=== PATIENT | female | born 1990 | race Caucasian/White ===

== ENCOUNTER 2016-11-16 23:15 | Emergency (ER) | payer OTHER, MEDICAID ==
--- NOTE | 2016-11-16 23:38 | EDM.PDOC ---
ED HPI GENERAL MEDICAL PROBLEM - General Chief Complaint: Genitourinary Problem Stated Complaint: UTI Time Seen by Provider: 11/16/16 23:35 - History of Present Illness INITIAL COMMENTS - FREE TEXT/NARRATIVE: HISTORY AND PHYSICAL: History of present illness: Patient's 26-year-old white female she thinks dysuria she was seen recently for the same and put on an antibiotic she states she still had some persistent symptoms she denies fever chills nausea vomiting back pain or other concern patient has had a history of anxiety and seen by us many times prior in the emergency department Review of systems: As per history of present illness and below otherwise all systems reviewed and negative. Past medical history: As per history of present illness and as reviewed below otherwise noncontributory. Surgical history: As per history of present illness and as reviewed below otherwise noncontributory. Social history: No reported history of drug or alcohol abuse. Family history: As per history of present illness and as reviewed below otherwise noncontributory. Physical exam: HEENT: Atraumatic, normocephalic, pupils reactive, negative for conjunctival pallor or scleral icterus, mucous membranes moist, throat clear, neck supple, nontender, trachea midline. Lungs: Clear to auscultation, breath sounds equal bilaterally, chest nontender. Heart: S1S2, regular, negative for clicks, rubs, or JVD. Abdomen: Soft, nondistended, nontender. Negative for masses or hepatosplenomegaly. Negative for costovertebral tenderness. Pelvis: Stable nontender. Genitourinary: Deferred. Rectal: Deferred. Extremities: Atraumatic, negative for cords or calf pain. Neurovascular unremarkable. Neuro: Awake, alert, oriented. Cranial nerves II through XII unremarkable. Cerebellum unremarkable. Motor and sensory unremarkable throughout. Exam nonfocal. Diagnostics: UA hCG urine C&S Therapeutics: None Impression: #1 dysuria Definitive disposition and diagnosis as appropriate pending reevaluation and review of above. - Related Data Allergies Allergy/AdvReac Type Severity Reaction Status Date / Time No Known Allergies Allergy Verified 08/03/16 22:41 Home Meds: Home Meds Albuterol Sulfate [Albuterol Sulfate HFA] 1 dose INH Q4HR 04/01/14 [History] LORazepam [Ativan] 0.5 mg PO DAILY 04/01/14 [History] metFORMIN [metFORMIN XR] 500 mg PO BIDM 05/27/14 [History] Phenazopyridine [Pyridium] 200 mg PO TID 05/02/15 [History] Albuterol [Ventolin HFA] 2 puff INH BID PRN 10/21/15 [History] Budesonide/Formoterol [Symbicort 160-4.5 Mcg Inhaler] 1 puff INH BID PRN [History] Clobetasol Propionate [Temovate] 30 gm TOP DAILY 10/21/15 [History] Fluconazole [Diflucan] 100 mg PO ASDIRECTED 10/21/15 [History] LORazepam 1 mg PO BEDTIME 10/21/15 [History] Multivitamin [Multivitamins] 1 cap PO DAILY 10/21/15 [History] Tolterodine Tartrate [Detrol LA] 4 mg PO BEDTIME 10/21/15 [History] Ketoconazole [Nizoral 2% Crm] 15 gm TOP BID 07/25/16 [History] Sertraline [Zoloft] 50 mg PO DAILY 07/25/16 [History] Venlafaxine [Effexor XR] 150 mg PO DAILY 07/25/16 [History] Past Medical History - Past Health History Medical/Surgical History: Denies Medical/Surgical History HEENT History: 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 Cardiovascular History: Reports: Other (See Below) Other Cardiovascular History: non specific chest pains Respiratory History: Reports: Asthma Gastrointestinal History: Reports: Other (See Below) Other Gastrointestinal History: non specific abd pains Genitourinary History: Reports: UTI, Recurrent, Other (See Below) Other Genitourinary History: chronic uti's, vaginal candidiasis 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 Musculoskeletal History: Reports: Back Pain, Chronic Other Musculoskeletal History: from UTI Neurological History: 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 Psychiatric History: Reports: Anxiety, Depression Endocrine/Metabolic History: Reports: Diabetes, Type II, Obesity/BMI 30+ Hematologic History: 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 Immunologic History: 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 Oncologic (Cancer) History: 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 Dermatologic History: Reports: Psoriasis Other Dermatologic History: on her scalp - Infectious Disease History Infectious Disease History: 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 - Past Surgical History HEENT Surgical History: Reports: Adenoidectomy, Oral Surgery, Tonsillectomy Social & Family History - Family History Family Medical History: Noncontributory Psychiatric: Reports: Anxiety, Depression Endocrine/Metabolic: Reports: Obesity/MBI 30+ Immunologic: Reports: HIV - Tobacco Use Smoking Status *Q: Never Smoker Years of Tobacco use: 1 Packs/Tins Daily: 0 Second Hand Smoke Exposure: No - Caffeine Use Caffeine Use: Reports: Soda Caffeine Use Comment: 1 drink/month - Alcohol Use Days Per Week of Alcohol Use: 0 - Recreational Drug Use Recreational Drug Use: No ED ROS GENERAL - Review of Systems Review Of Systems: ROS reveals no pertinent complaints other than HPI. ED EXAM, GENERAL - Physical Exam Exam: See Below (See dictation) Course - Orders/Labs/Meds Orders: Active Orders 24 hr Category Date Time Status CULTURE URINE [RM] Stat Lab 11/16/16 23:36 Uncollected HCG QUALITATIVE,URINE [URCHEM] Stat Lab 11/16/16 23:36 Uncollected UA W/MICROSCOPIC [URIN] Stat Lab 11/16/16 23:36 Uncollected Departure - Departure Time of Disposition: 23:38 Disposition: Home, Self-Care 01 Condition: good Clinical Impression: Dysuria - Discharge Information Forms: ED Department Discharge Additional Instructions: The following information is given to patients seen in the emergency department who are being discharged to home. This information is to outline your options for follow-up care. We provide all patients seen in our emergency department with a follow-up referral. The need for follow-up, as well as the timing and circumstances, are variable depending upon the specifics of your emergency department visit. If you don't have a primary care physician on staff, we will provide you with a referral. We always advise you to contact your personal physician following an emergency department visit to inform them of the circumstance of the visit and for follow-up with them and/or the need for any referrals to a consulting specialist. The emergency department will also refer you to a specialist when appropriate. This referral assures that you have the opportunity for followup care with a specialist. All of these measure are taken in an effort to provide you with optimal care, which includes your followup. Under all circumstances we always encourage you to contact your private physician who remains a resource for coordinating your care. When calling for followup care, please make the office aware that this follow-up is from your recent emergency room visit. If for any reason you are refused follow-up, please contact the [facility] emergency department at and asked to speak to the emergency department charge nurse. Continue current medications as prescribed follow up primary medical doctor one to 2 days return as needed as discussed - My Orders Last 24 Hours: My Active Orders 11/16/16 23:36 CULTURE URINE [RM] Stat HCG QUALITATIVE,URINE [URCHEM] Stat UA W/MICROSCOPIC [URIN] Stat - Assessment/Plan Last 24 Hours: My Active Orders 11/16/16 23:36 CULTURE URINE [RM] Stat HCG QUALITATIVE,URINE [URCHEM] Stat UA W/MICROSCOPIC [URIN] Stat
[2016-11-17 00:57] VITALS: BP 152/73
== END 2016-11-17 00:38 | disposition home or self-care (01) ==
LOC: MW.ED 23:15
DX: R30.0 Dysuria (principal); F41.9 Anxiety disorder, unspecified; F32.9 Major depressive disorder, single episode, unspecified; J45.909 Unspecified asthma, uncomplicated; E11.9 Type 2 diabetes mellitus without complications; L40.9 Psoriasis, unspecified; E66.9 Obesity, unspecified; Z68.30 Body mass index [BMI] 30.0-30.9, adult; Z79.84 Long term (current) use of oral hypoglycemic drugs; Z79.899 Other long term (current) drug therapy; Z90.49 Acquired absence of other specified parts of digestive tract; Z98.890 Other specified postprocedural states; Z87.440 Personal history of urinary (tract) infections
CPT/HCPCS: 81001; 81025; 87086; 99282; 99283

== ENCOUNTER 2016-11-17 20:04 | Emergency (ER) | payer OTHER, MEDICAID ==
--- NOTE | 2016-11-17 21:00 | EDM.PDOC ---
ED HPI GENERAL MEDICAL PROBLEM - General Chief Complaint: Skin Complaint Stated Complaint: UTI Time Seen by Provider: 11/17/16 20:55 Source of Information: Reports: Patient History Limitations: Reports: No Limitations - History of Present Illness INITIAL COMMENTS - FREE TEXT/NARRATIVE: History of present illness: [26-year-old female presents with primary complaints. Patient has a wound on her labia from shaving and an implant folliculitis that she is presently on antibiotics for. Thinks that she might have a UTI which she has been tested 2 consecutive days were with both outcomes being negative. And now she's saying that she is having some sort of vaginal discharge that is burning and itchy.] Review of systems: As per history of present illness and below otherwise all systems reviewed and negative. Past medical history: As per history of present illness and as reviewed below otherwise noncontributory. Surgical history: As per history of present illness and as reviewed below otherwise noncontributory. Social history: No reported history of drug or alcohol abuse. Family history: As per history of present illness and as reviewed below otherwise noncontributory. Physical exam: HEENT: Atraumatic, normocephalic, pupils reactive, negative for conjunctival pallor or scleral icterus, mucous membranes moist, throat clear, neck supple, nontender, trachea midline. Lungs: Clear to auscultation, breath sounds equal bilaterally, chest nontender. Heart: S1S2, regular, negative for clicks, rubs, or JVD. Abdomen: Soft, nondistended, nontender. Negative for masses or hepatosplenomegaly. Negative for costovertebral tenderness. Pelvis: Stable nontender. Genitourinary: Deferred. Rectal: Deferred. Extremities: Atraumatic, negative for cords or calf pain. Neurovascular unremarkable. Neuro: Awake, alert, oriented. Cranial nerves II through XII unremarkable. Cerebellum unremarkable. Motor and sensory unremarkable throughout. Exam nonfocal. Discussed with patient that it would not be unexpected to potentially have a yeast infection while on broad-spectrum antibiotic and that I would give her 2 doses of fluconazole for vaginal yeast infection. But that she needed to followup with the women's health practitioner for comprehensive pelvic exam and/ or monitoring and followup of her women's health issues. Patient also indicated she had stepped on a nail and was concerned about infection and/or tetanus. Discussed with patient the nature of the broad- spectrum antibiotic she was on would be significant and sufficient coverage for any sort of infection of the skin and skin structures. Also looked at her chart and noted that she had her tetanus updated March 2014 so she would not need one at this time. This information was shared with the patient patient's mother indicated that she recalled now the tetanus shot being more current then the daughter recalled Diagnostics: [] Therapeutics: [] Impression: [Medical screening exam] Plan: [Fluconazole 2 individual doses one for tomorrow and one for the end of antibiotic therapy.] Definitive disposition and diagnosis as appropriate pending reevaluation and review of above. Left Feet Pain Score (Numeric/FACES): 4 - Related Data Allergies Allergy/AdvReac Type Severity Reaction Status Date / Time No Known Allergies Allergy Verified 11/16/16 23:38 Home Meds: Home Meds Albuterol Sulfate [Albuterol Sulfate HFA] 1 dose INH Q4HR 04/01/14 [History] LORazepam [Ativan] 0.5 mg PO DAILY 04/01/14 [History] metFORMIN [metFORMIN XR] 500 mg PO BIDM 05/27/14 [History] Phenazopyridine [Pyridium] 200 mg PO TID 05/02/15 [History] Albuterol [Ventolin HFA] 2 puff INH BID PRN 10/21/15 [History] Budesonide/Formoterol [Symbicort 160-4.5 Mcg Inhaler] 1 puff INH BID PRN [History] Clobetasol Propionate [Temovate] 30 gm TOP DAILY 10/21/15 [History] Fluconazole [Diflucan] 100 mg PO ASDIRECTED 10/21/15 [History] LORazepam 1 mg PO BEDTIME 10/21/15 [History] Multivitamin [Multivitamins] 1 cap PO DAILY 10/21/15 [History] Tolterodine Tartrate [Detrol LA] 4 mg PO BEDTIME 10/21/15 [History] Ketoconazole [Nizoral 2% Crm] 15 gm TOP BID 07/25/16 [History] Sertraline [Zoloft] 50 mg PO DAILY 07/25/16 [History] Venlafaxine [Effexor XR] 150 mg PO DAILY 07/25/16 [History] Fluconazole [IJD: Fluconazole] 150 mg PO DAILY #2 tab 11/17/16 [Rx] Past Medical History - Past Health History Medical/Surgical History: Denies Medical/Surgical History HEENT History: 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 Cardiovascular History: Reports: Other (See Below) Other Cardiovascular History: non specific chest pains Respiratory History: Reports: Asthma Gastrointestinal History: Reports: Other (See Below) Other Gastrointestinal History: non specific abd pains Genitourinary History: Reports: UTI, Recurrent, Other (See Below) Other Genitourinary History: chronic uti's, vaginal candidiasis [employer]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 Musculoskeletal History: Reports: Back Pain, Chronic Other Musculoskeletal History: from UTI Neurological History: 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 Psychiatric History: Reports: Anxiety, Depression Endocrine/Metabolic History: Reports: Diabetes, Type II, Obesity/BMI 30+ Hematologic History: 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 Immunologic History: 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 Oncologic (Cancer) History: 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 Dermatologic History: Reports: Psoriasis Other Dermatologic History: on her scalp - Infectious Disease History Infectious Disease History: 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 - Past Surgical History Head Surgeries/Procedures: 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 HEENT Surgical History: Reports: Adenoidectomy, Oral Surgery, Tonsillectomy Social & Family History - Family History Family Medical History: Noncontributory Psychiatric: Reports: Anxiety, Depression Endocrine/Metabolic: Reports: Obesity/MBI 30+ Immunologic: Reports: HIV - Tobacco Use Smoking Status *Q: Never Smoker Years of Tobacco use: 1 Packs/Tins Daily: 0 Second Hand Smoke Exposure: No - Caffeine Use Caffeine Use: Reports: Soda Caffeine Use Comment: 1 drink/month - Alcohol Use Days Per Week of Alcohol Use: 0 - Recreational Drug Use Recreational Drug Use: No ED ROS GENERAL - Review of Systems Review Of Systems: See Below (See history of present illness) ED EXAM, SKIN/RASH Exam: See Below (History of present illness) Course - Vital Signs Last Recorded V/S: Last Vital Signs Temp 36.3 C 11/17/16 20:26 Pulse 107 H 11/17/16 20:26 Resp 18 11/17/16 20:26 BP 129/93 H 11/17/16 20:26 Pulse Ox 99 11/17/16 20:26 Departure - Departure Time of Disposition: 20:58 Disposition: Home, Self-Care 01 Condition: good Clinical Impression: Encounter for medical screening examination - Discharge Information Prescriptions: Fluconazole [IJD: Fluconazole] 150 mg PO DAILY #2 tab Forms: ED Department Discharge Additional Instructions: The following information is given to patients seen in the emergency department who are being discharged to home. This information is to outline your options for follow-up care. We provide all patients seen in our emergency department with a follow-up referral. The need for follow-up, as well as the timing and circumstances, are variable depending upon the specifics of your emergency department visit. If you don't have a primary care physician on staff, we will provide you with a referral. We always advise you to contact your personal physician following an emergency department visit to inform them of the circumstance of the visit and for follow-up with them and/or the need for any referrals to a consulting specialist. The emergency department will also refer you to a specialist when appropriate. This referral assures that you have the opportunity for follow-up care with a specialist. All of these measure are taken in an effort to provide you with optimal care, which includes your follow-up. Under all circumstances we always encourage you to contact your private physician who remains a resource for coordinating your care. When calling for follow-up care, please make the office aware that this follow-up is from your recent emergency room visit. If for any reason you are refused follow-up, please contact the [facility] Emergency Department at and asked to speak to the emergency department charge nurse. Please followup with your women's health practitioner as discussed and agreed. Is important that at your age that you have a thorough female health screening exam at that time they can evaluate any folliculitis or cellulitis caused by aggressive shaving You have been provided with fluconazole for treatment for any yeast infection sustained while taking your Levaquin Please followup as discussed call Saturday secondary to Saturday being a holiday Return to ED as needed as discussed
[2016-11-17 21:11] VITALS: BP 133/65
== END 2016-11-17 21:17 | disposition home or self-care (01) ==
LOC: MW.ED 20:04
DX: Z13.9 Encounter for screening, unspecified (principal); J45.909 Unspecified asthma, uncomplicated; F41.9 Anxiety disorder, unspecified; F32.9 Major depressive disorder, single episode, unspecified; E11.9 Type 2 diabetes mellitus without complications; E66.9 Obesity, unspecified; Z68.43 Body mass index [BMI] 50.0-59.9, adult; Z98.890 Other specified postprocedural states
CPT/HCPCS: 99282

== ENCOUNTER 2017-01-11 01:43 | Emergency (ER) | payer OTHER, MEDICAID ==
--- NOTE | 2017-01-11 02:52 | EDM.PDOC ---
ED HPI GENERAL MEDICAL PROBLEM - General Chief Complaint: Genitourinary Problem Stated Complaint: BURNING, POSSIBLE UTI Time Seen by Provider: 01/11/17 02:51 Source of Information: Reports: Patient - History of Present Illness INITIAL COMMENTS - FREE TEXT/NARRATIVE: recent dysuria and vaginal itching. perineal area Pain Score (Numeric/FACES): 9 - Related Data Allergies Allergy/AdvReac Type Severity Reaction Status Date / Time No Known Allergies Allergy Verified 01/11/17 02:11 Home Meds: Home Meds Albuterol Sulfate [Albuterol Sulfate HFA] 1 dose INH Q4HR 04/01/14 [History] LORazepam [Ativan] 0.5 mg PO DAILY 04/01/14 [History] metFORMIN [metFORMIN XR] 500 mg PO BIDM 05/27/14 [History] Phenazopyridine [Pyridium] 200 mg PO TID 05/02/15 [History] Albuterol [Ventolin HFA] 2 puff INH BID PRN 10/21/15 [History] Budesonide/Formoterol [Symbicort 160-4.5 Mcg Inhaler] 1 puff INH BID PRN [History] Clobetasol Propionate [Temovate] 30 gm TOP DAILY 10/21/15 [History] Fluconazole [Diflucan] 100 mg PO ASDIRECTED 10/21/15 [History] LORazepam 1 mg PO BEDTIME 10/21/15 [History] Multivitamin [Multivitamins] 1 cap PO DAILY 10/21/15 [History] Tolterodine Tartrate [Detrol LA] 4 mg PO BEDTIME 10/21/15 [History] Ketoconazole [Nizoral 2% Crm] 15 gm TOP BID 07/25/16 [History] Sertraline [Zoloft] 50 mg PO DAILY 07/25/16 [History] Venlafaxine [Effexor XR] 150 mg PO DAILY 07/25/16 [History] Fluconazole [IJD: Fluconazole] 150 mg PO DAILY #2 tab 11/17/16 [Rx] Past Medical History - Past Health History Medical/Surgical History: Denies Medical/Surgical History HEENT History: 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 Cardiovascular History: Reports: Other (See Below) Other Cardiovascular History: non specific chest pains Respiratory History: Reports: Asthma Gastrointestinal History: Reports: Other (See Below) Other Gastrointestinal History: non specific abd pains Genitourinary History: Reports: UTI, Recurrent, Other (See Below) Other Genitourinary History: chronic uti's, vaginal candidiasis [employer]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 Musculoskeletal History: Reports: Back Pain, Chronic Other Musculoskeletal History: from UTI Neurological History: 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 Psychiatric History: Reports: Anxiety, Depression Endocrine/Metabolic History: Reports: Diabetes, Type II, Obesity/BMI 30+ Hematologic History: 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 Immunologic History: 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 Oncologic (Cancer) History: 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 Dermatologic History: Reports: Psoriasis Other Dermatologic History: on her scalp - Infectious Disease History Infectious Disease History: 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 - Past Surgical History Head Surgeries/Procedures: 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 HEENT Surgical History: Reports: Adenoidectomy, Oral Surgery, Tonsillectomy Social & Family History - Family History Family Medical History: Noncontributory Psychiatric: Reports: Anxiety, Depression Endocrine/Metabolic: Reports: Obesity/MBI 30+ Immunologic: Reports: HIV - Tobacco Use Smoking Status *Q: Never Smoker Years of Tobacco use: 1 Packs/Tins Daily: 0 Second Hand Smoke Exposure: No - Caffeine Use Caffeine Use: Reports: Soda Caffeine Use Comment: 1 drink/month - Alcohol Use Days Per Week of Alcohol Use: 0 - Recreational Drug Use Recreational Drug Use: No ED ROS GENERAL - Review of Systems Review Of Systems: See Below Constitutional: Denies: Fever Respiratory: Denies: Shortness of Breath GI/Abdominal: Denies: Vomiting ED EXAM, RENAL/ - Physical Exam Exam: See Below Text/Narrative:: alert NAD conversant Course - Vital Signs Last Recorded V/S: Last Vital Signs Temp 97 F 01/11/17 02:05 Pulse 83 01/11/17 02:05 Resp 18 01/11/17 02:05 BP 125/79 01/11/17 02:05 Pulse Ox 95 01/11/17 02:05 - Orders/Labs/Meds Labs: Laboratory Tests 01/11/17 01/11/17 Range/Units 02:55 02:55 Urine Color YELLOW Urine Appearance CLEAR Urine pH 5.5 (5.0-8.0) Ur Specific [place] >= 1.030 (1.001-1.035) Urine Protein TRACE (NEGATIVE) mg/dL Urine Glucose (UA) NEGATIVE (NEGATIVE) mg/dL Urine Ketones TRACE H (NEGATIVE) mg/dL Urine Occult Blood MODERATE (NEGATIVE) Urine Nitrite NEGATIVE (NEGATIVE) Urine Bilirubin NEGATIVE (NEGATIVE) Urine Urobilinogen 0.2 (<2.0) EU/dL Ur Leukocyte Esterase NEGATIVE (NEGATIVE) Urine RBC 0-2 (0-2/HPF) Urine WBC 1-3 (0-5/HPF) Ur Epithelial Cells RARE (NONE-FEW) Urine Bacteria FEW (NEGATIVE) Urine Mucus LIGHT (NONE-MOD) Urine HCG, Qual NEGATIVE (NEGATIVE) Departure - Departure Time of Disposition: 03:19 Disposition: Home, Self-Care 01 Condition: Good Clinical Impression: Yeast infection of the vagina - Discharge Information Forms: ED Department Discharge, Refusal of Care AMA Additional Instructions: dilfucan 150 mg daily #3 recheck as needed.
[2017-01-11 04:20] VITALS: BP 126/78
== END 2017-01-11 03:34 | disposition home or self-care (01) ==
LOC: MW.ED 01:43
DX: B37.3 Candidiasis of vulva and vagina (principal); J45.909 Unspecified asthma, uncomplicated; F41.9 Anxiety disorder, unspecified; F32.9 Major depressive disorder, single episode, unspecified; E11.9 Type 2 diabetes mellitus without complications; E66.9 Obesity, unspecified; Z79.84 Long term (current) use of oral hypoglycemic drugs; Z87.440 Personal history of urinary (tract) infections; Z79.899 Other long term (current) drug therapy; Z98.890 Other specified postprocedural states
CPT/HCPCS: 81001; 81025; 99283

== ENCOUNTER 2017-01-26 12:26 | Emergency (ER) | payer OTHER, MEDICAID ==
[2017-01-26 12:48] VITALS: BP 136/76
--- NOTE | 2017-01-26 13:17 | EDM.PDOC ---
ED HPI GENERAL MEDICAL PROBLEM - General Chief Complaint: Genitourinary Problem Stated Complaint: URINARY PAIN Time Seen by Provider: 01/26/17 13:00 Source of Information: Reports: Patient History Limitations: Reports: No Limitations - History of Present Illness INITIAL COMMENTS - FREE TEXT/NARRATIVE: History of present illness: 26-year-old female comes in with mother complaining of yet another UTI and concerns of a yeast infection. Patient is self-medicating with yeast medicine and herbs and indicates that she did have a appointment Saturday to have this evaluated but she overslept. Review of systems: As per history of present illness and below otherwise all systems reviewed and negative. Past medical history: As per history of present illness and as reviewed below otherwise noncontributory. Surgical history: As per history of present illness and as reviewed below otherwise noncontributory. Social history: No reported history of drug or alcohol abuse. Family history: As per history of present illness and as reviewed below otherwise noncontributory. Physical exam: HEENT: Atraumatic, normocephalic, pupils reactive, negative for conjunctival pallor or scleral icterus, mucous membranes moist, throat clear, neck supple, nontender, trachea midline. Lungs: Clear to auscultation, breath sounds equal bilaterally, chest nontender. Heart: S1S2, regular, negative for clicks, rubs, or JVD. Abdomen: Soft, nondistended, nontender. Negative for masses or hepatosplenomegaly. Negative for costovertebral tenderness. Pelvis: Stable nontender. Genitourinary: Deferred. Rectal: Deferred. Extremities: Atraumatic, negative for cords or calf pain. Neurovascular unremarkable. Neuro: Awake, alert, oriented. Cranial nerves II through XII unremarkable. Cerebellum unremarkable. Motor and sensory unremarkable throughout. Exam nonfocal. Global assessment is benign save the subjective complaint as noted in the history of present illness Diagnostics: [] Therapeutics: [UA] Impression: [Bladder irritation] Plan: [follow-up with primary care Saturday as already scheduled him a follow-up with Dr. Mcgowan is also scheduled] Definitive disposition and diagnosis as appropriate pending reevaluation and review of above. Urinary Pain Score (Numeric/FACES): 10 - Related Data Allergies Allergy/AdvReac Type Severity Reaction Status Date / Time No Known Allergies Allergy Verified 01/26/17 12:42 Home Meds: Home Meds Albuterol Sulfate [Albuterol Sulfate HFA] 1 dose INH Q4HR 04/01/14 [History] LORazepam [Ativan] 0.5 mg PO DAILY 04/01/14 [History] metFORMIN [metFORMIN XR] 500 mg PO BIDM 05/27/14 [History] Phenazopyridine [Pyridium] 200 mg PO TID 05/02/15 [History] Albuterol [Ventolin HFA] 2 puff INH BID PRN 10/21/15 [History] Budesonide/Formoterol [Symbicort 160-4.5 Mcg Inhaler] 1 puff INH BID PRN [History] Clobetasol Propionate [Temovate] 30 gm TOP DAILY 10/21/15 [History] Fluconazole [Diflucan] 100 mg PO ASDIRECTED 10/21/15 [History] LORazepam 1 mg PO BEDTIME 10/21/15 [History] Multivitamin [Multivitamins] 1 cap PO DAILY 10/21/15 [History] Tolterodine Tartrate [Detrol LA] 4 mg PO BEDTIME 10/21/15 [History] Ketoconazole [Nizoral 2% Crm] 15 gm TOP BID 07/25/16 [History] Sertraline [Zoloft] 50 mg PO DAILY 07/25/16 [History] Venlafaxine [Effexor XR] 150 mg PO DAILY 07/25/16 [History] Fluconazole [IJD: Fluconazole] 150 mg PO DAILY #2 tab 11/17/16 [Rx] Past Medical History - Past Health History Medical/Surgical History: Denies Medical/Surgical History HEENT History: 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 Cardiovascular History: Reports: Other (See Below) Other Cardiovascular History: non specific chest pains Respiratory History: Reports: Asthma Gastrointestinal History: Reports: Other (See Below) Other Gastrointestinal History: non specific abd pains Genitourinary History: Reports: UTI, Recurrent, Other (See Below) Other Genitourinary History: chronic uti's, vaginal candidiasis 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 Musculoskeletal History: Reports: Back Pain, Chronic Other Musculoskeletal History: from UTI Neurological History: 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 Psychiatric History: Reports: Anxiety, Depression Endocrine/Metabolic History: Reports: Diabetes, Type II, Obesity/BMI 30+ Hematologic History: 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 Immunologic History: 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 Oncologic (Cancer) History: 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 Dermatologic History: Reports: Psoriasis Other Dermatologic History: on her scalp - Infectious Disease History Infectious Disease History: 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 - Past Surgical History Head Surgeries/Procedures: 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 HEENT Surgical History: Reports: Adenoidectomy, Oral Surgery, Tonsillectomy Respiratory Surgical History: 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 Social & Family History - Family History Family Medical History: Noncontributory Psychiatric: Reports: Anxiety, Depression Endocrine/Metabolic: Reports: Obesity/MBI 30+ Immunologic: Reports: HIV - Tobacco Use Smoking Status *Q: Never Smoker Years of Tobacco use: 1 Packs/Tins Daily: 0 Second Hand Smoke Exposure: No - Caffeine Use Caffeine Use: 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 Caffeine Use Comment: 1 drink/month - Alcohol Use Days Per Week of Alcohol Use: 0 - Recreational Drug Use Recreational Drug Use: No ED ROS GENERAL - Review of Systems Review Of Systems: See Below (See history of present illness) ED EXAM, RENAL/ - Physical Exam Exam: See Below (The history of present illness) Course - Vital Signs Last Recorded V/S: Last Vital Signs Temp 36.5 C 01/26/17 12:44 Pulse 97 01/26/17 12:44 Resp 16 01/26/17 12:44 BP 136/76 01/26/17 12:44 Pulse Ox 96 01/26/17 12:44 - Orders/Labs/Meds Labs: Laboratory Tests 01/26/17 01/26/17 Range/Units 12:50 12:50 Urine Color YELLOW Urine Appearance CLEAR Urine pH 6.0 (5.0-8.0) Ur Specific [place] 1.020 (1.001-1.035) Urine Protein NEGATIVE (NEGATIVE) mg/dL Urine Glucose (UA) >=1000 (NEGATIVE) mg/dL Urine Ketones NEGATIVE (NEGATIVE) mg/dL Urine Occult Blood NEGATIVE (NEGATIVE) Urine Nitrite NEGATIVE (NEGATIVE) Urine Bilirubin NEGATIVE (NEGATIVE) Urine Urobilinogen 0.2 (<2.0) EU/dL Ur Leukocyte Esterase NEGATIVE (NEGATIVE) Urine RBC 0-1 (0-2/HPF) Urine WBC 0-1 (0-5/HPF) Ur Epithelial Cells MODERATE (NONE-FEW) Amorphous Sediment MODERATE (NEGATIVE) Urine Bacteria FEW (NEGATIVE) Urine HCG, Qual NEGATIVE (NEGATIVE) Departure - Departure Time of Disposition: 13:33 Disposition: Home, Self-Care 01 Condition: Good Clinical Impression: Cystitis - Discharge Information Forms: ED Department Discharge Additional Instructions: The following information is given to patients seen in the emergency department who are being discharged to home. This information is to outline your options for follow-up care. We provide all patients seen in our emergency department with a follow-up referral. The need for follow-up, as well as the timing and circumstances, are variable depending upon the specifics of your emergency department visit. If you don't have a primary care physician on staff, we will provide you with a referral. We always advise you to contact your personal physician following an emergency department visit to inform them of the circumstance of the visit and for follow-up with them and/or the need for any referrals to a consulting specialist. The emergency department will also refer you to a specialist when appropriate. This referral assures that you have the opportunity for follow-up care with a specialist. All of these measure are taken in an effort to provide you with optimal care, which includes your follow-up. Under all circumstances we always encourage you to contact your private physician who remains a resource for coordinating your care. When calling for follow-up care, please make the office aware that this follow-up is from your recent emergency room visit. If for any reason you are refused follow-up, please contact the [facility] Emergency Department at and asked to speak to the emergency department charge nurse. Follow-up Saturday as scheduled Follow-up with Dr. Mcgowan is scheduled Return to ER only in cases of emergencies as discussed
== END 2017-01-26 13:50 | disposition home or self-care (01) ==
LOC: MW.ED 12:26
DX: N30.90 Cystitis, unspecified without hematuria (principal); N32.89 Other specified disorders of bladder; J45.909 Unspecified asthma, uncomplicated; F41.9 Anxiety disorder, unspecified; F32.9 Major depressive disorder, single episode, unspecified; E11.9 Type 2 diabetes mellitus without complications; E66.9 Obesity, unspecified; Z98.890 Other specified postprocedural states; Z79.84 Long term (current) use of oral hypoglycemic drugs; Z87.440 Personal history of urinary (tract) infections; Z79.899 Other long term (current) drug therapy; Z68.43 Body mass index [BMI] 50.0-59.9, adult
CPT/HCPCS: 81001; 81025; 99283

== ENCOUNTER 2017-02-17 00:21 | Emergency (ER) | payer OTHER, MEDICAID ==
--- NOTE | 2017-02-17 00:51 | EDM.PDOC ---
ED HPI GENERAL MEDICAL PROBLEM - General Chief Complaint: General Stated Complaint: SICK WITH COLD Time Seen by Provider: 02/17/17 00:30 - History of Present Illness INITIAL COMMENTS - FREE TEXT/NARRATIVE: HISTORY AND PHYSICAL: History of present illness: Patient's 26-year-old white female presents with concern of sinus pain and congestion and a mild nonproductive cough. No fever chills nausea vomiting or other complaints Review of systems: As per history of present illness and below otherwise all systems reviewed and negative. Past medical history: As per history of present illness and as reviewed below otherwise noncontributory. Surgical history: As per history of present illness and as reviewed below otherwise noncontributory. Social history: No reported history of drug or alcohol abuse. Family history: As per history of present illness and as reviewed below otherwise noncontributory. Physical exam: HEENT: Atraumatic, normocephalic, pupils reactive, negative for conjunctival pallor or scleral icterus, mucous membranes moist, throat clear, neck supple, nontender, trachea midline. Lungs: Clear to auscultation, breath sounds equal bilaterally, chest nontender. Heart: S1S2, regular, negative for clicks, rubs, or JVD. Abdomen: Soft, nondistended, nontender. Negative for masses or hepatosplenomegaly. Negative for costovertebral tenderness. Pelvis: Stable nontender. Genitourinary: Deferred. Rectal: Deferred. Extremities: Atraumatic, negative for cords or calf pain. Neurovascular unremarkable. Neuro: Awake, alert, oriented. Cranial nerves II through XII unremarkable. Cerebellum unremarkable. Motor and sensory unremarkable throughout. Exam nonfocal. Diagnostics: Chest x-ray Therapeutics: None Impression: #1 sinusitis #2 pneumonitis Definitive disposition and diagnosis as appropriate pending reevaluation and review of above. - Related Data Allergies Allergy/AdvReac Type Severity Reaction Status Date / Time No Known Allergies Allergy Verified 01/26/17 12:42 Home Meds: Home Meds Albuterol Sulfate [Albuterol Sulfate HFA] 1 dose INH Q4HR 04/01/14 [History] LORazepam [Ativan] 0.5 mg PO DAILY 04/01/14 [History] metFORMIN [metFORMIN XR] 500 mg PO BIDM 05/27/14 [History] Phenazopyridine [Pyridium] 200 mg PO TID 05/02/15 [History] Albuterol [Ventolin HFA] 2 puff INH BID PRN 10/21/15 [History] Budesonide/Formoterol [Symbicort 160-4.5 Mcg Inhaler] 1 puff INH BID PRN [History] Clobetasol Propionate [Temovate] 30 gm TOP DAILY 10/21/15 [History] Fluconazole [Diflucan] 100 mg PO ASDIRECTED 10/21/15 [History] LORazepam 1 mg PO BEDTIME 10/21/15 [History] Multivitamin [Multivitamins] 1 cap PO DAILY 10/21/15 [History] Tolterodine Tartrate [Detrol LA] 4 mg PO BEDTIME 10/21/15 [History] Ketoconazole [Nizoral 2% Crm] 15 gm TOP BID 07/25/16 [History] Sertraline [Zoloft] 50 mg PO DAILY 07/25/16 [History] Venlafaxine [Effexor XR] 150 mg PO DAILY 07/25/16 [History] Fluconazole [IJD: Fluconazole] 150 mg PO DAILY #2 tab 11/17/16 [Rx] Past Medical History - Past Health History Medical/Surgical History: Denies Medical/Surgical History HEENT History: 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 Cardiovascular History: Reports: Other (See Below) Other Cardiovascular History: non specific chest pains Respiratory History: Reports: Asthma Gastrointestinal History: Reports: Other (See Below) Other Gastrointestinal History: non specific abd pains Genitourinary History: Reports: UTI, Recurrent, Other (See Below) Other Genitourinary History: chronic uti's, vaginal candidiasis 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 Musculoskeletal History: Reports: Back Pain, Chronic Other Musculoskeletal History: from UTI Neurological History: 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 Psychiatric History: Reports: Anxiety, Depression Endocrine/Metabolic History: Reports: Diabetes, Type II, Obesity/BMI 30+ Hematologic History: 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 Immunologic History: 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 Oncologic (Cancer) History: 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 Dermatologic History: Reports: Psoriasis Other Dermatologic History: on her scalp - Infectious Disease History Infectious Disease History: 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 - Past Surgical History Head Surgeries/Procedures: 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 HEENT Surgical History: Reports: Adenoidectomy, Oral Surgery, Tonsillectomy Respiratory Surgical History: 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 Social & Family History - Family History Family Medical History: Noncontributory Psychiatric: Reports: Anxiety, Depression Endocrine/Metabolic: Reports: Obesity/MBI 30+ Immunologic: Reports: HIV - Tobacco Use Smoking Status *Q: Never Smoker Years of Tobacco use: 1 Packs/Tins Daily: 0 Second Hand Smoke Exposure: No - Caffeine Use Caffeine Use: 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 Caffeine Use Comment: 1 drink/month - Alcohol Use Days Per Week of Alcohol Use: 0 - Recreational Drug Use Recreational Drug Use: No ED ROS GENERAL - Review of Systems Review Of Systems: ROS reveals no pertinent complaints other than HPI. ED EXAM, GENERAL - Physical Exam Exam: See Below (See dictation) Course - Orders/Labs/Meds Orders: Active Orders 24 hr Category Date Time Status Chest 2V [CR] Stat Exams 02/17/17 00:31 Ordered Departure - Departure Time of Disposition: 00:50 Disposition: Home, Self-Care 01 Condition: Good Clinical Impression: Sinusitis, Pneumonitis - Discharge Information Referrals: Sloan Ordonez MD [Primary Care Provider] - Additional Instructions: The following information is given to patients seen in the emergency department who are being discharged to home. This information is to outline your options for follow-up care. We provide all patients seen in our emergency department with a follow-up referral. The need for follow-up, as well as the timing and circumstances, are variable depending upon the specifics of your emergency department visit. If you don't have a primary care physician on staff, we will provide you with a referral. We always advise you to contact your personal physician following an emergency department visit to inform them of the circumstance of the visit and for follow-up with them and/or the need for any referrals to a consulting specialist. The emergency department will also refer you to a specialist when appropriate. This referral assures that you have the opportunity for followup care with a specialist. All of these measure are taken in an effort to provide you with optimal care, which includes your followup. Under all circumstances we always encourage you to contact your private physician who remains a resource for coordinating your care. When calling for followup care, please make the office aware that this follow-up is from your recent emergency room visit. If for any reason you are refused follow-up, please contact the [facility] emergency department at and asked to speak to the emergency department charge nurse. Linda-Ron as prescribed Motrin Tylenol as directed follow up primary medical doctor 1-2 days return as needed as discussed - My Orders Last 24 Hours: My Active Orders 02/17/17 00:31 Chest 2V [CR] Stat - Assessment/Plan Last 24 Hours: My Active Orders 02/17/17 00:31 Chest 2V [CR] Stat
[2017-02-17 02:26] VITALS: BP 143/95
--- NOTE | 2017-02-18 13:07 | CR ---
EXAM DATE: 02/17/17 PATIENT'S AGE: 26 Patient: BRENDA MCGOVERN Facility: [place], [place] Site . Site : 1990 Study: XRay Chest [id number]/[id number] 12:52:28 AM Ordering Physician: Margartia Carson Final Report: INDICATION: Cough. SOB. Cold. TECHNIQUE: PA and lateral. COMPARISON: AP chest of 04/01/2016. FINDINGS: Lungs and pleural spaces clear. Heart size and pulmonary vasculature within normal limits. No significant osseous abnormality. IMPRESSION: Negative chest. Dictated by Uday Snider MD @ Feb 17 2017 1:45AM (Electronic Signature) Report Signed by Proxy. KALINA
== END 2017-02-17 02:06 | disposition home or self-care (01) ==
LOC: MW.ED 00:21
DX: J18.9 Pneumonia, unspecified organism (principal); J32.9 Chronic sinusitis, unspecified; J45.909 Unspecified asthma, uncomplicated; Z87.440 Personal history of urinary (tract) infections; E66.9 Obesity, unspecified; F32.9 Major depressive disorder, single episode, unspecified; F41.9 Anxiety disorder, unspecified; E11.9 Type 2 diabetes mellitus without complications; Z79.84 Long term (current) use of oral hypoglycemic drugs; Z79.899 Other long term (current) drug therapy; Z98.890 Other specified postprocedural states
CPT/HCPCS: 71020; 71020-26; 99284

== ENCOUNTER 2017-04-28 11:42 | Emergency (ER) | payer OTHER, MEDICAID ==
--- NOTE | 2017-04-28 12:08 | EDM.PDOC ---
ED HPI GENERAL MEDICAL PROBLEM - General Chief Complaint: Genitourinary Problem Stated Complaint: URINARY ISSUES Time Seen by Provider: 04/28/17 12:05 Source of Information: Reports: Patient History Limitations: Reports: No Limitations - History of Present Illness INITIAL COMMENTS - FREE TEXT/NARRATIVE: HISTORY AND PHYSICAL: History of present illness: [Patient comes to the emergency room complaining of burning with urination. She has a long-standing history of UTIs and is well-known to this emergency department for this complaint. She has seen her PCP repeatedly in the past month or UTI type symptoms and has been treated with 2 separate antibiotics. Apparently the culture always shows mixed tea and is unable to determine the bacteria causing the infection. Her symptoms of burning with urination have not resolved after these 2 separate antibiotics one of which she continues to take. She cannot remember the name of this medication. No fever or chills. No abdominal pain or low back pain. No nausea or vomiting.] Review of systems: As per history of present illness and below otherwise all systems reviewed and negative. Past medical history: As per history of present illness and as reviewed below otherwise noncontributory. Surgical history: As per history of present illness and as reviewed below otherwise noncontributory. Social history: No reported history of drug or alcohol abuse. Family history: As per history of present illness and as reviewed below otherwise noncontributory. Physical exam: HEENT: Atraumatic, normocephalic. Abdomen: Soft, nondistended, nontender. Negative for masses guarding or rebound. Negative for costovertebral tenderness. Pelvis: Stable nontender. Genitourinary: Deferred. Rectal: Deferred. Extremities: Atraumatic. No cyanosis or edema. Neurovascular unremarkable. Neuro: Awake, alert, oriented. Motor and sensory unremarkable throughout. Exam nonfocal. Diagnostics: [UA with culture] Therapeutics: [Rocephin] Impression: [UTI] Plan: [UA is positive for nitrates otherwise negative.. Rocephin 1 g IM given in ER. Culture pending .Patient discharged home with recommendation to follow-up with her PCP.] Definitive disposition and diagnosis as appropriate pending reevaluation and review of above. Pelvic Pain Score (Numeric/FACES): 10 - Related Data Allergies Allergy/AdvReac Type Severity Reaction Status Date / Time No Known Allergies Allergy Verified 04/28/17 11:57 Home Meds: Home Meds Albuterol Sulfate [Albuterol Sulfate HFA] 1 dose INH Q4HR 04/01/14 [History] LORazepam [Ativan] 0.5 mg PO DAILY 04/01/14 [History] metFORMIN [metFORMIN XR] 500 mg PO BIDM 05/27/14 [History] Phenazopyridine [Pyridium] 200 mg PO TID 05/02/15 [History] Albuterol [Ventolin HFA] 2 puff INH BID PRN 10/21/15 [History] Budesonide/Formoterol [Symbicort 160-4.5 Mcg Inhaler] 1 puff INH BID PRN [History] Clobetasol Propionate [Temovate] 30 gm TOP DAILY 10/21/15 [History] Fluconazole [Diflucan] 100 mg PO ASDIRECTED 10/21/15 [History] LORazepam 1 mg PO BEDTIME 10/21/15 [History] Multivitamin [Multivitamins] 1 cap PO DAILY 10/21/15 [History] Tolterodine Tartrate [Detrol LA] 4 mg PO BEDTIME 10/21/15 [History] Ketoconazole [Nizoral 2% Crm] 15 gm TOP BID 07/25/16 [History] Sertraline [Zoloft] 50 mg PO DAILY 07/25/16 [History] Venlafaxine [Effexor XR] 150 mg PO DAILY 07/25/16 [History] Fluconazole [IJD: Fluconazole] 150 mg PO DAILY #2 tab 11/17/16 [Rx] Past Medical History - Past Health History Medical/Surgical History: Denies Medical/Surgical History HEENT History: 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 Cardiovascular History: Reports: Other (See Below) Other Cardiovascular History: non specific chest pains Respiratory History: Reports: Asthma Gastrointestinal History: Reports: Other (See Below) Other Gastrointestinal History: non specific abd pains Genitourinary History: Reports: UTI, Recurrent, Other (See Below) Other Genitourinary History: chronic uti's, vaginal candidiasis 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: 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 Musculoskeletal History: Reports: Back Pain, Chronic Other Musculoskeletal History: from UTI Neurological History: 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 Psychiatric History: Reports: Anxiety, Depression Endocrine/Metabolic History: Reports: Diabetes, Type II, Obesity/BMI 30+ Hematologic History: 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 Immunologic History: 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 Oncologic (Cancer) History: 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 Dermatologic History: Reports: Psoriasis Other Dermatologic History: on her scalp - Infectious Disease History Infectious Disease History: 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 - Past Surgical History Head Surgeries/Procedures: 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 HEENT Surgical History: Reports: Adenoidectomy, Oral Surgery, Tonsillectomy Respiratory Surgical History: 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 Social & Family History - Family History Family Medical History: Noncontributory Psychiatric: Reports: Anxiety, Depression Endocrine/Metabolic: Reports: Obesity/MBI 30+ Immunologic: Reports: HIV - Tobacco Use Smoking Status *Q: Never Smoker Years of Tobacco use: 1 Packs/Tins Daily: 0 Second Hand Smoke Exposure: No - Caffeine Use Caffeine Use: 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 Caffeine Use Comment: 1 drink/month - Alcohol Use Days Per Week of Alcohol Use: 0 - Recreational Drug Use Recreational Drug Use: No ED ROS GENERAL - Review of Systems Review Of Systems: ROS reveals no pertinent complaints other than HPI. ED EXAM, RENAL/ - Physical Exam Exam: See Below Course - Vital Signs Last Recorded V/S: Last Vital Signs Temp 99.0 F 04/28/17 11:55 Pulse 80 04/28/17 14:17 Resp 14 04/28/17 14:17 BP 118/80 04/28/17 14:17 Pulse Ox 93 L 04/28/17 14:17 - Orders/Labs/Meds Orders: Active Orders 24 hr Category Date Time Status CULTURE URINE [RM] Stat Lab 04/28/17 13:00 Received Labs: Laboratory Tests 04/28/17 04/28/17 04/28/17 Range/Units 12:50 12:50 13:00 WBC 9.18 (4.0-11.0) K/uL RBC 5.03 (4.30-5.90) M/uL Hgb 14.2 (12.0-16.0) g/dL Hct 42.8 (36.0-46.0) % MCV 85.1 (80.0-98.0) fL MCH 28.2 (27.0-32.0) pg MCHC 33.2 (31.0-37.0) g/dL RDW Std Deviation 42.6 (28.0-62.0) fl RDW Coeff of Nicky 14 (11.0-15.0) % Plt Count 245 (150-400) K/uL MPV 9.90 (7.40-12.00) fL Neut % (Auto) 51.2 (48.0-80.0) % Lymph % (Auto) 39.7 (16.0-40.0) % [place] % (Auto) 5.8 (0.0-15.0) % Eos % (Auto) 2.5 (0.0-7.0) % Baso % (Auto) 0.8 (0.0-1.5) % Neut # (Auto) 4.7 (1.4-5.7) K/uL Lymph # (Auto) 3.6 H (0.6-2.4) K/uL [place] # (Auto) 0.5 (0.0-0.8) K/uL Eos # (Auto) 0.2 (0.0-0.7) K/uL Baso # (Auto) 0.1 (0.0-0.1) K/uL Nucleated RBC % 0.0 /100WBC Nucleated RBCs # 0 K/uL Sodium 139 (136-146) mmol/L Potassium 4.4 (3.5-5.1) mmol/L Chloride 109 (98-110) mmol/L Carbon Dioxide 20 L (21-31) mmol/L BUN 11 (6.0-23.0) mg/dL Creatinine 0.5 L (0.6-1.5) mg/dL Est Cr Clr Drug Dosing 149.82 mL/min Estimated GFR (MDRD) > 60.0 ml/min Glucose 119 H (60-110) mg/dL Calcium 8.6 L (8.8-10.8) mg/dL Total Bilirubin 0.5 (0.1-1.5) mg/dL AST 18 (5-40) IU/L ALT 16 (8-54) IU/L Alkaline Phosphatase 73 (40-150) Total Protein 5.9 L (6.0-8.0) g/dL Albumin 3.4 L (3.5-5.0) g/dL Globulin 2.5 (2.0-3.5) g/dL Albumin/Globulin Ratio 1.4 (1.3-2.8) Urine Color YELLOW Urine Appearance CLEAR Urine pH 6.0 (5.0-8.0) Ur Specific [place] >= 1.030 (1.001-1.035) Urine Protein NEGATIVE (NEGATIVE) mg/dL Urine Glucose (UA) NEGATIVE (NEGATIVE) mg/dL Urine Ketones NEGATIVE (NEGATIVE) mg/dL Urine Occult Blood NEGATIVE (NEGATIVE) Urine Nitrite POSITIVE H (NEGATIVE) Urine Bilirubin NEGATIVE (NEGATIVE) Urine Urobilinogen 0.2 (<2.0) EU/dL Ur Leukocyte Esterase NEGATIVE (NEGATIVE) Urine RBC 0-2 (0-2/HPF) Urine WBC 0-2 (0-5/HPF) Ur Epithelial Cells FEW (NONE-FEW) Urine Bacteria FEW (NEGATIVE) Urine Mucus MODERATE (NONE-MOD) Meds: Medications Discontinued Medications Generic Name Dose Route Start Last Admin Trade Name Freq PRN Reason Stop Dose Admin Ceftriaxone Sodium 1,000 mg/ 4 mls @ 4 mls/sec 04/28/17 13:50 04/28/17 14:09 Lidocaine HCl IM 04/28/17 13:51 4 mls/sec ONETIME ONE Administration Departure - Departure Time of Disposition: 13:55 Disposition: Home, Self-Care 01 Condition: Good Clinical Impression: UTI (urinary tract infection) - Discharge Information Instructions: Urinary Tract Infection, Adult Referrals: Sloan Ordonez MD [Primary Care Provider] - Forms: ED Department Discharge Additional Instructions: The following information is given to patients seen in the emergency department who are being discharged to home. This information is to outline your options for follow-up care. We provide all patients seen in our emergency department with a follow-up referral. The need for follow-up, as well as the timing and circumstances, are variable depending upon the specifics of your emergency department visit. If you don't have a primary care physician on staff, we will provide you with a referral. We always advise you to contact your personal physician following an emergency department visit to inform them of the circumstance of the visit and for follow-up with them and/or the need for any referrals to a consulting specialist. The emergency department will also refer you to a specialist when appropriate. This referral assures that you have the opportunity for follow-up care with a specialist. All of these measure are taken in an effort to provide you with optimal care, which includes your follow-up. Under all circumstances we always encourage you to contact your private physician who remains a resource for coordinating your care. When calling for follow-up care, please make the office aware that this follow-up is from your recent emergency room visit. If for any reason you are refused follow-up, please contact the [facility] emergency department at and asked to speak to the emergency department charge nurse. [address] [address] Follow-up with your primary care provider at the clinic listed above in 2-3 days. Continue all medications as prescribed. Return to ER as needed as discussed. - My Orders Last 24 Hours: My Active Orders 04/28/17 13:00 CULTURE URINE [RM] Stat - Assessment/Plan Last 24 Hours: My Active Orders 04/28/17 13:00 CULTURE URINE [RM] Stat
[2017-04-28 13:26] LABS: CHLORIDE,CL 109 mmol/L (98-110); SODIUM,NA 139 mmol/L (136-146)
[2017-04-28] MEDS ORDERED: cefTRIAXone 1,000 MG in Lidocaine 1% 4 ML IM ONE (13:50)
[2017-04-28 14:18] VITALS: BP 118/80
== END 2017-04-28 14:18 | disposition home or self-care (01) ==
LOC: MW.ED 11:42
DX: N39.0 Urinary tract infection, site not specified (principal); E11.9 Type 2 diabetes mellitus without complications; Z79.84 Long term (current) use of oral hypoglycemic drugs; Z79.899 Other long term (current) drug therapy
CPT/HCPCS: 36415; 80053; 81001; 85025; 87086; 96372; 99283; J0696

== ENCOUNTER 2017-05-05 19:52 | Emergency (ER) | payer OTHER, MEDICAID ==
[2017-05-05 20:29] VITALS: BP 121/75
--- NOTE | 2017-05-05 20:50 | EDM.PDOC ---
ED HPI GENERAL MEDICAL PROBLEM - General Chief Complaint: Genitourinary Problem Stated Complaint: BLADDER INFECTION Time Seen by Provider: 05/05/17 20:30 Source of Information: Reports: Patient History Limitations: Reports: No Limitations - History of Present Illness INITIAL COMMENTS - FREE TEXT/NARRATIVE: History of present illness: [26-year-old female presenting with complaints of bladder infection. Patient has just had a full regimen of antibiotics for her most recent bladder infection and in fact completed the last dose today. Patient indicates that her symptoms have not resolved and she feels that the UTIs unabated. There was a lengthy discussion with patient and with her chronicity of UTIs and the thought that she had it once been seeing the urologist for potential interstitial cystitis patient indicated that she didn't recall that but that she was told that they would treat the bladder infections as they came.] Review of systems: As per history of present illness and below otherwise all systems reviewed and negative. Past medical history: As per history of present illness and as reviewed below otherwise noncontributory. Surgical history: As per history of present illness and as reviewed below otherwise noncontributory. Social history: No reported history of drug or alcohol abuse. Family history: As per history of present illness and as reviewed below otherwise noncontributory. Physical exam: HEENT: Atraumatic, normocephalic, pupils reactive, negative for conjunctival pallor or scleral icterus, mucous membranes moist, throat clear, neck supple, nontender, trachea midline. Lungs: Clear to auscultation, breath sounds equal bilaterally, chest nontender. Heart: S1S2, regular, negative for clicks, rubs, or JVD. Abdomen: Soft, nondistended, nontender. Negative for masses or hepatosplenomegaly. Negative for costovertebral tenderness. Pelvis: Stable nontender. Genitourinary: Deferred. Rectal: Deferred. Extremities: Atraumatic, negative for cords or calf pain. Neurovascular unremarkable. Neuro: Awake, alert, oriented. Cranial nerves II through XII unremarkable. Cerebellum unremarkable. Motor and sensory unremarkable throughout. Exam nonfocal. Patient is a pleasant cooperative albeit low functioning woman who is known well to this ER for frequent visits of varying concerns and agrees many focused around her perceived urogenital complaints. Diagnostics: [UA] Therapeutics: [] Impression: [Urinary air irritation versus interstitial cystitis] Plan: [Urology] Definitive disposition and diagnosis as appropriate pending reevaluation and review of above. Bladder Pain Score (Numeric/FACES): 10 Perineal Area Pain Score (Numeric/FACES): 10 - Related Data Allergies Allergy/AdvReac Type Severity Reaction Status Date / Time No Known Allergies Allergy Verified 05/05/17 20:29 Home Meds: Home Meds Albuterol Sulfate [Albuterol Sulfate HFA] 1 dose INH Q4HR 04/01/14 [History] LORazepam [Ativan] 0.5 mg PO DAILY 04/01/14 [History] metFORMIN [metFORMIN XR] 500 mg PO BIDM 05/27/14 [History] Phenazopyridine [Pyridium] 200 mg PO TID 05/02/15 [History] Albuterol [Ventolin HFA] 2 puff INH BID PRN 10/21/15 [History] Budesonide/Formoterol [Symbicort 160-4.5 Mcg Inhaler] 1 puff INH BID PRN [History] Clobetasol Propionate [Temovate] 30 gm TOP DAILY 10/21/15 [History] Fluconazole [Diflucan] 100 mg PO ASDIRECTED 10/21/15 [History] LORazepam 1 mg PO BEDTIME 10/21/15 [History] Multivitamin [Multivitamins] 1 cap PO DAILY 10/21/15 [History] Tolterodine Tartrate [Detrol LA] 4 mg PO BEDTIME 10/21/15 [History] Ketoconazole [Nizoral 2% Crm] 15 gm TOP BID 07/25/16 [History] Sertraline [Zoloft] 50 mg PO DAILY 07/25/16 [History] Venlafaxine [Effexor XR] 150 mg PO DAILY 07/25/16 [History] Fluconazole [IJD: Fluconazole] 150 mg PO DAILY #2 tab 11/17/16 [Rx] Cephalexin [Keflex] 500 mg PO QID #40 capsule 05/05/17 [Rx] Past Medical History - Past Health History Medical/Surgical History: Denies Medical/Surgical History HEENT History: 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 Cardiovascular History: Reports: Other (See Below) Other Cardiovascular History: non specific chest pains Respiratory History: Reports: Asthma Gastrointestinal History: Reports: Other (See Below) Other Gastrointestinal History: non specific abd pains Genitourinary History: Reports: UTI, Recurrent, Other (See Below) Other Genitourinary History: chronic uti's, vaginal candidiasis 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 Musculoskeletal History: Reports: Back Pain, Chronic Other Musculoskeletal History: from UTI Neurological History: 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 Psychiatric History: Reports: Anxiety, Depression Endocrine/Metabolic History: Reports: Diabetes, Type II, Obesity/BMI 30+ Hematologic History: 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 Immunologic History: 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 Oncologic (Cancer) History: 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 Dermatologic History: Reports: Psoriasis Other Dermatologic History: on her scalp - Infectious Disease History Infectious Disease History: 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 - Past Surgical History Head Surgeries/Procedures: 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 HEENT Surgical History: Reports: Adenoidectomy, Oral Surgery, Tonsillectomy Respiratory Surgical History: 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 Social & Family History - Family History Family Medical History: Noncontributory Psychiatric: Reports: Anxiety, Depression Endocrine/Metabolic: Reports: Obesity/MBI 30+ Immunologic: Reports: HIV - Tobacco Use Smoking Status *Q: Never Smoker Years of Tobacco use: 1 Packs/Tins Daily: 0 Second Hand Smoke Exposure: No - Caffeine Use Caffeine Use: 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 Caffeine Use Comment: 1 drink/month - Alcohol Use Days Per Week of Alcohol Use: 0 - Recreational Drug Use Recreational Drug Use: No ED ROS GENERAL - Review of Systems Review Of Systems: See Below (History of present illness) ED EXAM, GENERAL - Physical Exam Exam: See Below (See history of present illness) Course - Vital Signs Last Recorded V/S: Last Vital Signs Temp 36.9 C 05/05/17 20:26 Pulse 96 05/05/17 20:26 Resp 20 05/05/17 20:26 BP 121/75 05/05/17 20:26 Pulse Ox 95 05/05/17 20:26 - Orders/Labs/Meds Labs: Laboratory Tests 05/05/17 05/05/17 05/05/17 Range/Units 20:48 21:35 21:35 WBC 8.17 (4.0-11.0) K/uL RBC 4.78 (4.30-5.90) M/uL Hgb 13.4 (12.0-16.0) g/dL Hct 40.5 (36.0-46.0) % MCV 84.7 (80.0-98.0) fL MCH 28.0 (27.0-32.0) pg MCHC 33.1 (31.0-37.0) g/dL RDW Std Deviation 42.0 (28.0-62.0) fl RDW Coeff of Nicky 14 (11.0-15.0) % Plt Count 283 (150-400) K/uL MPV 9.60 (7.40-12.00) fL Neut % (Auto) 48.2 (48.0-80.0) % Lymph % (Auto) 44.1 H (16.0-40.0) % [place] % (Auto) 4.5 (0.0-15.0) % Eos % (Auto) 2.8 (0.0-7.0) % Baso % (Auto) 0.4 (0.0-1.5) % Neut # (Auto) 3.9 (1.4-5.7) K/uL Lymph # (Auto) 3.6 H (0.6-2.4) K/uL [place] # (Auto) 0.4 (0.0-0.8) K/uL Eos # (Auto) 0.2 (0.0-0.7) K/uL Baso # (Auto) 0.0 (0.0-0.1) K/uL Nucleated RBC % 0.0 /100WBC Nucleated RBCs # 0 K/uL Sodium 139 (136-146) mmol/L Potassium 4.0 (3.5-5.1) mmol/L Chloride 107 (98-110) mmol/L Carbon Dioxide 22 (21-31) mmol/L BUN 11 (6.0-23.0) mg/dL Creatinine 0.6 (0.6-1.5) mg/dL Est Cr Clr Drug Dosing 124.85 mL/min Estimated GFR (MDRD) > 60.0 ml/min Glucose 144 H (60-110) mg/dL Hemoglobin A1c (0.0-6.0) % Calcium 9.3 (8.8-10.8) mg/dL Total Bilirubin 0.4 (0.1-1.5) mg/dL AST 9 (5-40) IU/L ALT 14 (8-54) IU/L Alkaline Phosphatase 71 (40-150) B-Natriuretic Peptide (<100) PG/ML Total Protein 6.2 (6.0-8.0) g/dL Albumin 3.5 (3.5-5.0) g/dL Globulin 2.7 (2.0-3.5) g/dL Albumin/Globulin Ratio 1.3 (1.3-2.8) Urine Color ORANGE Urine Appearance CLEAR Urine pH 5.5 (5.0-8.0) Ur Specific [place] 1.025 (1.001-1.035) Urine Protein 30 (NEGATIVE) mg/dL Urine Glucose (UA) 100 H (NEGATIVE) mg/dL Urine Ketones NEGATIVE (NEGATIVE) mg/dL Urine Occult Blood NEGATIVE (NEGATIVE) Urine Nitrite POSITIVE H (NEGATIVE) Urine Bilirubin SMALL H (NEGATIVE) Urine Ictotest POSITIVE Urine Urobilinogen 4.0 H (<2.0) EU/dL Ur Leukocyte Esterase TRACE (NEGATIVE) Urine RBC 0-2 (0-2/HPF) Urine WBC 1-3 (0-5/HPF) Ur Epithelial Cells FEW (NONE-FEW) Urine Bacteria FEW (NEGATIVE) Urine Mucus FEW (NONE-MOD) 05/05/17 05/05/17 Range/Units 21:35 21:35 WBC (4.0-11.0) K/uL RBC (4.30-5.90) M/uL Hgb (12.0-16.0) g/dL Hct (36.0-46.0) % MCV (80.0-98.0) fL MCH (27.0-32.0) pg MCHC (31.0-37.0) g/dL RDW Std Deviation (28.0-62.0) fl RDW Coeff of Nicky (11.0-15.0) % Plt Count (150-400) K/uL MPV (7.40-12.00) fL Neut % (Auto) (48.0-80.0) % Lymph % (Auto) (16.0-40.0) % Walsh % (Auto) (0.0-15.0) % Eos % (Auto) (0.0-7.0) % Baso % (Auto) (0.0-1.5) % Neut # (Auto) (1.4-5.7) K/uL Lymph # (Auto) (0.6-2.4) K/uL Walsh # (Auto) (0.0-0.8) K/uL Eos # (Auto) (0.0-0.7) K/uL Baso # (Auto) (0.0-0.1) K/uL Nucleated RBC % /100WBC Nucleated RBCs # K/uL Sodium (136-146) mmol/L Potassium (3.5-5.1) mmol/L Chloride (98-110) mmol/L Carbon Dioxide (21-31) mmol/L BUN (6.0-23.0) mg/dL Creatinine (0.6-1.5) mg/dL Est Cr Clr Drug Dosing mL/min Estimated GFR (MDRD) ml/min Glucose (60-110) mg/dL Hemoglobin A1c 5.2 (0.0-6.0) % Calcium (8.8-10.8) mg/dL Total Bilirubin (0.1-1.5) mg/dL AST (5-40) IU/L ALT (8-54) IU/L Alkaline Phosphatase (40-150) B-Natriuretic Peptide < 15 (<100) PG/ML Total Protein (6.0-8.0) g/dL Albumin (3.5-5.0) g/dL Globulin (2.0-3.5) g/dL Albumin/Globulin Ratio (1.3-2.8) Urine Color Urine Appearance Urine pH (5.0-8.0) Ur Specific [place] (1.001-1.035) Urine Protein (NEGATIVE) mg/dL Urine Glucose (UA) (NEGATIVE) mg/dL Urine Ketones (NEGATIVE) mg/dL Urine Occult Blood (NEGATIVE) Urine Nitrite (NEGATIVE) Urine Bilirubin (NEGATIVE) Urine Ictotest Urine Urobilinogen (<2.0) EU/dL Ur Leukocyte Esterase (NEGATIVE) Urine RBC (0-2/HPF) Urine WBC (0-5/HPF) Ur Epithelial Cells (NONE-FEW) Urine Bacteria (NEGATIVE) Urine Mucus (NONE-MOD) Meds: Medications Discontinued Medications Generic Name Dose Route Start Last Admin Trade Name Freq PRN Reason Stop Dose Admin Cephalexin 500 mg 05/05/17 21:47 05/05/17 22:23 Keflex PO 05/05/17 21:48 500 mg ONETIME ONE Administration Departure - Departure Time of Disposition: 22:25 Disposition: Home, Self-Care 01 Condition: Good Clinical Impression: UTI (urinary tract infection) Acute cystitis Qualifiers: Hematuria presence: with hematuria Qualified Code(s): N30.01 - Acute cystitis with hematuria - Discharge Information Prescriptions: Cephalexin [Keflex] 500 mg PO QID #40 capsule Referrals: Sloan Ordonez MD [Primary Care Provider] - Forms: ED Department Discharge Additional Instructions: The following information is given to patients seen in the emergency department who are being discharged to home. This information is to outline your options for follow-up care. We provide all patients seen in our emergency department with a follow-up referral. The need for follow-up, as well as the timing and circumstances, are variable depending upon the specifics of your emergency department visit. If you don't have a primary care physician on staff, we will provide you with a referral. We always advise you to contact your personal physician following an emergency department visit to inform them of the circumstance of the visit and for follow-up with them and/or the need for any referrals to a consulting specialist. The emergency department will also refer you to a specialist when appropriate. This referral assures that you have the opportunity for follow-up care with a specialist. All of these measure are taken in an effort to provide you with optimal care, which includes your follow-up. Under all circumstances we always encourage you to contact your private physician who remains a resource for coordinating your care. When calling for follow-up care, please make the office aware that this follow-up is from your recent emergency room visit. If for any reason you are refused follow-up, please contact the [facility] Emergency Department at and asked to speak to the emergency department charge nurse. Take medication as prescribed Follow-up with PCP 1-2 days Use the lidocaine jelly sparingly as discussed, no more than once or twice a day a very thin layer Return to ED as needed as discussed
[2017-05-05] MEDS ORDERED: Bacitracin Oint 1 GM U/D Packet TOP ONE (21:04)
[2017-05-05] MEDS ORDERED: Cephalexin 500 MG Cap PO ONE (21:47)
[2017-05-05 22:04] LABS: CHLORIDE,CL 107 mmol/L (98-110); SODIUM,NA 139 mmol/L (136-146)
== END 2017-05-05 22:55 | disposition home or self-care (01) ==
LOC: MW.ED 19:52
DX: N30.01 Acute cystitis with hematuria (principal); E11.9 Type 2 diabetes mellitus without complications; J45.909 Unspecified asthma, uncomplicated; E66.9 Obesity, unspecified; Z79.899 Other long term (current) drug therapy
CPT/HCPCS: 36415; 80053; 81001; 83036; 83880; 85025; 99283; A9270; 99282

== ENCOUNTER 2017-05-16 22:01 | Emergency (ER) | payer OTHER, MEDICAID ==
--- NOTE | 2017-05-16 22:47 | EDM.PDOC ---
ED HPI GENERAL MEDICAL PROBLEM - General Chief Complaint: Genitourinary Problem Stated Complaint: PT HAS UTI Time Seen by Provider: 05/16/17 22:36 Source of Information: Reports: Patient History Limitations: Reports: No Limitations - History of Present Illness INITIAL COMMENTS - FREE TEXT/NARRATIVE: 26 yo josh presents to ED with complaints of suprapubic pain and burning with urination. This is a recurrent problem that has been going on for a few weeks now. She has been seen by her pcp multiple times and has been treated for uti with multiple antibiotics. She is currently on Cephalexin and is on day 9 of the course. She states there has been no improvement in her symptoms. Previously she was only having pain and burning with urination but now she reports continuous sharp suprapubic pain with continued burning with urination. She was seeing blood in her urine as well. She last saw the blood earlier today. Her LMP ended yesterday so she is concerned about presence of blood today. She is not sexually active. She feels warm but has not measured her temperature. She feel nauseous but has not vomited. She is urinating 4-5x per day. She has decreased appetite but still is eating small meals throughout the day and drinking lots of fluids. According to EMR this is patients 6th visit with a physician for the same issue. Since 02/01/17 she has had 3 visits to [facility] and 2 visits to the ED. On 02/01 she was treated with Bactrim, on 03/18/17 she was treated with Macrobid, on 04/18 she was treated with Augmentin and on 05/05 she was prescribed Cephalexin she is currently on. She states the symptoms have not improved at all and are now getting worst. She was prescribed topical lidocaine to apply to her suprapubic region which she states provides relief. She has run out of the medication and is also requesting refill of that if possible. urethra Pain Score (Numeric/FACES): 10 - Related Data Allergies Allergy/AdvReac Type Severity Reaction Status Date / Time No Known Allergies Allergy Verified 05/16/17 22:14 Home Meds: Home Meds Albuterol Sulfate [Albuterol Sulfate HFA] 1 dose INH Q4HR 04/01/14 [History] LORazepam [Ativan] 0.5 mg PO DAILY 04/01/14 [History] metFORMIN [metFORMIN XR] 500 mg PO BIDM 05/27/14 [History] Phenazopyridine [Pyridium] 200 mg PO TID 05/02/15 [History] Albuterol [Ventolin HFA] 2 puff INH BID PRN 10/21/15 [History] Budesonide/Formoterol [Symbicort 160-4.5 Mcg Inhaler] 1 puff INH BID PRN [History] Clobetasol Propionate [Temovate] 30 gm TOP DAILY 10/21/15 [History] Fluconazole [Diflucan] 100 mg PO ASDIRECTED 10/21/15 [History] LORazepam 1 mg PO BEDTIME 10/21/15 [History] Multivitamin [Multivitamins] 1 cap PO DAILY 10/21/15 [History] Tolterodine Tartrate [Detrol LA] 4 mg PO BEDTIME 10/21/15 [History] Ketoconazole [Nizoral 2% Crm] 15 gm TOP BID 07/25/16 [History] Sertraline [Zoloft] 50 mg PO DAILY 07/25/16 [History] Venlafaxine [Effexor XR] 150 mg PO DAILY 07/25/16 [History] Fluconazole [IJD: Fluconazole] 150 mg PO DAILY #2 tab 11/17/16 [Rx] Cephalexin [Keflex] 500 mg PO QID #40 capsule 05/05/17 [Rx] Lidocaine 5% 35.44 gm TOP QID PRN #1 tube 05/16/17 [Rx] Levofloxacin 750 mg PO DAILY 4 Days #4 tablet 05/17/17 [Rx] Past Medical History - Past Health History Medical/Surgical History: Denies Medical/Surgical History HEENT History: 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 Cardiovascular History: Reports: Other (See Below) Other Cardiovascular History: non specific chest pains Respiratory History: Reports: Asthma Gastrointestinal History: Reports: Other (See Below) Other Gastrointestinal History: non specific abd pains Genitourinary History: Reports: UTI, Recurrent, Other (See Below) Other Genitourinary History: chronic uti's, vaginal candidiasis 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 Musculoskeletal History: Reports: Back Pain, Chronic Other Musculoskeletal History: from UTI Neurological History: 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 Psychiatric History: Reports: Anxiety, Depression Endocrine/Metabolic History: Reports: Diabetes, Type II, Obesity/BMI 30+ Hematologic History: 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 Immunologic History: 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 Oncologic (Cancer) History: 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 Dermatologic History: Reports: Psoriasis Other Dermatologic History: on her scalp - Infectious Disease History Infectious Disease History: 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 - Past Surgical History Head Surgeries/Procedures: 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 HEENT Surgical History: Reports: Adenoidectomy, Oral Surgery, Tonsillectomy Respiratory Surgical History: 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 Social & Family History - Family History Family Medical History: Noncontributory Psychiatric: Reports: Anxiety, Depression Endocrine/Metabolic: Reports: Obesity/MBI 30+ Immunologic: Reports: HIV - Tobacco Use Smoking Status *Q: Never Smoker Years of Tobacco use: 1 Packs/Tins Daily: 0 Second Hand Smoke Exposure: No - Caffeine Use Caffeine Use: 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 Caffeine Use Comment: 1 drink/month - Alcohol Use Days Per Week of Alcohol Use: 0 - Recreational Drug Use Recreational Drug Use: No ED ROS GENERAL - Review of Systems Review Of Systems: See Below Constitutional: Reports: Decreased Appetite. Denies: Chills, Night Sweats HEENT: Reports: No Symptoms Respiratory: Reports: No Symptoms. Denies: Shortness of Breath, Cough Cardiovascular: Reports: No Symptoms. Denies: Chest Pain, Syncope Endocrine: Reports: No Symptoms GI/Abdominal: Reports: Abdominal Pain (suprapubic), Decreased Appetite, Nausea. Denies: Black Stool, Bloody Stool, Constipation, Diarrhea, Hematemesis, Melena , Mucous in Stool, Vomiting : Reports: Dysuria, Hematuria Musculoskeletal: Reports: No Symptoms. Denies: Joint Pain, Joint Swelling, Muscle Pain Skin: Reports: No Symptoms. Denies: Rash Neurological: Reports: No Symptoms. Denies: Confusion, Seizure, Difficulty Walking, Gait Disturbance Psychiatric: Reports: No Symptoms Hematologic/Lymphatic: Reports: No Symptoms. Denies: Easy Bleeding, Easy Bruising Immunologic: Reports: No Symptoms ED EXAM, GENERAL - Physical Exam Exam: See Below Exam Limited By: No Limitations General Appearance: Alert, WD/WN, No Apparent Distress Eye Exam: Bilateral Eye: PERRL Ears: Normal External Exam, Hearing Grossly Normal Nose: Normal Inspection, Normal Mucosa, No Blood Throat/Mouth: Normal Inspection, Normal Lips, Normal Teeth, Normal Gums, Normal Voice, No Airway Compromise Head: Atraumatic, Normocephalic Neck: Normal Inspection, Supple, Non-Tender, Full Range of Motion Respiratory/Chest: No Respiratory Distress, Lungs Clear, Normal Breath Sounds Cardiovascular: Normal Peripheral Pulses, Regular Rate, Rhythm, No Edema, No JVD Peripheral Pulses: 2+: Radial (L), Radial (R) GI/Abdominal: Normal Bowel Sounds, Pelvis Stable, Other (suprapubic tenderness ) . No: Distended, Guarding, Rigid, Rebound, Hepatomegaly, Splenomegaly Back Exam: No: CVA Tenderness (L), CVA Tenderness (R) Extremities: Normal Inspection, Normal Range of Motion, Non-Tender, Normal Capillary Refill Neurological: Alert, Oriented, CN II-XII Intact, Normal Gait Psychiatric: Normal Affect, Normal Mood Skin Exam: Warm, Dry, Intact Lymphatic: No Adenopathy Course - Vital Signs Last Recorded V/S: Last Vital Signs Temp 36.7 C 05/16/17 22:01 Pulse 103 H 05/16/17 22:01 Resp 18 05/16/17 22:01 BP 141/93 H 05/16/17 22:01 Pulse Ox - Orders/Labs/Meds Orders: Active Orders 24 hr Category Date Time Status CULTURE URINE [RM] Stat Lab 05/16/17 23:07 Received Labs: Laboratory Tests 05/16/17 05/16/17 05/17/17 Range/Units 23:13 23:13 00:47 WBC 10.29 (4.0-11.0) K/uL RBC 5.32 (4.30-5.90) M/uL Hgb 15.0 (12.0-16.0) g/dL Hct 45.4 (36.0-46.0) % MCV 85.3 (80.0-98.0) fL MCH 28.2 (27.0-32.0) pg MCHC 33.0 (31.0-37.0) g/dL RDW Std Deviation 42.9 (28.0-62.0) fl RDW Coeff of Nicky 14 (11.0-15.0) % Plt Count 341 (150-400) K/uL MPV 9.40 (7.40-12.00) fL Neut % (Auto) 38.2 L (48.0-80.0) % Lymph % (Auto) 53.5 H (16.0-40.0) % [place] % (Auto) 5.5 (0.0-15.0) % Eos % (Auto) 2.0 (0.0-7.0) % Baso % (Auto) 0.8 (0.0-1.5) % Neut # (Auto) 3.9 (1.4-5.7) K/uL Lymph # (Auto) 5.5 H (0.6-2.4) K/uL [place] # (Auto) 0.6 (0.0-0.8) K/uL Eos # (Auto) 0.2 (0.0-0.7) K/uL Baso # (Auto) 0.1 (0.0-0.1) K/uL Nucleated RBC % 0.0 /100WBC Nucleated RBCs # 0 K/uL Sodium 139 (136-146) mmol/L Potassium 4.0 (3.5-5.1) mmol/L Chloride 104 (98-110) mmol/L Carbon Dioxide 24 (21-31) mmol/L BUN 10 (6.0-23.0) mg/dL Creatinine 0.7 (0.6-1.5) mg/dL Est Cr Clr Drug Dosing TNP Estimated GFR (MDRD) > 60.0 ml/min Glucose 92 (60-110) mg/dL Calcium 9.6 (8.8-10.8) mg/dL Urine Color ORANGE Urine Appearance HAZY Urine pH 5.0 (5.0-8.0) Ur Specific [place] <= 1.005 (1.001-1.035) Urine Protein 100 (NEGATIVE) mg/dL Urine Glucose (UA) 100 H (NEGATIVE) mg/dL Urine Ketones TRACE H (NEGATIVE) mg/dL Urine Occult Blood LARGE H (NEGATIVE) Urine Nitrite POSITIVE H (NEGATIVE) Urine Bilirubin NEGATIVE (NEGATIVE) Urine Urobilinogen >=8.0 H (<2.0) EU/dL Ur Leukocyte Esterase TRACE (NEGATIVE) Urine RBC 6-8 (0-2/HPF) Urine WBC 1-3 (0-5/HPF) Ur Epithelial Cells FEW (NONE-FEW) Calcium Oxalate Crystal FEW (NEGATIVE) Urine Bacteria FEW (NEGATIVE) Meds: Medications Discontinued Medications Generic Name Dose Route Start Last Admin Trade Name Freq PRN Reason Stop Dose Admin Levofloxacin 750 mg 05/17/17 01:40 05/17/17 01:51 Levaquin PO 05/17/17 01:41 750 mg ONETIME ONE Administration Departure - Departure Time of Disposition: 01:44 Disposition: Home, Self-Care 01 Clinical Impression: Interstitial cystitis, UTI (urinary tract infection), Hematuria, Chronic suprapubic pain - Discharge Information Prescriptions: Levofloxacin 750 mg PO DAILY 4 Days #4 tablet Lidocaine 5% 35.44 gm TOP QID PRN #1 tube PRN Reason: Pain Instructions: Urinary Tract Infection, Adult, [id number], Hematuria, Adult Referrals: PCP,None [Primary Care Provider] - Agustina Manning MD [Physician] - Zak Lindsey [Resident] - Forms: ED Department Discharge Additional Instructions: The following information is given to patients seen in the emergency department who are being discharged to home. This information is to outline your options for follow-up care. We provide all patients seen in our emergency department with a follow-up referral. The need for follow-up, as well as the timing and circumstances, are variable depending upon the specifics of your emergency department visit. If you don't have a primary care physician on staff, we will provide you with a referral. We always advise you to contact your personal physician following an emergency department visit to inform them of the circumstance of the visit and for follow-up with them and/or the need for any referrals to a consulting specialist. The emergency department will also refer you to a specialist when appropriate. This referral assures that you have the opportunity for followup care with a specialist. All of these measure are taken in an effort to provide you with optimal care, which includes your followup. Under all circumstances we always encourage you to contact your private physician who remains a resource for coordinating your care. When calling for followup care, please make the office aware that this follow-up is from your recent emergency room visit. If for any reason you are refused follow-up, please contact the [facility] emergency department at and asked to speak to the emergency department charge nurse. - Problem List Review Problem List Initiated/Reviewed/Updated: Yes - My Orders Last 24 Hours: My Active Orders 05/16/17 23:07 CULTURE URINE [RM] Stat - Assessment/Plan Last 24 Hours: My Active Orders 05/16/17 23:07 CULTURE URINE [RM] Stat Plan: Diagnostics: CBC, BMP, UA, UC Therapeutics: Levaquin 750 mg PO single dose Assessment: 1. UTI -patient has had multiple UA & UC however UC has never been performed on day when patient had Positive Nitrite & Positive LE together -UC negative on 04/28 (+N/-LE), 04/18 (+N/-LE), 03/18 (+N/-LE), 02/01 (-N/+LE) -on 05/05 UA was +N/+LE but no UC obtained - patient treated with Cephalexin, currently on day 03/03 of course, reports no improvement -UA obtained today +N/+LE, urine sent for UC 2. Suprapubic Pain 3. Dysuria 4. Hematuria Plan: 1. DC Cephalexin 2. Levaquin 750 mg PO QD for 4 days 3. Urine sent for UC 4. referral to Urology 5. follow up with pcp or return to ED if symptoms worsen 6. prescription for Topical Lidocaine QID PRN to suprapubic region for pain
[2017-05-16 23:38] LABS: CHLORIDE,CL 104 mmol/L (98-110); SODIUM,NA 139 mmol/L (136-146)
[2017-05-17] MEDS ORDERED: Levofloxacin 250 MG Tab PO ONE (01:40)
[2017-05-17 02:02] VITALS: BP 136/91
== END 2017-05-17 02:05 | disposition home or self-care (01) ==
LOC: MW.ED 22:01
DX: N30.11 Interstitial cystitis (chronic) with hematuria (principal); J45.909 Unspecified asthma, uncomplicated; F32.9 Major depressive disorder, single episode, unspecified; E11.9 Type 2 diabetes mellitus without complications; Z79.84 Long term (current) use of oral hypoglycemic drugs; Z79.2 Long term (current) use of antibiotics; Z79.899 Other long term (current) drug therapy
CPT/HCPCS: 36415; 80048; 81001; 85025; 87086; 99283; A9270; 99282

== ENCOUNTER 2017-05-18 21:30 | Emergency (ER) | payer OTHER, MEDICAID ==
[2017-05-18 21:56] VITALS: BP 136/101
--- NOTE | 2017-05-18 21:59 | EDM.PDOC ---
ED HPI GENERAL MEDICAL PROBLEM - General Chief Complaint: Genitourinary Problem Stated Complaint: PAINFULL URINATION Time Seen by Provider: 05/18/17 21:58 Source of Information: Reports: Patient - History of Present Illness INITIAL COMMENTS - FREE TEXT/NARRATIVE: HISTORY AND PHYSICAL: History of present illness: []Patient presents with persistent urinary tract infection/painful urination for one month she has been on multiple antibiotics and is scheduled to see Dr. Mcgowan and follows with Dr. ordonez No fever nausea vomiting chills sweats Review of systems: As per history of present illness and below otherwise all systems reviewed and negative. Past medical history: As per history of present illness and as reviewed below otherwise noncontributory. Surgical history: As per history of present illness and as reviewed below otherwise noncontributory. Social history: No reported history of drug or alcohol abuse. Family history: As per history of present illness and as reviewed below otherwise noncontributory. Physical exam: HEENT: Atraumatic, normocephalic, pupils reactive, negative for conjunctival pallor or scleral icterus, mucous membranes moist, throat clear, neck supple, nontender, trachea midline. Lungs: Clear to auscultation, breath sounds equal bilaterally, chest nontender. Heart: S1S2, regular, negative for clicks, rubs, or JVD. Abdomen: Soft, nondistended, nontender. Negative for masses or hepatosplenomegaly. Negative for costovertebral tenderness. Pelvis: Stable nontender. Genitourinary: Deferred. Rectal: Deferred. Extremities: Atraumatic, negative for cords or calf pain. Neurovascular unremarkable. Neuro: Awake, alert, oriented. Cranial nerves II through XII unremarkable. Cerebellum unremarkable. Motor and sensory unremarkable throughout. Exam nonfocal. Diagnostics: [UA, hCG, GC chlamydia urine culture pending ] Therapeutics: []Patient currently is currently on Levaquin Rocephin 250 IM Azithromycin 1000 mg by mouth Impression: []Dysuria Persistent urinary tract infection Definitive disposition and diagnosis as appropriate pending reevaluation and review of above. Vaginal Pain Score (Numeric/FACES): 10 - Related Data Allergies Allergy/AdvReac Type Severity Reaction Status Date / Time No Known Allergies Allergy Verified 05/18/17 21:52 Home Meds: Home Meds Albuterol Sulfate [Albuterol Sulfate HFA] 1 dose INH Q4HR 04/01/14 [History] LORazepam [Ativan] 0.5 mg PO DAILY 04/01/14 [History] metFORMIN [metFORMIN XR] 500 mg PO BIDM 05/27/14 [History] Phenazopyridine [Pyridium] 200 mg PO TID 05/02/15 [History] Albuterol [Ventolin HFA] 2 puff INH BID PRN 10/21/15 [History] Budesonide/Formoterol [Symbicort 160-4.5 Mcg Inhaler] 1 puff INH BID PRN [History] Clobetasol Propionate [Temovate] 30 gm TOP DAILY 10/21/15 [History] Fluconazole [Diflucan] 100 mg PO ASDIRECTED 10/21/15 [History] LORazepam 1 mg PO BEDTIME 10/21/15 [History] Multivitamin [Multivitamins] 1 cap PO DAILY 10/21/15 [History] Tolterodine Tartrate [Detrol LA] 4 mg PO BEDTIME 10/21/15 [History] Ketoconazole [Nizoral 2% Crm] 15 gm TOP BID 07/25/16 [History] Sertraline [Zoloft] 50 mg PO DAILY 07/25/16 [History] Venlafaxine [Effexor XR] 150 mg PO DAILY 07/25/16 [History] Fluconazole [IJD: Fluconazole] 150 mg PO DAILY #2 tab 11/17/16 [Rx] Cephalexin [Keflex] 500 mg PO QID #40 capsule 05/05/17 [Rx] Lidocaine 5% 35.44 gm TOP QID PRN #1 tube 05/16/17 [Rx] Levofloxacin 750 mg PO DAILY 4 Days #4 tablet 05/17/17 [Rx] Past Medical History - Past Health History Medical/Surgical History: Denies Medical/Surgical History HEENT History: 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 Cardiovascular History: Reports: Other (See Below) Other Cardiovascular History: non specific chest pains Respiratory History: Reports: Asthma Gastrointestinal History: Reports: Other (See Below) Other Gastrointestinal History: non specific abd pains Genitourinary History: Reports: UTI, Recurrent, Other (See Below) Other Genitourinary History: chronic uti's, vaginal candidiasis 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 Musculoskeletal History: Reports: Back Pain, Chronic Other Musculoskeletal History: from UTI Neurological History: 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 Psychiatric History: Reports: Anxiety, Depression Endocrine/Metabolic History: Reports: Diabetes, Type II, Obesity/BMI 30+ Hematologic History: 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 Immunologic History: 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 Oncologic (Cancer) History: 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 Dermatologic History: Reports: Psoriasis Other Dermatologic History: on her scalp - Infectious Disease History Infectious Disease History: 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 - Past Surgical History Head Surgeries/Procedures: 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 HEENT Surgical History: Reports: Adenoidectomy, Oral Surgery, Tonsillectomy Respiratory Surgical History: 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 Social & Family History - Family History Family Medical History: Noncontributory Psychiatric: Reports: Anxiety, Depression Endocrine/Metabolic: Reports: Obesity/MBI 30+ Immunologic: Reports: HIV - Tobacco Use Smoking Status *Q: Never Smoker Years of Tobacco use: 1 Packs/Tins Daily: 0 Second Hand Smoke Exposure: No - Caffeine Use Caffeine Use: 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 Caffeine Use Comment: 1 drink/month - Alcohol Use Days Per Week of Alcohol Use: 0 - Recreational Drug Use Recreational Drug Use: No ED ROS GENERAL - Review of Systems Review Of Systems: ROS reveals no pertinent complaints other than HPI. ED EXAM, GENERAL - Physical Exam Exam: See Below Course - Vital Signs Last Recorded V/S: Last Vital Signs Temp 97.3 F 05/18/17 21:53 Pulse 109 H 05/18/17 21:53 Resp 18 05/18/17 21:53 BP 136/101 H 05/18/17 21:53 Pulse Ox 96 05/18/17 21:53 - Orders/Labs/Meds Orders: Active Orders 24 hr Category Date Time Status CHLAMYDIA AND GONORRHEA BY TMA Stat Lab 05/18/17 22:00 Received CULTURE URINE [RM] Stat Lab 05/18/17 22:21 Uncollected UA W/MICROSCOPIC [URIN] Stat Lab 05/18/17 22:00 Results cefTRIAXone [Rocephin] 250 mg Med 05/18/17 22:30 Ordered Lidocaine 1% [Xylocaine-MPF 1%] 1 ml IM ONETIME Medication Orders Azithromycin (Zithromax) 1,000 mg PO NOW STA Stop: 05/18/17 22:30 Labs: Laboratory Tests 05/18/17 05/18/17 Range/Units 22:00 22:00 Urine Color YELLOW Urine Appearance SLT CLOUDY Urine pH 5.5 (5.0-8.0) Ur Specific [place] >= 1.030 (1.001-1.035) Urine Protein TRACE (NEGATIVE) mg/dL Urine Glucose (UA) NEGATIVE (NEGATIVE) mg/dL Urine Ketones TRACE H (NEGATIVE) mg/dL Urine Occult Blood NEGATIVE (NEGATIVE) Urine Nitrite POSITIVE H (NEGATIVE) Urine Bilirubin SMALL H (NEGATIVE) Urine Urobilinogen 1.0 (<2.0) EU/dL Ur Leukocyte Esterase NEGATIVE (NEGATIVE) Urine HCG, Qual NEGATIVE (NEGATIVE) Meds: Medications Generic Name Dose Route Start Last Admin Trade Name Freq PRN Reason Stop Dose Admin Azithromycin 1,000 mg 05/18/17 22:29 Zithromax PO 05/18/17 22:30 NOW STA Departure - Departure Time of Disposition: 22:31 Disposition: Home, Self-Care 01 Condition: Good Clinical Impression: UTI (urinary tract infection) - Discharge Information Referrals: Sloan Ordonez MD [Primary Care Provider] - Forms: ED Department Discharge Additional Instructions: Follow-up with Dr. Mcgowan as scheduled Continue current medications The following information is given to patients seen in the emergency department who are being discharged to home. This information is to outline your options for follow-up care. We provide all patients seen in our emergency department with a follow-up referral. The need for follow-up, as well as the timing and circumstances, are variable depending upon the specifics of your emergency department visit. If you don't have a primary care physician on staff, we will provide you with a referral. We always advise you to contact your personal physician following an emergency department visit to inform them of the circumstance of the visit and for follow-up with them and/or the need for any referrals to a consulting specialist. The emergency department will also refer you to a specialist when appropriate. This referral assures that you have the opportunity for follow-up care with a specialist. All of these measure are taken in an effort to provide you with optimal care, which includes your follow-up. Under all circumstances we always encourage you to contact your private physician who remains a resource for coordinating your care. When calling for follow-up care, please make the office aware that this follow-up is from your recent emergency room visit. If for any reason you are refused follow-up, please contact the [facility] emergency department at and asked to speak to the emergency department charge nurse. - My Orders Last 24 Hours: My Active Orders 05/18/17 22:00 CHLAMYDIA AND GONORRHEA BY TMA Stat UA W/MICROSCOPIC [URIN] Stat 05/18/17 22:21 CULTURE URINE [RM] Stat 05/18/17 22:30 cefTRIAXone [Rocephin] 250 mg Lidocaine 1% [Xylocaine-MPF 1%] 1 ml IM ONETIME - Assessment/Plan Last 24 Hours: My Active Orders 05/18/17 22:00 CHLAMYDIA AND GONORRHEA BY TMA Stat UA W/MICROSCOPIC [URIN] Stat 05/18/17 22:21 CULTURE URINE [RM] Stat 05/18/17 22:30 cefTRIAXone [Rocephin] 250 mg Lidocaine 1% [Xylocaine-MPF 1%] 1 ml IM ONETIME
[2017-05-18] MEDS ORDERED: Azithromycin 250 MG Tab PO STA (22:29)
[2017-05-18] MEDS ORDERED: cefTRIAXone 250 MG in Lidocaine 1% 1 ML IM ONE (22:30)
== END 2017-05-18 23:25 | disposition home or self-care (01) ==
LOC: MW.ED 21:30
DX: N39.0 Urinary tract infection, site not specified (principal); E11.9 Type 2 diabetes mellitus without complications; J45.909 Unspecified asthma, uncomplicated; Z79.84 Long term (current) use of oral hypoglycemic drugs; Z79.899 Other long term (current) drug therapy
CPT/HCPCS: 81001; 81025; 87086; 87491; 87591; 96372; 99283; A9270; J0696; 99282

== ENCOUNTER 2017-07-18 15:05 | Emergency (ER) | payer OTHER, MEDICAID ==
[2017-07-18] MEDS ORDERED: Ketorolac 60 MG/2 ML SDV IM ONE (15:54)
--- NOTE | 2017-07-18 16:01 | EDM.PDOC ---
ED HPI GENERAL MEDICAL PROBLEM - General Chief Complaint: General Stated Complaint: HEAD/NECK/SHOULDER PAIN Time Seen by Provider: 07/18/17 15:27 - History of Present Illness INITIAL COMMENTS - FREE TEXT/NARRATIVE: HISTORY AND PHYSICAL: History of present illness: Patient is a 26-year-old female who presents to the emergency room with complaints of body pain after falling on the ice today. She states that she was walking and slipped on ice falling onto her tailbone and ended on her right forearm. Currently she is complaining of a mild headache, neck pain, forearm and low back pain. Patient is fully ambulatory and able to move all extremities. She denies hitting her head or any loss of consciousness. Denies any numbness or tingling to her upper or lower extremities. Review of systems: As per history of present illness and below otherwise all systems reviewed and negative. Past medical history: As per history of present illness and as reviewed below otherwise noncontributory. Surgical history: As per history of present illness and as reviewed below otherwise noncontributory. Social history: No reported history of drug or alcohol abuse. Family history: As per history of present illness and as reviewed below otherwise noncontributory. Physical exam: Gen.: Well-developed and well-nourished 26-year-old female. Alert and oriented. Nontoxic appearing and in no acute distress. HEENT: Atraumatic, normocephalic, pupils equal and reactive bilaterally, negative for conjunctival pallor or scleral icterus, mucous membranes moist, throat clear, neck supple, nontender, trachea midline. Lungs: Clear to auscultation, breath sounds equal bilaterally, chest nontender. Heart: S1S2, regular, negative for clicks, rubs, or JVD. Abdomen: Soft, nondistended, nontender. Negative for masses or hepatosplenomegaly. Negative for costovertebral tenderness. Pelvis: Stable nontender. Genitourinary: Deferred. Rectal: Deferred. Extremities:Moves all extremities per self, mild tenderness with palpation of the right forearm. SHe does have good/strong grasping strength and able to resist against force with the right upper extremity. Strong radial pulses bilaterally. Sensation intact. Neurovascular unremarkable. C-spine/Back: No pin point Vertebral tenderness upon palpation. Denies any cervical, thoracic, lumbar or sacral tenderness to the vertebral. Does have some muscular tenderness to the lumbar region. Skin: Intact, warm, dry. No rashes or lesions noted. Neuro: Awake, alert, oriented. Cranial nerves II through XII unremarkable. Cerebellum unremarkable. Motor and sensory unremarkable throughout. Exam nonfocal. The x-ray of the cervical spine, lumbar spine and right forearm are negative. Showing no acute abnormalities. Will provide the patient with an Geoff wrap to the right wrist going into the forearm. Encourage patient to use ice and heat along with Tylenol/ibuprofen for pain management. Patient voices understanding and is agreeable to plan of care. Diagnostics: X-ray of the cervical spine, forearm and lumbar back Therapeutics: Toradol Impression: #1 Contusion, right forearm #2 Neck and Back Pain Plan: 1. Please use Tylenol and/or ibuprofen as needed for pain management. Alternating ice and gentle heat to the area. May use the geoff wrap for comfort. 2. Please follow-up with your primary caregiver in the next 1-2 days. Return to the ED as needed and as discussed. Definitive disposition and diagnosis as appropriate pending reevaluation and review of above. Onset: Today Duration: Hour(s): Location: Reports: Back Upper Back Pain Score (Numeric/FACES): 8 Head Pain Score (Numeric/FACES): 8 Right Wrist Pain Score (Numeric/FACES): 8 - Related Data Allergies Allergy/AdvReac Type Severity Reaction Status Date / Time No Known Allergies Allergy Verified 07/18/17 15:32 Home Meds: Home Meds Albuterol Sulfate [Albuterol Sulfate HFA] 1 dose INH Q4HR 04/01/14 [History] LORazepam [Ativan] 0.5 mg PO DAILY 04/01/14 [History] metFORMIN [metFORMIN XR] 500 mg PO BIDM 05/27/14 [History] Phenazopyridine [Pyridium] 200 mg PO TID 05/02/15 [History] Albuterol [Ventolin HFA] 2 puff INH BID PRN 10/21/15 [History] Budesonide/Formoterol [Symbicort 160-4.5 Mcg Inhaler] 1 puff INH BID PRN [History] Clobetasol Propionate [Temovate] 30 gm TOP DAILY 10/21/15 [History] Fluconazole [Diflucan] 100 mg PO ASDIRECTED 10/21/15 [History] LORazepam 1 mg PO BEDTIME 10/21/15 [History] Multivitamin [Multivitamins] 1 cap PO DAILY 10/21/15 [History] Tolterodine Tartrate [Detrol LA] 4 mg PO BEDTIME 10/21/15 [History] Ketoconazole [Nizoral 2% Crm] 15 gm TOP BID 07/25/16 [History] Sertraline [Zoloft] 50 mg PO DAILY 07/25/16 [History] Venlafaxine [Effexor XR] 150 mg PO DAILY 07/25/16 [History] Fluconazole [IJD: Fluconazole] 150 mg PO DAILY #2 tab 11/17/16 [Rx] Cephalexin [Keflex] 500 mg PO QID #40 capsule 05/05/17 [Rx] Lidocaine 5% 35.44 gm TOP QID PRN #1 tube 05/16/17 [Rx] Levofloxacin 750 mg PO DAILY 4 Days #4 tablet 05/17/17 [Rx] Past Medical History - Past Health History Medical/Surgical History: Denies Medical/Surgical History HEENT History: 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 Cardiovascular History: Reports: Other (See Below) Other Cardiovascular History: non specific chest pains Respiratory History: Reports: Asthma Gastrointestinal History: Reports: Other (See Below) Other Gastrointestinal History: non specific abd pains Genitourinary History: Reports: UTI, Recurrent, Other (See Below) Other Genitourinary History: chronic uti's, vaginal candidiasis 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 Musculoskeletal History: Reports: Back Pain, Chronic Other Musculoskeletal History: from UTI Neurological History: 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 Psychiatric History: Reports: Anxiety, Depression Endocrine/Metabolic History: Reports: Diabetes, Type II, Obesity/BMI 30+ Hematologic History: 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 Immunologic History: 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 Oncologic (Cancer) History: 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 Dermatologic History: Reports: Psoriasis Other Dermatologic History: on her scalp - Infectious Disease History Infectious Disease History: 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 - Past Surgical History Head Surgeries/Procedures: 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 HEENT Surgical History: Reports: Adenoidectomy, Oral Surgery, Tonsillectomy Respiratory Surgical History: 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 Social & Family History - Family History Family Medical History: Noncontributory Psychiatric: Reports: Anxiety, Depression Endocrine/Metabolic: Reports: Obesity/MBI 30+ Immunologic: Reports: HIV - Tobacco Use Smoking Status *Q: Never Smoker Years of Tobacco use: 1 Packs/Tins Daily: 0 Second Hand Smoke Exposure: No - Caffeine Use Caffeine Use: 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 Caffeine Use Comment: 1 drink/month - Alcohol Use Days Per Week of Alcohol Use: 0 - Recreational Drug Use Recreational Drug Use: No ED ROS GENERAL - Review of Systems Review Of Systems: ROS reveals no pertinent complaints other than HPI. ED EXAM, GENERAL - Physical Exam Exam: See Below (See dictation) Course - Vital Signs Last Recorded V/S: Last Vital Signs Temp 99.8 F 07/18/17 15:29 Pulse 116 H 07/18/17 15:29 Resp 18 07/18/17 15:29 BP 126/82 07/18/17 15:35 Pulse Ox 100 07/18/17 15:29 - Orders/Labs/Meds Orders: Active Orders 24 hr Category Date Time Status Cervical Spine 2V or 3V [CR] Stat Exams 07/18/17 15:54 Taken Forearm 2V Rt [CR] Stat Exams 07/18/17 15:54 Taken Lumbar Spine 2 or 3V [CR] Stat Exams 07/18/17 15:54 Taken Meds: Medications Discontinued Medications Generic Name Dose Route Start Last Admin Trade Name Freq PRN Reason Stop Dose Admin Ketorolac Tromethamine 60 mg 07/18/17 15:54 07/18/17 16:14 Toradol IM 07/18/17 15:55 60 mg ONETIME ONE Administration Departure - Departure Time of Disposition: 17:28 Disposition: Home, Self-Care 01 Clinical Impression: Neck pain Contusion Qualifiers: Encounter type: initial encounter Contusion area: lower back Qualified Code(s) : S30.0XXA - Contusion of lower back and pelvis, initial encounter - Discharge Information Referrals: Sloan Ordonez MD [Primary Care Provider] - Forms: ED Department Discharge Additional Instructions: My general discharge The following information is given to patients seen in the emergency department who are being discharged to home. This information is to outline your options for follow-up care. We provide all patients seen in our emergency department with a follow-up referral. The need for follow-up, as well as the timing and circumstances, are variable depending upon the specifics of your emergency department visit. If you don't have a primary care physician on staff, we will provide you with a referral. We always advise you to contact your personal physician following an emergency department visit to inform them of the circumstance of the visit and for follow-up with them and/or the need for any referrals to a consulting specialist. The emergency department will also refer you to a specialist when appropriate. This referral assures that you have the opportunity for follow-up care with a specialist. All of these measure are taken in an effort to provide you with optimal care, which includes your follow-up. Under all circumstances we always encourage you to contact your private physician who remains a resource for coordinating your care. When calling for follow-up care, please make the office aware that this follow-up is from your recent emergency room visit. If for any reason you are refused follow-up, please contact the [facility] Emergency Department at and asked to speak to the emergency department charge nurse. [facility] [address] [place] [id number] 1. Please use Tylenol and/or ibuprofen as needed for pain management. Alternating ice and gentle heat to the area. May use the geoff wrap for comfort. 2. Please follow-up with your primary caregiver in the next 1-2 days. Return to the ED as needed and as discussed. - My Orders Last 24 Hours: My Active Orders 07/18/17 15:54 Cervical Spine 2V or 3V [CR] Stat Forearm 2V Rt [CR] Stat Lumbar Spine 2 or 3V [CR] Stat - Assessment/Plan Last 24 Hours: My Active Orders 07/18/17 15:54 Cervical Spine 2V or 3V [CR] Stat Forearm 2V Rt [CR] Stat Lumbar Spine 2 or 3V [CR] Stat
[2017-07-18 17:48] VITALS: BP 140/96
--- NOTE | 2017-07-19 09:33 | CR ---
EXAM DATE: 07/18/17 PATIENT'S AGE: 26 Patient: BRENDA MCGOVERN Facility: [place], [place] Site Site : 1990 Study: XRay Extremity Right FOREARM [id number]/25/2018 4:55:58 PM Ordering Physician: CAROLYN Final Report: INDICATION: FALL TECHNIQUE: Right forearm 2 views. COMPARISON: None. FINDINGS: Bones: Alignment is normal. No fractures or bone lesions. Joint spaces: Unremarkable. Soft tissues: Unremarkable. IMPRESSION: Unremarkable right forearm. Dictated by: Jayden Covington MD @ 07/18/2017 17:25:25 (Electronic Signature) Report Signed by Proxy. KALINA
--- NOTE | 2017-07-19 09:34 | CR ---
EXAM DATE: 07/18/17 PATIENT'S AGE: 26 Patient: BRENDA MCGOVERN Facility: [place], [place] Site Site : 1990 Study: XRay Spine Lumbar [id number]/25/2018 4:57:22 PM Ordering Physician: CAROLYN Final Report: INDICATION: FALL TECHNIQUE: Lumbar spine 3 views. COMPARISON: None. FINDINGS: Bones: Alignment is normal. No fractures or bone lesions. Joint spaces: Disc spaces are normal. Facet joints are normal. Soft tissues: Negative. IMPRESSION: Negative lumbar spine. Dictated by: Jayden Covington MD @ 07/18/2017 17:23:54 ----- ADDENDUM ----- Comparison is made to prior study 08/21/2012. No significant interval change. : Dictated by Jayden Covington MD @ Jul 18 2017 5:27PM (Electronic Signature) Report Signed by Proxy. [facility]
--- NOTE | 2017-07-19 09:35 | CR ---
EXAM DATE: 07/18/17 PATIENT'S AGE: 26 Patient: BRENDA MCGOVERN Facility: [place], [place] Site Site : 1990 Study: XRay Spine Cervical [id number]/25/2018 4:59:14 PM Ordering Physician: CAROLYN Final Report: INDICATION: FALL TECHNIQUE: Cervical spine 4 views. COMPARISON: None. FINDINGS: Bones: Alignment is normal. No fractures or bone lesions. Joint spaces: Disc spaces are normal. Facet joints are normal. Soft tissues: Negative. IMPRESSION: Negative cervical spine. Dictated by: Jayden Covington MD @ 07/18/2017 17:26:30 (Electronic Signature) Report Signed by Proxy. KALINA
== END 2017-07-18 17:50 | disposition home or self-care (01) ==
LOC: MW.ED 15:05
DX: S50.11XA Contusion of right forearm, initial encounter (principal); S30.0XXA Contusion of lower back and pelvis, initial encounter; M54.2 Cervicalgia; E11.9 Type 2 diabetes mellitus without complications; Z79.84 Long term (current) use of oral hypoglycemic drugs; Z79.899 Other long term (current) drug therapy; W00.2XXA Other fall from one level to another due to ice and snow, initial encounter
CPT/HCPCS: 72040; 72100; 73090; 96372; 99283; J1885

== ENCOUNTER 2017-09-05 13:07 | Emergency (ER) | payer OTHER, MEDICAID ==
--- NOTE | 2017-09-05 13:11 | EDM.PDOC ---
ED HPI GENERAL MEDICAL PROBLEM - General Stated Complaint: PT IS EXPERIENCING BURNING WHEN USE RESTROOM Time Seen by Provider: 09/05/17 13:10 Source of Information: Reports: Patient History Limitations: Reports: No Limitations - History of Present Illness INITIAL COMMENTS - FREE TEXT/NARRATIVE: HISTORY AND PHYSICAL: History of present illness: Patient is a 26-year-old female who presents to the emergency room today with complaints of dysuria 1 week. She states that she has been using ibuprofen over -the-counter for pain management and as relief. She denies any fever, chills, chest pain, shortness of breath. She denies any abdominal pain, nausea, vomiting or diarrhea/constipation. She is eating and drinking appropriately. Denies any vaginal discharge, odor or lesions. Currently on menses. Patient has a follow-up appointment on Saturday with Dr. Ordonez, her primary care provider. Review of systems: As per history of present illness and below otherwise all systems reviewed and negative. Past medical history: As per history of present illness and as reviewed below otherwise noncontributory. Surgical history: As per history of present illness and as reviewed below otherwise noncontributory. Social history: No reported history of drug or alcohol abuse. Family history: As per history of present illness and as reviewed below otherwise noncontributory. Physical exam: General: Well-developed and well-nourished 26-year-old female. Alert and oriented. Nontoxic appearing and in no acute distress. HEENT: Atraumatic, normocephalic, pupils reactive, negative for conjunctival pallor or scleral icterus, mucous membranes moist, throat clear, neck supple, nontender, trachea midline. Lungs: Clear to auscultation, breath sounds equal bilaterally, chest nontender. Heart: S1S2, regular rate and rhythm without overt murmur. Abdomen: Soft, nondistended, obese, nontender. Negative for masses or hepatosplenomegaly. Mild costovertebral tenderness bilaterally. Pelvis: Stable nontender. Genitourinary: Deferred. Rectal: Deferred. Extremities: Atraumatic, negative for cords or calf pain. Neurovascular unremarkable. Neuro: Awake, alert, oriented. Cranial nerves II through XII unremarkable. Cerebellum unremarkable. Motor and sensory unremarkable throughout. Exam nonfocal. Patient currently is on her period, which would lay to her occult blood in her urinalysis sample. No evidence of a UTI. We will send a urine culture at this time. She states that she has had this vaginal discomfort for months which she has seen her primary care provider for multiple times. She does use a topical lidocaine gel which she states alleviates her symptoms somewhat. The more she is describing her symptoms it sounds as if there is a East component to this. I will write a prescription for nystatin. She has a follow-up appointment with Dr. ordonez next Saturday. At that time the urine culture should be available and they can address this issue further. She voices understanding and is agreeable to plan of care. She denies any questions at this time. Diagnostics: UA, UC Therapeutics: [] Impression: Vaginitis Dysuria Plan: 1. Please use the nystatin as directed. Sure you keep the area clean and dry. Please wear cotton underwear and restrict of clothing. 2. Keep your follow-up appointment with Dr. Ordonez on Saturday. Otherwise it may be benifical to follow up with OBGYN. 3. Return to the ED as needed and as discussed. Definitive disposition and diagnosis as appropriate pending reevaluation and review of above. vaginal burning Pain Score (Numeric/FACES): 8 - Related Data Allergies Allergy/AdvReac Type Severity Reaction Status Date / Time No Known Allergies Allergy Verified 09/05/17 13:16 Home Meds: Home Meds Albuterol Sulfate [Albuterol Sulfate HFA] 1 dose INH Q4HR 04/01/14 [History] LORazepam [Ativan] 0.5 mg PO DAILY 04/01/14 [History] metFORMIN [metFORMIN XR] 500 mg PO BIDM 05/27/14 [History] Phenazopyridine [Pyridium] 200 mg PO TID 05/02/15 [History] Albuterol [Ventolin HFA] 2 puff INH BID PRN 10/21/15 [History] Budesonide/Formoterol [Symbicort 160-4.5 Mcg Inhaler] 1 puff INH BID PRN [History] Clobetasol Propionate [Temovate] 30 gm TOP DAILY 10/21/15 [History] Fluconazole [Diflucan] 100 mg PO ASDIRECTED 10/21/15 [History] LORazepam 1 mg PO BEDTIME 10/21/15 [History] Multivitamin [Multivitamins] 1 cap PO DAILY 10/21/15 [History] Tolterodine Tartrate [Detrol LA] 4 mg PO BEDTIME 10/21/15 [History] Ketoconazole [Nizoral 2% Crm] 15 gm TOP BID 07/25/16 [History] Sertraline [Zoloft] 50 mg PO DAILY 07/25/16 [History] Venlafaxine [Effexor XR] 150 mg PO DAILY 07/25/16 [History] Fluconazole [IJD: Fluconazole] 150 mg PO DAILY #2 tab 11/17/16 [Rx] Cephalexin [Keflex] 500 mg PO QID #40 capsule 05/05/17 [Rx] Lidocaine 5% 35.44 gm TOP QID PRN #1 tube 05/16/17 [Rx] Levofloxacin 750 mg PO DAILY 4 Days #4 tablet 05/17/17 [Rx] Past Medical History - Past Health History Medical/Surgical History: Denies Medical/Surgical History HEENT History: 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 Cardiovascular History: Reports: Other (See Below) Other Cardiovascular History: non specific chest pains Respiratory History: Reports: Asthma Gastrointestinal History: Reports: Other (See Below) Other Gastrointestinal History: non specific abd pains Genitourinary History: Reports: UTI, Recurrent, Other (See Below) Other Genitourinary History: chronic uti's, vaginal candidiasis 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 Musculoskeletal History: Reports: Back Pain, Chronic Other Musculoskeletal History: from UTI Neurological History: 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 Psychiatric History: Reports: Anxiety, Depression Endocrine/Metabolic History: Reports: Diabetes, Type II, Obesity/BMI 30+ Hematologic History: 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 Immunologic History: 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 Oncologic (Cancer) History: 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 Dermatologic History: Reports: Psoriasis Other Dermatologic History: on her scalp - Infectious Disease History Infectious Disease History: 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 - Past Surgical History Head Surgeries/Procedures: 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 HEENT Surgical History: Reports: Adenoidectomy, Oral Surgery, Tonsillectomy Respiratory Surgical History: 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 Social & Family History - Family History Family Medical History: Noncontributory Psychiatric: Reports: Anxiety, Depression Endocrine/Metabolic: Reports: Obesity/MBI 30+ Immunologic: Reports: HIV - Tobacco Use Smoking Status *Q: Never Smoker Years of Tobacco use: 1 Packs/Tins Daily: 0 Second Hand Smoke Exposure: No - Caffeine Use Caffeine Use: 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 Caffeine Use Comment: 1 drink/month - Alcohol Use Days Per Week of Alcohol Use: 0 - Recreational Drug Use Recreational Drug Use: No ED ROS GENERAL - Review of Systems Review Of Systems: ROS reveals no pertinent complaints other than HPI. ED EXAM, RENAL/ - Physical Exam Exam: See Below (See dictation) Course - Vital Signs Last Recorded V/S: Last Vital Signs Temp 97.3 F 09/05/17 13:16 Pulse 97 09/05/17 13:16 Resp 20 09/05/17 13:16 BP 119/93 H 09/05/17 13:16 Pulse Ox 95 09/05/17 13:16 - Orders/Labs/Meds Orders: Active Orders 24 hr Category Date Time Status CULTURE URINE [RM] Stat Lab 09/05/17 13:20 Received Labs: Laboratory Tests 09/05/17 Range/Units 13:20 Urine Color DARK YELLOW Urine Appearance CLOUDY Urine pH 5.5 (5.0-8.0) Ur Specific Humphrey 1.025 (1.001-1.035) Urine Protein 30 (NEGATIVE) mg/dL Urine Glucose (UA) NEGATIVE (NEGATIVE) mg/dL Urine Ketones TRACE H (NEGATIVE) mg/dL Urine Occult Blood LARGE H (NEGATIVE) Urine Nitrite NEGATIVE (NEGATIVE) Urine Bilirubin MODERATE H (NEGATIVE) Urine Ictotest NEGATIVE Urine Urobilinogen 1.0 (<2.0) EU/dL Ur Leukocyte Esterase TRACE (NEGATIVE) Urine RBC TOO NUMBEROUS TO CT H (0-2/HPF) Urine WBC 0-1 (0-5/HPF) Ur Epithelial Cells MODERATE (NONE-FEW) Urine Bacteria FEW (NEGATIVE) Urine Mucus LIGHT (NONE-MOD) Departure - Departure Time of Disposition: 14:11 Disposition: Home, Self-Care 01 Clinical Impression: Dysuria Vaginitis Qualifiers: Chronicity: chronic Qualified Code(s): N76.1 - Subacute and chronic vaginitis - Discharge Information Referrals: Sloan Ordonez MD [Primary Care Provider] - Additional Instructions: My general discharge The following information is given to patients seen in the emergency department who are being discharged to home. This information is to outline your options for follow-up care. We provide all patients seen in our emergency department with a follow-up referral. The need for follow-up, as well as the timing and circumstances, are variable depending upon the specifics of your emergency department visit. If you don't have a primary care physician on staff, we will provide you with a referral. We always advise you to contact your personal physician following an emergency department visit to inform them of the circumstance of the visit and for follow-up with them and/or the need for any referrals to a consulting specialist. The emergency department will also refer you to a specialist when appropriate. This referral assures that you have the opportunity for follow-up care with a specialist. All of these measure are taken in an effort to provide you with optimal care, which includes your follow-up. Under all circumstances we always encourage you to contact your private physician who remains a resource for coordinating your care. When calling for follow-up care, please make the office aware that this follow-up is from your recent emergency room visit. If for any reason you are refused follow-up, please contact the [facility] Emergency Department at and asked to speak to the emergency department charge nurse. [facility] [address] [place] [address] [facility] [address] [place] [id number] [facility] [address] [place] [id number] 1. Please use the nystatin as directed. Sure you keep the area clean and dry. Please wear cotton underwear and restrict of clothing. 2. Keep your follow-up appointment with Dr. Ordonez on Saturday. Otherwise it may be beneficial to follow up with OBGYN. 3. Return to the ED as needed and as discussed. - My Orders Last 24 Hours: My Active Orders 09/05/17 13:20 CULTURE URINE [RM] Stat - Assessment/Plan Last 24 Hours: My Active Orders 09/05/17 13:20 CULTURE URINE [RM] Stat
[2017-09-05 14:09] VITALS: BP 130/88
== END 2017-09-05 14:22 | disposition home or self-care (01) ==
LOC: MW.ED 13:07
DX: N76.1 Subacute and chronic vaginitis (principal); R30.0 Dysuria; E11.9 Type 2 diabetes mellitus without complications; Z79.899 Other long term (current) drug therapy; Z79.84 Long term (current) use of oral hypoglycemic drugs
CPT/HCPCS: 81001; 87086; 99283

== ENCOUNTER 2018-03-18 16:34 | Emergency (ER) | payer OTHER, MEDICAID ==
[2018-03-18 16:58] VITALS: BP 146/101
--- NOTE | 2018-03-18 17:19 | EDM.PDOC ---
ED HPI GENERAL MEDICAL PROBLEM - General Chief Complaint: General Stated Complaint: PT SPOKE TO NURSE Time Seen by Provider: 03/18/18 17:14 Source of Information: Reports: Patient History Limitations: Reports: No Limitations - History of Present Illness INITIAL COMMENTS - FREE TEXT/NARRATIVE: HISTORY AND PHYSICAL: History of present illness: Patient is a 27-year-old female here with concern of a foul smell to her belly button. She states that yesterday she put a q-tip in her belly button and states there was a small amount of blood on it and reported that it was foul smelling. She states it is a little tender today since using the q-tip. She denies any fevers, chills, nausea, vomiting, diarrhea and is otherwise in her usual states of health. Review of systems: As per history of present illness and below otherwise all systems reviewed and negative. Past medical history: As per history of present illness and as reviewed below otherwise noncontributory. Surgical history: As per history of present illness and as reviewed below otherwise noncontributory. Social history: No reported history of drug or alcohol abuse. Family history: As per history of present illness and as reviewed below otherwise noncontributory. Physical exam: General: Patient sitting comfortably in no acute distress and nontoxic appearing HEENT: Atraumatic, normocephalic, pupils reactive, negative for conjunctival pallor or scleral icterus, mucous membranes moist, throat clear, neck supple, nontender, trachea midline. No meningeal signs. Lungs: Clear to auscultation, breath sounds equal bilaterally, chest nontender. Heart: S1S2, regular, negative for clicks, rubs, or overt murmur. Abdomen: Obese, Soft, nondistended, nontender. There is no erythema or drainage noted of the umbilicus when probed with a q-tip. No foul smell noted. There is mild eczema within the umbilicus. Negative for masses or hepatosplenomegaly. Negative for costovertebral tenderness. Extremities: Atraumatic, negative for cords or calf pain. Neurovascular unremarkable. Neuro: Awake, alert, oriented. Cranial nerves II through XII unremarkable. Cerebellum unremarkable. Motor and sensory unremarkable throughout. Exam nonfocal. Notes: Diagnostics: None Therapeutics: None Prescriptions: Hydrocortisone Cream Impression: Eczema Plan: 1. Use hydrocortisone cream as instructed 2. Follow up with primary care provider 3. Return to ED as needed as discussed Definitive disposition and diagnosis as appropriate pending reevaluation and review of above. umbilicus Pain Score (Numeric/FACES): 3 - Related Data Allergies Allergy/AdvReac Type Severity Reaction Status Date / Time sulfamethoxazole Allergy Nausea Verified 03/18/18 16:58 [From Bactrim] trimethoprim [From Bactrim] Allergy Nausea Verified 03/18/18 16:58 Home Meds: Home Meds Albuterol Sulfate [Albuterol Sulfate HFA] 1 dose INH Q4HR 04/01/14 [History] LORazepam [Ativan] 0.5 mg PO DAILY 04/01/14 [History] metFORMIN [metFORMIN XR] 500 mg PO BIDM 05/27/14 [History] Phenazopyridine [Pyridium] 200 mg PO TID 05/02/15 [History] Albuterol [Ventolin HFA] 2 puff INH BID PRN 10/21/15 [History] Budesonide/Formoterol [Symbicort 160-4.5 Mcg Inhaler] 1 puff INH BID PRN [History] Clobetasol Propionate [Temovate] 30 gm TOP DAILY 10/21/15 [History] Fluconazole [Diflucan] 100 mg PO ASDIRECTED 10/21/15 [History] LORazepam 1 mg PO BEDTIME 10/21/15 [History] Multivitamin [Multivitamins] 1 cap PO DAILY 10/21/15 [History] Tolterodine Tartrate [Detrol LA] 4 mg PO BEDTIME 10/21/15 [History] Ketoconazole [Nizoral 2% Crm] 15 gm TOP BID 07/25/16 [History] Sertraline [Zoloft] 50 mg PO DAILY 07/25/16 [History] Venlafaxine [Effexor XR] 150 mg PO DAILY 07/25/16 [History] Fluconazole [IJD: Fluconazole] 150 mg PO DAILY #2 tab 11/17/16 [Rx] Cephalexin [Keflex] 500 mg PO QID #40 capsule 05/05/17 [Rx] Lidocaine 5% 35.44 gm TOP QID PRN #1 tube 05/16/17 [Rx] Levofloxacin 750 mg PO DAILY 4 Days #4 tablet 05/17/17 [Rx] Nystatin [Nystatin Oint] 30 gm .XX TID #1 tube 09/05/17 [Rx] Hydrocortisone [Hydrocortisone 2.5% Crm] 30 gm .XX BID #1 tube 03/18/18 [Rx] Past Medical History - Past Health History Medical/Surgical History: Denies Medical/Surgical History HEENT History: 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 Cardiovascular History: Reports: Other (See Below) Other Cardiovascular History: non specific chest pains Respiratory History: Reports: Asthma Gastrointestinal History: Reports: Other (See Below) Other Gastrointestinal History: non specific abd pains Genitourinary History: Reports: UTI, Recurrent, Other (See Below) Other Genitourinary History: chronic uti's, vaginal candidiasis 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 Musculoskeletal History: Reports: Back Pain, Chronic Other Musculoskeletal History: from UTI Neurological History: 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 Psychiatric History: Reports: Anxiety, Depression Endocrine/Metabolic History: Reports: Diabetes, Type II, Obesity/BMI 30+ Hematologic History: 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 Immunologic History: 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 Oncologic (Cancer) History: 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 Dermatologic History: Reports: Psoriasis Other Dermatologic History: on her scalp - Infectious Disease History Infectious Disease History: 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 - Past Surgical History Head Surgeries/Procedures: 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 HEENT Surgical History: Reports: Adenoidectomy, Oral Surgery, Tonsillectomy Respiratory Surgical History: 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 Social & Family History - Family History Family Medical History: Noncontributory Psychiatric: Reports: Anxiety, Depression Endocrine/Metabolic: Reports: Obesity/MBI 30+ Immunologic: Reports: HIV - Tobacco Use Smoking Status *Q: Never Smoker Second Hand Smoke Exposure: No - Caffeine Use Caffeine Use: Reports: Coffee, Soda Caffeine Use Comment: 1 drink/month - Recreational Drug Use Recreational Drug Use: No ED ROS GENERAL - Review of Systems Review Of Systems: ROS reveals no pertinent complaints other than HPI. ED EXAM, GENERAL - Physical Exam Exam: See Below (see dictation) Course - Vital Signs Last Recorded V/S: Last Vital Signs Temp 35.6 C 03/18/18 16:54 Pulse 96 03/18/18 16:54 Resp 16 03/18/18 16:54 BP 146/101 H 03/18/18 16:54 Pulse Ox 94 L 03/18/18 16:54 Departure - Departure Time of Disposition: 17:17 Disposition: Home, Self-Care 01 Condition: Good Clinical Impression: Eczema - Discharge Information Prescriptions: Hydrocortisone [Hydrocortisone 2.5% Crm] 30 gm .XX BID #1 tube Referrals: PCP,None [Primary Care Provider] - Additional Instructions: The following information is given to patients seen in the emergency department who are being discharged to home. This information is to outline your options for follow-up care. We provide all patients seen in our emergency department with a follow-up referral. The need for follow-up, as well as the timing and circumstances, are variable depending upon the specifics of your emergency department visit. If you don't have a primary care physician on staff, we will provide you with a referral. We always advise you to contact your personal physician following an emergency department visit to inform them of the circumstance of the visit and for follow-up with them and/or the need for any referrals to a consulting specialist. The emergency department will also refer you to a specialist when appropriate. This referral assures that you have the opportunity for follow-up care with a specialist. All of these measure are taken in an effort to provide you with optimal care, which includes your follow-up. Under all circumstances we always encourage you to contact your private physician who remains a resource for coordinating your care. When calling for follow-up care, please make the office aware that this follow-up is from your recent emergency room visit. If for any reason you are refused follow-up, please contact the [facility] Emergency Department at and asked to speak to the emergency department charge nurse. [facility] [address] [place] [id number] 1. Use hydrocortisone cream as instructed 2. Follow up with primary care provider 3. Return to ED as needed as discussed
== END 2018-03-18 17:30 | disposition home or self-care (01) ==
LOC: MW.ED 16:34
DX: L30.9 Dermatitis, unspecified (principal); E11.9 Type 2 diabetes mellitus without complications; F41.9 Anxiety disorder, unspecified; F32.9 Major depressive disorder, single episode, unspecified; Z79.899 Other long term (current) drug therapy; Z79.84 Long term (current) use of oral hypoglycemic drugs; Z88.2 Allergy status to sulfonamides; Z88.1 Allergy status to other antibiotic agents
CPT/HCPCS: 99282

== ENCOUNTER 2018-09-29 17:51 | Emergency (ER) | payer OTHER, MEDICAID ==
[2018-09-29 18:08] VITALS: BP 159/91
--- NOTE | 2018-09-29 18:38 | EDM.PDOC ---
ED HPI GENERAL MEDICAL PROBLEM - General Chief Complaint: ENT Problem Stated Complaint: SINUS INFECTION AND HIGH BP Time Seen by Provider: 09/29/18 18:17 Source of Information: Reports: Patient History Limitations: Reports: No Limitations - History of Present Illness INITIAL COMMENTS - FREE TEXT/NARRATIVE: HISTORY AND PHYSICAL: History of present illness: Patient is a 28-year-old female presents to the ED today for concern of right ear pain and sinus pain 4 days. Patient has taken [id number] ibuprofen for symptoms but has not improved. Patient has been able to eat and drink appropriately without concern. Patient denies sore throat or difficulty swallowing. Patient denies fever, chills, chest pain, shortness of breath, or cough. Denies headache, neck stiff ness, change in vision, syncope, or near syncope. Denies nausea, vomiting, abdominal pain, diarrhea, constipation, or dysuria. Has not noted any blood in urine or stool. Patient has been eating and drinking appropriately. Patient denies any health history. Review of systems: As per history of present illness and below otherwise all systems reviewed and negative. Past medical history: As per history of present illness and as reviewed below otherwise noncontributory. Surgical history: As per history of present illness and as reviewed below otherwise noncontributory. Social history: See social history for further information Family history: As per history of present illness and as reviewed below otherwise noncontributory. Physical exam: General: Patient is alert, oriented, and in no acute distress. Patient sitting comfortably on exam table. HEENT: Atraumatic, normocephalic, pupils equal and reactive bilaterally, negative for conjunctival pallor or scleral icterus, mucous membranes moist, right TM is erythematous and bulging with intact tympanic membrane, left TM is normal, throat clear, neck supple, nontender, trachea midline. No drooling or trismus noted. No meningeal signs. No hot potato voice noted. Negative pain to palpation of the sinuses. Bilateral clear nasal drainage. Lungs: Clear to auscultation, breath sounds equal bilaterally, chest nontender. Heart: S1S2, regular rate and rhythm without overt murmur Abdomen: Morbidly obese, soft, nondistended, nontender. Negative for masses or hepatosplenomegaly. Negative for costovertebral tenderness. Pelvis: Stable nontender. Genitourinary: Deferred. Rectal: Deferred. Skin: Intact, warm, dry. No lesions or rashes noted. Extremities: Atraumatic, negative for cords or calf pain. Neurovascular unremarkable. Neuro: Awake, alert, oriented. Cranial nerves II through XII unremarkable. Cerebellum unremarkable. Motor and sensory unremarkable throughout. Exam nonfocal. Notes: Discussed the importance for follow-up with primary care provider. Supportive care measures were reviewed and discussed. Voices understanding and is agreeable to plan of care. Denies any further questions or concerns at this time. Diagnostics: None Therapeutics: None Prescription: Augmentin Impression: Acute otitis media, right Plan: 1. Take medication as prescribed. You can alternate ibuprofen and Tylenol as directed for pain and discomfort. 2. Follow-up with the primary care provider as discussed. 3. Return to the ED as needed and as discussed. Definitive disposition and diagnosis as appropriate pending reevaluation and review of above. Forehead Pain Score (Numeric/FACES): 8 - Related Data Allergies Allergy/AdvReac Type Severity Reaction Status Date / Time sulfamethoxazole Allergy Nausea Verified 09/29/18 18:08 [From Bactrim] trimethoprim [From Bactrim] Allergy Nausea Verified 09/29/18 18:08 Home Meds: Home Meds LORazepam [Ativan] 0.5 mg PO DAILY 04/01/14 [History] metFORMIN [metFORMIN XR] 1,000 mg PO BID 05/27/14 [History] Albuterol [Ventolin HFA] 2 puff INH BID PRN 10/21/15 [History] Budesonide/Formoterol [Symbicort 160-4.5 Mcg Inhaler] 1 puff INH BID PRN [History] Clobetasol Propionate [Temovate] 30 gm TOP DAILY 10/21/15 [History] Multivitamin [Multivitamins] 1 cap PO DAILY 10/21/15 [History] Tolterodine Tartrate [Detrol LA] 4 mg PO BEDTIME 10/21/15 [History] Sertraline [Zoloft] 50 mg PO DAILY 07/25/16 [History] Venlafaxine [Effexor XR] 150 mg PO DAILY 07/25/16 [History] Fluconazole [IJD: Fluconazole] 150 mg PO DAILY #2 tab 11/17/16 [Rx] Lidocaine 5% 35.44 gm TOP QID PRN #1 tube 05/16/17 [Rx] Hydrocortisone [Hydrocortisone 2.5% Crm] 30 gm .XX BID #1 tube 03/18/18 [Rx] Amoxicillin/Potassium Clav [Augmentin 875-125 Tablet] 1 each PO BID 5 Days #10 tablet 09/29/18 [Rx] Lisinopril 10 mg PO DAILY 09/29/18 [History] Past Medical History - Past Health History Medical/Surgical History: Denies Medical/Surgical History HEENT History: 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 Cardiovascular History: Reports: Hypertension, Other (See Below) Other Cardiovascular History: non specific chest pains Respiratory History: Reports: Asthma Gastrointestinal History: Reports: Other (See Below) Other Gastrointestinal History: non specific abd pains Genitourinary History: Reports: UTI, Recurrent, Other (See Below) Other Genitourinary History: chronic uti's, vaginal candidiasis 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 Musculoskeletal History: Reports: Back Pain, Chronic Other Musculoskeletal History: from UTI Neurological History: 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 Psychiatric History: Reports: Anxiety, Depression Endocrine/Metabolic History: Reports: Diabetes, Type II, Obesity/BMI 30+ Hematologic History: 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 Immunologic History: 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 Oncologic (Cancer) History: 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 Dermatologic History: Reports: Psoriasis Other Dermatologic History: on her scalp - Infectious Disease History Infectious Disease History: 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 - Past Surgical History Head Surgeries/Procedures: 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 HEENT Surgical History: Reports: Adenoidectomy, Oral Surgery, Tonsillectomy Respiratory Surgical History: 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 Social & Family History - Family History Family Medical History: Noncontributory Psychiatric: Reports: Anxiety, Depression Endocrine/Metabolic: Reports: Obesity/MBI 30+ Immunologic: Reports: HIV - Tobacco Use Smoking Status *Q: Never Smoker - Caffeine Use Caffeine Use: Reports: Coffee, Energy Drinks, Soda, Tea Caffeine Use Comment: 1 drink/month - Recreational Drug Use Recreational Drug Use: No ED ROS ENT - Review of Systems Review Of Systems: ROS reveals no pertinent complaints other than HPI. ED EXAM, ENT - Physical Exam Exam: See Below (See dictation) Course - Vital Signs Last Recorded V/S: Last Vital Signs Temp 36.3 C 09/29/18 18:06 Pulse 119 H 09/29/18 18:06 Resp BP 159/91 H 09/29/18 18:06 Pulse Ox 96 09/29/18 18:06 Departure - Departure Time of Disposition: 18:37 Disposition: Home, Self-Care 01 Clinical Impression: Acute otitis media Qualifiers: Otitis media type: suppurative Laterality: right Recurrence: not specified as recurrent Spontaneous tympanic membrane rupture: without spontaneous rupture Qualified Code(s): H66.001 - Acute suppurative otitis media without spontaneous rupture of ear drum, right ear - Discharge Information Prescriptions: Amoxicillin/Potassium Clav [Augmentin 875-125 Tablet] 1 each PO BID 5 Days #10 tablet Referrals: PCP,Unknown [Primary Care Provider] - Forms: ED Department Discharge Additional Instructions: The following information is given to patients seen in the emergency department who are being discharged to home. This information is to outline your options for follow-up care. We provide all patients seen in our emergency department with a follow-up referral. The need for follow-up, as well as the timing and circumstances, are variable depending upon the specifics of your emergency department visit. If you don't have a primary care physician on staff, we will provide you with a referral. We always advise you to contact your personal physician following an emergency department visit to inform them of the circumstance of the visit and for follow-up with them and/or the need for any referrals to a consulting specialist. The emergency department will also refer you to a specialist when appropriate. This referral assures that you have the opportunity for follow-up care with a specialist. All of these measure are taken in an effort to provide you with optimal care, which includes your follow-up. Under all circumstances we always encourage you to contact your private physician who remains a resource for coordinating your care. When calling for follow-up care, please make the office aware that this follow-up is from your recent emergency room visit. If for any reason you are refused follow-up, please contact the [facility] Emergency Department at and asked to speak to the emergency department charge nurse. [facility] [address] [place] [address] [id number] [address] [id number] 1. Take medication as prescribed. You can alternate ibuprofen and Tylenol as directed for pain and discomfort. 2. Follow-up with the primary care provider as discussed. 3. Return to the ED as needed and as discussed.
== END 2018-09-29 19:11 | disposition home or self-care (01) ==
LOC: MW.ED 17:51
DX: H66.001 Acute suppurative otitis media without spontaneous rupture of ear drum, right ear (principal); I10 Essential (primary) hypertension; Z88.2 Allergy status to sulfonamides; Z88.1 Allergy status to other antibiotic agents; Z79.899 Other long term (current) drug therapy; Z79.84 Long term (current) use of oral hypoglycemic drugs
CPT/HCPCS: 99281

== ENCOUNTER 2018-10-03 16:37 | Emergency (ER) | payer OTHER, MEDICAID ==
[2018-10-03 17:21] VITALS: BP 147/83
[2018-10-03] MEDS ORDERED: Alum Hydrox/Mag Hydrox/Simeth 15 ML, Metoclopramide 5 MG, Lidocaine 2% 5 ML PO ONE ×3 (18:05)
--- NOTE | 2018-10-03 18:09 | EDM.PDOC ---
ED HPI GENERAL MEDICAL PROBLEM - General Chief Complaint: Respiratory Problem Stated Complaint: CHEST PAIN Time Seen by Provider: 10/03/18 18:09 Source of Information: Reports: Patient - History of Present Illness INITIAL COMMENTS - FREE TEXT/NARRATIVE: HISTORY AND PHYSICAL: History of present illness: [Patient presents with a complaint of chest wall pain I can reproduce symptoms with palpation over anterior chest mostly pectoralis major left and right reproduces symptoms 5 out of 10 with palpation 0 out of 10 at rest No apparent distress no diaphoresis shortness of breath or radiation arm neck or jaw SHEENT has a history of acid reflux currently using Pepto-Bismol I did provide GI cocktail with some improvement Tertiary complaint of being on Augmentin completing 5 of 5 days of Augmentin for sinus infection continues to have sinus pain and pressure ] Review of systems: As per history of present illness and below otherwise all systems reviewed and negative. Past medical history: As per history of present illness and as reviewed below otherwise noncontributory. Surgical history: As per history of present illness and as reviewed below otherwise noncontributory. Social history: No reported history of drug or alcohol abuse. Family history: As per history of present illness and as reviewed below otherwise noncontributory. Physical exam: HEENT: Atraumatic, normocephalic, pupils reactive, negative for conjunctival pallor or scleral icterus, mucous membranes moist, throat clear, neck supple, nontender, trachea midline. Sinus tenderness supraorbital sinuses right greater than left Lungs: Clear to auscultation, breath sounds equal bilaterally, chest nontender. Heart: S1S2, regular, negative for clicks, rubs, or JVD. Abdomen: Soft, nondistended, nontender. Negative for masses or hepatosplenomegaly. Negative for costovertebral tenderness. Pelvis: Stable nontender. Genitourinary: Deferred. Rectal: Deferred. Extremities: Atraumatic, negative for cords or calf pain. Neurovascular unremarkable. Neuro: Awake, alert, oriented. Cranial nerves II through XII unremarkable. Cerebellum unremarkable. Motor and sensory unremarkable throughout. Exam nonfocal. Diagnostics: []EKG Therapeutics: [GI cocktail Toradol 60 IM ] Levaquin 500 by mouth daily #7 no refill rest ice ibuprofen Tramadol Impression: [ meniscitis Chest wall pain/muscle spasm ] Definitive disposition and diagnosis as appropriate pending reevaluation and review of above. Epigastric Pain Score (Numeric/FACES): 8 - Related Data Allergies Allergy/AdvReac Type Severity Reaction Status Date / Time sulfamethoxazole Allergy Nausea Verified 09/29/18 18:08 [From Bactrim] trimethoprim [From Bactrim] Allergy Nausea Verified 09/29/18 18:08 Home Meds: Home Meds LORazepam [Ativan] 0.5 mg PO DAILY 04/01/14 [History] metFORMIN [metFORMIN XR] 1,000 mg PO BID 05/27/14 [History] Albuterol [Ventolin HFA] 2 puff INH BID PRN 10/21/15 [History] Budesonide/Formoterol [Symbicort 160-4.5 Mcg Inhaler] 1 puff INH BID PRN [History] Clobetasol Propionate [Temovate] 30 gm TOP DAILY 10/21/15 [History] Multivitamin [Multivitamins] 1 cap PO DAILY 10/21/15 [History] Tolterodine Tartrate [Detrol LA] 4 mg PO BEDTIME 10/21/15 [History] Sertraline [Zoloft] 50 mg PO DAILY 07/25/16 [History] Venlafaxine [Effexor XR] 150 mg PO DAILY 07/25/16 [History] Fluconazole [IJD: Fluconazole] 150 mg PO DAILY #2 tab 11/17/16 [Rx] Lidocaine 5% 35.44 gm TOP QID PRN #1 tube 05/16/17 [Rx] Hydrocortisone [Hydrocortisone 2.5% Crm] 30 gm .XX BID #1 tube 03/18/18 [Rx] Amoxicillin/Potassium Clav [Augmentin 875-125 Tablet] 1 each PO BID 5 Days #10 tablet 09/29/18 [Rx] Lisinopril 10 mg PO DAILY 09/29/18 [History] Past Medical History - Past Health History Medical/Surgical History: Denies Medical/Surgical History HEENT History: 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 Cardiovascular History: Reports: Hypertension, Other (See Below) Other Cardiovascular History: non specific chest pains Respiratory History: Reports: Asthma Gastrointestinal History: Reports: Other (See Below) Other Gastrointestinal History: non specific abd pains Genitourinary History: Reports: UTI, Recurrent, Other (See Below) Other Genitourinary History: chronic uti's, vaginal candidiasis 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 Musculoskeletal History: Reports: Back Pain, Chronic Other Musculoskeletal History: from UTI Neurological History: 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 Psychiatric History: Reports: Anxiety, Depression Endocrine/Metabolic History: Reports: Diabetes, Type II, Obesity/BMI 30+ Hematologic History: 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 Immunologic History: 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 Oncologic (Cancer) History: 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 Dermatologic History: Reports: Psoriasis Other Dermatologic History: on her scalp - Infectious Disease History Infectious Disease History: 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 - Past Surgical History Head Surgeries/Procedures: 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 HEENT Surgical History: Reports: Adenoidectomy, Oral Surgery, Tonsillectomy Respiratory Surgical History: 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 Social & Family History - Family History Family Medical History: Noncontributory Psychiatric: Reports: Anxiety, Depression Endocrine/Metabolic: Reports: Obesity/MBI 30+ Immunologic: Reports: HIV - Tobacco Use Smoking Status *Q: Never Smoker Second Hand Smoke Exposure: No - Caffeine Use Caffeine Use: Reports: Energy Drinks Caffeine Use Comment: 1 drink/month - Recreational Drug Use Recreational Drug Use: No ED ROS GENERAL - Review of Systems Review Of Systems: See Below ED EXAM, GENERAL - Physical Exam Exam: See Below Course - Vital Signs Last Recorded V/S: Last Vital Signs Temp 97.4 F 10/03/18 17:20 Pulse 123 H 10/03/18 17:20 Resp 20 10/03/18 17:20 BP 147/83 H 10/03/18 17:20 Pulse Ox 94 L 10/03/18 17:20 - Orders/Labs/Meds Orders: Active Orders 24 hr Category Date Time Status EKG 12 Lead [EKG Documentation Completion] [RC] STAT Care 10/03/18 18:05 Active Ketorolac [Toradol] Med 10/03/18 18:50 Once 60 mg IM ONETIME ONE Meds: Medications Discontinued Medications Generic Name Dose Route Start Last Admin Trade Name Freq PRN Reason Stop Dose Admin Al Hydroxide/Mg Hydroxide 15 0 ml 10/03/18 18:05 10/03/18 18:31 ml/ Metoclopramide HCl 5 mg/ PO 10/03/18 18:06 5 each Lidocaine HCl 5 ml ONETIME ONE Administration Departure - Departure Time of Disposition: 18:53 Disposition: Home, Self-Care 01 Condition: Good Clinical Impression: Muscle spasm, Chest wall pain, Sinusitis - Discharge Information Referrals: PCP,Unknown [Primary Care Provider] - Forms: ED Department Discharge Additional Instructions: The following information is given to patients seen in the emergency department who are being discharged to home. This information is to outline your options for follow-up care. We provide all patients seen in our emergency department with a follow-up referral. The need for follow-up, as well as the timing and circumstances, are variable depending upon the specifics of your emergency department visit. If you don't have a primary care physician on staff, we will provide you with a referral. We always advise you to contact your personal physician following an emergency department visit to inform them of the circumstance of the visit and for follow-up with them and/or the need for any referrals to a consulting specialist. The emergency department will also refer you to a specialist when appropriate. This referral assures that you have the opportunity for follow-up care with a specialist. All of these measure are taken in an effort to provide you with optimal care, which includes your follow-up. Under all circumstances we always encourage you to contact your private physician who remains a resource for coordinating your care. When calling for follow-up care, please make the office aware that this follow-up is from your recent emergency room visit. If for any reason you are refused follow-up, please contact the [facility] emergency department at and asked to speak to the emergency department charge nurse. - My Orders Last 24 Hours: My Active Orders 10/03/18 18:05 EKG 12 Lead [EKG Documentation Completion] [RC] STAT 10/03/18 18:50 Ketorolac [Toradol] 60 mg IM ONETIME ONE - Assessment/Plan Last 24 Hours: My Active Orders 10/03/18 18:05 EKG 12 Lead [EKG Documentation Completion] [RC] STAT 10/03/18 18:50 Ketorolac [Toradol] 60 mg IM ONETIME ONE
[2018-10-03] MEDS ORDERED: Ketorolac 60 MG/2 ML SDV IM ONE (18:50)
== END 2018-10-03 19:14 | disposition home or self-care (01) ==
LOC: MW.ED 16:37
DX: R07.89 Other chest pain (principal); E66.9 Obesity, unspecified; E11.9 Type 2 diabetes mellitus without complications; M62.838 Other muscle spasm; J32.9 Chronic sinusitis, unspecified; Z88.2 Allergy status to sulfonamides; Z88.8 Allergy status to other drugs, medicaments and biological substances; Z79.899 Other long term (current) drug therapy
CPT/HCPCS: 93005; 96372; 99283; A9270; J1885

== ENCOUNTER 2018-12-22 19:11 | Emergency (ER) | payer MEDICAID ==
[2018-12-22] MEDS ORDERED: Ketorolac 60 MG/2 ML SDV IM ONE (19:24)
--- NOTE | 2018-12-22 19:25 | EDM.PDOC ---
ED HPI GENERAL MEDICAL PROBLEM - General Stated Complaint: PT HAS CHEST PAINS Time Seen by Provider: 12/22/18 19:12 Source of Information: Reports: Patient History Limitations: Reports: No Limitations - History of Present Illness INITIAL COMMENTS - FREE TEXT/NARRATIVE: HISTORY AND PHYSICAL: History of present illness: Patient is a 28-year-old female patient who presents to the ED today with concern of left-sided chest wall pain that she rates a 5 out of 10 and worse when she presses on it. Patient states the symptoms have been ongoing for the past 4-5 days and has not gotten worse but is also not gotten better. Patient states she has not taken anything for her symptoms. Patient states she has had these symptoms in the past and was diagnosed with "chest wall pain." Patient denies any other associated dictated symptoms. Patient states she has a history of frequent urinary tract infections, high blood pressure but denies any other health history. Patient denies fever, chills, shortness of breath, or cough. Denies headache, neck stiff ness, change in vision, syncope, or near syncope. Denies nausea, vomiting, abdominal pain, diarrhea, constipation, or dysuria. Has not noted any blood in urine or stool. Patient has been eating and drinking appropriately. Review of systems: As per history of present illness and below otherwise all systems reviewed and negative. Past medical history: As per history of present illness and as reviewed below otherwise noncontributory. Surgical history: As per history of present illness and as reviewed below otherwise noncontributory. Social history: See social history for further information Family history: As per history of present illness and as reviewed below otherwise noncontributory. Physical exam: Physical exam is limited due to body habitus. General: Patient is alert, oriented, and in no acute distress. Patient sitting comfortably on exam table. HEENT: Atraumatic, normocephalic, pupils equal and reactive bilaterally, negative for conjunctival pallor or scleral icterus, mucous membranes moist, TMs normal bilaterally, throat clear, neck supple, nontender, trachea midline. No drooling or trismus noted. No meningeal signs. No hot potato voice noted. Lungs: Clear to auscultation, breath sounds equal bilaterally. There is palpable and reproducible pain with palpation over ribs #3-5. Heart: S1S2, regular rate and rhythm without overt murmur Abdomen: Obese, Soft, nondistended, nontender. Negative for masses or hepatosplenomegaly. Negative for costovertebral tenderness. Pelvis: Stable nontender. Genitourinary: Deferred. Rectal: Deferred. Skin: Intact, warm, dry. No lesions or rashes noted. Extremities: Atraumatic, negative for cords or calf pain. Neurovascular unremarkable. Neuro: Awake, alert, oriented. Cranial nerves II through XII unremarkable. Cerebellum unremarkable. Motor and sensory unremarkable throughout. Exam nonfocal. Notes: Discussed the importance for follow-up with a primary care provider. Voices understanding and is agreeable to plan of care. Denies any further questions or concerns at this time. Diagnostics: CBC, CMP, UA, EKG, chest x-ray, troponin, Uhcg Therapeutics: Toradol Prescription: Diclofenac Impression: Chest wall pain, unspecified Plan: 1. Take medication as prescribed. Rest, ice, affected area. You can apply ice and or heat 15 minutes on, 15 minutes off. 2. Tylenol as directed for pain management or discomfort. 3. Follow up with the primary care provider as discussed. Return to the ED as needed and as discussed. Definitive disposition and diagnosis as appropriate pending reevaluation and review of above. sternal chest pain Pain Score (Numeric/FACES): 7 - Related Data Allergies Allergy/AdvReac Type Severity Reaction Status Date / Time ciprofloxacin [From Cipro] Allergy Rash Verified 12/22/18 19:29 sulfamethoxazole Allergy Nausea Verified 09/29/18 18:08 [From Bactrim] trimethoprim [From Bactrim] Allergy Nausea Verified 09/29/18 18:08 Home Meds: Home Meds LORazepam [Ativan] 0.5 mg PO DAILY 04/01/14 [History] metFORMIN [metFORMIN XR] 1,000 mg PO BID 05/27/14 [History] Albuterol [Ventolin HFA] 2 puff INH BID PRN 10/21/15 [History] Budesonide/Formoterol [Symbicort 160-4.5 Mcg Inhaler] 1 puff INH BID PRN [History] Clobetasol Propionate [Temovate] 30 gm TOP DAILY 10/21/15 [History] Multivitamin [Multivitamins] 1 cap PO DAILY 10/21/15 [History] Tolterodine Tartrate [Detrol LA] 4 mg PO BEDTIME 10/21/15 [History] Sertraline [Zoloft] 50 mg PO DAILY 07/25/16 [History] Venlafaxine [Effexor XR] 150 mg PO DAILY 07/25/16 [History] Fluconazole [IJD: Fluconazole] 150 mg PO DAILY #2 tab 11/17/16 [Rx] Lidocaine 5% 35.44 gm TOP QID PRN #1 tube 05/16/17 [Rx] Hydrocortisone [Hydrocortisone 2.5% Crm] 30 gm .XX BID #1 tube 03/18/18 [Rx] Amoxicillin/Potassium Clav [Augmentin 875-125 Tablet] 1 each PO BID 5 Days #10 tablet 09/29/18 [Rx] Lisinopril 10 mg PO DAILY 09/29/18 [History] Past Medical History - Past Health History Medical/Surgical History: Denies Medical/Surgical History HEENT History: 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 Cardiovascular History: Reports: Hypertension, Other (See Below) Other Cardiovascular History: non specific chest pains Respiratory History: Reports: Asthma Gastrointestinal History: Reports: Other (See Below) Other Gastrointestinal History: non specific abd pains Genitourinary History: Reports: UTI, Recurrent, Other (See Below) Other Genitourinary History: chronic uti's, vaginal candidiasis 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 Musculoskeletal History: Reports: Back Pain, Chronic Other Musculoskeletal History: from UTI Neurological History: 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 Psychiatric History: Reports: Anxiety, Depression Endocrine/Metabolic History: Reports: Diabetes, Type II, Obesity/BMI 30+ Hematologic History: 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 Immunologic History: 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 Oncologic (Cancer) History: 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 Dermatologic History: Reports: Psoriasis Other Dermatologic History: on her scalp - Infectious Disease History Infectious Disease History: 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 - Past Surgical History Head Surgeries/Procedures: 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 HEENT Surgical History: Reports: Adenoidectomy, Oral Surgery, Tonsillectomy Respiratory Surgical History: 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 Social & Family History - Family History Family Medical History: Noncontributory Psychiatric: Reports: Anxiety, Depression Endocrine/Metabolic: Reports: Obesity/MBI 30+ Immunologic: Reports: HIV - Caffeine Use Caffeine Use: Reports: Energy Drinks Caffeine Use Comment: 1 drink/month ED ROS GENERAL - Review of Systems Review Of Systems: ROS reveals no pertinent complaints other than HPI. ED EXAM, GENERAL - Physical Exam Exam: See Below (See dictation) Course - Vital Signs Last Recorded V/S: Last Vital Signs Temp 36.6 C 12/22/18 19:24 Pulse 96 12/22/18 19:24 Resp 16 12/22/18 19:24 BP 138/70 12/22/18 19:24 Pulse Ox 96 12/22/18 19:24 - Orders/Labs/Meds Orders: Active Orders 24 hr Category Date Time Status Cardiac Monitoring [RC] . DIRECTED Care 12/22/18 19:12 Active EKG Documentation Completion [RC] STAT Care 12/22/18 19:13 Active Labs: Laboratory Tests 12/22/18 12/22/18 12/22/18 Range/Units 19:50 19:50 20:05 WBC 8.42 (4.0-11.0) K/uL RBC 5.23 (4.30-5.90) M/uL Hgb 14.4 (12.0-16.0) g/dL Hct 43.3 (36.0-46.0) % MCV 82.8 (80.0-98.0) fL MCH 27.5 (27.0-32.0) pg MCHC 33.3 (31.0-37.0) g/dL RDW Std Deviation 39.3 (28.0-62.0) fl RDW Coeff of Nicky 13 (11.0-15.0) % Plt Count 264 (150-400) K/uL MPV 9.70 (7.40-12.00) fL Neut % (Auto) 40.2 L (48.0-80.0) % Lymph % (Auto) 49.9 H (16.0-40.0) % [place] % (Auto) 5.3 (0.0-15.0) % Eos % (Auto) 4.0 (0.0-7.0) % Baso % (Auto) 0.6 (0.0-1.5) % Neut # (Auto) 3.4 (1.4-5.7) K/uL Lymph # (Auto) 4.2 H (0.6-2.4) K/uL [place] # (Auto) 0.5 (0.0-0.8) K/uL Eos # (Auto) 0.3 (0.0-0.7) K/uL Baso # (Auto) 0.1 (0.0-0.1) K/uL Nucleated RBC % 0.0 /100WBC Nucleated RBCs # 0 K/uL Sodium (136-145) mmol/L Potassium (3.5-5.1) mmol/L Chloride (98-107) mmol/L Carbon Dioxide (21.0-32.0) mmol/L BUN (7.0-18.0) mg/dL Creatinine (0.6-1.0) mg/dL Est Cr Clr Drug Dosing Estimated GFR (MDRD) ml/min Glucose (74-106) mg/dL Calcium (8.5-10.1) mg/dL Total Bilirubin (0.2-1.0) mg/dL AST (15-37) IU/L ALT (14-63) IU/L Alkaline Phosphatase (46-116) U/L Troponin I (0.000-0.056) ng/mL Total Protein (6.4-8.2) g/dL Albumin (3.4-5.0) g/dL Globulin (2.6-4.0) g/dL Albumin/Globulin Ratio (0.9-1.6) Urine Color YELLOW Urine Appearance CLEAR Urine pH 6.0 (5.0-8.0) Ur Specific [place] >= 1.030 (1.001-1.035) Urine Protein NEGATIVE (NEGATIVE) mg/dL Urine Glucose (UA) 500 H (NEGATIVE) mg/dL Urine Ketones NEGATIVE (NEGATIVE) mg/dL Urine Occult Blood NEGATIVE (NEGATIVE) Urine Nitrite NEGATIVE (NEGATIVE) Urine Bilirubin NEGATIVE (NEGATIVE) Urine Urobilinogen 0.2 (<2.0) EU/dL Ur Leukocyte Esterase NEGATIVE (NEGATIVE) Urine HCG, Qual NEGATIVE (NEGATIVE) 12/22/18 12/22/18 Range/Units 20:05 20:05 WBC (4.0-11.0) K/uL RBC (4.30-5.90) M/uL Hgb (12.0-16.0) g/dL Hct (36.0-46.0) % MCV (80.0-98.0) fL MCH (27.0-32.0) pg MCHC (31.0-37.0) g/dL RDW Std Deviation (28.0-62.0) fl RDW Coeff of Nicky (11.0-15.0) % Plt Count (150-400) K/uL MPV (7.40-12.00) fL Neut % (Auto) (48.0-80.0) % Lymph % (Auto) (16.0-40.0) % [place] % (Auto) (0.0-15.0) % Eos % (Auto) (0.0-7.0) % Baso % (Auto) (0.0-1.5) % Neut # (Auto) (1.4-5.7) K/uL Lymph # (Auto) (0.6-2.4) K/uL [place] # (Auto) (0.0-0.8) K/uL Eos # (Auto) (0.0-0.7) K/uL Baso # (Auto) (0.0-0.1) K/uL Nucleated RBC % /100WBC Nucleated RBCs # K/uL Sodium 140 (136-145) mmol/L Potassium 3.7 (3.5-5.1) mmol/L Chloride 106 (98-107) mmol/L Carbon Dioxide 24.3 (21.0-32.0) mmol/L BUN 13 (7.0-18.0) mg/dL Creatinine 0.6 (0.6-1.0) mg/dL Est Cr Clr Drug Dosing TNP Estimated GFR (MDRD) > 60.0 ml/min Glucose 183 H (74-106) mg/dL Calcium 8.5 (8.5-10.1) mg/dL Total Bilirubin 0.2 (0.2-1.0) mg/dL AST 10 L (15-37) IU/L ALT 23 (14-63) IU/L Alkaline Phosphatase 76 (46-116) U/L Troponin I < 0.050 (0.000-0.056) ng/mL Total Protein 6.0 L (6.4-8.2) g/dL Albumin 3.1 L (3.4-5.0) g/dL Globulin 2.9 (2.6-4.0) g/dL Albumin/Globulin Ratio 1.1 (0.9-1.6) Urine Color Urine Appearance Urine pH (5.0-8.0) Ur Specific [place] (1.001-1.035) Urine Protein (NEGATIVE) mg/dL Urine Glucose (UA) (NEGATIVE) mg/dL Urine Ketones (NEGATIVE) mg/dL Urine Occult Blood (NEGATIVE) Urine Nitrite (NEGATIVE) Urine Bilirubin (NEGATIVE) Urine Urobilinogen (<2.0) EU/dL Ur Leukocyte Esterase (NEGATIVE) Urine HCG, Qual (NEGATIVE) Meds: Medications Discontinued Medications Generic Name Dose Route Start Last Admin Trade Name Freq PRN Reason Stop Dose Admin Sodium Chloride 1,000 mls @ 999 mls/hr 12/22/18 19:52 12/22/18 19:57 Normal Saline IV 12/22/18 20:52 999 mls/hr STAT ONE Administration Ketorolac Tromethamine 60 mg 12/22/18 19:24 12/22/18 20:18 Toradol IM 12/22/18 19:25 Not Given ONETIME ONE Ketorolac Tromethamine 30 mg 12/22/18 19:32 12/22/18 19:38 Toradol IVPUSH 12/22/18 19:33 30 mg ONETIME ONE Administration Departure - Departure Time of Disposition: 21:05 Disposition: Home, Self-Care 01 Clinical Impression: Chest wall pain Referrals: Sloan Ordonez MD [Primary Care Provider] - Additional Instructions: The following information is given to patients seen in the emergency department who are being discharged to home. This information is to outline your options for follow-up care. We provide all patients seen in our emergency department with a follow-up referral. The need for follow-up, as well as the timing and circumstances, are variable depending upon the specifics of your emergency department visit. If you don't have a primary care physician on staff, we will provide you with a referral. We always advise you to contact your personal physician following an emergency department visit to inform them of the circumstance of the visit and for follow-up with them and/or the need for any referrals to a consulting specialist. The emergency department will also refer you to a specialist when appropriate. This referral assures that you have the opportunity for follow-up care with a specialist. All of these measure are taken in an effort to provide you with optimal care, which includes your follow-up. Under all circumstances we always encourage you to contact your private physician who remains a resource for coordinating your care. When calling for follow-up care, please make the office aware that this follow-up is from your recent emergency room visit. If for any reason you are refused follow-up, please contact the [facility] Emergency Department at and asked to speak to the emergency department charge nurse. [facility] [address] [place] [address] [facility] [address] [place] [id number] 1. Take medication as prescribed. Rest, ice, affected area. You can apply ice and or heat 15 minutes on, 15 minutes off. 2. Tylenol as directed for pain management or discomfort. 3. Follow up with the primary care provider as discussed. Return to the ED as needed and as discussed. - My Orders Last 24 Hours: My Active Orders 12/22/18 19:12 Cardiac Monitoring [RC] . DIRECTED 12/22/18 19:13 EKG Documentation Completion [RC] STAT - Assessment/Plan Last 24 Hours: My Active Orders 12/22/18 19:12 Cardiac Monitoring [RC] . DIRECTED 12/22/18 19:13 EKG Documentation Completion [RC] STAT
[2018-12-22] MEDS ORDERED: Ketorolac 30 MG/ML SDV IVPUSH ONE (19:32)
[2018-12-22] MEDS ORDERED: Sodium Chloride 0.9% 1,000 ML IV ONE (19:52)
[2018-12-22 20:38] LABS: CHLORIDE,CL 106 mmol/L (98-107); SODIUM,NA 140 mmol/L (136-145)
--- NOTE | 2018-12-22 21:00 | CR ---
Indication: Chest pain. Technique: Single AP portable view of the chest was obtained. Comparison: April 26, 2018. Findings: Heart is normal in size. The lungs are clear. No infiltrate, pleural effusion, or pneumothorax is identified. Impression: No acute cardiopulmonary process. Dictated by Mindy Marcos MD @ Dec 22 2018 8:57PM Signed by Dr. Mindy Marcos @ Dec 22 2018 8:57PM
[2018-12-22 21:32] VITALS: BP 142/88
== END 2018-12-22 21:33 | disposition home or self-care (01) ==
LOC: MW.ED 19:11
DX: R07.89 Other chest pain (principal); I10 Essential (primary) hypertension; F41.9 Anxiety disorder, unspecified; E11.9 Type 2 diabetes mellitus without complications; E66.9 Obesity, unspecified; Z88.2 Allergy status to sulfonamides; Z88.1 Allergy status to other antibiotic agents; Z79.899 Other long term (current) drug therapy; Z79.84 Long term (current) use of oral hypoglycemic drugs; Z98.890 Other specified postprocedural states
CPT/HCPCS: 36415; 71045; 80053; 81003; 81025; 84484; 85025; 93005; 96361; 96374; 99285; J1885; J7040

== ENCOUNTER 2019-02-27 12:36 | Emergency (ER) | payer MEDICAID ==
--- NOTE | 2019-02-27 13:13 | EDM.PDOC ---
ED HPI GENERAL MEDICAL PROBLEM - General Stated Complaint: UTI Time Seen by Provider: 02/27/19 13:13 Source of Information: Reports: Patient History Limitations: Reports: No Limitations - History of Present Illness INITIAL COMMENTS - FREE TEXT/NARRATIVE: HISTORY AND PHYSICAL: History of present illness: Patient is a 28-year-old female who presents to the emergency room today with complaints of dysuria. She states that she does have a history of frequent UTIs and is concerned she has a bladder infection currently. Patient denies any fever , chills, headache, change in vision, syncope or near syncope. Denies any chest pain, back pain, shortness of breath or cough. Denies any abdominal pain, nausea , vomiting, diarrhea, constipation. Has not noted any blood in urine or stool. Patient has been eating and drinking appropriately. Review of systems: As per history of present illness and below otherwise all systems reviewed and negative. Past medical history: As per history of present illness and as reviewed below otherwise noncontributory. Surgical history: As per history of present illness and as reviewed below otherwise noncontributory. Social history: See social history for further information Family history: As per history of present illness and as reviewed below otherwise noncontributory. Physical exam: General: Well-developed and well-nourished 28-year-old female. Alert and oriented. Nontoxic appearing and in no acute distress. HEENT: Atraumatic, normocephalic, pupils equal and reactive bilaterally, negative for conjunctival pallor or scleral icterus, mucous membranes moist, trachea midline. No drooling or trismus noted. No meningeal signs. No hot potato voice noted. Lungs: Clear to auscultation, breath sounds equal bilaterally, chest nontender. Heart: S1S2, regular rate and rhythm without overt murmur Abdomen: Soft, nondistended, nontender. Negative for masses or hepatosplenomegaly. Negative for costovertebral tenderness. Pelvis: Stable nontender. Skin: Intact, warm, dry. No lesions or rashes noted. Extremities: Atraumatic, moves all extremities per self without difficulty or deficits, negative for cords or calf pain. Neurovascular unremarkable. Neuro: Awake, alert, oriented. Cranial nerves II through XII unremarkable. Cerebellum unremarkable. Motor and sensory unremarkable throughout. Exam nonfocal. Notes: Patient does have a past medical history of frequent urinary tract infections. Will treat with Macrobid. Supportive care measures were reviewed and discussed. Voices understanding and is agreeable to plan of care. Denies any further questions or concerns at this time. Diagnostics: UA Therapeutics: None Prescription: Macrobid Impression: Dysuria Plan: 1. Please use Tylenol and/or Ibuprofen as needed for pain and fever management. 2. Get plenty of Rest. Encourage fluids to prevent dehydration. Take the antibiotic as prescribed. You may use Azo [id number] for symptom relief. 3. Please follow up with your primary care provider. Return to the ED as needed as discussed. Definitive disposition and diagnosis as appropriate pending reevaluation and review of above. Bladder Pain Score (Numeric/FACES): 8 - Related Data Allergies Allergy/AdvReac Type Severity Reaction Status Date / Time ciprofloxacin [From Cipro] Allergy Rash Verified 02/27/19 13:24 sulfamethoxazole Allergy Nausea Verified 02/27/19 13:24 [From Bactrim] trimethoprim [From Bactrim] Allergy Nausea Verified 02/27/19 13:24 Home Meds: Home Meds LORazepam [Ativan] 0.5 mg PO DAILY 04/01/14 [History] metFORMIN [metFORMIN XR] 1,000 mg PO BID 05/27/14 [History] Albuterol [Ventolin HFA] 2 puff INH BID PRN 10/21/15 [History] Budesonide/Formoterol [Symbicort 160-4.5 Mcg Inhaler] 1 puff INH BID PRN [History] Clobetasol Propionate [Temovate] 30 gm TOP DAILY 10/21/15 [History] Multivitamin [Multivitamins] 1 cap PO DAILY 10/21/15 [History] Tolterodine Tartrate [Detrol LA] 4 mg PO BEDTIME 10/21/15 [History] Sertraline [Zoloft] 50 mg PO DAILY 07/25/16 [History] Venlafaxine [Effexor XR] 150 mg PO DAILY 07/25/16 [History] Fluconazole [IJD: Fluconazole] 150 mg PO DAILY #2 tab 11/17/16 [Rx] Lidocaine 5% 35.44 gm TOP QID PRN #1 tube 05/16/17 [Rx] Hydrocortisone [Hydrocortisone 2.5% Crm] 30 gm .XX BID #1 tube 03/18/18 [Rx] Amoxicillin/Potassium Clav [Augmentin 875-125 Tablet] 1 each PO BID 5 Days #10 tablet 09/29/18 [Rx] Lisinopril 10 mg PO DAILY 09/29/18 [History] Past Medical History - Past Health History Medical/Surgical History: Denies Medical/Surgical History HEENT History: 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 Cardiovascular History: Reports: Hypertension, Other (See Below) Other Cardiovascular History: non specific chest pains Respiratory History: Reports: Asthma Gastrointestinal History: Reports: Other (See Below) Other Gastrointestinal History: non specific abd pains Genitourinary History: Reports: UTI, Recurrent, Other (See Below) Other Genitourinary History: chronic uti's, vaginal candidiasis 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: 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 Musculoskeletal History: Reports: Back Pain, Chronic Other Musculoskeletal History: from UTI Neurological History: 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 Psychiatric History: Reports: Anxiety, Depression Endocrine/Metabolic History: Reports: Diabetes, Type II, Obesity/BMI 30+ Hematologic History: 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 Immunologic History: 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 Oncologic (Cancer) History: 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 Dermatologic History: Reports: Psoriasis Other Dermatologic History: on her scalp - Infectious Disease History Infectious Disease History: 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 - Past Surgical History Head Surgeries/Procedures: 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 HEENT Surgical History: Reports: Adenoidectomy, Oral Surgery, Tonsillectomy Respiratory Surgical History: 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 Social & Family History - Family History Family Medical History: Noncontributory Psychiatric: Reports: Anxiety, Depression Endocrine/Metabolic: Reports: Obesity/MBI 30+ Immunologic: Reports: HIV - Caffeine Use Caffeine Use: Reports: Energy Drinks Caffeine Use Comment: 1 drink/month ED ROS GENERAL - Review of Systems Review Of Systems: ROS reveals no pertinent complaints other than HPI. ED EXAM, RENAL/ - Physical Exam Exam: See Below (See dictation) Course - Vital Signs Last Recorded V/S: Last Vital Signs Temp Pulse 103 H 02/27/19 13:21 Resp 18 02/27/19 13:21 BP 144/102 H 02/27/19 13:21 Pulse Ox 97 02/27/19 13:21 - Orders/Labs/Meds Labs: Laboratory Tests 02/27/19 Range/Units 13:01 Urine Color YELLOW Urine Appearance HAZY Urine pH 5.5 (5.0-8.0) Ur Specific [place] 1.020 (1.001-1.035) Urine Protein NEGATIVE (NEGATIVE) mg/dL Urine Glucose (UA) >=1000 (NEGATIVE) mg/dL Urine Ketones NEGATIVE (NEGATIVE) mg/dL Urine Occult Blood LARGE H (NEGATIVE) Urine Nitrite NEGATIVE (NEGATIVE) Urine Bilirubin NEGATIVE (NEGATIVE) Urine Urobilinogen 0.2 (<2.0) EU/dL Ur Leukocyte Esterase NEGATIVE (NEGATIVE) Urine RBC 3-6 (0-2/HPF) Urine WBC 0-2 (0-5/HPF) Ur Epithelial Cells MODERATE (NONE-FEW) Urine Bacteria RARE (NEGATIVE) Urine Mucus LIGHT (NONE-MOD) Departure - Departure Time of Disposition: 13:53 Disposition: Home, Self-Care 01 Clinical Impression: Dysuria - Discharge Information Instructions: Dysuria Additional Instructions: The following information is given to patients seen in the emergency department who are being discharged to home. This information is to outline your options for follow-up care. We provide all patients seen in our emergency department with a follow-up referral. The need for follow-up, as well as the timing and circumstances, are variable depending upon the specifics of your emergency department visit. If you don't have a primary care physician on staff, we will provide you with a referral. We always advise you to contact your personal physician following an emergency department visit to inform them of the circumstance of the visit and for follow-up with them and/or the need for any referrals to a consulting specialist. The emergency department will also refer you to a specialist when appropriate. This referral assures that you have the opportunity for follow-up care with a specialist. All of these measure are taken in an effort to provide you with optimal care, which includes your follow-up. Under all circumstances we always encourage you to contact your private physician who remains a resource for coordinating your care. When calling for follow-up care, please make the office aware that this follow-up is from your recent emergency room visit. If for any reason you are refused follow-up, please contact the [facility] Emergency Department at and asked to speak to the emergency department charge nurse. [facility] [address] [place] [id number] [facility] [address] [place] [address] 1. Please use Tylenol and/or Ibuprofen as needed for pain and fever management. 2. Get plenty of Rest. Encourage fluids to prevent dehydration. Take the antibiotic as prescribed. You may use Azo [id number] for symptom relief. 3. Please follow up with your primary care provider. Return to the ED as needed as discussed.
[2019-02-27 14:18] VITALS: BP 138/97
== END 2019-02-27 14:18 | disposition home or self-care (01) ==
LOC: MW.ED 12:36
DX: R30.0 Dysuria (principal); I10 Essential (primary) hypertension; F41.9 Anxiety disorder, unspecified; F32.9 Major depressive disorder, single episode, unspecified; E11.9 Type 2 diabetes mellitus without complications; E66.9 Obesity, unspecified; Z88.1 Allergy status to other antibiotic agents; Z88.2 Allergy status to sulfonamides; Z79.899 Other long term (current) drug therapy; Z79.84 Long term (current) use of oral hypoglycemic drugs; Z98.890 Other specified postprocedural states
CPT/HCPCS: 81001; 99283

== ENCOUNTER 2019-03-30 14:45 | Emergency (ER) | payer MEDICARE, MEDICAID ==
--- NOTE | 2019-03-30 15:03 | EDM.PDOC ---
ED HPI GENERAL MEDICAL PROBLEM - General Chief Complaint: ENT Problem Stated Complaint: SINUS INFECTION Time Seen by Provider: 03/30/19 15:03 Source of Information: Reports: Patient History Limitations: Reports: No Limitations - History of Present Illness INITIAL COMMENTS - FREE TEXT/NARRATIVE: HISTORY AND PHYSICAL: History of present illness: Patient is a 28-year-old female presents to the ED with complaint of sinus pressure x 3 days. She reports nasal congestion x pain in her forehead and cheeks. She denies fevers, chills, nausea, vomiting, abdominal pain, cough, shortness of breath. Past medical history significant for type 2 diabetes. Review of systems: As per history of present illness and below otherwise all systems reviewed and negative. Past medical history: As per history of present illness and as reviewed below otherwise noncontributory. Surgical history: As per history of present illness and as reviewed below otherwise noncontributory. Social history: No reported history of drug or alcohol abuse. Family history: As per history of present illness and as reviewed below otherwise noncontributory. Physical exam: General: Patient sitting comfortably in no acute distress and nontoxic appearing HEENT: Bilateral maxillary sinus tenderness to palpation. Atraumatic, normocephalic, pupils reactive, negative for conjunctival pallor or scleral icterus, mucous membranes moist, throat clear, neck supple, nontender, trachea midline. No meningeal signs. Lungs: Clear to auscultation, breath sounds equal bilaterally, chest nontender. Heart: S1S2, regular, negative for clicks, rubs, or overt murmur. Abdomen: Soft, nondistended, nontender. Negative for masses or hepatosplenomegaly. Negative for costovertebral tenderness. No rigidity, rebound , guarding. Pelvis: Stable nontender. Genitourinary: Deferred. Rectal: Deferred. Extremities: Atraumatic, negative for cords or calf pain. Neurovascular unremarkable. Neuro: Awake, alert, oriented. Cranial nerves II through XII unremarkable. Cerebellum unremarkable. Motor and sensory unremarkable throughout. Exam nonfocal. Notes: Diagnostics: Influenza Therapeutics: [] Prescriptions: Azithromycin Impression: Acute sinusitis Plan: Take antibiotic as instructed Follow up with primary care provider Return to ED as needed as discussed Definitive disposition and diagnosis as appropriate pending reevaluation and review of above. Head Pain Score (Numeric/FACES): 9 - Related Data Allergies Allergy/AdvReac Type Severity Reaction Status Date / Time ciprofloxacin [From Cipro] Allergy Rash Verified 03/30/19 15:02 sulfamethoxazole Allergy Nausea Verified 03/30/19 15:02 [From Bactrim] trimethoprim [From Bactrim] Allergy Nausea Verified 03/30/19 15:02 Home Meds: Home Meds LORazepam [Ativan] 0.5 mg PO DAILY 04/01/14 [History] metFORMIN [metFORMIN XR] 1,000 mg PO BID 05/27/14 [History] Albuterol [Ventolin HFA] 2 puff INH BID PRN 10/21/15 [History] Budesonide/Formoterol [Symbicort 160-4.5 Mcg Inhaler] 1 puff INH BID PRN [History] Clobetasol Propionate [Temovate] 30 gm TOP DAILY 10/21/15 [History] Sertraline [Zoloft] 50 mg PO DAILY 07/25/16 [History] Fluconazole [IJD: Fluconazole] 150 mg PO DAILY #2 tab 11/17/16 [Rx] Lidocaine 5% 35.44 gm TOP QID PRN #1 tube 05/16/17 [Rx] Hydrocortisone [Hydrocortisone 2.5% Crm] 30 gm .XX BID #1 tube 03/18/18 [Rx] Lisinopril 10 mg PO DAILY 09/29/18 [History] Azithromycin [Zithromax] 250 mg PO ASDIRECTED #1 dosepk 03/30/19 [Rx] Past Medical History - Past Health History Medical/Surgical History: Denies Medical/Surgical History HEENT History: 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 Cardiovascular History: Reports: Hypertension, Other (See Below) Other Cardiovascular History: non specific chest pains Respiratory History: Reports: Asthma Gastrointestinal History: Reports: Other (See Below) Other Gastrointestinal History: non specific abd pains Genitourinary History: Reports: UTI, Recurrent, Other (See Below) Other Genitourinary History: chronic uti's, vaginal candidiasis DATA ABSTRACTOR History: 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 Musculoskeletal History: Reports: Back Pain, Chronic Other Musculoskeletal History: from UTI Neurological History: 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 Psychiatric History: Reports: Anxiety, Depression Endocrine/Metabolic History: Reports: Diabetes, Type II, Obesity/BMI 30+ Hematologic History: 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 Immunologic History: 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 Oncologic (Cancer) History: 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 Dermatologic History: Reports: Psoriasis Other Dermatologic History: on her scalp - Infectious Disease History Infectious Disease History: 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 - Past Surgical History Head Surgeries/Procedures: 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 HEENT Surgical History: Reports: Adenoidectomy, Oral Surgery, Tonsillectomy Respiratory Surgical History: 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 Social & Family History - Family History Family Medical History: Noncontributory Psychiatric: Reports: Anxiety, Depression Endocrine/Metabolic: Reports: Obesity/MBI 30+ Immunologic: Reports: HIV - Caffeine Use Caffeine Use: Reports: Energy Drinks Caffeine Use Comment: 1 drink/month ED ROS ENT - Review of Systems Review Of Systems: ROS reveals no pertinent complaints other than HPI. ED EXAM, ENT - Physical Exam Exam: See Below (see dictation) Course - Vital Signs Last Recorded V/S: Last Vital Signs Temp 96.4 F 03/30/19 14:59 Pulse 111 H 03/30/19 14:59 Resp 20 03/30/19 14:59 BP 141/95 H 03/30/19 14:59 Pulse Ox 96 03/30/19 14:59 Departure - Departure Time of Disposition: 15:59 Disposition: Home, Self-Care 01 Condition: Good Clinical Impression: Acute sinusitis - Discharge Information Prescriptions: Azithromycin [Zithromax] 250 mg PO ASDIRECTED #1 dosepk Referrals: PCP,Unknown [Primary Care Provider] - Forms: ED Department Discharge Additional Instructions: The following information is given to patients seen in the emergency department who are being discharged to home. This information is to outline your options for follow-up care. We provide all patients seen in our emergency department with a follow-up referral. The need for follow-up, as well as the timing and circumstances, are variable depending upon the specifics of your emergency department visit. If you don't have a primary care physician on staff, we will provide you with a referral. We always advise you to contact your personal physician following an emergency department visit to inform them of the circumstance of the visit and for follow-up with them and/or the need for any referrals to a consulting specialist. The emergency department will also refer you to a specialist when appropriate. This referral assures that you have the opportunity for follow-up care with a specialist. All of these measure are taken in an effort to provide you with optimal care, which includes your follow-up. Under all circumstances we always encourage you to contact your private physician who remains a resource for coordinating your care. When calling for follow-up care, please make the office aware that this follow-up is from your recent emergency room visit. If for any reason you are refused follow-up, please contact the [facility] Emergency Department at and asked to speak to the emergency department charge nurse. [facility] [address] [place] [address] [id number] [address] [id number] Take antibiotic as instructed Follow up with primary care provider Return to ED as needed as discussed
[2019-03-30 16:36] VITALS: BP 132/81; PULSE 109
== END 2019-03-30 16:16 | disposition home or self-care (01) ==
LOC: MW.ED 14:45
DX: J01.90 Acute sinusitis, unspecified (principal); E11.9 Type 2 diabetes mellitus without complications; I10 Essential (primary) hypertension; J45.909 Unspecified asthma, uncomplicated; F41.9 Anxiety disorder, unspecified; F32.9 Major depressive disorder, single episode, unspecified; E66.9 Obesity, unspecified; Z68.44 Body mass index [BMI] 60.0-69.9, adult; Z88.1 Allergy status to other antibiotic agents; Z79.84 Long term (current) use of oral hypoglycemic drugs; Z79.899 Other long term (current) drug therapy
CPT/HCPCS: 87804; 99283

== ENCOUNTER 2019-04-03 10:50 | Emergency (ER) | payer MEDICARE, MEDICAID ==
[2019-04-03] MEDS ORDERED: Ketorolac 60 MG/2 ML SDV IM ONE (11:10)
--- NOTE | 2019-04-03 11:14 | EDM.PDOC ---
ED HPI GENERAL MEDICAL PROBLEM - General Chief Complaint: Back Pain or Injury Stated Complaint: BACK PAIN Time Seen by Provider: 04/03/19 10:58 Source of Information: Reports: Patient History Limitations: Reports: No Limitations - History of Present Illness INITIAL COMMENTS - FREE TEXT/NARRATIVE: HISTORY AND PHYSICAL: History of present illness: Patient is a 28-year-old female presents to the ED today with concern of mid back pain that has been ongoing for 3-4 days. Patient states she was doing laundry and was bending over and also cleaning out a large box when she started to have mid back pain. Patient states she's taken Tylenol and an old prescription that she has of tramadol with some relief of symptoms. Patient states she's also used a heating pad with some relief of symptoms. Patient states she has not taken anything today for her pain. Patient denies loss or retention of bowel and bladder function or saddle anesthesia. Patient denies fever, chills, chest pain, shortness of breath, or cough. Denies headache, neck stiff ness, change in vision, syncope, or near syncope. Denies nausea, vomiting, abdominal pain, diarrhea, constipation, or dysuria. Has not noted any blood in urine or stool. Patient has been eating and drinking appropriately. Review of systems: As per history of present illness and below otherwise all systems reviewed and negative. Past medical history: As per history of present illness and as reviewed below otherwise noncontributory. Surgical history: As per history of present illness and as reviewed below otherwise noncontributory. Social history: See social history for further information Family history: As per history of present illness and as reviewed below otherwise noncontributory. Physical exam: General: Patient is alert, oriented, and in no acute distress. Patient sitting comfortably on exam table. HEENT: Atraumatic, normocephalic, pupils equal and reactive bilaterally, negative for conjunctival pallor or scleral icterus, mucous membranes moist, TMs normal bilaterally, throat clear, neck supple, nontender, trachea midline. No drooling or trismus noted. No meningeal signs. No hot potato voice noted. Lungs: Clear to auscultation, breath sounds equal bilaterally, chest nontender. Heart: S1S2, regular rate and rhythm without overt murmur Abdomen: Soft, nondistended, nontender. Negative for masses or hepatosplenomegaly. Negative for costovertebral tenderness. Pelvis: Stable nontender. Genitourinary: Deferred. Rectal: Deferred. Skin: Intact, warm, dry. No lesions or rashes noted. Extremities: Atraumatic, negative for cords or calf pain. Neurovascular unremarkable. SLR intact bilaterally. Heel/Toe gait intact. Patellar reflex intact bilaterally. No obvious deformity of the complete spine. No step-offs, crepitus, or point tenderness of spinous process of complete spine. Patient does have mild pain with palpation of the paraspinous muscles of the thoracic spine. Neuro: Awake, alert, oriented. Cranial nerves II through XII unremarkable. Cerebellum unremarkable. Motor and sensory unremarkable throughout. Exam nonfocal. Notes: Discussed the importance for follow-up with a primary care provider. Voices understanding and is agreeable to plan of care. Denies any further questions or concerns at this time. Diagnostics: UA, urine hCG, thoracic x-ray Therapeutics: Toradol, Norflex Prescription: Diclofenac, Flexeril Impression: Mid back pain Plan: 1. Rest, ice or heat the affected area. You can apply ice and or heat 15 minutes on, 15 minutes off. 2. Tylenol as directed for pain management or discomfort. Take medication as prescribed 3. Follow up with the primary care provider as discussed. Return to the ED as needed and as discussed. Definitive disposition and diagnosis as appropriate pending reevaluation and review of above. Back Pain Pain Score (Numeric/FACES): 10 - Related Data Allergies Allergy/AdvReac Type Severity Reaction Status Date / Time ciprofloxacin [From Cipro] Allergy Rash Verified 04/03/19 11:01 sulfamethoxazole Allergy Nausea Verified 04/03/19 11:01 [From Bactrim] trimethoprim [From Bactrim] Allergy Nausea Verified 04/03/19 11:01 Home Meds: Home Meds LORazepam [Ativan] 0.5 mg PO DAILY 04/01/14 [History] metFORMIN [metFORMIN XR] 1,000 mg PO BID 05/27/14 [History] Albuterol [Ventolin HFA] 2 puff INH BID PRN 10/21/15 [History] Budesonide/Formoterol [Symbicort 160-4.5 Mcg Inhaler] 1 puff INH BID PRN [History] Clobetasol Propionate [Temovate] 30 gm TOP DAILY 10/21/15 [History] Sertraline [Zoloft] 50 mg PO DAILY 07/25/16 [History] Fluconazole [IJD: Fluconazole] 150 mg PO DAILY #2 tab 11/17/16 [Rx] Lidocaine 5% 35.44 gm TOP QID PRN #1 tube 05/16/17 [Rx] Hydrocortisone [Hydrocortisone 2.5% Crm] 30 gm .XX BID #1 tube 03/18/18 [Rx] Lisinopril 10 mg PO DAILY 09/29/18 [History] Azithromycin [Zithromax] 250 mg PO ASDIRECTED #1 dosepk 03/30/19 [Rx] Past Medical History - Past Health History Medical/Surgical History: Denies Medical/Surgical History HEENT History: 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 Cardiovascular History: Reports: Hypertension, Other (See Below) Other Cardiovascular History: non specific chest pains Respiratory History: Reports: Asthma Gastrointestinal History: Reports: Other (See Below) Other Gastrointestinal History: non specific abd pains Genitourinary History: Reports: UTI, Recurrent, Other (See Below) Other Genitourinary History: chronic uti's, vaginal candidiasis 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 Musculoskeletal History: Reports: Back Pain, Chronic Other Musculoskeletal History: from UTI Neurological History: 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 Psychiatric History: Reports: Anxiety, Depression Endocrine/Metabolic History: Reports: Diabetes, Type II, Obesity/BMI 30+ Hematologic History: 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 Immunologic History: 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 Oncologic (Cancer) History: 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 Dermatologic History: Reports: Psoriasis Other Dermatologic History: on her scalp - Infectious Disease History Infectious Disease History: 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 - Past Surgical History Head Surgeries/Procedures: 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 HEENT Surgical History: Reports: Adenoidectomy, Oral Surgery, Tonsillectomy Respiratory Surgical History: 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 Social & Family History - Family History Family Medical History: Noncontributory Psychiatric: Reports: Anxiety, Depression Endocrine/Metabolic: Reports: Obesity/MBI 30+ Immunologic: Reports: HIV - Tobacco Use Smoking Status *Q: Current Every Day Smoker Years of Tobacco use: 1 Packs/Tins Daily: 1 - Caffeine Use Caffeine Use: Reports: Energy Drinks Caffeine Use Comment: 1 drink/month - Recreational Drug Use Recreational Drug Use: No ED ROS GENERAL - Review of Systems Review Of Systems: ROS reveals no pertinent complaints other than HPI. ED EXAM, GENERAL - Physical Exam Exam: See Below (See dictation) Course - Vital Signs Last Recorded V/S: Last Vital Signs Temp 98.3 F 04/03/19 11:01 Pulse 128 H 04/03/19 11:01 Resp 20 04/03/19 11:01 BP 144/100 H 04/03/19 11:01 Pulse Ox 98 04/03/19 11:01 - Orders/Labs/Meds Labs: Laboratory Tests 04/03/19 04/03/19 Range/Units 12:13 12:13 Urine Color YELLOW Urine Appearance CLEAR Urine pH 5.5 (5.0-8.0) Ur Specific [place] 1.025 (1.001-1.035) Urine Protein NEGATIVE (NEGATIVE) mg/dL Urine Glucose (UA) NEGATIVE (NEGATIVE) mg/dL Urine Ketones TRACE H (NEGATIVE) mg/dL Urine Occult Blood NEGATIVE (NEGATIVE) Urine Nitrite NEGATIVE (NEGATIVE) Urine Bilirubin NEGATIVE (NEGATIVE) Urine Urobilinogen 0.2 (<2.0) EU/dL Ur Leukocyte Esterase NEGATIVE (NEGATIVE) Urine HCG, Qual NEGATIVE (NEGATIVE) Meds: Medications Discontinued Medications Generic Name Dose Route Start Last Admin Trade Name Freq PRN Reason Stop Dose Admin Ketorolac Tromethamine 60 mg 04/03/19 11:10 04/03/19 11:19 Toradol IM 04/03/19 11:11 60 mg ONETIME ONE Administration Orphenadrine Citrate 60 mg 04/03/19 11:10 04/03/19 11:19 Norflex IM 04/03/19 11:11 60 mg NOW STA Administration Departure - Departure Time of Disposition: 12:26 Disposition: Home, Self-Care 01 Clinical Impression: Mid back pain - Discharge Information Referrals: PCP,None [Primary Care Provider] - Forms: ED Department Discharge Additional Instructions: The following information is given to patients seen in the emergency department who are being discharged to home. This information is to outline your options for follow-up care. We provide all patients seen in our emergency department with a follow-up referral. The need for follow-up, as well as the timing and circumstances, are variable depending upon the specifics of your emergency department visit. If you don't have a primary care physician on staff, we will provide you with a referral. We always advise you to contact your personal physician following an emergency department visit to inform them of the circumstance of the visit and for follow-up with them and/or the need for any referrals to a consulting specialist. The emergency department will also refer you to a specialist when appropriate. This referral assures that you have the opportunity for follow-up care with a specialist. All of these measure are taken in an effort to provide you with optimal care, which includes your follow-up. Under all circumstances we always encourage you to contact your private physician who remains a resource for coordinating your care. When calling for follow-up care, please make the office aware that this follow-up is from your recent emergency room visit. If for any reason you are refused follow-up, please contact the [facility] Emergency Department at and asked to speak to the emergency department charge nurse. [facility] [address] [place] [id number] [place] [address] 1. Rest, ice or heat the affected area. You can apply ice and or heat 15 minutes on, 15 minutes off. 2. Tylenol as directed for pain management or discomfort. Take medication as prescribed 3. Follow up with the primary care provider as discussed. Return to the ED as needed and as discussed.
--- NOTE | 2019-04-03 12:15 | CR ---
Thoracic spine: AP and lateral views of the thoracic spine were obtained. Comparison: No previous study. Disc spaces and vertebral body heights are preserved. Pedicles are intact. No subluxation or fracture is seen. Impression: No abnormality is appreciated on two-view thoracic spine study. Diagnostic code #1 MTDD
[2019-04-03 12:48] VITALS: BP 115/70; PULSE 95
== END 2019-04-03 12:49 | disposition home or self-care (01) ==
LOC: MW.ED 10:50
DX: M54.6 Pain in thoracic spine (principal); I10 Essential (primary) hypertension; J45.909 Unspecified asthma, uncomplicated; F41.9 Anxiety disorder, unspecified; F32.9 Major depressive disorder, single episode, unspecified; E11.9 Type 2 diabetes mellitus without complications; F17.210 Nicotine dependence, cigarettes, uncomplicated; Z88.1 Allergy status to other antibiotic agents; Z88.2 Allergy status to sulfonamides; Z79.899 Other long term (current) drug therapy; Z79.84 Long term (current) use of oral hypoglycemic drugs
CPT/HCPCS: 72072; 81003; 81025; 96372; 99283; J1885; J2360

== ENCOUNTER 2019-05-23 15:15 | Emergency (ER) | payer MEDICARE, MEDICAID ==
--- NOTE | 2019-05-23 16:09 | EDM.PDOC ---
ED HPI GENERAL MEDICAL PROBLEM - General Chief Complaint: Lower Extremity Injury/Pain Stated Complaint: FALL Time Seen by Provider: 05/23/19 16:07 Source of Information: Reports: Patient History Limitations: Reports: No Limitations - History of Present Illness INITIAL COMMENTS - FREE TEXT/NARRATIVE: HISTORY AND PHYSICAL: History of present illness: Patient is a 28-year-old female who presents to the emergency room with complaints of bilateral knee pain. She states she was out in a parking lot when she slipped and fallen onto her hands and knees. She states that both knees are currently painful and difficult to bear weight. She denies hitting her head or having any loss of consciousness. He offers no other systemic complaints at this time. Review of systems: As per history of present illness and below otherwise all systems reviewed and negative. Past medical history: As per history of present illness and as reviewed below otherwise noncontributory. Surgical history: As per history of present illness and as reviewed below otherwise noncontributory. Social history: See social history for further information Family history: As per history of present illness and as reviewed below otherwise noncontributory. Physical exam: General: Well-developed and well-nourished 28 year old female. Alert and oriented. Nontoxic appearing and in no acute distress. HEENT: Atraumatic, normocephalic, pupils equal and reactive bilaterally, negative for conjunctival pallor or scleral icterus, mucous membranes moist, trachea midline. No drooling or trismus noted. No meningeal signs. No hot potato voice noted. Lungs: Clear to auscultation, breath sounds equal bilaterally, chest nontender. Heart: S1S2, regular rate and rhythm without overt murmur Abdomen: Soft, nondistended, nontender. Negative for masses or hepatosplenomegaly. Negative for costovertebral tenderness. Pelvis: Stable nontender. Skin: Intact, warm, dry. No lesions or rashes noted. Extremities: Pain with palpation of bilateral anterior knees along the patella. No knee instability, negative drawer test, moves all extremities per self without difficulty or deficits, negative for cords or calf pain. +CMS. Neurovascular unremarkable. Neuro: Awake, alert, oriented. Cranial nerves II through XII unremarkable. Cerebellum unremarkable. Motor and sensory unremarkable throughout. Exam nonfocal. Notes: Patient requesting Tdap update as she is on the 5 year antonio. X-ray show no acute findings. Patient found relief with the IM Toradol. Supportive care measures were reviewed and discussed. Voices understanding and is agreeable to plan of care. Denies any further questions or concerns at this time. Diagnostics: Bilateral Knee x-ray Therapeutics: Toradol, Tdap Prescription: None Impression: Fall Bilateral knee injury Plan: 1. Rest, ice, elevate the affected extremity. 2. Tylenol and/or Ibuprofen as needed for pain management. 3. Follow up with the Orthopedic provider as we discussed. Return to the ED as needed and as discussed. Definitive disposition and diagnosis as appropriate pending reevaluation and review of above. bilateral knees Pain Score (Numeric/FACES): 10 - Related Data Allergies Allergy/AdvReac Type Severity Reaction Status Date / Time ciprofloxacin [From Cipro] Allergy Rash Verified 05/23/19 16:49 sulfamethoxazole Allergy Nausea Verified 05/23/19 16:49 [From Bactrim] trimethoprim [From Bactrim] Allergy Nausea Verified 05/23/19 16:49 Home Meds: Home Meds LORazepam [Ativan] 0.5 mg PO DAILY 04/01/14 [History] metFORMIN [metFORMIN XR] 1,000 mg PO BID 05/27/14 [History] Albuterol [Ventolin HFA] 2 puff INH BID PRN 10/21/15 [History] Budesonide/Formoterol [Symbicort 160-4.5 Mcg Inhaler] 1 puff INH BID PRN [History] Clobetasol Propionate [Temovate] 30 gm TOP DAILY 10/21/15 [History] Sertraline [Zoloft] 50 mg PO DAILY 07/25/16 [History] Fluconazole [IJD: Fluconazole] 150 mg PO DAILY #2 tab 11/17/16 [Rx] Lidocaine 5% 35.44 gm TOP QID PRN #1 tube 05/16/17 [Rx] Hydrocortisone [Hydrocortisone 2.5% Crm] 30 gm .XX BID #1 tube 03/18/18 [Rx] Lisinopril 10 mg PO DAILY 09/29/18 [History] Azithromycin [Zithromax] 250 mg PO ASDIRECTED #1 dosepk 03/30/19 [Rx] Cyclobenzaprine [Flexeril] 10 mg PO TID PRN #9 tab 04/03/19 [Rx] Diclofenac Sodium [Voltaren] 75 mg PO BIDMEALS PRN #15 tab.cr 04/03/19 [Rx] Past Medical History - Past Health History Medical/Surgical History: Denies Medical/Surgical History HEENT History: 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 Cardiovascular History: Reports: Hypertension, Other (See Below) Other Cardiovascular History: non specific chest pains Respiratory History: Reports: Asthma Gastrointestinal History: Reports: Other (See Below) Other Gastrointestinal History: non specific abd pains Genitourinary History: Reports: UTI, Recurrent, Other (See Below) Other Genitourinary History: chronic uti's, vaginal candidiasis 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 Musculoskeletal History: Reports: Back Pain, Chronic Other Musculoskeletal History: from UTI Neurological History: 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 Psychiatric History: Reports: Anxiety, Depression Endocrine/Metabolic History: Reports: Diabetes, Type II, Obesity/BMI 30+ Hematologic History: 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 Immunologic History: 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 Oncologic (Cancer) History: 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 Dermatologic History: Reports: Psoriasis Other Dermatologic History: on her scalp - Infectious Disease History Infectious Disease History: 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 - Past Surgical History Head Surgeries/Procedures: 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 HEENT Surgical History: Reports: Adenoidectomy, Oral Surgery, Tonsillectomy Respiratory Surgical History: 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 Social & Family History - Family History Family Medical History: Noncontributory Psychiatric: Reports: Anxiety, Depression Endocrine/Metabolic: Reports: Obesity/MBI 30+ Immunologic: Reports: HIV - Caffeine Use Caffeine Use: Reports: Energy Drinks Caffeine Use Comment: 1 drink/month Review of Systems - Review of Systems Review Of Systems: Comprehensive ROS is negative, except as noted in HPI. ED EXAM, GENERAL - Physical Exam Exam: See Below (See dictation) Course - Vital Signs Last Recorded V/S: Last Vital Signs Temp 97.0 F 05/23/19 16:45 Pulse 102 H 05/23/19 16:45 Resp 18 05/23/19 16:45 BP 115/82 05/23/19 16:45 Pulse Ox 92 L 05/23/19 16:45 - Orders/Labs/Meds Orders: Active Orders 24 hr Category Date Time Status Vaccines to be Administered [RC] PER UNIT ROUTINE Care 05/23/19 16:53 Active Meds: Medications Discontinued Medications Generic Name Dose Route Start Last Admin Trade Name Freq PRN Reason Stop Dose Admin Diphtheria/Tetanus/Acell Pertussis 0.5 ml 05/23/19 16:53 Adacel IM 05/23/19 16:54 .ONCE ONE Ketorolac Tromethamine 60 mg 05/23/19 16:10 05/23/19 16:48 Toradol IM 05/23/19 16:11 60 mg ONETIME ONE Administration Departure - Departure Time of Disposition: 16:14 Disposition: Home, Self-Care 01 Clinical Impression: Fall Qualifiers: Encounter type: initial encounter Qualified Code(s): W19.XXXA - Unspecified fall, initial encounter Bilateral knee pain Qualifiers: Chronicity: acute Qualified Code(s): M25.561 - Pain in right knee - Discharge Information Referrals: PCP,Unknown [Primary Care Provider] - Forms: ED Department Discharge Additional Instructions: The following information is given to patients seen in the emergency department who are being discharged to home. This information is to outline your options for follow-up care. We provide all patients seen in our emergency department with a follow-up referral. The need for follow-up, as well as the timing and circumstances, are variable depending upon the specifics of your emergency department visit. If you don't have a primary care physician on staff, we will provide you with a referral. We always advise you to contact your personal physician following an emergency department visit to inform them of the circumstance of the visit and for follow-up with them and/or the need for any referrals to a consulting specialist. The emergency department will also refer you to a specialist when appropriate. This referral assures that you have the opportunity for follow-up care with a specialist. All of these measure are taken in an effort to provide you with optimal care, which includes your follow-up. Under all circumstances we always encourage you to contact your private physician who remains a resource for coordinating your care. When calling for follow-up care, please make the office aware that this follow-up is from your recent emergency room visit. If for any reason you are refused follow-up, please contact the [facility] Emergency Department at and asked to speak to the emergency department charge nurse. [facility] [address] [place] [id number] [facility] [address] [place] [address] 1. Rest, ice, elevate the affected extremity. 2. Tylenol and/or Ibuprofen as needed for pain management. 3. Follow up with the Orthopedic provider as we discussed. Return to the ED as needed and as discussed. - My Orders Last 24 Hours: My Active Orders 05/23/19 16:53 Vaccines to be Administered [RC] PER UNIT ROUTINE - Assessment/Plan Last 24 Hours: My Active Orders 05/23/19 16:53 Vaccines to be Administered [RC] PER UNIT ROUTINE
[2019-05-23] MEDS ORDERED: Ketorolac 60 MG/2 ML SDV IM ONE (16:10)
[2019-05-23 16:48] VITALS: BP 115/82; PULSE 102
[2019-05-23] MEDS ORDERED: Diphtheria,Pertussis(Acell),Tetanus Vaccine 0.5 ML Syringe IM ONE (16:53)
--- NOTE | 2019-05-23 16:59 | CR ---
Indication: Fall. Technique: Three views of the right and left knee. Comparison: None Findings: Right knee: No acute fracture. No significant joint effusion. The joint spaces are well maintained. Left knee: No acute fracture or subluxation is identified. Mild narrowing of the medial compartment is identified. A significant joint effusion is not appreciated. Impression: No acute fracture. Dictated by Mindy Marcos MD @ May 23 2019 4:57PM Signed by Dr. Mindy Marcos @ May 23 2019 4:58PM
== END 2019-05-23 18:10 | disposition home or self-care (01) ==
LOC: MW.ED 15:15
DX: S89.91XA Unspecified injury of right lower leg, initial encounter (principal); S89.92XA Unspecified injury of left lower leg, initial encounter; I10 Essential (primary) hypertension; J45.909 Unspecified asthma, uncomplicated; F41.9 Anxiety disorder, unspecified; F32.9 Major depressive disorder, single episode, unspecified; E66.9 Obesity, unspecified; Z68.43 Body mass index [BMI] 50.0-59.9, adult; Z79.51 Long term (current) use of inhaled steroids; Z79.899 Other long term (current) drug therapy; Z88.1 Allergy status to other antibiotic agents; Z88.2 Allergy status to sulfonamides; W01.0XXA Fall on same level from slipping, tripping and stumbling without subsequent striking against object, initial encounter; Y92.481 Parking lot as the place of occurrence of the external cause
CPT/HCPCS: 73562; 90471; 90715; 96372; 99284; J1885; 99283

== ENCOUNTER 2019-06-01 14:34 | Emergency (ER) | payer MEDICARE, MEDICAID ==
--- NOTE | 2019-06-01 15:52 | EDM.PDOC ---
ED HPI GENERAL MEDICAL PROBLEM - General Chief Complaint: Genitourinary Problem Stated Complaint: UTI Time Seen by Provider: 06/01/19 15:49 Source of Information: Reports: Patient - History of Present Illness INITIAL COMMENTS - FREE TEXT/NARRATIVE: HISTORY AND PHYSICAL: History of present illness: pt presents with dysuria for 3 days increasing in severity no fever nausea vomiting chills sweats Nursing notes states abdominal pain patient does not complaint of any abdominal pain she is well known to me as no mention of abdominal pain or illicit abdominal pain on my exam Review of systems: As per history of present illness and below otherwise all systems reviewed and negative. Past medical history: As per history of present illness and as reviewed below otherwise noncontributory. Surgical history: As per history of present illness and as reviewed below otherwise noncontributory. Social history: No reported history of drug or alcohol abuse. Family history: As per history of present illness and as reviewed below otherwise noncontributory. Physical exam: HEENT: Atraumatic, normocephalic, pupils reactive, negative for conjunctival pallor or scleral icterus, mucous membranes moist, throat clear, neck supple, nontender, trachea midline. Lungs: Clear to auscultation, breath sounds equal bilaterally, chest nontender. Heart: S1S2, regular, negative for clicks, rubs, or JVD. Abdomen: Soft, nondistended, nontender. Negative for masses or hepatosplenomegaly. Negative for costovertebral tenderness. Pelvis: Stable nontender. Genitourinary: Deferred. Rectal: Deferred. Extremities: Atraumatic, negative for cords or calf pain. Neurovascular unremarkable. Neuro: Awake, alert, oriented. Cranial nerves II through XII unremarkable. Cerebellum unremarkable. Motor and sensory unremarkable throughout. Exam nonfocal. Diagnostics: [UA hCG ] Therapeutics: macrobid ] Impression: dysuria hematuria] Definitive disposition and diagnosis as appropriate pending reevaluation and review of above. Lower Abdominal Pain Score (Numeric/FACES): 5 - Related Data Allergies Allergy/AdvReac Type Severity Reaction Status Date / Time ciprofloxacin [From Cipro] Allergy Rash Verified 06/01/19 15:04 sulfamethoxazole Allergy Nausea Verified 06/01/19 15:04 [From Bactrim] trimethoprim [From Bactrim] Allergy Nausea Verified 06/01/19 15:04 Home Meds: Home Meds LORazepam [Ativan] 0.5 mg PO DAILY 04/01/14 [History] metFORMIN [metFORMIN XR] 1,000 mg PO BID 05/27/14 [History] Albuterol [Ventolin HFA] 2 puff INH BID PRN 10/21/15 [History] Budesonide/Formoterol [Symbicort 160-4.5 Mcg Inhaler] 1 puff INH BID PRN [History] Clobetasol Propionate [Temovate] 30 gm TOP DAILY 10/21/15 [History] Sertraline [Zoloft] 50 mg PO DAILY 07/25/16 [History] Lidocaine 5% 35.44 gm TOP QID PRN #1 tube 05/16/17 [Rx] Hydrocortisone [Hydrocortisone 2.5% Crm] 30 gm .XX BID #1 tube 03/18/18 [Rx] Lisinopril 10 mg PO DAILY 09/29/18 [History] Past Medical History - Past Health History Medical/Surgical History: Denies Medical/Surgical History HEENT History: 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 Cardiovascular History: Reports: Hypertension, Other (See Below) Other Cardiovascular History: non specific chest pains Respiratory History: Reports: Asthma Gastrointestinal History: Reports: Other (See Below) Other Gastrointestinal History: non specific abd pains Genitourinary History: Reports: UTI, Recurrent, Other (See Below) Other Genitourinary History: chronic uti's, vaginal candidiasis 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 Musculoskeletal History: Reports: Back Pain, Chronic Other Musculoskeletal History: from UTI Neurological History: 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 Psychiatric History: Reports: Anxiety, Depression Endocrine/Metabolic History: Reports: Diabetes, Type II, Obesity/BMI 30+ Hematologic History: 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 Immunologic History: 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 Oncologic (Cancer) History: 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 Dermatologic History: Reports: Psoriasis Other Dermatologic History: on her scalp - Infectious Disease History Infectious Disease History: 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 - Past Surgical History Head Surgeries/Procedures: 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 HEENT Surgical History: Reports: Adenoidectomy, Oral Surgery, Tonsillectomy Respiratory Surgical History: 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 Social & Family History - Family History Family Medical History: Noncontributory Psychiatric: Reports: Anxiety, Depression Endocrine/Metabolic: Reports: Obesity/MBI 30+ Immunologic: Reports: HIV - Tobacco Use Smoking Status *Q: Current Every Day Smoker Years of Tobacco use: 1 Packs/Tins Daily: 1 - Caffeine Use Caffeine Use: Reports: Energy Drinks Caffeine Use Comment: 1 drink/month - Recreational Drug Use Recreational Drug Use: No ED ROS GENERAL - Review of Systems Review Of Systems: See Below ED EXAM, GENERAL - Physical Exam Exam: See Below Course - Vital Signs Last Recorded V/S: Last Vital Signs Temp 98.0 F 06/01/19 15:02 Pulse 104 H 06/01/19 15:02 Resp 20 06/01/19 15:02 BP 141/105 H 06/01/19 15:02 Pulse Ox 96 06/01/19 15:02 - Orders/Labs/Meds Orders: Active Orders 24 hr Category Date Time Status UA W/MICROSCOPIC [URIN] Stat Lab 06/01/19 15:09 Results Labs: Laboratory Tests 06/01/19 06/01/19 Range/Units 15:09 15:09 Urine Color YELLOW Urine Appearance CLEAR Urine pH 6.0 (5.0-8.0) Ur Specific [place] 1.025 (1.001-1.035) Urine Protein NEGATIVE (NEGATIVE) mg/dL Urine Glucose (UA) 500 H (NEGATIVE) mg/dL Urine Ketones NEGATIVE (NEGATIVE) mg/dL Urine Occult Blood TRACE-INTACT H (NEGATIVE) Urine Nitrite NEGATIVE (NEGATIVE) Urine Bilirubin NEGATIVE (NEGATIVE) Urine Urobilinogen 0.2 (<2.0) EU/dL Ur Leukocyte Esterase NEGATIVE (NEGATIVE) Urine HCG, Qual NEGATIVE (NEGATIVE) Departure - Departure Time of Disposition: 15:51 Disposition: Home, Self-Care 01 Condition: Good Clinical Impression: Dysuria, Hematuria - Discharge Information Referrals: Sloan Ordonez MD [Primary Care Provider] - Additional Instructions: The following information is given to patients seen in the emergency department who are being discharged to home. This information is to outline your options for follow-up care. We provide all patients seen in our emergency department with a follow-up referral. The need for follow-up, as well as the timing and circumstances, are variable depending upon the specifics of your emergency department visit. If you don't have a primary care physician on staff, we will provide you with a referral. We always advise you to contact your personal physician following an emergency department visit to inform them of the circumstance of the visit and for follow-up with them and/or the need for any referrals to a consulting specialist. The emergency department will also refer you to a specialist when appropriate. This referral assures that you have the opportunity for follow-up care with a specialist. All of these measure are taken in an effort to provide you with optimal care, which includes your follow-up. Under all circumstances we always encourage you to contact your private physician who remains a resource for coordinating your care. When calling for follow-up care, please make the office aware that this follow-up is from your recent emergency room visit. If for any reason you are refused follow-up, please contact the [facility] emergency department at and asked to speak to the emergency department charge nurse.
[2019-06-01 16:06] VITALS: BP 150/95; PULSE 95
== END 2019-06-01 16:06 | disposition home or self-care (01) ==
LOC: MW.ED 14:34
DX: R30.0 Dysuria (principal); R31.9 Hematuria, unspecified; I10 Essential (primary) hypertension; E11.9 Type 2 diabetes mellitus without complications; J45.909 Unspecified asthma, uncomplicated; F41.9 Anxiety disorder, unspecified; F32.9 Major depressive disorder, single episode, unspecified; E66.9 Obesity, unspecified; Z68.43 Body mass index [BMI] 50.0-59.9, adult; F17.210 Nicotine dependence, cigarettes, uncomplicated; Z88.1 Allergy status to other antibiotic agents; Z88.2 Allergy status to sulfonamides; Z79.84 Long term (current) use of oral hypoglycemic drugs; Z79.899 Other long term (current) drug therapy
CPT/HCPCS: 81001; 81025; 99283

== ENCOUNTER 2019-06-27 19:25 | Emergency (ER) | payer MEDICARE, MEDICAID ==
[2019-06-27 21:16] LABS: BLOOD UREA NITROGEN,BUN 12 mg/dL (7.0-18.0); CARBON DIOXIDE,CO2 22.7 mmol/L (21.0-32.0); CHLORIDE,CL 105 mmol/L (98-107); GLUCOSE RANDOM 127 mg/dL (74-106); POTASSIUM,K 3.8 mmol/L (3.5-5.1); SODIUM,NA 138 mmol/L (136-145)
--- NOTE | 2019-06-27 21:53 | EDM.PDOC ---
ED HPI GENERAL MEDICAL PROBLEM - General Chief Complaint: Chest Pain Stated Complaint: chest pain on left side Time Seen by Provider: 06/27/19 20:32 Source of Information: Reports: Patient History Limitations: Reports: No Limitations - History of Present Illness INITIAL COMMENTS - FREE TEXT/NARRATIVE: HISTORY AND PHYSICAL: History of present illness: Patient is a 28-year-old female who presents to the ED today with concern of an episode of left-sided chest pain that started at 5 this morning. Patient states when she woke up she had some left-sided chest discomfort but it resolved after 20 to 30 minutes. Patient states then starting around noon she is had another episode of chest pain that she rates a 0.5/10. Patient states she has had issues with chest pain in the past and that her symptoms do feel similar to her past chest pain. Patient states it does hurt if she presses on her chest which is typical of her past chest pain. Patient states she did take a tramadol before coming to the ED. Patient denies any other symptoms or concerns. Patient denies fever, chills, shortness of breath, or cough. Denies headache, neck stiff ness, change in vision, syncope, or near syncope. Denies nausea, vomiting, abdominal pain, diarrhea, constipation, or dysuria. Has not noted any blood in urine or stool. Patient has been eating and drinking appropriately. Review of systems: As per history of present illness and below otherwise all systems reviewed and negative. Past medical history: As per history of present illness and as reviewed below otherwise noncontributory. Surgical history: As per history of present illness and as reviewed below otherwise noncontributory. Social history: See social history for further information Family history: As per history of present illness and as reviewed below otherwise noncontributory. Physical exam: General: Patient is alert, oriented, and in no acute distress. Patient laying comfortably on exam table. HEENT: Atraumatic, normocephalic, pupils equal and reactive bilaterally, negative for conjunctival pallor or scleral icterus, mucous membranes moist, TMs normal bilaterally, throat clear, neck supple, nontender, trachea midline. No drooling or trismus noted. No meningeal signs. No hot potato voice noted. Lungs: Clear to auscultation, breath sounds equal bilaterally. Does have reproducible pain with palpation of the sternum. Heart: S1S2, regular rate and rhythm without overt murmur Abdomen: Soft, nondistended, nontender. Negative for masses or hepatosplenomegaly. Negative for costovertebral tenderness. Pelvis: Stable nontender. Genitourinary: Deferred. Rectal: Deferred. Skin: Intact, warm, dry. No lesions or rashes noted. Extremities: Atraumatic, negative for cords or calf pain. Neurovascular unremarkable. Neuro: Awake, alert, oriented. Cranial nerves II through XII unremarkable. Cerebellum unremarkable. Motor and sensory unremarkable throughout. Exam nonfocal. Notes: Discussed importance for follow-up with a primary care provider. Voices understanding and is agreeable to plan of care. Denies any further questions or concerns at this time. Diagnostics: CBC, CMP, UA, urine hCG, EKG, troponin, chest x-ray Therapeutics: None Prescription: None Impression: Atypical chest pain Plan: 1. You can alternate ibuprofen and Tylenol as directed for pain and discomfort. 2. Follow-up with your primary care provider as discussed. Return to the ED as needed and as discussed. Definitive disposition and diagnosis as appropriate pending reevaluation and review of above. chest Pain Score (Numeric/FACES): 1 - Related Data Allergies Allergy/AdvReac Type Severity Reaction Status Date / Time ciprofloxacin [From Cipro] Allergy Rash Verified 06/27/19 19:37 sulfamethoxazole Allergy Nausea Verified 06/27/19 19:37 [From Bactrim] trimethoprim [From Bactrim] Allergy Nausea Verified 06/27/19 19:37 Home Meds: Home Meds LORazepam [Ativan] 0.5 mg PO DAILY 04/01/14 [History] metFORMIN [metFORMIN XR] 1,000 mg PO BID 05/27/14 [History] Albuterol [Ventolin HFA] 2 puff INH BID PRN 10/21/15 [History] Budesonide/Formoterol [Symbicort 160-4.5 Mcg Inhaler] 1 puff INH BID PRN [History] Clobetasol Propionate [Temovate] 30 gm TOP DAILY 10/21/15 [History] Sertraline [Zoloft] 50 mg PO DAILY 07/25/16 [History] Lidocaine 5% 35.44 gm TOP QID PRN #1 tube 05/16/17 [Rx] Hydrocortisone [Hydrocortisone 2.5% Crm] 30 gm .XX BID #1 tube 03/18/18 [Rx] Lisinopril 10 mg PO DAILY 09/29/18 [History] Past Medical History - Past Health History Medical/Surgical History: Denies Medical/Surgical History HEENT History: 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 Cardiovascular History: Reports: Hypertension, Other (See Below) Other Cardiovascular History: non specific chest pains Respiratory History: Reports: Asthma Gastrointestinal History: Reports: Other (See Below) Other Gastrointestinal History: non specific abd pains Genitourinary History: Reports: UTI, Recurrent, Other (See Below) Other Genitourinary History: chronic uti's, vaginal candidiasis [employer]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 Musculoskeletal History: Reports: Back Pain, Chronic Other Musculoskeletal History: from UTI Neurological History: 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 Psychiatric History: Reports: Anxiety, Depression Endocrine/Metabolic History: Reports: Diabetes, Type II, Obesity/BMI 30+ Hematologic History: 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 Immunologic History: 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 Oncologic (Cancer) History: 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 Dermatologic History: Reports: Psoriasis Other Dermatologic History: on her scalp - Infectious Disease History Infectious Disease History: 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 - Past Surgical History Head Surgeries/Procedures: 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 HEENT Surgical History: Reports: Adenoidectomy, Oral Surgery, Tonsillectomy Respiratory Surgical History: 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 Social & Family History - Family History Family Medical History: Noncontributory Psychiatric: Reports: Anxiety, Depression Endocrine/Metabolic: Reports: Obesity/MBI 30+ Immunologic: Reports: HIV - Tobacco Use Smoking Status *Q: Current Every Day Smoker Years of Tobacco use: 1 Packs/Tins Daily: 0.5 - Caffeine Use Caffeine Use: Reports: Energy Drinks Caffeine Use Comment: 1 drink/month - Recreational Drug Use Recreational Drug Use: No ED ROS GENERAL - Review of Systems Review Of Systems: Comprehensive ROS is negative, except as noted in HPI. ED EXAM, GENERAL - Physical Exam Exam: See Below (see dictation) Course - Vital Signs Last Recorded V/S: Last Vital Signs Temp Pulse 102 H 06/27/19 20:57 Resp 18 06/27/19 20:57 BP 131/83 06/27/19 20:57 Pulse Ox 97 06/27/19 19:35 - Orders/Labs/Meds Orders: Active Orders 24 hr Category Date Time Status EKG Documentation Completion [RC] STAT Care 06/27/19 20:00 Active Labs: Laboratory Tests 06/27/19 06/27/19 06/27/19 Range/Units 20:35 20:42 20:42 WBC 8.36 (4.0-11.0) K/uL RBC 5.27 (4.30-5.90) M/uL Hgb 14.6 (12.0-16.0) g/dL Hct 42.9 (36.0-46.0) % MCV 81.4 (80.0-98.0) fL MCH 27.7 (27.0-32.0) pg MCHC 34.0 (31.0-37.0) g/dL RDW Std Deviation 41.5 (28.0-62.0) fl RDW Coeff of Nicky 14 (11.0-15.0) % Plt Count 277 (150-400) K/uL MPV 9.70 (7.40-12.00) fL Neut % (Auto) 48.1 (48.0-80.0) % Lymph % (Auto) 43.2 H (16.0-40.0) % [place] % (Auto) 5.6 (0.0-15.0) % Eos % (Auto) 2.6 (0.0-7.0) % Baso % (Auto) 0.5 (0.0-1.5) % Neut # (Auto) 4.0 (1.4-5.7) K/uL Lymph # (Auto) 3.6 H (0.6-2.4) K/uL [place] # (Auto) 0.5 (0.0-0.8) K/uL Eos # (Auto) 0.2 (0.0-0.7) K/uL Baso # (Auto) 0.0 (0.0-0.1) K/uL Nucleated RBC % 0.0 /100WBC Nucleated RBCs # 0 K/uL Sodium 138 (136-145) mmol/L Potassium 3.8 (3.5-5.1) mmol/L Chloride 105 (98-107) mmol/L Carbon Dioxide 22.7 (21.0-32.0) mmol/L BUN 12 (7.0-18.0) mg/dL Creatinine 0.5 L (0.6-1.0) mg/dL Est Cr Clr Drug Dosing TNP Estimated GFR (MDRD) > 60.0 ml/min Glucose 127 H (74-106) mg/dL Calcium 8.1 L (8.5-10.1) mg/dL Total Bilirubin 0.1 L (0.2-1.0) mg/dL AST 10 L (15-37) IU/L ALT 18 (14-63) IU/L Alkaline Phosphatase 67 (46-116) U/L Troponin I < 0.050 (0.000-0.056) ng/mL Total Protein 6.1 L (6.4-8.2) g/dL Albumin 2.8 L (3.4-5.0) g/dL Globulin 3.3 (2.6-4.0) g/dL Albumin/Globulin Ratio 0.9 (0.9-1.6) HCG, Qual (NEG) Urine Color YELLOW Urine Appearance CLEAR Urine pH 6.0 (5.0-8.0) Ur Specific [place] >= 1.030 (1.001-1.035) Urine Protein NEGATIVE (NEGATIVE) mg/dL Urine Glucose (UA) NEGATIVE (NEGATIVE) mg/dL Urine Ketones NEGATIVE (NEGATIVE) mg/dL Urine Occult Blood MODERATE H (NEGATIVE) Urine Nitrite NEGATIVE (NEGATIVE) Urine Bilirubin NEGATIVE (NEGATIVE) Urine Urobilinogen 0.2 (<2.0) EU/dL Ur Leukocyte Esterase NEGATIVE (NEGATIVE) Urine RBC 1-4 (0-2/HPF) Urine WBC 0-1 (0-5/HPF) Ur Epithelial Cells RARE (NONE-FEW) Urine Bacteria RARE (NEGATIVE) 06/27/19 Range/Units 20:42 WBC (4.0-11.0) K/uL RBC (4.30-5.90) M/uL Hgb (12.0-16.0) g/dL Hct (36.0-46.0) % MCV (80.0-98.0) fL MCH (27.0-32.0) pg MCHC (31.0-37.0) g/dL RDW Std Deviation (28.0-62.0) fl RDW Coeff of Nicky (11.0-15.0) % Plt Count (150-400) K/uL MPV (7.40-12.00) fL Neut % (Auto) (48.0-80.0) % Lymph % (Auto) (16.0-40.0) % [place] % (Auto) (0.0-15.0) % Eos % (Auto) (0.0-7.0) % Baso % (Auto) (0.0-1.5) % Neut # (Auto) (1.4-5.7) K/uL Lymph # (Auto) (0.6-2.4) K/uL [place] # (Auto) (0.0-0.8) K/uL Eos # (Auto) (0.0-0.7) K/uL Baso # (Auto) (0.0-0.1) K/uL Nucleated RBC % /100WBC Nucleated RBCs # K/uL Sodium (136-145) mmol/L Potassium (3.5-5.1) mmol/L Chloride (98-107) mmol/L Carbon Dioxide (21.0-32.0) mmol/L BUN (7.0-18.0) mg/dL Creatinine (0.6-1.0) mg/dL Est Cr Clr Drug Dosing Estimated GFR (MDRD) ml/min Glucose (74-106) mg/dL Calcium (8.5-10.1) mg/dL Total Bilirubin (0.2-1.0) mg/dL AST (15-37) IU/L ALT (14-63) IU/L Alkaline Phosphatase (46-116) U/L Troponin I (0.000-0.056) ng/mL Total Protein (6.4-8.2) g/dL Albumin (3.4-5.0) g/dL Globulin (2.6-4.0) g/dL Albumin/Globulin Ratio (0.9-1.6) HCG, Qual NEGATIVE (NEG) Urine Color Urine Appearance Urine pH (5.0-8.0) Ur Specific [place] (1.001-1.035) Urine Protein (NEGATIVE) mg/dL Urine Glucose (UA) (NEGATIVE) mg/dL Urine Ketones (NEGATIVE) mg/dL Urine Occult Blood (NEGATIVE) Urine Nitrite (NEGATIVE) Urine Bilirubin (NEGATIVE) Urine Urobilinogen (<2.0) EU/dL Ur Leukocyte Esterase (NEGATIVE) Urine RBC (0-2/HPF) Urine WBC (0-5/HPF) Ur Epithelial Cells (NONE-FEW) Urine Bacteria (NEGATIVE) Departure - Departure Time of Disposition: 22:05 Disposition: Home, Self-Care 01 Clinical Impression: Chest pain Qualifiers: Chest pain type: unspecified Qualified Code(s): R07.9 - Chest pain, unspecified - Discharge Information Referrals: Sloan Ordonez MD [Primary Care Provider] - Forms: ED Department Discharge Additional Instructions: The following information is given to patients seen in the emergency department who are being discharged to home. This information is to outline your options for follow-up care. We provide all patients seen in our emergency department with a follow-up referral. The need for follow-up, as well as the timing and circumstances, are variable depending upon the specifics of your emergency department visit. If you don't have a primary care physician on staff, we will provide you with a referral. We always advise you to contact your personal physician following an emergency department visit to inform them of the circumstance of the visit and for follow-up with them and/or the need for any referrals to a consulting specialist. The emergency department will also refer you to a specialist when appropriate. This referral assures that you have the opportunity for follow-up care with a specialist. All of these measure are taken in an effort to provide you with optimal care, which includes your follow-up. Under all circumstances we always encourage you to contact your private physician who remains a resource for coordinating your care. When calling for follow-up care, please make the office aware that this follow-up is from your recent emergency room visit. If for any reason you are refused follow-up, please contact the [facility] Emergency Department at and asked to speak to the emergency department charge nurse. [facility] [address] [place] [id number] [id number] 1. You can alternate ibuprofen and Tylenol as directed for pain and discomfort. 2. Follow-up with your primary care provider as discussed. Return to the ED as needed and as discussed. Sepsis Event Note - Evaluation Sepsis Screening Result: No Definite Risk - Focused Exam Vital Signs: Vital Signs Pulse Resp BP Pulse Ox 06/27/19 20:57 102 H 18 131/83 06/27/19 19:35 103 H 18 131/81 97 Date Exam was Performed: 06/27/19 Time Exam was Performed: 22:05
--- NOTE | 2019-06-27 22:01 | CR ---
Indication: Shortness of breath Technique: Chest 1 view Comparison: December 22, 2018 Findings/Impression: Cardiovascular and mediastinum: Heart size and vasculature are normal in caliber and appearance. Mediastinum is within normal limits. Lungs and pleural space: Lungs are clear. No sign of infiltrate or mass. No sign of pleural effusion. No pneumothorax. Bones and soft tissues: No significant findings. Dictated by Mary Beyer MD @ Jun 27 2019 9:59PM Signed by Dr. Mary Beyer @ Jun 27 2019 10:01PM
[2019-06-27] MEDS ORDERED: Ketorolac 60 MG/2 ML SDV IM ONE (22:10)
[2019-06-28 01:47] VITALS: BP 142/92; PULSE 118
== END 2019-06-27 22:16 | disposition home or self-care (01) ==
LOC: MW.ED 19:25
DX: R07.89 Other chest pain (principal); I10 Essential (primary) hypertension; E11.9 Type 2 diabetes mellitus without complications; J45.909 Unspecified asthma, uncomplicated; F41.9 Anxiety disorder, unspecified; F32.9 Major depressive disorder, single episode, unspecified; E66.9 Obesity, unspecified; F17.210 Nicotine dependence, cigarettes, uncomplicated; Z88.1 Allergy status to other antibiotic agents; Z88.2 Allergy status to sulfonamides; Z79.84 Long term (current) use of oral hypoglycemic drugs; Z79.899 Other long term (current) drug therapy
CPT/HCPCS: 36415; 71045; 80053; 81001; 84484; 84703; 85025; 93005; 96372; 99285; J1885; 99283

== ENCOUNTER 2019-08-07 15:54 | Emergency (ER) | payer MEDICARE, MEDICAID ==
[2019-08-07 16:34] VITALS: BP 148/97; PULSE 99
== END 2019-08-07 17:20 | disposition left against medical advice (07) ==
LOC: MW.ED 15:54
DX: Z53.21 Procedure and treatment not carried out due to patient leaving prior to being seen by health care provider (principal)

== ENCOUNTER 2019-08-26 08:31 | Emergency (ER) | payer MEDICARE, MEDICAID ==
--- NOTE | 2019-08-26 09:41 | EDM.PDOC ---
ED HPI GENERAL MEDICAL PROBLEM - General Chief Complaint: Genitourinary Problem Stated Complaint: POSSIBLE UTI Time Seen by Provider: 08/26/19 08:31 - History of Present Illness INITIAL COMMENTS - FREE TEXT/NARRATIVE: HPI 28-year-old morbidly obese female presents for evaluation of ongoing urinary frequency, endorses a concern for unresolved UTI in the setting of ~7 days of Macrobid; denies flank pain, history of ureterolithiasis, fevers, chills, or further symptoms. No identifiable precipitating event for todays emergency evaluation. ROS with no recent constitutional symptoms. Exam HR 97, RR 18, BP 115/85, T 35.8C, SaO2 95% on room air. Gen: Pleasant, non-toxic appearing, resting comfortably HEENT: NC, AT, PEERL, EOMI. Resp: Clear to auscultation bilaterally. Unlabored respirations with a normal work of breathing. Card: Regular rate and rhythm. Extremities warm and well perfused. GI: nontender to palpation throughout all quadrants, no rebound, guarding. : super pubic tenderness palpation, no CVA tenderness percussion bilaterally. MSK: No visible deformities, strength and tone without visually appreciable deficit. Neuro: alert and oriented 3, no facial asymmetry, vision and hearing WNL. Heme/Lymph: Deferred Skin: Normal color with no visible lesions (other than noted above). Psych: Mood and affect appropriate. Labs: UA - negative leukocyte esterase, negative nitrate, glucose negative, hCG negative. MDM Previous chart, nursing note, and vitals reviewed. A: 28-year-old morbidly obese female presents for evaluation of ongoing urinary frequency, endorses a concern for unresolved UTI in the setting of ~7 days of Macrobid; denies flank pain, history of ureterolithiasis, fevers, chills, or further symptoms. DDx & Evaluation: UA without evidence of infection or glucosuria; urinary frequency currently of unclear etiology. No features on history or exam to suggest ureterolithiasis, perinephric abscess, or lobar nephronia. Patient instructed to complete her course of Macrobid and follow up with her primary care physician. Impression: urinary frequency. bladder Pain Score (Numeric/FACES): 5 - Related Data Allergies Allergy/AdvReac Type Severity Reaction Status Date / Time ciprofloxacin [From Cipro] Allergy Rash Verified 08/07/19 16:12 sulfamethoxazole Allergy Nausea Verified 08/07/19 16:12 [From Bactrim] trimethoprim [From Bactrim] Allergy Nausea Verified 08/07/19 16:12 Home Meds: Home Meds LORazepam [Ativan] 0.5 mg PO DAILY 04/01/14 [History] metFORMIN [metFORMIN XR] 1,000 mg PO BID 05/27/14 [History] Albuterol [Ventolin HFA] 2 puff INH BID PRN 10/21/15 [History] Budesonide/Formoterol [Symbicort 160-4.5 Mcg Inhaler] 1 puff INH BID PRN [History] Clobetasol Propionate [Temovate] 30 gm TOP DAILY 10/21/15 [History] Lidocaine 5% 35.44 gm TOP QID PRN #1 tube 05/16/17 [Rx] Hydrocortisone [Hydrocortisone 2.5% Crm] 30 gm .XX BID #1 tube 03/18/18 [Rx] Lisinopril 10 mg PO DAILY 09/29/18 [History] ClomiPRAMINE [ClomiPRAMINE HCl] 2 cap PO DAILY 08/26/19 [History] Desogestrel-Ethinyl Estradiol [Reclipsen 28 Day Tablet] 1 tab PO DAILY 08/26/19 [History] Fluticasone Propionate [Flovent] 1 inh NASBOTH 08/26/19 [History] Past Medical History - Past Health History Medical/Surgical History: Denies Medical/Surgical History HEENT History: 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 Cardiovascular History: Reports: Hypertension, Other (See Below) Other Cardiovascular History: non specific chest pains Respiratory History: Reports: Asthma Gastrointestinal History: Reports: Other (See Below) Other Gastrointestinal History: non specific abd pains Genitourinary History: Reports: UTI, Recurrent, Other (See Below) Other Genitourinary History: chronic uti's, vaginal candidiasis [employer]CR[employer]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 [employer]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 Musculoskeletal History: Reports: Back Pain, Chronic Other Musculoskeletal History: from UTI Neurological History: 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 Psychiatric History: Reports: Anxiety, Depression Endocrine/Metabolic History: Reports: Diabetes, Type II, Obesity/BMI 30+ Hematologic History: 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 Immunologic History: 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 Oncologic (Cancer) History: 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 Dermatologic History: Reports: Psoriasis Other Dermatologic History: on her scalp - Infectious Disease History Infectious Disease History: 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 - Past Surgical History Head Surgeries/Procedures: Reports: None HEENT Surgical History: Reports: Adenoidectomy, Oral Surgery, Tonsillectomy Respiratory Surgical History: Reports: None Social & Family History - Family History Family Medical History: Noncontributory Psychiatric: Reports: Anxiety, Depression Endocrine/Metabolic: Reports: Obesity/MBI 30+ Immunologic: Reports: HIV - Tobacco Use Smoking Status *Q: Current Every Day Smoker Years of Tobacco use: 1 Packs/Tins Daily: 1 - Caffeine Use Caffeine Use: Reports: None Caffeine Use Comment: 1 drink/month - Recreational Drug Use Recreational Drug Use: No ED ROS GENERAL - Review of Systems Review Of Systems: See Below ED EXAM, GENERAL - Physical Exam Exam: See Below Course - Vital Signs Last Recorded V/S: Last Vital Signs Temp 35.8 C L 08/26/19 08:49 Pulse 97 08/26/19 08:49 Resp 18 08/26/19 08:49 BP 115/85 08/26/19 08:49 Pulse Ox 95 08/26/19 08:49 - Orders/Labs/Meds Labs: Laboratory Tests 08/26/19 08/26/19 Range/Units 08:55 08:55 Urine Color YELLOW Urine Appearance SLT CLOUDY Urine pH 6.0 (5.0-8.0) Ur Specific [place] >= 1.030 (1.001-1.035) Urine Protein NEGATIVE (NEGATIVE) mg/dL Urine Glucose (UA) NEGATIVE (NEGATIVE) mg/dL Urine Ketones NEGATIVE (NEGATIVE) mg/dL Urine Occult Blood NEGATIVE (NEGATIVE) Urine Nitrite NEGATIVE (NEGATIVE) Urine Bilirubin SMALL H (NEGATIVE) Urine Ictotest NEGATIVE Urine Urobilinogen 0.2 (<2.0) EU/dL Ur Leukocyte Esterase NEGATIVE (NEGATIVE) Urine HCG, Qual NEGATIVE (NEGATIVE) Departure - Departure Time of Disposition: 09:41 Disposition: Home, Self-Care 01 Clinical Impression: Urinary frequency - Discharge Information Referrals: Sloan Ordonez MD [Primary Care Provider] - Additional Instructions: You were in seen in the [facility] Emergency Department for evaluation of urinary frequency, the time of your evaluation the cause of your symptoms is unclear. Your urine was without evidence of infection or signs suggestive of diabetes. Please complete your course of prescribed antibiotics (Macrobid). Please read and follow all of the instructions below. Please follow up with your primary care physician within 72 hours repeat evaluation further care as needed. When calling for follow-up care, please make the office aware that this follow-up is from your recent emergency room visit. If for any reason you are refused follow-up, please contact the [facility] Emergency Department at and asked to speak to the emergency department charge nurse. Your care today was limited to identifying and treating emergent medical problems only. Many people have subtle differences in their test results that require follow up with their outpatient physician(s) to correctly determine if this represents a normal variation or concerning abnormality with respect to your specific health. The care given to you today was limited to identifying and treating emergent medical problems - you need to request a copy of all of your medical records from today's visit and follow up with your outpatient physician(s) to review both today's visit and your overall health. If you have any new symptoms or if you are at all concerned about your health please return immediately to the emergency department. Prescriptions: If you are uninsured or have financial difficulties with filling your prescription(s), you may consider using a free pharmacy discount service such as FaceFirst ([employer]) ([employer]) or ReserveOut ([employer]). These services allow you to search for a medication on your phone (or computer) and obtain a coupon that usually has a significant discount from the list corcoran at a pharmacy. Your physician as well as [facility] does not have a financial relationship with either of these services. You may also wish to speak with your physician to determine if lower cost prescriptions are possible. Obtaining primary care: 1. [facility] provides pediatrics (children), family medicine (children, adults, and some obstetrical care), and internal medicine (adults). Further specialty care is also available. Same day appointments are available. They may be contacted at [phone] and are open Saturday through Saturday 8 AM to 5 PM. [facility] are located at [facility], [address] [place] [address]. 2. [facility] offers family medicine, internal medicine, womens health, and further specialty care. [facility] may be contacted at [phone]. [facility] [place] is located at [address] [place], [address]. 3. If you have health insurance, please also contact your insurer for a list of accepting providers under your policy, you may contact these providers for further health care. Occupational health: Work related injuries may consider following up with [facility], . Occupational health services are located at [address] [place] [phone] and are open Saturday through Saturday from 7: 30 am to 5:00 pm. Obstetrical and Gynecological Care: [facility], , Saturday through Saturday 8 AM to 5 PM. [address] [place] [address]. Eyecare: If you have an eye injury you should follow up with your managed care liaison or with [facility], at [phone] or [phone] , they are located at [address] [place] [address]. Dental Care Cristiano Marc DDS. [address] [place], [place]. Ph. [phone] Lars Marc DDS [place]. [address] [facility] [address], [place], [place]. Ph. [phone] Darnell Lynch DDS. [address] [place] [address]. Ph. [phone] Merlin Rizzo DDS. [address] [facility] 4 [place], [place]. Ph. [phone] Brant Angulo DDS PC. [address] [facility] [address] [place], [place]. Ph. [phone] Edson Emery DDS. [address] [facility]. Ph. [phone] [facility]. [address] [place], [place]. Ph. [phone] [facility]. [address] [place] [address], [place], [place]. Ph. [phone] [facility] [address] [place], [place] [address]. Ph. [facility]. [address] [place] [address] [address] [facility]. Ph. [facility]. [address] [place], [place] [address]Maria Esther [place]. Ph. Sepsis Event Note - Evaluation Sepsis Screening Result: No Definite Risk - Focused Exam Vital Signs: Vital Signs Temp Pulse Resp BP Pulse Ox 08/26/19 08:49 35.8 C L 97 18 115/85 95 Date Exam was Performed: 08/26/19 Time Exam was Performed: 09:41
[2019-08-26 09:54] VITALS: BP 135/85; PULSE 88
== END 2019-08-26 09:50 | disposition home or self-care (01) ==
LOC: MW.ED 08:31
DX: R35.0 Frequency of micturition (principal); J45.909 Unspecified asthma, uncomplicated; E66.01 Morbid (severe) obesity due to excess calories; Z68.43 Body mass index [BMI] 50.0-59.9, adult; F41.9 Anxiety disorder, unspecified; E11.9 Type 2 diabetes mellitus without complications; F17.210 Nicotine dependence, cigarettes, uncomplicated; Z79.84 Long term (current) use of oral hypoglycemic drugs; Z88.1 Allergy status to other antibiotic agents; Z88.2 Allergy status to sulfonamides; Z79.899 Other long term (current) drug therapy
CPT/HCPCS: 81003; 81025; 99282; 99283

== ENCOUNTER 2019-10-21 17:37 | Emergency (ER) | payer MEDICARE, MEDICAID ==
[2019-10-21 17:57] VITALS: BP 154/87; PULSE 100
--- NOTE | 2019-10-21 18:36 | CR ---
HISTORY: Chest pain COMPARISON: 06/27/2019 FINDINGS: A portable erect AP view of the chest was obtained at 18 11 hours. The lungs remain clear. No focal or diffuse infiltrates are present. The heart remains normal in size. The mediastinum is normal in appearance. The osseous structures are normal in appearance for the patient`s age. IMPRESSION: Normal portable chest single view. Dictated by Robert Stephens MD @ Oct 21 2019 6:33PM Signed by Dr. Robert Stephens @ Oct 21 2019 6:34PM
[2019-10-21 18:38] LABS: BLOOD UREA NITROGEN,BUN 12 mg/dL (7.0-18.0); CARBON DIOXIDE,CO2 21.9 mmol/L (21.0-32.0); CHLORIDE,CL 102 mmol/L (98-107); GLUCOSE RANDOM 236 mg/dL (74-106); POTASSIUM,K 3.8 mmol/L (3.5-5.1); SODIUM,NA 134 mmol/L (136-145)
--- NOTE | 2019-10-21 19:05 | EDM.PDOC ---
ED HPI GENERAL MEDICAL PROBLEM - General Chief Complaint: Chest Pain Stated Complaint: HARD TIME BREATHING/ CHEST PAIN Time Seen by Provider: 10/21/19 17:47 Source of Information: Reports: Patient History Limitations: Reports: No Limitations - History of Present Illness INITIAL COMMENTS - FREE TEXT/NARRATIVE: 29-year-old female presents the emergency room chief complaint of hour along with burning chest pain. Patient has a history of anxiety, obesity Duration: Resolved Prior to Arrival Location: Reports: Chest Quality: Reports: Burning Severity: Mild Improves with: Reports: Rest Associated Symptoms: Reports: No Other Symptoms Chest Pain Score (Numeric/FACES): 2 - Related Data Allergies Allergy/AdvReac Type Severity Reaction Status Date / Time ciprofloxacin [From Cipro] Allergy Rash Verified 10/21/19 17:53 sulfamethoxazole Allergy Nausea Verified 10/21/19 17:53 [From Bactrim] trimethoprim [From Bactrim] Allergy Nausea Verified 10/21/19 17:53 Home Meds: Home Meds LORazepam [Ativan] 0.5 mg PO DAILY 04/01/14 [History] metFORMIN [metFORMIN XR] 1,000 mg PO BID 05/27/14 [History] Albuterol [Ventolin HFA] 2 puff INH BID PRN 10/21/15 [History] Budesonide/Formoterol [Symbicort 160-4.5 Mcg Inhaler] 1 puff INH BID PRN [History] Clobetasol Propionate [Temovate] 30 gm TOP DAILY 10/21/15 [History] Lidocaine 5% 35.44 gm TOP QID PRN #1 tube 05/16/17 [Rx] Hydrocortisone [Hydrocortisone 2.5% Crm] 30 gm .XX BID #1 tube 03/18/18 [Rx] Lisinopril 10 mg PO DAILY 09/29/18 [History] ClomiPRAMINE [ClomiPRAMINE HCl] 2 cap PO DAILY 08/26/19 [History] Fluticasone Propionate [Flovent] 1 inh NASBOTH ASDIRECTED 08/26/19 [History] desogestreL-ethinyl estradioL [Reclipsen 28 Day Tablet] 1 tab PO DAILY 08/26/19 [History] Sertraline HCl [Zoloft] 150 mg PO DAILY 10/21/19 [History] Past Medical History - Past Health History Medical/Surgical History: Denies Medical/Surgical History HEENT History: Reports: None Cardiovascular History: Reports: Hypertension, Other (See Below) Other Cardiovascular History: non specific chest pains Respiratory History: Reports: Asthma Gastrointestinal History: Reports: Other (See Below) Other Gastrointestinal History: non specific abd pains Genitourinary History: Reports: UTI, Recurrent, Other (See Below) Other Genitourinary History: chronic uti's, vaginal candidiasis 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 Musculoskeletal History: Reports: Back Pain, Chronic Other Musculoskeletal History: from UTI Neurological History: Reports: None Psychiatric History: Reports: Anxiety, Depression, OCD Endocrine/Metabolic History: Reports: Diabetes, Type II, Obesity/BMI 30+ Hematologic History: Reports: None Immunologic History: Reports: None Oncologic (Cancer) History: Reports: None Dermatologic History: Reports: Psoriasis Other Dermatologic History: on her scalp - Infectious Disease History Infectious Disease History: Reports: None - Past Surgical History Head Surgeries/Procedures: Reports: None HEENT Surgical History: Reports: Adenoidectomy, Oral Surgery, Tonsillectomy Respiratory Surgical History: Reports: None Social & Family History - Family History Family Medical History: Noncontributory Psychiatric: Reports: Anxiety, Depression Endocrine/Metabolic: Reports: Obesity/MBI 30+ Immunologic: Reports: HIV - Tobacco Use Smoking Status *Q: Current Every Day Smoker Years of Tobacco use: 1 Packs/Tins Daily: 0.5 - Caffeine Use Caffeine Use: Reports: None Caffeine Use Comment: 1 drink/month - Recreational Drug Use Recreational Drug Use: No ED ROS GENERAL - Review of Systems Review Of Systems: See Below Constitutional: Reports: No Symptoms HEENT: Reports: No Symptoms Respiratory: Reports: No Symptoms Cardiovascular: Reports: No Symptoms, Chest Pain Endocrine: Reports: No Symptoms GI/Abdominal: Reports: No Symptoms : Reports: No Symptoms Musculoskeletal: Reports: No Symptoms Skin: Reports: No Symptoms Neurological: Reports: No Symptoms Psychiatric: Reports: No Symptoms Hematologic/Lymphatic: Reports: No Symptoms Immunologic: Reports: No Symptoms ED EXAM, GENERAL - Physical Exam Exam: See Below Exam Limited By: No Limitations General Appearance: Alert, WD/WN, No Apparent Distress Eye Exam: Bilateral Eye: Normal Fundi, Normal Inspection, PERRL Ears: Normal External Exam, Normal Canal, Hearing Grossly Normal, Normal TMs Nose: Normal Inspection, Normal Mucosa, No Blood Throat/Mouth: Normal Inspection, Normal Lips, Normal Teeth, Normal Oropharynx, Normal Voice, No Airway Compromise Head: Atraumatic, Normocephalic Neck: Normal Inspection, Supple, Non-Tender, Full Range of Motion Respiratory/Chest: No Respiratory Distress, Lungs Clear, Normal Breath Sounds, No Accessory Muscle Use Cardiovascular: Normal Peripheral Pulses, Regular Rate, Rhythm, No Edema, No Gallop, No JVD, No Murmur, No Rub GI/Abdominal: Normal Bowel Sounds, Non-Tender, No Organomegaly, No Distention Rectal (Female) Exam: Deferred Back Exam: Normal Inspection, Full Range of Motion Extremities: Normal Inspection, Normal Range of Motion, Non-Tender, No Pedal Edema, Normal Capillary Refill Neurological: Alert, Oriented, CN II-XII Intact, Normal Cognition, Normal Gait, Normal Reflexes, No Motor/Sensory Deficits Psychiatric: Normal Affect, Normal Mood Skin Exam: Warm, Dry, Normal Color, No Rash EKG INTERPRETATION [place]: Normal QRS: Normal ST-T: Normal QT: Normal Course - Vital Signs Last Recorded V/S: Last Vital Signs Temp 98.2 F 10/21/19 17:45 Pulse 100 10/21/19 17:45 Resp 20 10/21/19 17:45 BP 154/87 H 10/21/19 17:45 Pulse Ox 96 10/21/19 17:45 - Orders/Labs/Meds Labs: Laboratory Tests 10/21/19 10/21/19 Range/Units 16:09 16:09 WBC 7.55 (4.0-11.0) K/uL RBC 5.33 (4.30-5.90) M/uL Hgb 14.7 (12.0-16.0) g/dL Hct 43.7 (36.0-46.0) % MCV 82.0 (80.0-98.0) fL MCH 27.6 (27.0-32.0) pg MCHC 33.6 (31.0-37.0) g/dL RDW Std Deviation 41.0 (28.0-62.0) fl RDW Coeff of Nicky 14 (11.0-15.0) % Plt Count 309 (150-400) K/uL MPV 9.50 (7.40-12.00) fL Neut % (Auto) 60.0 (48.0-80.0) % Lymph % (Auto) 32.3 (16.0-40.0) % [place] % (Auto) 4.4 (0.0-15.0) % Eos % (Auto) 2.6 (0.0-7.0) % Baso % (Auto) 0.7 (0.0-1.5) % Neut # (Auto) 4.5 (1.4-5.7) K/uL Lymph # (Auto) 2.4 (0.6-2.4) K/uL [place] # (Auto) 0.3 (0.0-0.8) K/uL Eos # (Auto) 0.2 (0.0-0.7) K/uL Baso # (Auto) 0.1 (0.0-0.1) K/uL Nucleated RBC % 0.0 /100WBC Nucleated RBCs # 0 K/uL Sodium 134 L (136-145) mmol/L Potassium 3.8 (3.5-5.1) mmol/L Chloride 102 (98-107) mmol/L Carbon Dioxide 21.9 (21.0-32.0) mmol/L BUN 12 (7.0-18.0) mg/dL Creatinine 0.6 (0.6-1.0) mg/dL Est Cr Clr Drug Dosing 121.62 mL/min Estimated GFR (MDRD) > 60.0 ml/min Glucose 236 H (74-106) mg/dL Calcium 8.1 L (8.5-10.1) mg/dL Total Bilirubin 0.3 (0.2-1.0) mg/dL AST 10 L (15-37) IU/L ALT 18 (14-63) IU/L Alkaline Phosphatase 74 (46-116) U/L Troponin I < 0.050 (0.000-0.056) ng/mL Total Protein 6.5 (6.4-8.2) g/dL Albumin 2.8 L (3.4-5.0) g/dL Globulin 3.7 (2.6-4.0) g/dL Albumin/Globulin Ratio 0.8 L (0.9-1.6) Departure - Departure Time of Disposition: 19:05 Disposition: Home, Self-Care 01 Condition: Good Clinical Impression: Anxiety disorder, Muscular chest pain Instructions: Chest Wall Pain, [id number], Living With Anxiety Referrals: Sloan Ordonez MD [Primary Care Provider] - Sepsis Event Note - Evaluation Sepsis Screening Result: No Definite Risk - Focused Exam Vital Signs: Vital Signs Temp Pulse Resp BP Pulse Ox 10/21/19 17:45 98.2 F 100 20 154/87 H 96 Date Exam was Performed: 10/21/19 Time Exam was Performed: 19:00
== END 2019-10-21 19:23 | disposition home or self-care (01) ==
LOC: MW.ED 17:37
DX: R07.89 Other chest pain (principal); F41.9 Anxiety disorder, unspecified; I10 Essential (primary) hypertension; J45.909 Unspecified asthma, uncomplicated; F32.9 Major depressive disorder, single episode, unspecified; E11.9 Type 2 diabetes mellitus without complications; E66.9 Obesity, unspecified; Z68.43 Body mass index [BMI] 50.0-59.9, adult; F17.210 Nicotine dependence, cigarettes, uncomplicated; Z88.1 Allergy status to other antibiotic agents; Z88.2 Allergy status to sulfonamides; Z79.84 Long term (current) use of oral hypoglycemic drugs; Z79.899 Other long term (current) drug therapy
CPT/HCPCS: 36415; 71045; 71045-26; 80053; 84484; 85025; 93005; 99283; 99285-25

== ENCOUNTER 2020-02-01 12:53 | Emergency (ER) | payer MEDICARE, MEDICAID ==
[2020-02-01] MEDS ORDERED: diphenhydrAMINE 50 MG Cap PO ONE (13:10)
[2020-02-01] MEDS ORDERED: predniSONE 20 MG Tab PO ONE (13:10)
--- NOTE | 2020-02-01 13:16 | EDM.PDOC ---
ED HPI GENERAL MEDICAL PROBLEM - General Chief Complaint: Skin Complaint Stated Complaint: RASH Time Seen by Provider: 02/01/20 13:05 Source of Information: Reports: Patient History Limitations: Reports: No Limitations - History of Present Illness INITIAL COMMENTS - FREE TEXT/NARRATIVE: HISTORY AND PHYSICAL: History of present illness: Patient is a 29-year-old female who presents to the emergency room with complaints of a rash associated with itching to bilateral arms, legs and face. She has noticed the itching and rash for approximately 24 hours. She has not used any [id number] products except cortisone [id number]-ozbreur cream. States this is not helped. Patient denies any fever, chills, headache, change in vision, syncope or near syncope. Denies any chest pain, back pain, shortness of breath or cough. Denies any GI or symptoms. Patient has been eating and drinking appropriately. No new exposures, detergents, foods or travel. Review of systems: As per history of present illness and below otherwise all systems reviewed and negative. Past medical history: As per history of present illness and as reviewed below otherwise noncontributory. Surgical history: As per history of present illness and as reviewed below otherwise noncontributory. Social history: See social history for further information Family history: As per history of present illness and as reviewed below otherwise noncontributory. Physical exam: General: Well-developed and well-nourished 29-year-old female. Alert and oriented. Nontoxic-appearing and in no acute distress. HEENT: Atraumatic, normocephalic, pupils equal and reactive bilaterally, negative for conjunctival pallor or scleral icterus, mucous membranes moist, TMs normal bilaterally, throat clear, neck supple, nontender, trachea midline. No drooling or trismus noted. No meningeal signs. No hot potato voice noted. Lungs: Clear to auscultation, breath sounds equal bilaterally, chest nontender. Heart: S1S2, regular rate and rhythm without overt murmur Abdomen: Soft, obese, nontender. Negative for masses or costovertebral tenderness. Skin: Intact, warm, dry. Redness from scratching her arms is noted. No obvious lesions or rashes noted. Hematologic: No petechiae or purpra. Mucosa appropriate color and normal nail bed color and refill. Extremities: Atraumatic, moves all extremities per self without difficulty or deficits, negative for cords or calf pain. Neurovascular unremarkable. Neuro: Awake, alert, oriented. Cranial nerves II through XII unremarkable. Cerebellum unremarkable. Motor and sensory unremarkable throughout. Exam nonfocal. Notes: We discussed the need for follow-up with her primary care provider. Medication and supportive care measures were reviewed and discussed. Voices understanding and is agreeable to plan of care. Denies any further questions or concerns at this time. Diagnostics: None Therapeutics: Benadryl, Prednisone Prescription: Benadryl, Prednisone Impression: Dermatitis Plan: 1. Avoid triggers. Continue to monitor for possible exposures/triggers/foods. 2. While symptomatic continue to routinely take Benadryl 50mg every 4-6 hours and Zantac 150mg twice daily. Take the steroid as prescribed. 3. You may use topical calamine lotion, cool tempid oatmeal baths, Aveeno bath/lotions. 4. Please follow up with your Primary care doctor in the next few days. If your symptoms should worsen, new symptoms develop or any of the signs and symptoms we discussed should arise please return to the emergency room or call 911 (if needed). Definitive disposition and diagnosis as appropriate pending reevaluation and review of above. generalized Pain Score (Numeric/FACES): 8 - Related Data Allergies Allergy/AdvReac Type Severity Reaction Status Date / Time ciprofloxacin [From Cipro] Allergy Rash Verified 02/01/20 13:13 sulfamethoxazole Allergy Nausea Verified 02/01/20 13:13 [From Bactrim] trimethoprim [From Bactrim] Allergy Nausea Verified 02/01/20 13:13 Home Meds: Home Meds LORazepam [Ativan] 0.5 mg PO DAILY 04/01/14 [History] metFORMIN [metFORMIN XR] 1,000 mg PO BID 05/27/14 [History] Albuterol [Ventolin HFA] 2 puff INH BID PRN 10/21/15 [History] Budesonide/Formoterol [Symbicort 160-4.5 Mcg Inhaler] 1 puff INH BID PRN 10/21/15 [History] Clobetasol Propionate [Temovate] 30 gm TOP DAILY 10/21/15 [History] Lidocaine 5% 35.44 gm TOP QID PRN #1 tube 05/16/17 [Rx] Hydrocortisone [Hydrocortisone 2.5% Crm] 30 gm .XX BID #1 tube 03/18/18 [Rx] Lisinopril 10 mg PO DAILY 09/29/18 [History] ClomiPRAMINE [ClomiPRAMINE HCl] 2 cap PO DAILY 08/26/19 [History] Fluticasone Propionate [Flovent] 1 inh NASBOTH ASDIRECTED 08/26/19 [History] desogestreL-ethinyl estradioL [Reclipsen 28 Day Tablet] 1 tab PO DAILY 08/26/19 [History] Sertraline HCl [Zoloft] 150 mg PO DAILY 10/21/19 [History] diphenhydrAMINE [Benadryl] 25 mg PO QID PRN #15 tablet 02/01/20 [Rx] predniSONE [Prednisone] 40 mg PO DAILY 4 Days #8 tablet 02/01/20 [Rx] Past Medical History - Past Health History Medical/Surgical History: Denies Medical/Surgical History HEENT History: Reports: None Cardiovascular History: Reports: Hypertension, Other (See Below) Other Cardiovascular History: non specific chest pains Respiratory History: Reports: Asthma Gastrointestinal History: Reports: Other (See Below) Other Gastrointestinal History: non specific abd pains Genitourinary History: Reports: UTI, Recurrent, Other (See Below) Other Genitourinary History: chronic uti's, vaginal candidiasis [employer] History: Reports: None Musculoskeletal History: Reports: Back Pain, Chronic Other Musculoskeletal History: from UTI Neurological History: Reports: None Psychiatric History: Reports: Anxiety, Depression, OCD Endocrine/Metabolic History: Reports: Diabetes, Type II, Obesity/BMI 30+ Hematologic History: Reports: None Immunologic History: Reports: None Oncologic (Cancer) History: Reports: None Dermatologic History: Reports: Psoriasis Other Dermatologic History: on her scalp - Infectious Disease History Infectious Disease History: Reports: None - Past Surgical History Head Surgeries/Procedures: Reports: None HEENT Surgical History: Reports: Adenoidectomy, Oral Surgery, Tonsillectomy Respiratory Surgical History: Reports: None Social & Family History - Family History Family Medical History: Noncontributory Psychiatric: Reports: Anxiety, Depression Endocrine/Metabolic: Reports: Obesity/MBI 30+ Immunologic: Reports: HIV - Caffeine Use Caffeine Use: Reports: None Caffeine Use Comment: 1 drink/month ED ROS GENERAL - Review of Systems Review Of Systems: Comprehensive ROS is negative, except as noted in HPI. ED EXAM, SKIN/RASH Exam: See Below (See dictation) Course - Vital Signs Last Recorded V/S: Last Vital Signs Temp 98.4 F 02/01/20 13:09 Pulse 122 H 02/01/20 13:09 Resp 16 02/01/20 13:09 BP 178/115 H 02/01/20 13:09 Pulse Ox 95 02/01/20 13:09 - Orders/Labs/Meds Meds: Medications Discontinued Medications Generic Name Dose Route Start Last Admin Trade Name Freq PRN Reason Stop Dose Admin Diphenhydramine HCl 50 mg 02/01/20 13:10 02/01/20 13:20 Benadryl PO 02/01/20 13:11 50 mg ONETIME ONE Administration Prednisone 40 mg 02/01/20 13:10 02/01/20 13:20 Prednisone PO 02/01/20 13:11 40 mg ONETIME ONE Administration Departure - Departure Time of Disposition: 13:27 Disposition: Home, Self-Care 01 Clinical Impression: Dermatitis - Discharge Information Prescriptions: diphenhydrAMINE [Benadryl] 25 mg PO QID PRN #15 tablet PRN Reason: Itching predniSONE [Prednisone] 40 mg PO DAILY 4 Days #8 tablet Instructions: Contact Dermatitis, [id number] Referrals: Sloan Ordonez MD [Primary Care Provider] - Forms: ED Department Discharge Additional Instructions: The following information is given to patients seen in the emergency department who are being discharged to home. This information is to outline your options for follow-up care. We provide all patients seen in our emergency department with a follow-up referral. The need for follow-up, as well as the timing and circumstances, are variable depending upon the specifics of your emergency department visit. If you don't have a primary care physician on staff, we will provide you with a referral. We always advise you to contact your personal physician following an emergency department visit to inform them of the circumstance of the visit and for follow-up with them and/or the need for any referrals to a consulting specialist. The emergency department will also refer you to a specialist when appropriate. This referral assures that you have the opportunity for follow-up care with a specialist. All of these measure are taken in an effort to provide you with optimal care, which includes your follow-up. Under all circumstances we always encourage you to contact your private physician who remains a resource for coordinating your care. When calling for follow-up care, please make the office aware that this follow-up is from your recent emergency room visit. If for any reason you are refused follow-up, please contact the [facility] Emergency Department at and asked to speak to the emergency department charge nurse. [facility] [address] [place] [id number] [facility] [address] [place] [id number] Thank you for choosing the [facility] emergency department in [place] for your medical needs today. It was a pleasure caring for you. Today you were seen in the emergency department for rash and itching. 1. Avoid triggers. Continue to monitor for possible exposures/triggers/foods. 2. While symptomatic continue to routinely take Benadryl 50mg every 4-6 hours and Zantac 150mg twice daily. Take the steroid as prescribed. 3. You may use topical calamine lotion, cool tempid oatmeal baths, Aveeno bath/lotions. 4. Please follow up with your Primary care doctor in the next few days. If your symptoms should worsen, new symptoms develop or any of the signs and symptoms we discussed should arise please return to the emergency room or call 911 (if needed). Sepsis Event Note (ED) - Evaluation Sepsis Screening Result: No Definite Risk - Focused Exam Vital Signs: Vital Signs Temp Pulse Resp BP Pulse Ox 02/01/20 13:09 98.4 F 122 H 16 178/115 H 95
[2020-02-01 14:11] VITALS: BP 149/87; PULSE 101
== END 2020-02-01 13:35 | disposition home or self-care (01) ==
LOC: MW.ED 12:53
DX: L30.9 Dermatitis, unspecified (principal); I10 Essential (primary) hypertension; J45.909 Unspecified asthma, uncomplicated; F41.9 Anxiety disorder, unspecified; F32.9 Major depressive disorder, single episode, unspecified; E11.9 Type 2 diabetes mellitus without complications; E66.9 Obesity, unspecified; Z79.899 Other long term (current) drug therapy; Z88.1 Allergy status to other antibiotic agents; Z88.2 Allergy status to sulfonamides; Z79.84 Long term (current) use of oral hypoglycemic drugs
CPT/HCPCS: 99282; A9270

== ENCOUNTER 2020-02-07 00:50 | Emergency (ER) | payer MEDICARE, MEDICAID ==
[2020-02-07] MEDS ORDERED: Sodium Chloride 0.9% 2.5 ML Syringe FLUSH PRN (01:13)
[2020-02-07] MEDS ORDERED: Sodium Chloride 0.9% 10 ML Syringe FLUSH PRN (01:13)
[2020-02-07] MEDS ORDERED: Morphine 4 MG/ML Syringe IVPUSH ONE (01:20)
[2020-02-07] MEDS ORDERED: Ondansetron 4 MG/2 ML SDV IVPUSH ONE (01:20)
--- NOTE | 2020-02-07 01:24 | EDM.PDOC ---
ED HPI GENERAL MEDICAL PROBLEM - General Chief Complaint: Abdominal Pain Stated Complaint: ABDOMINAL PAIN, NAUSEA, DIARRHEA Time Seen by Provider: 02/07/20 01:00 - History of Present Illness INITIAL COMMENTS - FREE TEXT/NARRATIVE: 29-year-old female with a history of her problems and frequent presentations to her outside providers in the emergency department who is presenting with abdominal pain nausea and diarrhea. Patient reports that 5 days ago she was treated for pinworm by her primary care doctor with antibiotics. She developed some cramping lower abdominal pain following that and has had some diarrhea she had significant nausea today but no vomiting. No fevers pain is primarily in the bilateral lower quadrants no radiation to the back of the flanks but it is associated with dysuria. No fevers no chills no prior abdominal surgeries. Pain currently 8 out of 10. No clear exacerbating or alleviating factors or other associated symptoms. Lower Abdomen Pain Score (Numeric/FACES): 5 - Related Data Allergies Allergy/AdvReac Type Severity Reaction Status Date / Time ciprofloxacin [From Cipro] Allergy Rash Verified 02/07/20 01:07 sulfamethoxazole Allergy Nausea Verified 02/07/20 01:07 [From Bactrim] trimethoprim [From Bactrim] Allergy Nausea Verified 02/07/20 01:07 Home Meds: Home Meds LORazepam [Ativan] 0.5 mg PO DAILY 04/01/14 [History] metFORMIN [metFORMIN XR] 1,000 mg PO BID 05/27/14 [History] Albuterol [Ventolin HFA] 2 puff INH BID PRN 10/21/15 [History] Budesonide/Formoterol [Symbicort 160-4.5 Mcg Inhaler] 1 puff INH BID PRN 10/21/15 [History] Clobetasol Propionate [Temovate] 30 gm TOP DAILY 10/21/15 [History] Lidocaine 5% 35.44 gm TOP QID PRN #1 tube 05/16/17 [Rx] Hydrocortisone [Hydrocortisone 2.5% Crm] 30 gm .XX BID #1 tube 03/18/18 [Rx] Lisinopril 10 mg PO DAILY 09/29/18 [History] ClomiPRAMINE [ClomiPRAMINE HCl] 2 cap PO DAILY 08/26/19 [History] Fluticasone Propionate [Flovent] 1 inh NASBOTH ASDIRECTED 08/26/19 [History] desogestreL-ethinyl estradioL [Reclipsen 28 Day Tablet] 1 tab PO DAILY 08/26/19 [History] Sertraline HCl [Zoloft] 150 mg PO DAILY 10/21/19 [History] diphenhydrAMINE [Benadryl] 25 mg PO QID PRN #15 tablet 02/01/20 [Rx] predniSONE [Prednisone] 40 mg PO DAILY 4 Days #8 tablet 02/01/20 [Rx] Past Medical History - Past Health History Medical/Surgical History: Denies Medical/Surgical History HEENT History: Reports: None Cardiovascular History: Reports: Hypertension, Other (See Below) Other Cardiovascular History: non specific chest pains Respiratory History: Reports: Asthma Gastrointestinal History: Reports: Other (See Below) Other Gastrointestinal History: non specific abd pains Genitourinary History: Reports: UTI, Recurrent, Other (See Below) Other Genitourinary History: chronic uti's, vaginal candidiasis 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 History: Reports: 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 Musculoskeletal History: Reports: Back Pain, Chronic Other Musculoskeletal History: from UTI Neurological History: Reports: None Psychiatric History: Reports: Anxiety, Depression, OCD Endocrine/Metabolic History: Reports: Diabetes, Type II, Obesity/BMI 30+ Hematologic History: Reports: None Immunologic History: Reports: None Oncologic (Cancer) History: Reports: None Dermatologic History: Reports: Psoriasis Other Dermatologic History: on her scalp - Infectious Disease History Infectious Disease History: Reports: None - Past Surgical History Head Surgeries/Procedures: Reports: None HEENT Surgical History: Reports: Adenoidectomy, Oral Surgery, Tonsillectomy Respiratory Surgical History: Reports: None Social & Family History - Family History Family Medical History: Noncontributory Psychiatric: Reports: Anxiety, Depression Endocrine/Metabolic: Reports: Obesity/MBI 30+ Immunologic: Reports: HIV - Tobacco Use Smoking Status *Q: Never Smoker Second Hand Smoke Exposure: Yes - Caffeine Use Caffeine Use: Reports: None Caffeine Use Comment: 1 drink/month - Recreational Drug Use Recreational Drug Use: No ED ROS GENERAL - Review of Systems Review Of Systems: See Below Free Text/Narrative/Comment: General: No fever. Skin: Reports recent rash to the upper extremities patient applied a cream briefly and it is improved significantly no active rash at this time Eyes: No vision problems. ENT: No sore throat. Neck: No neck stiffness. Respiratory: No shortness of breath. Cardiac: No chest pain. Gastrointestinal: Per HPI Urinary: Per HPI Musculoskeletal: No myalgias/arthralgias. Neurologic: No headache. ED EXAM, GENERAL - Physical Exam Exam: See Below Free Text/Narrative:: General Appearance: No acute distress, appears comfortable Skin: No rash HEENT: Normocephalic/atraumatic, sclera anicteric, mucous membranes moist Neck: Normal range of motion Chest and Lungs: Bilateral breath sounds, clear to auscultation Cardiovascular: Regular rate and rhythm, no murmur Abdomen: Soft, poorly localized abdominal discomfort initially left lower quadrant but then bilateral and then right upper quadrant however on repeat exam immediately following this there was no right upper quadrant tenderness. There is no guarding and no rebound Back: Normal Musculoskeletal: No edema or tenderness Neurologic: Awake, alert, no obvious deficits, moving all extremities Psychiatric: Appropriate, cooperative Course - Vital Signs Last Recorded V/S: Last Vital Signs Temp 96.7 F L 02/07/20 00:59 Pulse 91 02/07/20 00:59 Resp 14 02/07/20 00:59 BP 141/92 H 02/07/20 00:59 Pulse Ox 96 02/07/20 00:59 - Orders/Labs/Meds Orders: Active Orders 24 hr Category Date Time Status Sodium Chloride 0.9% [Saline Flush] Med 02/07/20 01:13 Active 10 ml FLUSH ASDIRECTED PRN Sodium Chloride 0.9% [Saline Flush] Med 02/07/20 01:13 Active 2.5 ml FLUSH ASDIRECTED PRN Saline Lock Insert [OM.PC] Stat Oth 02/07/20 01:13 Ordered Medication Orders Sodium Chloride (Saline Flush) 10 ml FLUSH ASDIRECTED PRN PRN Reason: Keep Vein Open Sodium Chloride (Saline Flush) 2.5 ml FLUSH ASDIRECTED PRN PRN Reason: Keep Vein Open Labs: Laboratory Tests 02/07/20 02/07/20 02/07/20 Range/Units 01:00 01:00 01:40 WBC 9.89 (4.0-11.0) K/uL RBC 5.64 (4.30-5.90) M/uL Hgb 15.6 (12.0-16.0) g/dL Hct 46.6 H (36.0-46.0) % MCV 82.6 (80.0-98.0) fL MCH 27.7 (27.0-32.0) pg MCHC 33.5 (31.0-37.0) g/dL RDW Std Deviation 42.7 (28.0-62.0) fl RDW Coeff of Nicky 14 (11.0-15.0) % Plt Count 314 (150-400) K/uL MPV 9.50 (7.40-12.00) fL Neut % (Auto) 53.7 (48.0-80.0) % Lymph % (Auto) 37.9 (16.0-40.0) % Clay % (Auto) 4.8 (0.0-15.0) % Eos % (Auto) 3.1 (0.0-7.0) % Baso % (Auto) 0.5 (0.0-1.5) % Neut # (Auto) 5.3 (1.4-5.7) K/uL Lymph # (Auto) 3.8 H (0.6-2.4) K/uL Clay # (Auto) 0.5 (0.0-0.8) K/uL Eos # (Auto) 0.3 (0.0-0.7) K/uL Baso # (Auto) 0.1 (0.0-0.1) K/uL Nucleated RBC % 0.0 /100WBC Nucleated RBCs # 0 K/uL Sodium (136-145) mmol/L Potassium (3.5-5.1) mmol/L Chloride (98-107) mmol/L Carbon Dioxide (21.0-32.0) mmol/L BUN (7.0-18.0) mg/dL Creatinine (0.6-1.0) mg/dL Est Cr Clr Drug Dosing Estimated GFR (MDRD) ml/min Glucose (74-106) mg/dL Calcium (8.5-10.1) mg/dL Total Bilirubin (0.2-1.0) mg/dL AST (15-37) IU/L ALT (14-63) IU/L Alkaline Phosphatase (46-116) U/L Total Protein (6.4-8.2) g/dL Albumin (3.4-5.0) g/dL Globulin (2.6-4.0) g/dL Albumin/Globulin Ratio (0.9-1.6) Lipase (73-393) U/L Urine Color YELLOW Urine Appearance SLT CLOUDY Urine pH 6.0 (5.0-8.0) Ur Specific Whitetail >= 1.030 (1.001-1.035) Urine Protein NEGATIVE (NEGATIVE) mg/dL Urine Glucose (UA) NEGATIVE (NEGATIVE) mg/dL Urine Ketones NEGATIVE (NEGATIVE) mg/dL Urine Occult Blood LARGE H (NEGATIVE) Urine Nitrite NEGATIVE (NEGATIVE) Urine Bilirubin NEGATIVE (NEGATIVE) Urine Urobilinogen 0.2 (<2.0) EU/dL Ur Leukocyte Esterase NEGATIVE (NEGATIVE) Urine RBC 35-40 (0-2/HPF) Urine WBC 0-2 (0-5/HPF) Ur Epithelial Cells FEW (NONE-FEW) Urine Bacteria 1+ H (NEGATIVE) Urine HCG, Qual NEGATIVE (NEGATIVE) 02/07/20 Range/Units 01:40 WBC (4.0-11.0) K/uL RBC (4.30-5.90) M/uL Hgb (12.0-16.0) g/dL Hct (36.0-46.0) % MCV (80.0-98.0) fL MCH (27.0-32.0) pg MCHC (31.0-37.0) g/dL RDW Std Deviation (28.0-62.0) fl RDW Coeff of Nicky (11.0-15.0) % Plt Count (150-400) K/uL MPV (7.40-12.00) fL Neut % (Auto) (48.0-80.0) % Lymph % (Auto) (16.0-40.0) % Clay % (Auto) (0.0-15.0) % Eos % (Auto) (0.0-7.0) % Baso % (Auto) (0.0-1.5) % Neut # (Auto) (1.4-5.7) K/uL Lymph # (Auto) (0.6-2.4) K/uL Clay # (Auto) (0.0-0.8) K/uL Eos # (Auto) (0.0-0.7) K/uL Baso # (Auto) (0.0-0.1) K/uL Nucleated RBC % /100WBC Nucleated RBCs # K/uL Sodium 132 L (136-145) mmol/L Potassium 3.7 (3.5-5.1) mmol/L Chloride 98 (98-107) mmol/L Carbon Dioxide 27.3 (21.0-32.0) mmol/L BUN 11 (7.0-18.0) mg/dL Creatinine 0.7 (0.6-1.0) mg/dL Est Cr Clr Drug Dosing TNP Estimated GFR (MDRD) > 60.0 ml/min Glucose 179 H (74-106) mg/dL Calcium 8.7 (8.5-10.1) mg/dL Total Bilirubin 0.2 (0.2-1.0) mg/dL AST 20 (15-37) IU/L ALT 33 (14-63) IU/L Alkaline Phosphatase 80 (46-116) U/L Total Protein 6.7 (6.4-8.2) g/dL Albumin 3.2 L (3.4-5.0) g/dL Globulin 3.5 (2.6-4.0) g/dL Albumin/Globulin Ratio 0.9 (0.9-1.6) Lipase 64 L (73-393) U/L Urine Color Urine Appearance Urine pH (5.0-8.0) Ur Specific Whitetail (1.001-1.035) Urine Protein (NEGATIVE) mg/dL Urine Glucose (UA) (NEGATIVE) mg/dL Urine Ketones (NEGATIVE) mg/dL Urine Occult Blood (NEGATIVE) Urine Nitrite (NEGATIVE) Urine Bilirubin (NEGATIVE) Urine Urobilinogen (<2.0) EU/dL Ur Leukocyte Esterase (NEGATIVE) Urine RBC (0-2/HPF) Urine WBC (0-5/HPF) Ur Epithelial Cells (NONE-FEW) Urine Bacteria (NEGATIVE) Urine HCG, Qual (NEGATIVE) Meds: Medications Generic Name Dose Route Start Last Admin Trade Name Freq PRN Reason Stop Dose Admin Sodium Chloride 10 ml 02/07/20 01:13 Saline Flush FLUSH ASDIRECTED PRN Keep Vein Open Sodium Chloride 2.5 ml 02/07/20 01:13 Saline Flush FLUSH ASDIRECTED PRN Keep Vein Open Discontinued Medications Generic Name Dose Route Start Last Admin Trade Name Freq PRN Reason Stop Dose Admin Morphine Sulfate 4 mg 02/07/20 01:20 02/07/20 01:36 Morphine IVPUSH 02/07/20 01:21 4 mg ONETIME ONE Administration Ondansetron HCl 4 mg 02/07/20 01:20 02/07/20 01:34 Zofran IVPUSH 02/07/20 01:21 4 mg ONETIME ONE Administration Departure - Departure Time of Disposition: 02:17 Disposition: Home, Self-Care 01 Condition: Good Clinical Impression: Diarrhea - Discharge Information *PRESCRIPTION DRUG MONITORING PROGRAM REVIEWED*: Not Applicable *COPY OF PRESCRIPTION DRUG MONITORING REPORT IN PATIENT CALLUM: Not Applicable Instructions: Diarrhea, Adult Referrals: Sloan Ordonez MD [Primary Care Provider] - Forms: ED Department Discharge Additional Instructions: Please be sure to keep your scheduled appointment for Saturday. If you develop a fever worsening pain or any other symptoms that concern you please return to the emergency department. The following information is given to patients seen in the emergency department who are being discharged to home. This information is to outline your options for follow-up care. We provide all patients seen in our emergency department with a follow-up referral. The need for follow-up, as well as the timing and circumstances, are variable depending upon the specifics of your emergency department visit. If you don't have a primary care physician on staff, we will provide you with a referral. We always advise you to contact your personal physician following an emergency department visit to inform them of the circumstance of the visit and for follow-up with them and/or the need for any referrals to a consulting specialist. The emergency department will also refer you to a specialist when appropriate. This referral assures that you have the opportunity for follow-up care with a specialist. All of these measure are taken in an effort to provide you with optimal care, which includes your follow-up. Under all circumstances we always encourage you to contact your private physician who remains a resource for coordinating your care. When calling for follow-up care, please make the office aware that this follow-up is from your recent emergency room visit. If for any reason you are refused follow-up, please contact the [facility] Emergency Department at and asked to speak to the emergency department charge nurse. Sepsis Event Note (ED) - Evaluation Sepsis Screening Result: No Definite Risk - Focused Exam Vital Signs: Vital Signs Temp Pulse Resp BP Pulse Ox 02/07/20 00:59 96.7 F L 91 14 141/92 H 96 - My Orders Last 24 Hours: My Active Orders 02/07/20 01:13 Sodium Chloride 0.9% [Saline Flush] 10 ml FLUSH ASDIRECTED PRN Sodium Chloride 0.9% [Saline Flush] 2.5 ml FLUSH ASDIRECTED PRN Saline Lock Insert [OM.PC] Stat - Assessment/Plan Last 24 Hours: My Active Orders 02/07/20 01:13 Sodium Chloride 0.9% [Saline Flush] 10 ml FLUSH ASDIRECTED PRN Sodium Chloride 0.9% [Saline Flush] 2.5 ml FLUSH ASDIRECTED PRN Saline Lock Insert [OM.PC] Stat Assessment:: 29-year-old female with a history of multiple medical problems presenting with abdominal pain nausea and diarrhea. This could all be sequela from the pinworm treatment. But other etiologies considered as well UTI is a consideration is a consideration urine test is been sent. Diverticulitis appendicitis considered but exam is really nonfocal and nonreproducible. CBC CMP lipase ordered if white count abnormal then will consider CT scan at that time. No chest pain no shortness of breath nothing that suggest primary cardiac or pulmonary process. Patient hemodynamically stable complaining of 8 mout of 10 pain Zofran and morphine ordered. 0215: Patient's labs demonstrate a normal white blood cell count there is a very minimal hyponatremia likely secondary to mild dehydration given the patient's diarrhea but electrolytes do not require acute correction on reassessment at this time patient states that she feels good given that would not discharge on any medications or put through CT imaging at this time. Patient has follow-up with her doctor scheduled for tomorrow. Return precautions discussed and understood.
[2020-02-07 02:11] LABS: BLOOD UREA NITROGEN,BUN 11 mg/dL (7.0-18.0); CARBON DIOXIDE,CO2 27.3 mmol/L (21.0-32.0); CHLORIDE,CL 98 mmol/L (98-107); GLUCOSE RANDOM 179 mg/dL (74-106); LIPASE 64 U/L (73-393); POTASSIUM,K 3.7 mmol/L (3.5-5.1); SODIUM,NA 132 mmol/L (136-145)
[2020-02-07 03:10] VITALS: BP 122/78; PULSE 90
== END 2020-02-07 02:35 | disposition home or self-care (01) ==
LOC: MW.ED 00:50
DX: R19.7 Diarrhea, unspecified (principal); I10 Essential (primary) hypertension; E11.9 Type 2 diabetes mellitus without complications; E66.9 Obesity, unspecified; F41.9 Anxiety disorder, unspecified; F32.9 Major depressive disorder, single episode, unspecified; J45.909 Unspecified asthma, uncomplicated; B20 Human immunodeficiency virus [HIV] disease; Z88.1 Allergy status to other antibiotic agents; Z88.2 Allergy status to sulfonamides; Z79.84 Long term (current) use of oral hypoglycemic drugs; Z79.899 Other long term (current) drug therapy; Z77.22 Contact with and (suspected) exposure to environmental tobacco smoke (acute) (chronic)
CPT/HCPCS: 36415; 80053; 81001; 81025; 83690; 85025; 96374; 96375; 99284; J2270; J2405

== ENCOUNTER 2020-02-08 20:44 | Emergency (ER) | payer MEDICARE, MEDICAID ==
[2020-02-08] MEDS ORDERED: Ketorolac 15 MG/ML SDV IVPUSH ONE (21:16)
[2020-02-08] MEDS ORDERED: Ondansetron 4 MG/2 ML SDV IVPUSH ONE (21:16)
[2020-02-08] MEDS ORDERED: Sodium Chloride 0.9% 2.5 ML Syringe FLUSH PRN (21:16)
[2020-02-08] MEDS ORDERED: Sodium Chloride 0.9% 1,000 ML IV ONE (21:16)
[2020-02-08] MEDS ORDERED: Sodium Chloride 0.9% 10 ML Syringe FLUSH PRN (21:16)
--- NOTE | 2020-02-08 21:21 | EDM.PDOC ---
ED HPI GENERAL MEDICAL PROBLEM - General Chief Complaint: Abdominal Pain Stated Complaint: ABDOMINAL DR Time Seen by Provider: 02/08/20 20:51 Source of Information: Reports: Patient History Limitations: Reports: No Limitations - History of Present Illness INITIAL COMMENTS - FREE TEXT/NARRATIVE: History of present illness: [Patient is 29-year-old female presents with bilateral lower abdominal pain. She was seen here about 36 hours ago with similar complaint. She states that today the symptoms are similar to how they were then, they have not significantly improved, also have not significantly worsened. She states that she feels like she needs some fluids to help with her symptoms. Denies intractable vomiting, chest pain, shortness of breath, fever, chills, dysuria, or other new or concerning symptoms. Has not been taking any medications at home to relieve her symptoms.] Review of systems: As per history of present illness and below otherwise all systems reviewed and negative. Past medical history: As per history of present illness and as reviewed below otherwise noncontributory. Surgical history: As per history of present illness and as reviewed below otherwise noncontributory. Social history: No reported history of drug or alcohol abuse. Family history: As per history of present illness and as reviewed below otherwise noncontributory. Physical exam: General: Awake, alert, no acute distress, A&O X3. morbidly obese HEENT: Atraumatic, normocephalic, pupils reactive, negative for conjunctival pallor or scleral icterus, mucous membranes moist, throat clear, neck supple, nontender, trachea midline. Lungs: Clear to auscultation, breath sounds equal bilaterally, chest nontender. Heart: RRR, normal S1S2, no JVD. Abdomen: Soft, nondistended, nontender. Negative for masses or hepatosplenomegaly. Negative for costovertebral tenderness. Pelvis: Stable nontender. Genitourinary: Deferred. Rectal: Deferred. Extremities: Atraumatic, no edema, Neurovascular unremarkable. Neuro: Motor and sensory grossly intact throughout. Exam nonfocal. Diagnostics: [] Therapeutics: [] Impression: [] Plan: [] Definitive disposition and diagnosis as appropriate pending reevaluation and review of above. Abdomen Pain Score (Numeric/FACES): 10 - Related Data Allergies Allergy/AdvReac Type Severity Reaction Status Date / Time ciprofloxacin [From Cipro] Allergy Rash Verified 02/08/20 20:56 sulfamethoxazole Allergy Nausea Verified 02/08/20 20:56 [From Bactrim] trimethoprim [From Bactrim] Allergy Nausea Verified 02/08/20 20:56 Home Meds: Home Meds LORazepam [Ativan] 0.5 mg PO DAILY 04/01/14 [History] metFORMIN [metFORMIN XR] 1,000 mg PO BID 05/27/14 [History] Albuterol [Ventolin HFA] 2 puff INH BID PRN 10/21/15 [History] Budesonide/Formoterol [Symbicort 160-4.5 Mcg Inhaler] 1 puff INH BID PRN 10/21/15 [History] Clobetasol Propionate [Temovate] 30 gm TOP DAILY 10/21/15 [History] Lidocaine 5% 35.44 gm TOP QID PRN #1 tube 05/16/17 [Rx] Hydrocortisone [Hydrocortisone 2.5% Crm] 30 gm .XX BID #1 tube 03/18/18 [Rx] Lisinopril 10 mg PO DAILY 09/29/18 [History] ClomiPRAMINE [ClomiPRAMINE HCl] 2 cap PO DAILY 08/26/19 [History] Fluticasone Propionate [Flovent] 1 inh NASBOTH ASDIRECTED 08/26/19 [History] desogestreL-ethinyl estradioL [Reclipsen 28 Day Tablet] 1 tab PO DAILY 08/26/19 [History] Sertraline HCl [Zoloft] 150 mg PO DAILY 10/21/19 [History] diphenhydrAMINE [Benadryl] 25 mg PO QID PRN #15 tablet 02/01/20 [Rx] predniSONE [Prednisone] 40 mg PO DAILY 4 Days #8 tablet 02/01/20 [Rx] Past Medical History - Past Health History Medical/Surgical History: Denies Medical/Surgical History HEENT History: Reports: None Cardiovascular History: Reports: Hypertension, Other (See Below) Other Cardiovascular History: non specific chest pains Respiratory History: Reports: Asthma Gastrointestinal History: Reports: Other (See Below) Other Gastrointestinal History: non specific abd pains Genitourinary History: Reports: UTI, Recurrent, Other (See Below) Other Genitourinary History: chronic uti's, vaginal candidiasis [employer] O[employer] History: Reports: None Musculoskeletal History: Reports: Back Pain, Chronic Other Musculoskeletal History: from UTI Neurological History: Reports: None Psychiatric History: Reports: Anxiety, Depression, OCD Endocrine/Metabolic History: Reports: Diabetes, Type II, Obesity/BMI 30+ 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 Hematologic History: Reports: None Immunologic History: Reports: None Oncologic (Cancer) History: Reports: None Dermatologic History: Reports: Psoriasis Other Dermatologic History: on her scalp - Infectious Disease History Infectious Disease History: Reports: None - Past Surgical History Head Surgeries/Procedures: Reports: None HEENT Surgical History: Reports: Adenoidectomy, Oral Surgery, Tonsillectomy Respiratory Surgical History: Reports: None Social & Family History - Family History Family Medical History: Noncontributory Psychiatric: Reports: Anxiety, Depression Endocrine/Metabolic: Reports: Obesity/MBI 30+ Immunologic: Reports: HIV - Tobacco Use Smoking Status *Q: Current Every Day Smoker Years of Tobacco use: 1 Packs/Tins Daily: 1 - Caffeine Use Caffeine Use: Reports: Soda Caffeine Use Comment: 1 drink/month - Recreational Drug Use Recreational Drug Use: No ED ROS GENERAL - Review of Systems Review Of Systems: Comprehensive ROS is negative, except as noted in HPI. ED EXAM, GI/ABD - Physical Exam Exam: See Below (see h and p) Course - Vital Signs Text/Narrative:: Vital signs are normalized. Patient feels better after getting IV fluids and some medications. CT of the abdomen shows no acute process. Labs show a mildly elevated lactic acid at 2.2, but there is no convincing evidence for infection. No elevated white blood cell count, no fever, on reassessment she is feeling better. The abdominal discomfort and cramps have subsided. I do believe there is any indication for antibiotics, surgical consult, or admission to the hospital at this time. I encouraged her to follow-up in the outpatient setting. Told her she should try taking some [id number] probiotics because some of her GI symptoms could be related to the antibiotic she was on recently and this could help with her symptoms overall. She understands this plan and is agreeable with it. Stable and nontoxic at the time of discharge. Last Recorded V/S: Last Vital Signs Temp 35.8 C L 02/08/20 20:57 Pulse 93 02/08/20 23:15 Resp 18 02/08/20 23:15 BP 136/77 02/08/20 23:15 Pulse Ox 95 02/08/20 23:15 - Orders/Labs/Meds Orders: Active Orders 24 hr Category Date Time Status Sodium Chloride 0.9% [Normal Saline] 2,000 ml Med 02/08/20 22:54 Active IV .Bolus Sodium Chloride 0.9% [Saline Flush] Med 02/08/20 21:16 Active 10 ml FLUSH ASDIRECTED PRN Sodium Chloride 0.9% [Saline Flush] Med 02/08/20 21:16 Active 2.5 ml FLUSH ASDIRECTED PRN Saline Lock Insert [OM.PC] Stat Oth 02/08/20 21:16 Ordered Medication Orders Sodium Chloride (Normal Saline) 2,000 mls @ 1,000 mls/hr IV .Bolus ONE Stop: 02/09/20 00:53 Last Admin: 02/08/20 23:10 Dose: 1,000 mls/hr Documented by: NAS Sodium Chloride (Saline Flush) 10 ml FLUSH ASDIRECTED PRN PRN Reason: Keep Vein Open Sodium Chloride (Saline Flush) 2.5 ml FLUSH ASDIRECTED PRN PRN Reason: Keep Vein Open Labs: Laboratory Tests 02/08/20 02/08/20 02/08/20 Range/Units 21:00 21:00 21:30 WBC 8.46 (4.0-11.0) K/uL RBC 5.76 (4.30-5.90) M/uL Hgb 15.9 (12.0-16.0) g/dL Hct 46.7 H (36.0-46.0) % MCV 81.1 (80.0-98.0) fL MCH 27.6 (27.0-32.0) pg MCHC 34.0 (31.0-37.0) g/dL RDW Std Deviation 41.8 (28.0-62.0) fl RDW Coeff of Nicky 14 (11.0-15.0) % Plt Count 299 (150-400) K/uL MPV 9.70 (7.40-12.00) fL Neut % (Auto) 52.4 (48.0-80.0) % Lymph % (Auto) 37.1 (16.0-40.0) % [place] % (Auto) 6.6 (0.0-15.0) % Eos % (Auto) 3.2 (0.0-7.0) % Baso % (Auto) 0.7 (0.0-1.5) % Neut # (Auto) 4.4 (1.4-5.7) K/uL Lymph # (Auto) 3.1 H (0.6-2.4) K/uL [place] # (Auto) 0.6 (0.0-0.8) K/uL Eos # (Auto) 0.3 (0.0-0.7) K/uL Baso # (Auto) 0.1 (0.0-0.1) K/uL Lactate (0.20-2.00) mmol/L Sodium (136-145) mmol/L Potassium (3.5-5.1) mmol/L Chloride (98-107) mmol/L Carbon Dioxide (21.0-32.0) mmol/L BUN (7.0-18.0) mg/dL Creatinine (0.6-1.0) mg/dL Est Cr Clr Drug Dosing mL/min Estimated GFR (MDRD) ml/min Glucose (74-106) mg/dL Calcium (8.5-10.1) mg/dL Total Bilirubin (0.2-1.0) mg/dL AST (15-37) IU/L ALT (14-63) IU/L Alkaline Phosphatase (46-116) U/L Total Protein (6.4-8.2) g/dL Albumin (3.4-5.0) g/dL Globulin (2.6-4.0) g/dL Albumin/Globulin Ratio (0.9-1.6) Lipase (73-393) U/L Urine Color YELLOW Urine Appearance SLT CLOUDY Urine pH 5.5 (5.0-8.0) Ur Specific Clive >= 1.030 (1.001-1.035) Urine Protein TRACE H (NEGATIVE) mg/dL Urine Glucose (UA) NEGATIVE (NEGATIVE) mg/dL Urine Ketones NEGATIVE (NEGATIVE) mg/dL Urine Occult Blood LARGE H (NEGATIVE) Urine Nitrite NEGATIVE (NEGATIVE) Urine Bilirubin SMALL H (NEGATIVE) Urine Urobilinogen 0.2 (<2.0) EU/dL Ur Leukocyte Esterase NEGATIVE (NEGATIVE) Urine RBC 7-10 (0-2/HPF) Urine WBC 2-4 (0-5/HPF) Ur Epithelial Cells MANY (NONE-FEW) Calcium Oxalate Crystal RARE (NEGATIVE) Urine Bacteria 1+ H (NEGATIVE) Urine Mucus HEAVY (NONE-MOD) Urine HCG, Qual NEGATIVE (NEGATIVE) 02/08/20 02/08/20 Range/Units 21:30 21:30 WBC (4.0-11.0) K/uL RBC (4.30-5.90) M/uL Hgb (12.0-16.0) g/dL Hct (36.0-46.0) % MCV (80.0-98.0) fL MCH (27.0-32.0) pg MCHC (31.0-37.0) g/dL RDW Std Deviation (28.0-62.0) fl RDW Coeff of Nicky (11.0-15.0) % Plt Count (150-400) K/uL MPV (7.40-12.00) fL Neut % (Auto) (48.0-80.0) % Lymph % (Auto) (16.0-40.0) % [place] % (Auto) (0.0-15.0) % Eos % (Auto) (0.0-7.0) % Baso % (Auto) (0.0-1.5) % Neut # (Auto) (1.4-5.7) K/uL Lymph # (Auto) (0.6-2.4) K/uL [place] # (Auto) (0.0-0.8) K/uL Eos # (Auto) (0.0-0.7) K/uL Baso # (Auto) (0.0-0.1) K/uL Lactate 2.2 H* (0.20-2.00) mmol/L Sodium 135 L (136-145) mmol/L Potassium 3.9 (3.5-5.1) mmol/L Chloride 100 (98-107) mmol/L Carbon Dioxide 24.0 (21.0-32.0) mmol/L BUN 6 L (7.0-18.0) mg/dL Creatinine 0.7 (0.6-1.0) mg/dL Est Cr Clr Drug Dosing 104.24 mL/min Estimated GFR (MDRD) > 60.0 ml/min Glucose 167 H (74-106) mg/dL Calcium 8.1 L (8.5-10.1) mg/dL Total Bilirubin 0.4 (0.2-1.0) mg/dL AST 32 (15-37) IU/L ALT 40 (14-63) IU/L Alkaline Phosphatase 82 (46-116) U/L Total Protein 6.8 (6.4-8.2) g/dL Albumin 3.4 (3.4-5.0) g/dL Globulin 3.4 (2.6-4.0) g/dL Albumin/Globulin Ratio 1.0 (0.9-1.6) Lipase 63 L (73-393) U/L Urine Color Urine Appearance Urine pH (5.0-8.0) Ur Specific Clive (1.001-1.035) Urine Protein (NEGATIVE) mg/dL Urine Glucose (UA) (NEGATIVE) mg/dL Urine Ketones (NEGATIVE) mg/dL Urine Occult Blood (NEGATIVE) Urine Nitrite (NEGATIVE) Urine Bilirubin (NEGATIVE) Urine Urobilinogen (<2.0) EU/dL Ur Leukocyte Esterase (NEGATIVE) Urine RBC (0-2/HPF) Urine WBC (0-5/HPF) Ur Epithelial Cells (NONE-FEW) Calcium Oxalate Crystal (NEGATIVE) Urine Bacteria (NEGATIVE) Urine Mucus (NONE-MOD) Urine HCG, Qual (NEGATIVE) Meds: Medications Generic Name Dose Route Start Last Admin Trade Name Freq PRN Reason Stop Dose Admin Sodium Chloride 2,000 mls @ 1,000 mls/hr 02/08/20 22:54 02/08/20 23:10 Normal Saline IV 02/09/20 00:53 1,000 mls/hr .Bolus ONE Administration Sodium Chloride 10 ml 02/08/20 21:16 Saline Flush FLUSH ASDIRECTED PRN Keep Vein Open Sodium Chloride 2.5 ml 02/08/20 21:16 Saline Flush FLUSH ASDIRECTED PRN Keep Vein Open Discontinued Medications Generic Name Dose Route Start Last Admin Trade Name Freq PRN Reason Stop Dose Admin Sodium Chloride 1,000 mls @ 999 mls/hr 02/08/20 21:16 02/08/20 21:51 Normal Saline IV 02/08/20 22:16 999 mls/hr .Bolus ONE Administration Iopamidol 100 ml 02/08/20 23:26 02/08/20 23:27 Isovue-370 (76%) IVPUSH 02/08/20 23:27 100 ml ONETIME STA Administration Ketorolac Tromethamine 15 mg 02/08/20 21:16 02/08/20 21:51 Toradol IVPUSH 02/08/20 21:17 15 mg ONETIME ONE Administration Ondansetron HCl 4 mg 02/08/20 21:16 02/08/20 21:51 Zofran IVPUSH 02/08/20 21:17 4 mg ONETIME ONE Administration Departure - Departure Time of Disposition: 00:07 Disposition: Home, Self-Care 01 Condition: Good Clinical Impression: Abdominal pain, Diarrhea, Abdominal cramps - Discharge Information Instructions: Abdominal Pain, Adult, [id number] Referrals: Sloan Ordonez MD [Primary Care Provider] - Forms: ED Department Discharge Additional Instructions: Follow-up with primary care doctor. Return to the ER with any new or worsening symptoms. The following information is given to patients seen in the emergency department who are being discharged to home. This information is to outline your options for follow-up care. We provide all patients seen in our emergency department with a follow-up referral. The need for follow-up, as well as the timing and circumstances, are variable depending upon the specifics of your emergency department visit. If you don't have a primary care physician on staff, we will provide you with a referral. We always advise you to contact your personal physician following an emergency department visit to inform them of the circumstance of the visit and for follow-up with them and/or the need for any referrals to a consulting specialist. The emergency department will also refer you to a specialist when appropriate. This referral assures that you have the opportunity for follow-up care with a specialist. All of these measure are taken in an effort to provide you with optimal care, which includes your follow-up. Under all circumstances we always encourage you to contact your private physician who remains a resource for coordinating your care. When calling for follow-up care, please make the office aware that this follow-up is from your recent emergency room visit. If for any reason you are refused follow-up, please contact the [facility] Emergency Department at and asked to speak to the emergency department charge nurse. Sepsis Event Note (ED) - Evaluation Sepsis Screening Result: No Definite Risk - Focused Exam Vital Signs: Vital Signs Temp Pulse Resp BP Pulse Ox 02/08/20 23:15 93 18 136/77 95 02/08/20 20:57 35.8 C L 124 H 18 93/69 96 - My Orders Last 24 Hours: My Active Orders 02/08/20 21:16 Sodium Chloride 0.9% [Saline Flush] 10 ml FLUSH ASDIRECTED PRN Sodium Chloride 0.9% [Saline Flush] 2.5 ml FLUSH ASDIRECTED PRN Saline Lock Insert [OM.PC] Stat 02/08/20 22:54 Sodium Chloride 0.9% [Normal Saline] 2,000 ml IV .Bolus - Assessment/Plan Last 24 Hours: My Active Orders 02/08/20 21:16 Sodium Chloride 0.9% [Saline Flush] 10 ml FLUSH ASDIRECTED PRN Sodium Chloride 0.9% [Saline Flush] 2.5 ml FLUSH ASDIRECTED PRN Saline Lock Insert [OM.PC] Stat 02/08/20 22:54 Sodium Chloride 0.9% [Normal Saline] 2,000 ml IV .Bolus
[2020-02-08 22:00] LABS: BLOOD UREA NITROGEN,BUN 6 mg/dL (7.0-18.0); CHLORIDE,CL 100 mmol/L (98-107); GLUCOSE RANDOM 167 mg/dL (74-106); LIPASE 63 U/L (73-393); POTASSIUM,K 3.9 mmol/L (3.5-5.1); SODIUM,NA 135 mmol/L (136-145)
[2020-02-08] MEDS ORDERED: Sodium Chloride 0.9% 2,000 ML IV ONE (22:54)
[2020-02-08] MEDS ORDERED: Iopamidol 755 Mg/ML 100 ML Bottle IVPUSH STA (23:26)
--- NOTE | 2020-02-09 00:01 | CT ---
Indication: Bilateral lower abdominal pain Technique: Contrast enhanced axial CT imaging through the abdomen and pelvis. 100 mL Isovue 370 contrast agent was administered intravenously. Sagittal and coronal reconstructions are provided. Comparison: CT abdomen pelvis without contrast 04/19/2018 Findings: There is no significant abnormality of the liver, gallbladder, spleen, pancreas, adrenal glands, and kidneys. A small renal cortical cyst is noted in the right lower pole. The portal vein is patent. There is normal caliber of the abdominal aorta. There is no abdominal lymphadenopathy. The urinary bladder, uterus, and ovaries are unremarkable. No free fluid is seen in the pelvis. The stomach and duodenum are unremarkable. There are no abnormally dilated small bowel loops. The appendix is noninflamed. Mild diverticulosis is noted throughout the colon. There is no colonic wall thickening. No inflammatory changes are demonstrated in the mesentery. There is no free intraperitoneal fluid or air. The osseous structures are unremarkable. The included lung bases are clear. Impression: 1. No acute process demonstrated in the abdomen and pelvis. 2. Colonic diverticulosis without evidence of diverticulitis. Please note that all CT scans at this facility use dose modulation, iterative reconstruction, and/or weight-based dosing when appropriate to reduce radiation dose to as low as reasonably achievable. Dictated by Hubert Ivey MD @ Feb 08 2020 11:53PM Signed by Dr. Hubert Ivey @ Feb 08 2020 11:59PM
[2020-02-09 00:19] VITALS: BP 134/84; PULSE 92
== END 2020-02-09 00:15 | disposition home or self-care (01) ==
LOC: MW.ED 20:44
DX: R10.31 Right lower quadrant pain (principal); R10.32 Left lower quadrant pain; R19.7 Diarrhea, unspecified; J45.909 Unspecified asthma, uncomplicated; F41.9 Anxiety disorder, unspecified; F32.9 Major depressive disorder, single episode, unspecified; E11.9 Type 2 diabetes mellitus without complications; E66.9 Obesity, unspecified; E66.01 Morbid (severe) obesity due to excess calories; F17.210 Nicotine dependence, cigarettes, uncomplicated; Z88.1 Allergy status to other antibiotic agents; Z88.2 Allergy status to sulfonamides; Z90.49 Acquired absence of other specified parts of digestive tract; Z79.84 Long term (current) use of oral hypoglycemic drugs; Z79.899 Other long term (current) drug therapy
CPT/HCPCS: 36415; 74177; 80053; 81001; 81025; 83605; 83690; 85025; 96361; 96374; 96375; 99284; J1885; J2405; J7030; Q9967

== ENCOUNTER 2020-02-20 15:49 | Emergency (ER) | payer MEDICARE, MEDICAID ==
--- NOTE | 2020-02-20 16:21 | EDM.PDOC ---
ED HPI GENERAL MEDICAL PROBLEM - General Chief Complaint: Skin Complaint Stated Complaint: Rash on leg Time Seen by Provider: 02/20/20 16:01 - History of Present Illness INITIAL COMMENTS - FREE TEXT/NARRATIVE: HISTORY AND PHYSICAL: History of present illness: This 29-year-old female with a long past medical history presents emergency department with a skin rash that causes her to have a pruritic type sensation and is on her abdomen, legs and buttocks. This is been gradually worsening over the last couple of days. She is concerned that it is an infection. She has had cellulitis in the past. No other associated signs or symptoms. No other modifying, aggravating or alleviating factors. Review of systems: A 10-point review of systems, other than pertinent positives and negatives as stated per HPI, is otherwise negative. Past medical history: As per history of present illness and as reviewed below otherwise noncontributory. Surgical history: As per history of present illness and as reviewed below otherwise n oncontributory. Social history: No reported history of drug or alcohol abuse. Family history: As per history of present illness and as reviewed below otherwise noncontributory. Physical exam: VITAL SIGNS: Reviewed. GENERAL: [In no apparent distress.] HEAD: [No signs of head trauma.] EYES: [Pupils are equal. Extraocular motions intact.] EARS: [Hearing grossly intact.] MOUTH: [Oropharynx is normal.] NECK: [No adenopathy, no JVD.] CHEST: [Chest with clear breath sounds bilaterally. No wheezes, rales, or rhonchi.] CARDIAC: [Regular rate and rhythm. Normal S1 and S2, without murmurs, gallops, or rubs.] VASCULAR: [Peripheral pulses normal and equal in all extremities.] ABDOMEN: [Soft, without detectable tenderness. No sign of distention. No rebound or guarding, and no masses palpated.] MUSCULOSKELETAL: [Good range of motion of all major joints. Extremities without clubbing, cyanosis or edema.] NEUROLOGIC EXAM: [Alert and oriented x 3.] [No focal sensory or motor deficits. ] [ Speech normal.] [ Follows commands.] PSYCHIATRIC: [Mood normal.] SKIN: Erythematous rash on the legs, abdomen and buttocks. No evidence of abscess or necrotizing tissue. Initial Differential Diagnosis & Plan: The patient has an erythematous extremities and lower abdominal area. The rash is pruritic. Differential diagnosis: -Necrotizing fascitis was considered. There does not appear to be disproportionate pain, dusky appearance, induration , crepitus, bullae, ecchymoses, or pain beyond the visibly affected area -DVT was considered, but there are no risk factors like personal history, family history, recent trauma or surgery, immobilization, or cancer -abscess was considered, but there is no fluctuance, drainage, or induration. -cellulitis appears to be the most likely explanation of the patient's symptoms. I also considered pseudo-cellulitis, this would normally be seen as bilateral edema. Other impersonator's of cellulitis were also considered including lipodermatosclerosis, erysipelas, contact dermatitis, or metal hypersensitivity, lymphedema, gout, erythema migrans, and cryptococcal cellulitis (seen with AIDS patients). I doubt calciphylaxis given that the patient does not have end-stage renal disease, liver disease or taking warfarin. Antibiotics will be started and the patient's response to therapy will need to be followed. Given the nature of the pruritic symptoms I will also give a topical antifungal. Definitive disposition and diagnosis as appropriate pending reevaluation and review of above. - Related Data Allergies Allergy/AdvReac Type Severity Reaction Status Date / Time ciprofloxacin [From Cipro] Allergy Rash Verified 02/08/20 20:56 sulfamethoxazole Allergy Nausea Verified 02/08/20 20:56 [From Bactrim] trimethoprim [From Bactrim] Allergy Nausea Verified 02/08/20 20:56 Home Meds: Home Meds LORazepam [Ativan] 0.5 mg PO DAILY 04/01/14 [History] metFORMIN [metFORMIN XR] 1,000 mg PO BID 05/27/14 [History] Albuterol [Ventolin HFA] 2 puff INH BID PRN 10/21/15 [History] Budesonide/Formoterol [Symbicort 160-4.5 Mcg Inhaler] 1 puff INH BID PRN 10/21/15 [History] Clobetasol Propionate [Temovate] 30 gm TOP DAILY 10/21/15 [History] Lidocaine 5% 35.44 gm TOP QID PRN #1 tube 05/16/17 [Rx] Hydrocortisone [Hydrocortisone 2.5% Crm] 30 gm .XX BID #1 tube 03/18/18 [Rx] Lisinopril 10 mg PO DAILY 09/29/18 [History] ClomiPRAMINE [ClomiPRAMINE HCl] 2 cap PO DAILY 08/26/19 [History] Fluticasone Propionate [Flovent] 1 inh NASBOTH ASDIRECTED 08/26/19 [History] desogestreL-ethinyl estradioL [Reclipsen 28 Day Tablet] 1 tab PO DAILY 08/26/19 [History] Sertraline HCl [Zoloft] 150 mg PO DAILY 10/21/19 [History] diphenhydrAMINE [Benadryl] 25 mg PO QID PRN #15 tablet 02/01/20 [Rx] predniSONE [Prednisone] 40 mg PO DAILY 4 Days #8 tablet 02/01/20 [Rx] Clotrimazole [Clotrimazole 1%] 30 ml TOP BID 30 Days #1 bottle 02/20/20 [Rx] Doxycycline [Vibramycin] 100 mg PO BID 7 Days #14 cap 02/20/20 [Rx] Past Medical History - Past Health History Medical/Surgical History: Denies Medical/Surgical History HEENT History: Reports: None Cardiovascular History: Reports: Hypertension, Other (See Below) Other Cardiovascular History: non specific chest pains Respiratory History: Reports: Asthma Gastrointestinal History: Reports: Other (See Below) Other Gastrointestinal History: non specific abd pains Genitourinary History: Reports: UTI, Recurrent, Other (See Below) Other Genitourinary History: chronic uti's, vaginal candidiasis 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 Musculoskeletal History: Reports: Back Pain, Chronic Other Musculoskeletal History: from UTI Neurological History: Reports: None Psychiatric History: Reports: Anxiety, Depression, OCD Endocrine/Metabolic History: Reports: Diabetes, Type II, Obesity/BMI 30+ 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 Hematologic History: Reports: None Immunologic History: Reports: None Oncologic (Cancer) History: Reports: None Dermatologic History: Reports: Psoriasis Other Dermatologic History: on her scalp - Infectious Disease History Infectious Disease History: Reports: None - Past Surgical History Head Surgeries/Procedures: Reports: None HEENT Surgical History: Reports: Adenoidectomy, Oral Surgery, Tonsillectomy Respiratory Surgical History: Reports: None Social & Family History - Family History Family Medical History: Noncontributory Psychiatric: Reports: Anxiety, Depression Endocrine/Metabolic: Reports: Obesity/MBI 30+ Immunologic: Reports: HIV - Caffeine Use Caffeine Use: Reports: Soda Caffeine Use Comment: 1 drink/month ED ROS GENERAL - Review of Systems Review Of Systems: See Below (Noted) ED EXAM, SKIN/RASH Exam: See Below (Noted) Departure - Departure Time of Disposition: 16:18 Disposition: Home, Self-Care 01 Clinical Impression: Cellulitis - Discharge Information *PRESCRIPTION DRUG MONITORING PROGRAM REVIEWED*: Not Applicable *COPY OF PRESCRIPTION DRUG MONITORING REPORT IN PATIENT CALLUM: Not Applicable Instructions: Cellulitis, Adult Referrals: Sloan Ordonez MD [Primary Care Provider] - Forms: ED Department Discharge Additional Instructions: The following information is given to patients seen in the emergency department who are being discharged to home. This information is to outline your options for follow-up care. We provide all patients seen in our emergency department with a follow-up referral. The need for follow-up, as well as the timing and circumstances, are variable depending upon the specifics of your emergency department visit. If you don't have a primary care physician on staff, we will provide you with a referral. We always advise you to contact your personal physician following an emergency department visit to inform them of the circumstance of the visit and for follow-up with them and/or the need for any referrals to a consulting specialist. The emergency department will also refer you to a specialist when appropriate. This referral assures that you have the opportunity for follow-up care with a specialist. All of these measure are taken in an effort to provide you with optimal care, which includes your follow-up. Thank you for coming to the [facility] urgency department for your care today. It was Dr. Partida's pleasure to take care of you. Follow-up with your doctor. This appears to be an early skin infection and could be fungal or bacterial. Please use a fungal cream and the oral antibiotics. Under all circumstances we always encourage you to contact your private physician who remains a resource for coordinating your care. When calling for follow-up care, please make the office aware that this follow-up is from your recent emergency room visit. If for any reason you are refused follow-up, please contact the [facility] Emergency Department at and asked to speak to the emergency department charge nurse.
[2020-02-20 17:04] VITALS: BP 151/95; PULSE 110
== END 2020-02-20 16:41 | disposition home or self-care (01) ==
LOC: MW.ED 15:49
DX: L03.116 Cellulitis of left lower limb (principal); L03.115 Cellulitis of right lower limb; J45.909 Unspecified asthma, uncomplicated; I10 Essential (primary) hypertension; E11.9 Type 2 diabetes mellitus without complications; F41.9 Anxiety disorder, unspecified; F32.9 Major depressive disorder, single episode, unspecified; E66.9 Obesity, unspecified; Z88.2 Allergy status to sulfonamides; Z88.1 Allergy status to other antibiotic agents; Z79.899 Other long term (current) drug therapy; Z68.43 Body mass index [BMI] 50.0-59.9, adult
CPT/HCPCS: 99282

== ENCOUNTER 2020-02-24 14:25 | Emergency (ER) | payer MEDICARE, MEDICAID ==
[2020-02-24] MEDS ORDERED: Sodium Chloride 0.9% 1,000 ML IV ONE (15:21)
[2020-02-24] MEDS ORDERED: Ketorolac 30 MG/ML SDV IVPUSH ONE (15:24)
--- NOTE | 2020-02-24 15:24 | EDM.PDOC ---
ED HPI GENERAL MEDICAL PROBLEM - General Chief Complaint: General Stated Complaint: SOB, RASH, CHEST PAIN Time Seen by Provider: 02/24/20 14:36 Source of Information: Reports: Patient History Limitations: Reports: No Limitations - History of Present Illness INITIAL COMMENTS - FREE TEXT/NARRATIVE: HISTORY AND PHYSICAL: History of present illness: Patient is a 29-year-old female who presents to the ED today with concern of chest pain and shortness of breath x2 days. Patient states that she has had the chest pain off and on for the past 2 to 3 days but it has been more constant today and has had similar chest pain in the past that she has had evaluated and states unsure of any cause. Patient states she also feels slightly short of breath like she cannot take a big deep breath in. Patient states that she is currently on an antibiotic for what was diagnosed as a cellulitis infection 3-4 days ago. Patient states that she still has part of the rash on her inner thigh but this is improving with antibiotics. Patient denies any other symptoms or concerns. Patient denies fever, chills, or cough. Denies headache, neck stiff ness, change in vision, syncope, or near syncope. Denies nausea, vomiting, abdominal pain, diarrhea, constipation, or dysuria. Has not noted any blood in urine or stool. Patient has been eating and drinking appropriately. Review of systems: As per history of present illness and below otherwise all systems reviewed and negative. Past medical history: As per history of present illness and as reviewed below otherwise noncontributory. Surgical history: As per history of present illness and as reviewed below otherwise noncontributory. Social history: See social history for further information Family history: As per history of present illness and as reviewed below otherwise noncontributory. Physical exam: General: Patient is alert, oriented, and in no acute distress. Patient sitting comfortably on exam table. HEENT: Atraumatic, normocephalic, pupils equal and reactive bilaterally, negative for conjunctival pallor or scleral icterus, mucous membranes moist, TMs normal bilaterally, throat clear, neck supple, nontender, trachea midline. No drooling or trismus noted. No meningeal signs. No hot potato voice noted. Lungs: Clear to auscultation, breath sounds equal bilaterally, chest nontender. Heart: S1S2, regular rate and rhythm without overt murmur Abdomen: Morbidly obese. Soft, nondistended, nontender. Negative for masses or hepatosplenomegaly. Negative for costovertebral tenderness. Pelvis: Stable nontender. Genitourinary: Deferred. Rectal: Deferred. Skin: There is a scaly dry macular rash of the right inner thigh without erythema, drainage, or warmth. Otherwise, Intact, warm, dry. No lesions or rashes noted. Extremities: Atraumatic, negative for cords or calf pain. Neurovascular unremarkable. Neuro: Awake, alert, oriented. Cranial nerves II through XII unremarkable. Cerebellum unremarkable. Motor and sensory unremarkable throughout. Exam nonfocal. Notes: Initial tachycardia resolved from triage to my exam and on my exam 90-100s without intervention. Hypertension improved without intervention. Patient expresses resolution of symptoms today in the ED. Discussed importance for follow-up with a primary care provider. Voices understanding and is agreeable to plan of care. Denies any further questions or concerns at this time. Diagnostics: EKG, CBC, CMP, UAm, serum hcg, CXR, ddimer, Trop, VBG, Blood ketone, urine osmolality Therapeutics: NS, Toradol Prescription: None Impression: Atypical chest pain, resolved Hypertension Hyperglycemia Dermatitis Plan: 1. You can alternate ibuprofen and tylenol as directed for pain and discomfort. 2. Follow up with a primary care provider as discussed. Return to the ED as needed and as discussed. Definitive disposition and diagnosis as appropriate pending reevaluation and review of above. chest Pain Score (Numeric/FACES): 5 - Related Data Allergies Allergy/AdvReac Type Severity Reaction Status Date / Time ciprofloxacin [From Cipro] Allergy Rash Verified 02/24/20 14:44 sulfamethoxazole Allergy Nausea Verified 02/24/20 14:44 [From Bactrim] trimethoprim [From Bactrim] Allergy Nausea Verified 02/24/20 14:44 Home Meds: Home Meds LORazepam [Ativan] 0.5 mg PO DAILY 04/01/14 [History] metFORMIN [metFORMIN XR] 1,000 mg PO BID 05/27/14 [History] Albuterol [Ventolin HFA] 2 puff INH BID PRN 10/21/15 [History] Clobetasol Propionate [Temovate] 30 gm TOP DAILY 10/21/15 [History] Lidocaine 5% 35.44 gm TOP QID PRN #1 tube 05/16/17 [Rx] Lisinopril 10 mg PO DAILY 09/29/18 [History] ClomiPRAMINE [ClomiPRAMINE HCl] 2 cap PO DAILY 08/26/19 [History] Fluticasone Propionate [Flovent] 1 inh NASBOTH ASDIRECTED 08/26/19 [History] desogestreL-ethinyl estradioL [Reclipsen 28 Day Tablet] 1 tab PO DAILY 08/26/19 [History] Sertraline HCl [Zoloft] 150 mg PO DAILY 10/21/19 [History] diphenhydrAMINE [Benadryl] 25 mg PO QID PRN #15 tablet 02/01/20 [Rx] Clotrimazole [Clotrimazole 1%] 30 ml TOP BID 30 Days #1 bottle 02/20/20 [Rx] Doxycycline [Vibramycin] 100 mg PO BID 7 Days #14 cap 02/20/20 [Rx] Past Medical History - Past Health History Medical/Surgical History: Denies Medical/Surgical History HEENT History: Reports: None Cardiovascular History: Reports: Hypertension, Other (See Below) Other Cardiovascular History: non specific chest pains Respiratory History: Reports: Asthma Gastrointestinal History: Reports: Other (See Below) Other Gastrointestinal History: non specific abd pains Genitourinary History: Reports: UTI, Recurrent, Other (See Below) Other Genitourinary History: chronic uti's, vaginal candidiasis RESEARCH DEVELOPMENT MANAGER History: Reports: None Musculoskeletal History: Reports: Back Pain, Chronic Other Musculoskeletal History: from UTI Neurological History: Reports: None Psychiatric History: Reports: Anxiety, Depression, OCD Endocrine/Metabolic History: Reports: Diabetes, Type II, Obesity/BMI 30+ 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 Core Fitter: None Hematologic History: Reports: None Immunologic History: Reports: None Oncologic (Cancer) History: Reports: None Dermatologic History: Reports: Psoriasis Other Dermatologic History: on her scalp - Infectious Disease History Infectious Disease History: Reports: None - Past Surgical History Head Surgeries/Procedures: Reports: None HEENT Surgical History: Reports: Adenoidectomy, Oral Surgery, Tonsillectomy Cardiovascular Surgical History: Reports: None Respiratory Surgical History: Reports: None GI Surgical History: Reports: None Female Surgical History: Reports: None, Other (See Below) Other Female Surgeries/Procedures: Cystoscopy Endocrine Surgical History: Reports: None Musculoskeletal Surgical History: Reports: None Social & Family History - Family History Family Medical History: Noncontributory Psychiatric: Reports: Anxiety, Depression Endocrine/Metabolic: Reports: Obesity/MBI 30+ Immunologic: Reports: HIV - Tobacco Use Smoking Status *Q: Current Every Day Smoker Years of Tobacco use: 1 Packs/Tins Daily: 1 - Caffeine Use Caffeine Use: Reports: Coffee Caffeine Use Comment: 1 drink/month - Recreational Drug Use Recreational Drug Use: No ED ROS GENERAL - Review of Systems Review Of Systems: Comprehensive ROS is negative, except as noted in HPI. ED EXAM, GENERAL - Physical Exam Exam: See Below (see dictation) Course - Vital Signs Last Recorded V/S: Last Vital Signs Temp 97.8 F 02/24/20 17:26 Pulse 97 02/24/20 17:26 Resp 20 02/24/20 17:26 BP 130/73 02/24/20 17:26 Pulse Ox 97 02/24/20 17:26 - Orders/Labs/Meds Orders: Active Orders 24 hr Category Date Time Status OSMOLALITY - SERUM [REF] Stat Lab 02/24/20 15:50 Received Labs: Laboratory Tests 02/24/20 02/24/20 02/24/20 Range/Units 15:12 15:50 15:50 WBC 8.79 (4.0-11.0) K/uL RBC 5.35 (4.30-5.90) M/uL Hgb 14.9 (12.0-16.0) g/dL Hct 44.2 (36.0-46.0) % MCV 82.6 (80.0-98.0) fL MCH 27.9 (27.0-32.0) pg MCHC 33.7 (31.0-37.0) g/dL RDW Std Deviation 42.8 (28.0-62.0) fl RDW Coeff of Nicky 14 (11.0-15.0) % Plt Count 316 (150-400) K/uL MPV 9.70 (7.40-12.00) fL Neut % (Auto) 55.5 (48.0-80.0) % Lymph % (Auto) 35.2 (16.0-40.0) % [place] % (Auto) 5.0 (0.0-15.0) % Eos % (Auto) 3.6 (0.0-7.0) % Baso % (Auto) 0.7 (0.0-1.5) % Neut # (Auto) 4.9 (1.4-5.7) K/uL Lymph # (Auto) 3.1 H (0.6-2.4) K/uL [place] # (Auto) 0.4 (0.0-0.8) K/uL Eos # (Auto) 0.3 (0.0-0.7) K/uL Baso # (Auto) 0.1 (0.0-0.1) K/uL Nucleated RBC % 0.0 /100WBC Nucleated RBCs # 0 K/uL D-Dimer, Quantitative 0.30 (0.0-0.50) mg/L FEU VBG pH (7.31-7.41) VBG pCO2 (35-45) mmHG VBG pO2 (30-40) mmHG VBG HCO3 (22-30) mEq/L VBG Total CO2 (41-51) mmol/L VBG Base Excess (-3.0-3.0) Sodium (136-145) mmol/L Potassium (3.5-5.1) mmol/L Chloride (98-107) mmol/L Carbon Dioxide (21.0-32.0) mmol/L BUN (7.0-18.0) mg/dL Creatinine (0.6-1.0) mg/dL Est Cr Clr Drug Dosing mL/min Estimated GFR (MDRD) ml/min Glucose (74-106) mg/dL Calcium (8.5-10.1) mg/dL Total Bilirubin (0.2-1.0) mg/dL AST (15-37) IU/L ALT (14-63) IU/L Alkaline Phosphatase (46-116) U/L Troponin I (0.000-0.056) ng/mL Total Protein (6.4-8.2) g/dL Albumin (3.4-5.0) g/dL Globulin (2.6-4.0) g/dL Albumin/Globulin Ratio (0.9-1.6) HCG, Qual (NEG) Urine Color YELLOW Urine Appearance CLOUDY Urine pH 6.0 (5.0-8.0) Ur Specific [place] 1.025 (1.001-1.035) Urine Protein NEGATIVE (NEGATIVE) mg/dL Urine Glucose (UA) 500 H (NEGATIVE) mg/dL Urine Ketones NEGATIVE (NEGATIVE) mg/dL Urine Occult Blood NEGATIVE (NEGATIVE) Urine Nitrite NEGATIVE (NEGATIVE) Urine Bilirubin NEGATIVE (NEGATIVE) Urine Urobilinogen 0.2 (<2.0) EU/dL Ur Leukocyte Esterase NEGATIVE (NEGATIVE) Ketones (NEG) 02/24/20 02/24/20 02/24/20 Range/Units 15:50 15:50 15:50 WBC (4.0-11.0) K/uL RBC (4.30-5.90) M/uL Hgb (12.0-16.0) g/dL Hct (36.0-46.0) % MCV (80.0-98.0) fL MCH (27.0-32.0) pg MCHC (31.0-37.0) g/dL RDW Std Deviation (28.0-62.0) fl RDW Coeff of Nicky (11.0-15.0) % Plt Count (150-400) K/uL MPV (7.40-12.00) fL Neut % (Auto) (48.0-80.0) % Lymph % (Auto) (16.0-40.0) % [place] % (Auto) (0.0-15.0) % Eos % (Auto) (0.0-7.0) % Baso % (Auto) (0.0-1.5) % Neut # (Auto) (1.4-5.7) K/uL Lymph # (Auto) (0.6-2.4) K/uL [place]y # (Auto) (0.0-0.8) K/uL Eos # (Auto) (0.0-0.7) K/uL Baso # (Auto) (0.0-0.1) K/uL Nucleated RBC % /100WBC Nucleated RBCs # K/uL D-Dimer, Quantitative (0.0-0.50) mg/L FEU VBG pH 7.41 (7.31-7.41) VBG pCO2 37 (35-45) mmHG VBG pO2 80 H (30-40) mmHG VBG HCO3 23 (22-30) mEq/L VBG Total CO2 20 L (41-51) mmol/L VBG Base Excess -1.2 (-3.0-3.0) Sodium 136 (136-145) mmol/L Potassium 3.9 (3.5-5.1) mmol/L Chloride 103 (98-107) mmol/L Carbon Dioxide 22.9 (21.0-32.0) mmol/L BUN 9 (7.0-18.0) mg/dL Creatinine 0.6 (0.6-1.0) mg/dL Est Cr Clr Drug Dosing 121.62 mL/min Estimated GFR (MDRD) > 60.0 ml/min Glucose 228 H (74-106) mg/dL Calcium 9.2 (8.5-10.1) mg/dL Total Bilirubin 0.4 (0.2-1.0) mg/dL AST 14 L (15-37) IU/L ALT 27 (14-63) IU/L Alkaline Phosphatase 74 (46-116) U/L Troponin I < 0.050 (0.000-0.056) ng/mL Total Protein 6.6 (6.4-8.2) g/dL Albumin 3.2 L (3.4-5.0) g/dL Globulin 3.4 (2.6-4.0) g/dL Albumin/Globulin Ratio 0.9 (0.9-1.6) HCG, Qual NEGATIVE (NEG) Urine Color Urine Appearance Urine pH (5.0-8.0) Ur Specific [place] (1.001-1.035) Urine Protein (NEGATIVE) mg/dL Urine Glucose (UA) (NEGATIVE) mg/dL Urine Ketones (NEGATIVE) mg/dL Urine Occult Blood (NEGATIVE) Urine Nitrite (NEGATIVE) Urine Bilirubin (NEGATIVE) Urine Urobilinogen (<2.0) EU/dL Ur Leukocyte Esterase (NEGATIVE) Ketones (NEG) 02/24/20 Range/Units 15:50 WBC (4.0-11.0) K/uL RBC (4.30-5.90) M/uL Hgb (12.0-16.0) g/dL Hct (36.0-46.0) % MCV (80.0-98.0) fL MCH (27.0-32.0) pg MCHC (31.0-37.0) g/dL RDW Std Deviation (28.0-62.0) fl RDW Coeff of Nicky (11.0-15.0) % Plt Count (150-400) K/uL MPV (7.40-12.00) fL Neut % (Auto) (48.0-80.0) % Lymph % (Auto) (16.0-40.0) % D[place]y % (Auto) (0.0-15.0) % Eos % (Auto) (0.0-7.0) % Baso % (Auto) (0.0-1.5) % Neut # (Auto) (1.4-5.7) K/uL Lymph # (Auto) (0.6-2.4) K/uL [place] # (Auto) (0.0-0.8) K/uL Eos # (Auto) (0.0-0.7) K/uL Baso # (Auto) (0.0-0.1) K/uL Nucleated RBC % /100WBC Nucleated RBCs # K/uL D-Dimer, Quantitative (0.0-0.50) mg/L FEU VBG pH (7.31-7.41) VBG pCO2 (35-45) mmHG VBG pO2 (30-40) mmHG VBG HCO3 (22-30) mEq/L VBG Total CO2 (41-51) mmol/L VBG Base Excess (-3.0-3.0) Sodium (136-145) mmol/L Potassium (3.5-5.1) mmol/L Chloride (98-107) mmol/L Carbon Dioxide (21.0-32.0) mmol/L BUN (7.0-18.0) mg/dL Creatinine (0.6-1.0) mg/dL Est Cr Clr Drug Dosing mL/min Estimated GFR (MDRD) ml/min Glucose (74-106) mg/dL Calcium (8.5-10.1) mg/dL Total Bilirubin (0.2-1.0) mg/dL AST (15-37) IU/L ALT (14-63) IU/L Alkaline Phosphatase (46-116) U/L Troponin I (0.000-0.056) ng/mL Total Protein (6.4-8.2) g/dL Albumin (3.4-5.0) g/dL Globulin (2.6-4.0) g/dL Albumin/Globulin Ratio (0.9-1.6) HCG, Qual (NEG) Urine Color Urine Appearance Urine pH (5.0-8.0) Ur Specific [place] (1.001-1.035) Urine Protein (NEGATIVE) mg/dL Urine Glucose (UA) (NEGATIVE) mg/dL Urine Ketones (NEGATIVE) mg/dL Urine Occult Blood (NEGATIVE) Urine Nitrite (NEGATIVE) Urine Bilirubin (NEGATIVE) Urine Urobilinogen (<2.0) EU/dL Ur Leukocyte Esterase (NEGATIVE) Ketones NEGATIVE (NEG) Meds: Medications Discontinued Medications Generic Name Dose Route Start Last Admin Trade Name Freq PRN Reason Stop Dose Admin Sodium Chloride 1,000 mls @ 999 mls/hr 02/24/20 15:21 02/24/20 15:50 Normal Saline IV 02/24/20 16:21 999 mls/hr STAT ONE Administration Ketorolac Tromethamine 30 mg 02/24/20 15:24 02/24/20 15:50 Toradol IVPUSH 02/24/20 15:25 30 mg ONETIME ONE Administration Departure - Departure Time of Disposition: 17:08 Disposition: Home, Self-Care 01 Clinical Impression: Atypical chest pain, Hyperglycemia, Dermatitis Hypertension Qualifiers: Hypertension type: unspecified Qualified Code(s): I10 - Essential (primary) hypertension - Discharge Information Instructions: Chest Wall Pain, [id number], Hyperglycemia, [id number], Hypertension, Adult, [id number] Referrals: Sloan Ordonez MD [Primary Care Provider] - Forms: ED Department Discharge Additional Instructions: The following information is given to patients seen in the emergency department who are being discharged to home. This information is to outline your options for follow-up care. We provide all patients seen in our emergency department with a follow-up referral. The need for follow-up, as well as the timing and circumstances, are variable depending upon the specifics of your emergency department visit. If you don't have a primary care physician on staff, we will provide you with a referral. We always advise you to contact your personal physician following an emergency department visit to inform them of the circumstance of the visit and for follow-up with them and/or the need for any referrals to a consulting specialist. The emergency department will also refer you to a specialist when appropriate. This referral assures that you have the opportunity for follow-up care with a specialist. All of these measure are taken in an effort to provide you with optimal care, which includes your follow-up. Under all circumstances we always encourage you to contact your private physician who remains a resource for coordinating your care. When calling for follow-up care, please make the office aware that this follow-up is from your recent emergency room visit. If for any reason you are refused follow-up, please contact the [facility] Emergency Department at and asked to speak to the emergency department charge nurse. [facility] [address] [place] [id number] [facility] [address] [place] [id number] 1. You can alternate ibuprofen and tylenol as directed for pain and discomfort. 2. Follow up with a primary care provider as discussed. Return to the ED as needed and as discussed. Sepsis Event Note (ED) - Evaluation Sepsis Screening Result: No Definite Risk - My Orders Last 24 Hours: My Active Orders 02/24/20 15:50 OSMOLALITY - SERUM [REF] Stat - Assessment/Plan Last 24 Hours: My Active Orders 02/24/20 15:50 OSMOLALITY - SERUM [REF] Stat
[2020-02-24 16:24] LABS: BLOOD UREA NITROGEN,BUN 9 mg/dL (7.0-18.0); CARBON DIOXIDE,CO2 22.9 mmol/L (21.0-32.0); CHLORIDE,CL 103 mmol/L (98-107); GLUCOSE RANDOM 228 mg/dL (74-106); POTASSIUM,K 3.9 mmol/L (3.5-5.1); SODIUM,NA 136 mmol/L (136-145)
--- NOTE | 2020-02-24 17:02 | CR ---
Chest: Portable view of the chest was obtained. Comparison: Prior chest x-ray of 10/21/19. Heart size and mediastinum are normal. Lungs are clear with no acute parenchymal change. Bony structures are grossly intact. Impression: 1. Nothing acute is seen on portable chest x-ray. Diagnostic code #1 Study was dictated in MDT
[2020-02-24 17:28] VITALS: BP 130/73; PULSE 97
== END 2020-02-24 17:26 | disposition home or self-care (01) ==
LOC: MW.ED 14:25
DX: R07.89 Other chest pain (principal); I10 Essential (primary) hypertension; E11.65 Type 2 diabetes mellitus with hyperglycemia; L30.9 Dermatitis, unspecified; J45.909 Unspecified asthma, uncomplicated; F41.9 Anxiety disorder, unspecified; F32.9 Major depressive disorder, single episode, unspecified; F17.210 Nicotine dependence, cigarettes, uncomplicated; E66.9 Obesity, unspecified; Z68.44 Body mass index [BMI] 60.0-69.9, adult; Z88.1 Allergy status to other antibiotic agents; Z88.2 Allergy status to sulfonamides; Z79.899 Other long term (current) drug therapy
CPT/HCPCS: 36415; 71045; 80053; 81003; 82009; 82803; 83930; 84484; 84703; 85025; 85379; 93005; 96361; 96374; 99285; J1885; J7030

== ENCOUNTER 2020-03-02 20:13 | Emergency (ER) | payer MEDICARE, MEDICAID ==
--- NOTE | 2020-03-02 21:27 | EDM.PDOC ---
<Johnathan Riley - Last Filed: 03/02/20 22:21> ED HPI GENERAL MEDICAL PROBLEM - General Chief Complaint: Genitourinary Problem Stated Complaint: BURNING URINATION Time Seen by Provider: 03/02/20 20:21 - History of Present Illness INITIAL COMMENTS - FREE TEXT/NARRATIVE: Signout obtained chart reviewed. 29-year-old female with a history significant for diabetes who presents the ER today secondary to concerns regarding a vaginal yeast infection versus urinary tract infection. Patient's UA does not show a clear-cut urinary tract infection however patient has taken home antibiotics prior to arrival to the ED without improvement of her symptoms. Given her elevated blood sugar and her symptoms, I do not think is unreasonable to give her dose of Diflucan as we will start her on a course of Macrobid and have her follow-up with her doctor for further evaluation. Patient's blood sugar is slightly elevated here in the ED but she does not want us to give her any extra insulin here and she wants to continue managing it at home with her usual regimen of insulin and metformin. Patient's anion gap is 10. Patient's bicarb is 24. Patient does not exhibit labs would be consistent with diabetic ketoacidosis. Reassessment at the time of disposition demonstrates that the patient is in no acute distress. The patient has remained stable throughout the entire ED visit and is without objective evidence for acute process requiring urgent intervention or hospitalization. The patient is stable for discharge, counseling is provided as documented above, discussed symptomatic treatment and specific conditions for return. I have spoken with the patient/caregive and discussed todays findings, in addition to providing specific details for the plan of care. Questions are answered and there is agreement with the plan. - Related Data Allergies Allergy/AdvReac Type Severity Reaction Status Date / Time ciprofloxacin [From Cipro] Allergy Rash Verified 03/02/20 20:27 sulfamethoxazole Allergy Nausea Verified 03/02/20 20:27 [From Bactrim] trimethoprim [From Bactrim] Allergy Nausea Verified 03/02/20 20:27 Home Meds: Home Meds LORazepam [Ativan] 0.5 mg PO DAILY 04/01/14 [History] metFORMIN [metFORMIN XR] 1,000 mg PO BID 05/27/14 [History] Albuterol [Ventolin HFA] 2 puff INH BID PRN 10/21/15 [History] Clobetasol Propionate [Temovate] 30 gm TOP DAILY 10/21/15 [History] Lisinopril 10 mg PO DAILY 09/29/18 [History] ClomiPRAMINE [ClomiPRAMINE HCl] 2 cap PO DAILY 08/26/19 [History] Fluticasone Propionate [Flovent] 1 inh NASBOTH ASDIRECTED 08/26/19 [History] desogestreL-ethinyl estradioL [Reclipsen 28 Day Tablet] 1 tab PO DAILY 08/26/19 [History] Sertraline HCl [Zoloft] 150 mg PO DAILY 10/21/19 [History] diphenhydrAMINE [Benadryl] 25 mg PO QID PRN #15 tablet 02/01/20 [Rx] Clotrimazole [Clotrimazole 1%] 30 ml TOP BID 30 Days #1 bottle 02/20/20 [Rx] Fluconazole [Diflucan] 150 mg PO ONETIME #1 tab 03/02/20 [Rx] Lidocaine 5% 1 applic TOP QID PRN 03/02/20 [History] Nitrofurantoin Monohyd/M-Cryst [Macrobid 100 mg Capsule] 100 mg PO BID #14 capsule 03/02/20 [Rx] Departure - Departure Time of Disposition: 22:15 Disposition: Home, Self-Care 01 Condition: Good Clinical Impression: Yeast vaginitis, UTI, Urinary tract infectious disease, Hyperglycemia, Diabetes - Discharge Information Prescriptions: Fluconazole [Diflucan] 150 mg PO ONETIME #1 tab Nitrofurantoin Monohyd/M-Cryst [Macrobid 100 mg Capsule] 100 mg PO BID #14 capsule Instructions: Vaginal Yeast Infection, Adult, Urinary Tract Infection, Adult, [id number], Diabetes Mellitus and Nutrition, Adult Referrals: Sloan Ordonez MD [Primary Care Provider] - Forms: ED Department Discharge Additional Instructions: Your seen and evaluated in the ER today secondary to vaginal irritation and burning when you urinate. Your symptoms do appear to be consistent with a likely yeast infection. You will be given a dose of Diflucan 150 mg here in the ED as well as a prescription for Diflucan 150 mg to take after you complete your antibiotic course for urinary tract infection. You will be given a prescription for Macrobid 100 mg twice a day for 7 days. Please make an appointment to see your family doctor to be reevaluated. The following information is given to patients seen in the emergency department who are being discharged to home. This information is to outline your options for follow-up care. We provide all patients seen in our emergency department with a follow-up referral. The need for follow-up, as well as the timing and circumstances, are variable depending upon the specifics of your emergency department visit. If you don't have a primary care physician on staff, we will provide you with a referral. We always advise you to contact your personal physician following an emergency department visit to inform them of the circumstance of the visit and for follow-up with them and/or the need for any referrals to a consulting specialist. The emergency department will also refer you to a specialist when appropriate. This referral assures that you have the opportunity for follow-up care with a specialist. All of these measure are taken in an effort to provide you with optimal care, which includes your follow-up. Under all circumstances we always encourage you to contact your private physician who remains a resource for coordinating your care. When calling for follow-up care, please make the office aware that this follow-up is from your recent emergency room visit. If for any reason you are refused follow-up, please contact the [facility] Emergency Department at and asked to speak to the emergency department charge nurse. <Lorraine Pablo - Last Filed: 03/03/20 13:54> ED HPI GENERAL MEDICAL PROBLEM - General Source of Information: Reports: Patient History Limitations: Reports: No Limitations - History of Present Illness INITIAL COMMENTS - FREE TEXT/NARRATIVE: HISTORY AND PHYSICAL: History of present illness: Patient is a 29-year-old female who presents with burning with urination that started this morning. Patient states she did take 1 dose of Macrobid this morning after she started having burning with urination but does not have any Macrobid left over. Patient states she also took [id number] Azo for relief of symptoms and states that this has been helping. Patient also states she is unable to differentiate the burning of the UTI vs vaginal discomfort and states she is concerned about a vaginal yeast infection. Denies any other symptoms or concerns. Patient denies fever, chills, chest pain, shortness of breath, or cough. Denies headache, neck stiff ness, change in vision, syncope, or near syncope. Denies nausea, vomiting, abdominal pain, diarrhea, constipation. Has not noted any blood in urine or stool. Patient has been eating and drinking appropriately. Review of systems: As per history of present illness and below otherwise all systems reviewed and negative. Past medical history: As per history of present illness and as reviewed below otherwise noncontributory. Surgical history: As per history of present illness and as reviewed below otherwise noncontributory. Social history: See social history for further information Family history: As per history of present illness and as reviewed below otherwise noncontributory. Physical exam: General: Patient is alert, oriented, and in no acute distress. Patient sitting comfortably on exam table. HEENT: Atraumatic, normocephalic, pupils equal and reactive bilaterally, negative for conjunctival pallor or scleral icterus, mucous membranes moist, TMs normal bilaterally, throat clear, neck supple, nontender, trachea midline. No drooling or trismus noted. No meningeal signs. No hot potato voice noted. Lungs: Clear to auscultation, breath sounds equal bilaterally, chest nontender. Heart: S1S2, regular rate and rhythm without overt murmur Abdomen: Soft, nondistended, nontender. Negative for masses or hepatosplenomegaly. Negative for costovertebral tenderness. Pelvis: Stable nontender. Genitourinary: Deferred. Rectal: Deferred. Skin: Intact, warm, dry. No lesions or rashes noted. Extremities: Atraumatic, negative for cords or calf pain. Neurovascular unremarkable. Neuro: Awake, alert, oriented. Cranial nerves II through XII unremarkable. Cerebellum unremarkable. Motor and sensory unremarkable throughout. Exam nonfocal. Notes: Dr. Riley has assumed care of patient and will follow remaining diagnostics and disposition for patient. Diagnostics: UA w culture, uhcg, CBC, CMP, affirm Therapeutics: Prescription: Impression: Dysuria Plan: Definitive disposition and diagnosis as appropriate pending reevaluation and review of above. pain with urination Pain Score (Numeric/FACES): 8 Past Medical History - Past Health History Medical/Surgical History: Denies Medical/Surgical History HEENT History: Reports: None Cardiovascular History: Reports: Hypertension, Other (See Below) Other Cardiovascular History: non specific chest pains Respiratory History: Reports: Asthma Gastrointestinal History: Reports: Other (See Below) Other Gastrointestinal History: non specific abd pains Genitourinary History: Reports: UTI, Recurrent, Other (See Below) Other Genitourinary History: chronic uti's, vaginal candidiasis ROVING CHANGER History: Reports: None Musculoskeletal History: Reports: Back Pain, Chronic Other Musculoskeletal History: from UTI Neurological History: Reports: None Psychiatric History: Reports: Anxiety, Depression, OCD Endocrine/Metabolic History: Reports: Diabetes, Type II, Obesity/BMI 30+ 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 Hematologic History: Reports: None Immunologic History: Reports: None Oncologic (Cancer) History: Reports: None Dermatologic History: Reports: Psoriasis Other Dermatologic History: on her scalp - Infectious Disease History Infectious Disease History: Reports: None - Past Surgical History Head Surgeries/Procedures: Reports: None HEENT Surgical History: Reports: Adenoidectomy, Oral Surgery, Tonsillectomy Cardiovascular Surgical History: Reports: None Respiratory Surgical History: Reports: None GI Surgical History: Reports: None Female Surgical History: Reports: None, Other (See Below) Other Female Surgeries/Procedures: Cystoscopy Endocrine Surgical History: Reports: None Musculoskeletal Surgical History: Reports: None Social & Family History - Family History Family Medical History: Noncontributory Psychiatric: Reports: Anxiety, Depression Endocrine/Metabolic: Reports: Obesity/MBI 30+ Immunologic: Reports: HIV - Tobacco Use Smoking Status *Q: Current Every Day Smoker Years of Tobacco use: 1 Packs/Tins Daily: 2 - Caffeine Use Caffeine Use: Reports: Coffee Caffeine Use Comment: 1 drink/month - Recreational Drug Use Recreational Drug Use: No ED ROS GENERAL - Review of Systems Review Of Systems: Comprehensive ROS is negative, except as noted in HPI. ED EXAM, GENERAL - Physical Exam Exam: See Below (see dictation) Course - Vital Signs Last Recorded V/S: Last Vital Signs Temp 97.8 F 03/02/20 22:37 Pulse 89 03/02/20 22:37 Resp 18 03/02/20 22:37 BP 141/85 H 03/02/20 22:37 Pulse Ox 97 03/02/20 22:37 - Orders/Labs/Meds Orders: Active Orders 24 hr Category Date Time Status CULTURE URINE [RM] Stat Lab 03/02/20 20:37 Received Labs: Laboratory Tests 03/02/20 03/02/20 03/02/20 Range/Units 20:37 20:37 21:27 WBC (4.0-11.0) K/uL RBC (4.30-5.90) M/uL Hgb (12.0-16.0) g/dL Hct (36.0-46.0) % MCV (80.0-98.0) fL MCH (27.0-32.0) pg MCHC (31.0-37.0) g/dL RDW Std Deviation (28.0-62.0) fl RDW Coeff of Nicky (11.0-15.0) % Plt Count (150-400) K/uL MPV (7.40-12.00) fL Neut % (Auto) (48.0-80.0) % Lymph % (Auto) (16.0-40.0) % [place] % (Auto) (0.0-15.0) % Eos % (Auto) (0.0-7.0) % Baso % (Auto) (0.0-1.5) % Neut # (Auto) (1.4-5.7) K/uL Lymph # (Auto) (0.6-2.4) K/uL [place] # (Auto) (0.0-0.8) K/uL Eos # (Auto) (0.0-0.7) K/uL Baso # (Auto) (0.0-0.1) K/uL Nucleated RBC % /100WBC Nucleated RBCs # K/uL Sodium (136-145) mmol/L Potassium (3.5-5.1) mmol/L Chloride (98-107) mmol/L Carbon Dioxide (21.0-32.0) mmol/L BUN (7.0-18.0) mg/dL Creatinine (0.6-1.0) mg/dL Est Cr Clr Drug Dosing mL/min Estimated GFR (MDRD) ml/min Glucose (74-106) mg/dL Calcium (8.5-10.1) mg/dL Total Bilirubin (0.2-1.0) mg/dL AST (15-37) IU/L ALT (14-63) IU/L Alkaline Phosphatase (46-116) U/L Total Protein (6.4-8.2) g/dL Albumin (3.4-5.0) g/dL Globulin (2.6-4.0) g/dL Albumin/Globulin Ratio (0.9-1.6) Urine Color ORANGE Urine Appearance CLEAR Urine pH 5.0 (5.0-8.0) Ur Specific [place] 1.025 (1.001-1.035) Urine Protein 100 H (NEGATIVE) mg/dL Urine Glucose (UA) 500 H (NEGATIVE) mg/dL Urine Ketones 40 H (NEGATIVE) mg/dL Urine Occult Blood NEGATIVE (NEGATIVE) Urine Nitrite POSITIVE H (NEGATIVE) Urine Bilirubin NEGATIVE (NEGATIVE) Urine Urobilinogen >=8.0 H (<2.0) EU/dL Ur Leukocyte Esterase TRACE H (NEGATIVE) Urine RBC NONE SEEN (0-2/HPF) Urine WBC 0-1 (0-5/HPF) Ur Epithelial Cells FEW (NONE-FEW) Urine Bacteria FEW (NEGATIVE) Urine Mucus LIGHT (NONE-MOD) Urine HCG, Qual NEGATIVE (NEGATIVE) Camille species DNA NEGATIVE (NEGATIVE) Gardnerella DNA Probe NEGATIVE (NEGATIVE) Trichomonas DNA Probe NEGATIVE (NEGATIVE) 03/02/20 03/02/20 Range/Units 21:35 21:35 WBC 8.52 (4.0-11.0) K/uL RBC 5.22 (4.30-5.90) M/uL Hgb 14.4 (12.0-16.0) g/dL Hct 43.8 (36.0-46.0) % MCV 83.9 (80.0-98.0) fL MCH 27.6 (27.0-32.0) pg MCHC 32.9 (31.0-37.0) g/dL RDW Std Deviation 44.7 (28.0-62.0) fl RDW Coeff of Nicky 15 (11.0-15.0) % Plt Count 271 (150-400) K/uL MPV 9.30 (7.40-12.00) fL Neut % (Auto) 60.3 (48.0-80.0) % Lymph % (Auto) 32.3 (16.0-40.0) % [place] % (Auto) 4.1 (0.0-15.0) % Eos % (Auto) 2.8 (0.0-7.0) % Baso % (Auto) 0.5 (0.0-1.5) % Neut # (Auto) 5.1 (1.4-5.7) K/uL Lymph # (Auto) 2.8 H (0.6-2.4) K/uL [place] # (Auto) 0.4 (0.0-0.8) K/uL Eos # (Auto) 0.2 (0.0-0.7) K/uL Baso # (Auto) 0.0 (0.0-0.1) K/uL Nucleated RBC % 0.0 /100WBC Nucleated RBCs # 0 K/uL Sodium 136 (136-145) mmol/L Potassium 3.7 (3.5-5.1) mmol/L Chloride 102 (98-107) mmol/L Carbon Dioxide 24.2 (21.0-32.0) mmol/L BUN 10 (7.0-18.0) mg/dL Creatinine 0.8 (0.6-1.0) mg/dL Est Cr Clr Drug Dosing 91.21 mL/min Estimated GFR (MDRD) > 60.0 ml/min Glucose 239 H (74-106) mg/dL Calcium 8.4 L (8.5-10.1) mg/dL Total Bilirubin 0.2 (0.2-1.0) mg/dL AST 15 (15-37) IU/L ALT 18 (14-63) IU/L Alkaline Phosphatase 72 (46-116) U/L Total Protein 6.6 (6.4-8.2) g/dL Albumin 2.9 L (3.4-5.0) g/dL Globulin 3.7 (2.6-4.0) g/dL Albumin/Globulin Ratio 0.8 L (0.9-1.6) Urine Color Urine Appearance Urine pH (5.0-8.0) Ur Specific Matteson (1.001-1.035) Urine Protein (NEGATIVE) mg/dL Urine Glucose (UA) (NEGATIVE) mg/dL Urine Ketones (NEGATIVE) mg/dL Urine Occult Blood (NEGATIVE) Urine Nitrite (NEGATIVE) Urine Bilirubin (NEGATIVE) Urine Urobilinogen (<2.0) EU/dL Ur Leukocyte Esterase (NEGATIVE) Urine RBC (0-2/HPF) Urine WBC (0-5/HPF) Ur Epithelial Cells (NONE-FEW) Urine Bacteria (NEGATIVE) Urine Mucus (NONE-MOD) Urine HCG, Qual (NEGATIVE) Camille species DNA (NEGATIVE) Gardnerella DNA Probe (NEGATIVE) Trichomonas DNA Probe (NEGATIVE) Meds: Medications Discontinued Medications Generic Name Dose Route Start Last Admin Trade Name Miguel PRN Reason Stop Dose Admin Fluconazole 150 mg 03/02/20 22:12 03/02/20 22:33 Diflucan PO 03/02/20 22:13 Not Given ONETIME ONE Fluconazole 150 mg 03/02/20 22:27 03/02/20 22:33 Diflucan PO 03/02/20 22:28 150 mg ONETIME ONE Administration Fluconazole Confirm 03/02/20 22:28 03/02/20 22:33 Diflucan Administered 03/02/20 22:29 Not Given Dose 100 mg .ROUTE .STK-MED ONE Nitrofurantoin Macrocrystals 100 mg 03/02/20 22:13 03/02/20 22:33 Macrobid PO 03/02/20 22:14 100 mg ONETIME ONE Administration Sepsis Event Note (ED) - Evaluation Sepsis Screening Result: No Definite Risk - My Orders Last 24 Hours: My Active Orders 03/02/20 20:37 CULTURE URINE [RM] Stat - Assessment/Plan Last 24 Hours: My Active Orders 03/02/20 20:37 CULTURE URINE [RM] Stat
[2020-03-02 22:01] LABS: BLOOD UREA NITROGEN,BUN 10 mg/dL (7.0-18.0); CARBON DIOXIDE,CO2 24.2 mmol/L (21.0-32.0); CHLORIDE,CL 102 mmol/L (98-107); GLUCOSE RANDOM 239 mg/dL (74-106); POTASSIUM,K 3.7 mmol/L (3.5-5.1); SODIUM,NA 136 mmol/L (136-145)
[2020-03-02] MEDS ORDERED: Fluconazole 150 MG Tab PO ONE (22:12)
[2020-03-02] MEDS ORDERED: Nitrofurantoin Monohydrate/Macrocrystalline 100 MG Cap PO ONE (22:13)
[2020-03-02] MEDS ORDERED: Fluconazole 100 MG Tab PO ONE (22:27)
[2020-03-02] MEDS ORDERED: Fluconazole 100 MG Tab ONE (22:28)
[2020-03-02 22:37] VITALS: BP 141/85; PULSE 89
== END 2020-03-02 22:40 | disposition home or self-care (01) ==
LOC: MW.ED 20:13
DX: N39.0 Urinary tract infection, site not specified (principal); B37.3 Candidiasis of vulva and vagina; E11.65 Type 2 diabetes mellitus with hyperglycemia; F17.210 Nicotine dependence, cigarettes, uncomplicated; E66.9 Obesity, unspecified; Z68.43 Body mass index [BMI] 50.0-59.9, adult; Z88.1 Allergy status to other antibiotic agents; Z88.2 Allergy status to sulfonamides; Z79.84 Long term (current) use of oral hypoglycemic drugs; Z79.899 Other long term (current) drug therapy
CPT/HCPCS: 36415; 80053; 81001; 81025; 85025; 87086; 87088; 87186; 87480; 87510; 87660; 99284; A9270; 99283

== ENCOUNTER 2020-03-12 21:09 | Emergency (ER) | payer MEDICARE, MEDICAID ==
[2020-03-12] MEDS ORDERED: Sodium Chloride 0.9% 2.5 ML Syringe FLUSH PRN (21:21)
[2020-03-12] MEDS ORDERED: Sodium Chloride 0.9% 1,000 ML IV ONE (21:21)
[2020-03-12] MEDS ORDERED: Sodium Chloride 0.9% 10 ML Syringe FLUSH PRN (21:21)
[2020-03-12] MEDS ORDERED: Ondansetron 4 MG/2 ML SDV IVPUSH ONE (21:21)
[2020-03-12] MEDS ORDERED: Aspirin 81 MG Tab.Chew PO ONE (21:21)
--- NOTE | 2020-03-12 21:27 | EDM.PDOC ---
ED HPI GENERAL MEDICAL PROBLEM - General Chief Complaint: General Stated Complaint: CHEST PAIN/SHORT OF BREATH/NAUSEA Time Seen by Provider: 03/12/20 21:16 Source of Information: Reports: Patient History Limitations: Reports: No Limitations - History of Present Illness INITIAL COMMENTS - FREE TEXT/NARRATIVE: History of present illness: [Patient is 29-year-old female who presents with multiple complaints. These include chest pain, feeling flushed, nausea, also states that she is just finishing up a prescription for Keflex for some sort of URI infection. She has a history of multiple and frequent visits to the emergency department for similar complaints. I asked her how her symptoms today feel different than previous visits, she states that her chest discomfort feels like a heaviness and that it feels like there is an animal on her chest, "not quite an elephant, may be a cat or a dog." She also admits to drinking a couple red bulls earlier tonight. She tried taking Zofran at home to help relieve her symptoms, she states she is not sure if it helped, though she does deny vomiting. No known sick contacts.] Review of systems: As per history of present illness and below otherwise all systems reviewed and negative. Past medical history: As per history of present illness and as reviewed below otherwise noncontributory. Surgical history: As per history of present illness and as reviewed below otherwise noncontributory. Social history: No reported history of drug or alcohol abuse. Family history: As per history of present illness and as reviewed below otherwise noncontributory. Physical exam: General: Awake, alert, no acute distress, A&O X3. HEENT: Atraumatic, normocephalic, pupils reactive, negative for conjunctival pallor or scleral icterus, mucous membranes moist, throat clear, neck supple, nontender, trachea midline. Lungs: Clear to auscultation, breath sounds equal bilaterally, chest nontender. Heart: tachycardic, normal S1S2, no JVD. Abdomen: Soft, nondistended, nontender. Negative for masses or hepatosplenomegaly. Negative for costovertebral tenderness. obese Pelvis: Stable nontender. Genitourinary: Deferred. Rectal: Deferred. Skin: warm, diaphoretic forehead Extremities: Atraumatic, no edema, Neurovascular unremarkable. Neuro: Motor and sensory grossly intact throughout. Exam nonfocal. Diagnostics: [] Therapeutics: [] Impression: [] Plan: [] Definitive disposition and diagnosis as appropriate pending reevaluation and review of above. - Related Data Allergies Allergy/AdvReac Type Severity Reaction Status Date / Time ciprofloxacin [From Cipro] Allergy Rash Verified 03/12/20 21:18 sulfamethoxazole Allergy Nausea Verified 03/12/20 21:18 [From Bactrim] trimethoprim [From Bactrim] Allergy Nausea Verified 03/12/20 21:18 Home Meds: Home Meds LORazepam [Ativan] 0.5 mg PO DAILY 04/01/14 [History] metFORMIN [metFORMIN XR] 1,000 mg PO BID 05/27/14 [History] Albuterol [Ventolin HFA] 2 puff INH BID PRN 10/21/15 [History] Clobetasol Propionate [Temovate] 30 gm TOP DAILY 10/21/15 [History] Lisinopril 10 mg PO DAILY 09/29/18 [History] ClomiPRAMINE [ClomiPRAMINE HCl] 2 cap PO DAILY 08/26/19 [History] Fluticasone Propionate [Flovent] 1 inh NASBOTH ASDIRECTED 08/26/19 [History] desogestreL-ethinyl estradioL [Reclipsen 28 Day Tablet] 1 tab PO DAILY 08/26/19 [History] Sertraline HCl [Zoloft] 150 mg PO DAILY 10/21/19 [History] diphenhydrAMINE [Benadryl] 25 mg PO QID PRN #15 tablet 02/01/20 [Rx] Clotrimazole [Clotrimazole 1%] 30 ml TOP BID 30 Days #1 bottle 02/20/20 [Rx] Fluconazole [Diflucan] 150 mg PO ONETIME #1 tab 03/02/20 [Rx] Lidocaine 5% 1 applic TOP QID PRN 03/02/20 [History] Nitrofurantoin Monohyd/M-Cryst [Macrobid 100 mg Capsule] 100 mg PO BID #14 capsule 03/02/20 [Rx] cephALEXin [Keflex] 500 mg PO BID 03/12/20 [History] Past Medical History - Past Health History Medical/Surgical History: Denies Medical/Surgical History HEENT History: Reports: None Cardiovascular History: Reports: Hypertension, Other (See Below) Other Cardiovascular History: non specific chest pains Respiratory History: Reports: Asthma Gastrointestinal History: Reports: Other (See Below) Other Gastrointestinal History: non specific abd pains Genitourinary History: Reports: UTI, Recurrent, Other (See Below) Other Genitourinary History: chronic uti's, vaginal candidiasis 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 Musculoskeletal History: Reports: Back Pain, Chronic Other Musculoskeletal History: from UTI Neurological History: Reports: None Psychiatric History: Reports: Anxiety, Depression, OCD Endocrine/Metabolic History: Reports: Diabetes, Type II, Obesity/BMI 30+ 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: 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 Hematologic History: Reports: None Immunologic History: Reports: None Oncologic (Cancer) History: Reports: None Dermatologic History: Reports: Psoriasis Other Dermatologic History: on her scalp - Infectious Disease History Infectious Disease History: Reports: None - Past Surgical History Head Surgeries/Procedures: Reports: None HEENT Surgical History: Reports: Adenoidectomy, Oral Surgery, Tonsillectomy Cardiovascular Surgical History: Reports: None Respiratory Surgical History: Reports: None GI Surgical History: Reports: None Female Surgical History: Reports: None, Other (See Below) Other Female Surgeries/Procedures: Cystoscopy Endocrine Surgical History: Reports: None Musculoskeletal Surgical History: Reports: None Social & Family History - Family History Family Medical History: Noncontributory Psychiatric: Reports: Anxiety, Depression Endocrine/Metabolic: Reports: Obesity/MBI 30+ Immunologic: Reports: HIV - Tobacco Use Smoking Status *Q: Current Every Day Smoker Years of Tobacco use: 1 Packs/Tins Daily: 2 - Caffeine Use Caffeine Use: Reports: Energy Drinks, Soda Caffeine Use Comment: 1 drink/month - Recreational Drug Use Recreational Drug Use: No ED ROS GENERAL - Review of Systems Review Of Systems: Comprehensive ROS is negative, except as noted in HPI. ED EXAM, GENERAL - Physical Exam Exam: See Below (see h and p) EKG INTERPRETATION EKG Date: 03/12/20 Time: 21:41 Rhythm: NSR Rate (Beats/Min): 106 Pray: Normal P-Wave: Present QRS: Normal ST-T: Normal QT: Normal EKG Interpretation Comments: sinus tach Course - Vital Signs Text/Narrative:: Troponin negative, d-dimer negative, remainder labs reassuring, patient is feeling better after getting IV fluids here. I believe her tachycardia is likely due to the multiple red bulls she drank shortly before arrival. She otherwise is nontoxic in appearance, I believe she is safe for discharge home and follow-up in the outpatient setting with return precautions provided. Chest x-ray clear. Benign physical exam. No labored breathing or respiratory distress. I do not believe a serial troponin is necessary, her chest discomfort now is been present for multiple days. Patient understands the plan and is agreeable with it. Last Recorded V/S: Last Vital Signs Temp 35.8 C L 03/12/20 21:20 Pulse 105 H 03/12/20 22:00 Resp 18 03/12/20 22:00 BP 152/101 H 03/12/20 21:20 Pulse Ox 97 03/12/20 22:00 - Orders/Labs/Meds Orders: Active Orders 24 hr Category Date Time Status EKG Documentation Completion [RC] STAT Care 03/12/20 21:22 Active Sodium Chloride 0.9% [Saline Flush] Med 03/12/20 21:21 Active 10 ml FLUSH ASDIRECTED PRN Sodium Chloride 0.9% [Saline Flush] Med 03/12/20 21:21 Active 2.5 ml FLUSH ASDIRECTED PRN Saline Lock Insert [OM.PC] Stat Oth 03/12/20 21:21 Ordered Medication Orders Sodium Chloride (Saline Flush) 10 ml FLUSH ASDIRECTED PRN PRN Reason: Keep Vein Open Last Admin: 03/12/20 22:01 Dose: 10 ml Documented by: MICHELLE Sodium Chloride (Saline Flush) 2.5 ml FLUSH ASDIRECTED PRN PRN Reason: Keep Vein Open Last Admin: 03/12/20 22:00 Dose: 2.5 ml Documented by: [id number] Labs: Laboratory Tests 03/12/20 03/12/20 03/12/20 Range/Units 22:11 22:11 22:11 WBC 8.54 (4.0-11.0) K/uL RBC 5.09 (4.30-5.90) M/uL Hgb 13.9 (12.0-16.0) g/dL Hct 43.0 (36.0-46.0) % MCV 84.5 (80.0-98.0) fL MCH 27.3 (27.0-32.0) pg MCHC 32.3 (31.0-37.0) g/dL RDW Std Deviation 42.0 (28.0-62.0) fl RDW Coeff of Nicky 14 (11.0-15.0) % Plt Count 311 (150-400) K/uL MPV 9.80 (7.40-12.00) fL Neut % (Auto) 55.6 (48.0-80.0) % Lymph % (Auto) 36.9 (16.0-40.0) % [place] % (Auto) 4.7 (0.0-15.0) % Eos % (Auto) 2.3 (0.0-7.0) % Baso % (Auto) 0.5 (0.0-1.5) % Neut # (Auto) 4.8 (1.4-5.7) K/uL Lymph # (Auto) 3.2 H (0.6-2.4) K/uL [place] # (Auto) 0.4 (0.0-0.8) K/uL Eos # (Auto) 0.2 (0.0-0.7) K/uL Baso # (Auto) 0.0 (0.0-0.1) K/uL Nucleated RBC % 0.0 /100WBC Nucleated RBCs # 0 K/uL D-Dimer, Quantitative 0.45 (0.0-0.50) mg/L FEU Sodium 137 (136-145) mmol/L Potassium 3.4 L (3.5-5.1) mmol/L Chloride 103 (98-107) mmol/L Carbon Dioxide 23.5 (21.0-32.0) mmol/L BUN 13 (7.0-18.0) mg/dL Creatinine 0.6 (0.6-1.0) mg/dL Est Cr Clr Drug Dosing 121.62 mL/min Estimated GFR (MDRD) > 60.0 ml/min Glucose 233 H (74-106) mg/dL Calcium 8.2 L (8.5-10.1) mg/dL Total Bilirubin 0.2 (0.2-1.0) mg/dL AST 8 L (15-37) IU/L ALT 17 (14-63) IU/L Alkaline Phosphatase 65 (46-116) U/L Troponin I < 0.050 (0.000-0.056) ng/mL Total Protein 6.4 (6.4-8.2) g/dL Albumin 2.8 L (3.4-5.0) g/dL Globulin 3.6 (2.6-4.0) g/dL Albumin/Globulin Ratio 0.8 L (0.9-1.6) HCG, Qual (NEG) 03/12/20 Range/Units 22:11 WBC (4.0-11.0) K/uL RBC (4.30-5.90) M/uL Hgb (12.0-16.0) g/dL Hct (36.0-46.0) % MCV (80.0-98.0) fL MCH (27.0-32.0) pg MCHC (31.0-37.0) g/dL RDW Std Deviation (28.0-62.0) fl RDW Coeff of Nicky (11.0-15.0) % Plt Count (150-400) K/uL MPV (7.40-12.00) fL Neut % (Auto) (48.0-80.0) % Lymph % (Auto) (16.0-40.0) % [place] % (Auto) (0.0-15.0) % Eos % (Auto) (0.0-7.0) % Baso % (Auto) (0.0-1.5) % Neut # (Auto) (1.4-5.7) K/uL Lymph # (Auto) (0.6-2.4) K/uL [place] # (Auto) (0.0-0.8) K/uL Eos # (Auto) (0.0-0.7) K/uL Baso # (Auto) (0.0-0.1) K/uL Nucleated RBC % /100WBC Nucleated RBCs # K/uL D-Dimer, Quantitative (0.0-0.50) mg/L FEU Sodium (136-145) mmol/L Potassium (3.5-5.1) mmol/L Chloride (98-107) mmol/L Carbon Dioxide (21.0-32.0) mmol/L BUN (7.0-18.0) mg/dL Creatinine (0.6-1.0) mg/dL Est Cr Clr Drug Dosing mL/min Estimated GFR (MDRD) ml/min Glucose (74-106) mg/dL Calcium (8.5-10.1) mg/dL Total Bilirubin (0.2-1.0) mg/dL AST (15-37) IU/L ALT (14-63) IU/L Alkaline Phosphatase (46-116) U/L Troponin I (0.000-0.056) ng/mL Total Protein (6.4-8.2) g/dL Albumin (3.4-5.0) g/dL Globulin (2.6-4.0) g/dL Albumin/Globulin Ratio (0.9-1.6) HCG, Qual NEGATIVE (NEG) Meds: Medications Generic Name Dose Route Start Last Admin Trade Name Freq PRN Reason Stop Dose Admin Sodium Chloride 10 ml 03/12/20 21:21 03/12/20 22:01 Saline Flush FLUSH 10 ml ASDIRECTED PRN Administration Keep Vein Open Sodium Chloride 2.5 ml 03/12/20 21:21 03/12/20 22:00 Saline Flush FLUSH 2.5 ml ASDIRECTED PRN Administration Keep Vein Open Discontinued Medications Generic Name Dose Route Start Last Admin Trade Name Freq PRN Reason Stop Dose Admin Aspirin 324 mg 03/12/20 21:21 03/12/20 21:59 Aspirin PO 03/12/20 21:22 324 mg ONETIME ONE Administration Sodium Chloride 1,000 mls @ 999 mls/hr 03/12/20 21:21 03/12/20 21:59 Normal Saline IV 03/12/20 22:21 999 mls/hr .Bolus ONE Administration Ondansetron HCl 4 mg 03/12/20 21:21 03/12/20 21:59 Zofran IVPUSH 03/12/20 21:22 4 mg ONETIME ONE Administration Departure - Departure Time of Disposition: 22:51 Disposition: Home, Self-Care 01 Condition: Good Clinical Impression: Nausea, Use of energy drinks Chest pain Qualifiers: Chest pain type: unspecified Qualified Code(s): R07.9 - Chest pain, unspecified - Discharge Information Instructions: Nonspecific Chest Pain, Adult Referrals: Sloan Ordonez MD [Primary Care Provider] - Forms: ED Department Discharge Additional Instructions: Follow-up with primary care doctor. Take medications as previously prescribed. Return to the ER with any new or worsening symptoms. The following information is given to patients seen in the emergency department who are being discharged to home. This information is to outline your options for follow-up care. We provide all patients seen in our emergency department with a follow-up referral. The need for follow-up, as well as the timing and circumstances, are variable depending upon the specifics of your emergency department visit. If you don't have a primary care physician on staff, we will provide you with a referral. We always advise you to contact your personal physician following an emergency department visit to inform them of the circumstance of the visit and for follow-up with them and/or the need for any referrals to a consulting specialist. The emergency department will also refer you to a specialist when appropriate. This referral assures that you have the opportunity for follow-up care with a specialist. All of these measure are taken in an effort to provide you with optimal care, which includes your follow-up. Under all circumstances we always encourage you to contact your private physician who remains a resource for coordinating your care. When calling for follow-up care, please make the office aware that this follow-up is from your recent emergency room visit. If for any reason you are refused follow-up, please contact the [facility] Emergency Department at and asked to speak to the emergency department charge nurse. Sepsis Event Note (ED) - Evaluation Sepsis Screening Result: No Definite Risk - Focused Exam Vital Signs: Vital Signs Temp Pulse Resp BP Pulse Ox 03/12/20 22:00 105 H 18 97 03/12/20 21:20 35.8 C L 133 H 22 H 152/101 H 94 L - My Orders Last 24 Hours: My Active Orders 03/12/20 21:21 Sodium Chloride 0.9% [Saline Flush] 10 ml FLUSH ASDIRECTED PRN Sodium Chloride 0.9% [Saline Flush] 2.5 ml FLUSH ASDIRECTED PRN Saline Lock Insert [OM.PC] Stat 03/12/20 21:22 EKG Documentation Completion [RC] STAT - Assessment/Plan Last 24 Hours: My Active Orders 03/12/20 21:21 Sodium Chloride 0.9% [Saline Flush] 10 ml FLUSH ASDIRECTED PRN Sodium Chloride 0.9% [Saline Flush] 2.5 ml FLUSH ASDIRECTED PRN Saline Lock Insert [OM.PC] Stat 03/12/20 21:22 EKG Documentation Completion [RC] STAT
--- NOTE | 2020-03-12 21:58 | CR ---
Chest: Frontal view of the chest was obtained. Comparison: Prior chest x-ray of 02/24/20. Heart size and mediastinum are normal. Lungs are clear with no acute parenchymal change. Bony structures are grossly intact. Impression: 1. Nothing acute is seen on frontal chest x-ray. Diagnostic code #1 Study was dictated in MDT
[2020-03-12 22:46] LABS: BLOOD UREA NITROGEN,BUN 13 mg/dL (7.0-18.0); CARBON DIOXIDE,CO2 23.5 mmol/L (21.0-32.0); CHLORIDE,CL 103 mmol/L (98-107); GLUCOSE RANDOM 233 mg/dL (74-106); POTASSIUM,K 3.4 mmol/L (3.5-5.1); SODIUM,NA 137 mmol/L (136-145)
[2020-03-13 02:07] VITALS: BP 112/59; PULSE 111
== END 2020-03-12 23:03 | disposition home or self-care (01) ==
LOC: MW.ED 21:09
DX: R07.9 Chest pain, unspecified (principal); R11.0 Nausea; R06.02 Shortness of breath; R00.0 Tachycardia, unspecified; E66.9 Obesity, unspecified; F15.90 Other stimulant use, unspecified, uncomplicated; I10 Essential (primary) hypertension; E11.9 Type 2 diabetes mellitus without complications; F41.9 Anxiety disorder, unspecified; F32.9 Major depressive disorder, single episode, unspecified; J45.909 Unspecified asthma, uncomplicated; F17.210 Nicotine dependence, cigarettes, uncomplicated; Z88.2 Allergy status to sulfonamides; Z88.1 Allergy status to other antibiotic agents; Z79.84 Long term (current) use of oral hypoglycemic drugs; Z79.899 Other long term (current) drug therapy; Z68.44 Body mass index [BMI] 60.0-69.9, adult
CPT/HCPCS: 36415; 71045; 80053; 84484; 84703; 85025; 85379; 93005; 96361; 96374; 99285; A9270; J2405; J7030; 99284

== ENCOUNTER 2020-03-18 23:10 | Emergency (ER) | payer MEDICARE, MEDICAID ==
[2020-03-18 23:26] VITALS: BP 165/98; PULSE 111
--- NOTE | 2020-03-18 23:38 | EDM.PDOC ---
ED HPI GENERAL MEDICAL PROBLEM - General Chief Complaint: Genitourinary Problem Stated Complaint: LOWER ABDOMINAL, KIDNEY PAIN Time Seen by Provider: 03/18/20 23:33 - History of Present Illness INITIAL COMMENTS - FREE TEXT/NARRATIVE: History of present illness: [] Patient has bilateral flank pain for a month. The pain is getting worse. She also has a little anterior abdominal pain. The patient was seen here in the for UTI. Proteus was not sensitive to Macrobid which had been prescribed along with Diflucan. The patient also has been on cefdinir and Levaquin since the according to her. These were prescribed by her primary doctor. She not vomiting. She does not have a high fever. She does have pain in the flanks. Review of systems: As per history of present illness and below otherwise all systems reviewed and negative. Past medical history: As per history of present illness and as reviewed below otherwise noncontributory. Surgical history: As per history of present illness and as reviewed below otherwise noncontributory. Social history: No reported history of drug or alcohol abuse. Family history: As per history of present illness and as reviewed below otherwise noncontributory. Physical exam: Constitutional - well developed, well-nourished and in no acute distress HEENT - normocephalic, no evidence of trauma - external nose and mouth normal - no mass in neck and no JVD - mucosae moist EYES - full EOM, PERRL, no icterus - no evidence of inflammation, injection, or drainage Respiratory - no respiratory distress, equal bilateral expansion, lungs clear to auscultation and no abnormal lung sounds Cardiovascular - Regular Rhythm with S1 and S2 appreciated and no murmur, gallop or rub. GI - abdomen soft without distension or organomegaly - normal bowel sounds - no guard or rebound Musculoskeletal no gross deformity of long bones or joints - no tenderness, swelling or edema Neurologic - Alert and oriented times four - CN II-XII grossly intact - motor sensory and coordination symmetrically normal Psychiatric - appropriate mood and affect with normal thought content Hematologic - No petechiae or purpura - mucosa appropriate color and sclera not pale - normal nail bed color and refill Integument - no rash or evidence of trauma - normal turgor Diagnostics: [] Therapeutics: [] Impression: [] Plan: [] Definitive disposition and diagnosis as appropriate pending reevaluation and review of above. lower back Pain Score (Numeric/FACES): 10 - Related Data Allergies Allergy/AdvReac Type Severity Reaction Status Date / Time ciprofloxacin [From Cipro] Allergy Rash Verified 03/18/20 23:26 sulfamethoxazole Allergy Nausea Verified 03/18/20 23:26 [From Bactrim] trimethoprim [From Bactrim] Allergy Nausea Verified 03/18/20 23:26 Home Meds: Home Meds LORazepam [Ativan] 0.5 mg PO DAILY 04/01/14 [History] metFORMIN [metFORMIN XR] 1,000 mg PO BID 05/27/14 [History] Albuterol [Ventolin HFA] 2 puff INH BID PRN 10/21/15 [History] Clobetasol Propionate [Temovate] 30 gm TOP DAILY 10/21/15 [History] Lisinopril 10 mg PO DAILY 09/29/18 [History] ClomiPRAMINE [ClomiPRAMINE HCl] 2 cap PO DAILY 08/26/19 [History] Fluticasone Propionate [Flovent] 1 inh NASBOTH ASDIRECTED 08/26/19 [History] desogestreL-ethinyl estradioL [Reclipsen 28 Day Tablet] 1 tab PO DAILY 08/26/19 [History] Sertraline HCl [Zoloft] 150 mg PO DAILY 10/21/19 [History] diphenhydrAMINE [Benadryl] 25 mg PO QID PRN #15 tablet 02/01/20 [Rx] Clotrimazole [Clotrimazole 1%] 30 ml TOP BID 30 Days #1 bottle 02/20/20 [Rx] Fluconazole [Diflucan] 150 mg PO ONETIME #1 tab 03/02/20 [Rx] Lidocaine 5% 1 applic TOP QID PRN 03/02/20 [History] Nitrofurantoin Monohyd/M-Cryst [Macrobid 100 mg Capsule] 100 mg PO BID #14 capsule 03/02/20 [Rx] cephALEXin [Keflex] 500 mg PO BID 03/12/20 [History] cephALEXin [Cephalexin] 500 mg PO BID #20 capsule 03/19/20 [Rx] Past Medical History - Past Health History Medical/Surgical History: Denies Medical/Surgical History HEENT History: Reports: None Cardiovascular History: Reports: Hypertension, Other (See Below) Other Cardiovascular History: non specific chest pains Respiratory History: Reports: Asthma Gastrointestinal History: Reports: Other (See Below) Other Gastrointestinal History: non specific abd pains Genitourinary History: Reports: UTI, Recurrent, Other (See Below) Other Genitourinary History: chronic uti's, vaginal candidiasis 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 Musculoskeletal History: Reports: Back Pain, Chronic Other Musculoskeletal History: from UTI Neurological History: Reports: None Psychiatric History: Reports: Anxiety, Depression, OCD Endocrine/Metabolic History: Reports: Diabetes, Type II, Obesity/BMI 30+ 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 Transit 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: 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 Hematologic History: Reports: None Immunologic History: Reports: None Oncologic (Cancer) History: Reports: None Dermatologic History: Reports: Psoriasis Other Dermatologic History: on her scalp - Infectious Disease History Infectious Disease History: Reports: None - Past Surgical History Head Surgeries/Procedures: Reports: None HEENT Surgical History: Reports: Adenoidectomy, Oral Surgery, Tonsillectomy Cardiovascular Surgical History: Reports: None Respiratory Surgical History: Reports: None GI Surgical History: Reports: None Female Surgical History: Reports: None, Other (See Below) Other Female Surgeries/Procedures: Cystoscopy Endocrine Surgical History: Reports: None Musculoskeletal Surgical History: Reports: None Social & Family History - Family History Family Medical History: Noncontributory Psychiatric: Reports: Anxiety, Depression Endocrine/Metabolic: Reports: Obesity/MBI 30+ Immunologic: Reports: HIV - Tobacco Use Smoking Status *Q: Current Every Day Smoker Years of Tobacco use: 2 Packs/Tins Daily: 1 - Caffeine Use Caffeine Use: Reports: Soda, Tea Caffeine Use Comment: 1 drink/month - Recreational Drug Use Recreational Drug Use: No ED ROS GENERAL - Review of Systems Review Of Systems: Comprehensive ROS is negative, except as noted in HPI. ED EXAM, GENERAL - Physical Exam Exam: See Below Free Text/Narrative:: My physical exam as in the HPI Course - Vital Signs Last Recorded V/S: Last Vital Signs Temp 97.1 F 03/18/20 23:17 Pulse 111 H 03/18/20 23:17 Resp 19 03/18/20 23:17 BP 165/98 H 03/18/20 23:17 Pulse Ox 94 L 03/18/20 23:17 - Orders/Labs/Meds Orders: Active Orders 24 hr Category Date Time Status CULTURE URINE [RM] Stat Lab 03/18/20 23:20 Received Labs: Laboratory Tests 03/18/20 03/19/20 03/19/20 Range/Units 23:20 00:10 00:10 WBC 6.90 (4.0-11.0) K/uL RBC 5.32 (4.30-5.90) M/uL Hgb 14.5 (12.0-16.0) g/dL Hct 45.3 (36.0-46.0) % MCV 85.2 (80.0-98.0) fL MCH 27.3 (27.0-32.0) pg MCHC 32.0 (31.0-37.0) g/dL RDW Std Deviation 41.5 (28.0-62.0) fl RDW Coeff of Nicky 14 (11.0-15.0) % Plt Count 287 (150-400) K/uL MPV 9.60 (7.40-12.00) fL Neut % (Auto) 41.8 L (48.0-80.0) % Lymph % (Auto) 47.5 H (16.0-40.0) % [place] % (Auto) 6.8 (0.0-15.0) % Eos % (Auto) 3.3 (0.0-7.0) % Baso % (Auto) 0.6 (0.0-1.5) % Neut # (Auto) 2.9 (1.4-5.7) K/uL Lymph # (Auto) 3.3 H (0.6-2.4) K/uL [place] # (Auto) 0.5 (0.0-0.8) K/uL Eos # (Auto) 0.2 (0.0-0.7) K/uL Baso # (Auto) 0.0 (0.0-0.1) K/uL Nucleated RBC % 0.0 /100WBC Nucleated RBCs # 0 K/uL Sodium 138 (136-145) mmol/L Potassium 4.1 (3.5-5.1) mmol/L Chloride 105 (98-107) mmol/L Carbon Dioxide 23.4 (21.0-32.0) mmol/L BUN 11 (7.0-18.0) mg/dL Creatinine 0.7 (0.6-1.0) mg/dL Est Cr Clr Drug Dosing 104.24 mL/min Estimated GFR (MDRD) > 60.0 ml/min Glucose 207 H (74-106) mg/dL Calcium 8.3 L (8.5-10.1) mg/dL Total Bilirubin 0.2 (0.2-1.0) mg/dL AST 10 L (15-37) IU/L ALT 19 (14-63) IU/L Alkaline Phosphatase 66 (46-116) U/L Total Protein 6.5 (6.4-8.2) g/dL Albumin 2.8 L (3.4-5.0) g/dL Globulin 3.7 (2.6-4.0) g/dL Albumin/Globulin Ratio 0.8 L (0.9-1.6) Lipase 86 (73-393) U/L Urine Color YELLOW Urine Appearance SLT CLOUDY Urine pH 6.5 (5.0-8.0) Ur Specific [place] 1.025 (1.001-1.035) Urine Protein NEGATIVE (NEGATIVE) mg/dL Urine Glucose (UA) 500 H (NEGATIVE) mg/dL Urine Ketones NEGATIVE (NEGATIVE) mg/dL Urine Occult Blood NEGATIVE (NEGATIVE) Urine Nitrite POSITIVE H (NEGATIVE) Urine Bilirubin NEGATIVE (NEGATIVE) Urine Urobilinogen 1.0 (<2.0) EU/dL Ur Leukocyte Esterase NEGATIVE (NEGATIVE) Urine RBC 0-2 (0-2/HPF) Urine WBC 0-2 (0-5/HPF) Ur Epithelial Cells FEW (NONE-FEW) Amorphous Sediment LIGHT (NEGATIVE) Urine Bacteria 1+ H (NEGATIVE) Urine Mucus LIGHT (NONE-MOD) Departure - Departure Time of Disposition: 01:13 Disposition: Home, Self-Care 01 Condition: Good Clinical Impression: UTI, Urinary tract infectious disease - Discharge Information Instructions: Urinary Tract Infection, Adult, [id number] Referrals: Sloan Ordonez MD [Primary Care Provider] - Forms: ED Department Discharge Additional Instructions: The following information is given to patients seen in the emergency department who are being discharged to home. This information is to outline your options for follow-up care. We provide all patients seen in our emergency department with a follow-up referral. The need for follow-up, as well as the timing and circumstances, are variable depending upon the specifics of your emergency department visit. If you don't have a primary care physician on staff, we will provide you with a referral. We always advise you to contact your personal physician following an emergency department visit to inform them of the circumstance of the visit and for follow-up with them and/or the need for any referrals to a consulting specialist. The emergency department will also refer you to a specialist when appropriate. This referral assures that you have the opportunity for follow-up care with a specialist. All of these measure are taken in an effort to provide you with optimal care, which includes your follow-up. Under all circumstances we always encourage you to contact your private physician who remains a resource for coordinating your care. When calling for follow-up care, please make the office aware that this follow-up is from your recent emergency room visit. If for any reason you are refused follow-up, please contact the [facility] Emergency Department at and asked to speak to the emergency department charge nurse. [facility] - Primary Care [address] [place] [id number] [address] Sepsis Event Note (ED) - Evaluation Sepsis Screening Result: No Definite Risk - Focused Exam Vital Signs: Vital Signs Temp Pulse Resp BP Pulse Ox 03/18/20 23:17 97.1 F 111 H 19 165/98 H 94 L - My Orders Last 24 Hours: My Active Orders 03/18/20 23:20 CULTURE URINE [RM] Stat - Assessment/Plan Last 24 Hours: My Active Orders 03/18/20 23:20 CULTURE URINE [RM] Stat
[2020-03-19 00:40] LABS: BLOOD UREA NITROGEN,BUN 11 mg/dL (7.0-18.0); CARBON DIOXIDE,CO2 23.4 mmol/L (21.0-32.0); CHLORIDE,CL 105 mmol/L (98-107); GLUCOSE RANDOM 207 mg/dL (74-106); LIPASE 86 U/L (73-393); POTASSIUM,K 4.1 mmol/L (3.5-5.1); SODIUM,NA 138 mmol/L (136-145)
== END 2020-03-19 01:25 | disposition home or self-care (01) ==
LOC: MW.ED 23:10
DX: N39.0 Urinary tract infection, site not specified (principal); I10 Essential (primary) hypertension; J45.909 Unspecified asthma, uncomplicated; F41.9 Anxiety disorder, unspecified; F32.9 Major depressive disorder, single episode, unspecified; E11.9 Type 2 diabetes mellitus without complications; E66.9 Obesity, unspecified; Z68.44 Body mass index [BMI] 60.0-69.9, adult; F17.210 Nicotine dependence, cigarettes, uncomplicated; Z79.899 Other long term (current) drug therapy; Z88.2 Allergy status to sulfonamides; Z88.1 Allergy status to other antibiotic agents; Z79.84 Long term (current) use of oral hypoglycemic drugs
CPT/HCPCS: 36415; 80053; 81001; 83690; 85025; 87086; 87088; 87186; 99282; 99284

== ENCOUNTER 2020-03-20 03:11 | Emergency (ER) | payer MEDICARE, MEDICAID ==
[2020-03-20] MEDS ORDERED: Ketorolac 15 MG/ML SDV IVPUSH ONE (03:27)
[2020-03-20] MEDS ORDERED: Sodium Chloride 0.9% 2.5 ML Syringe FLUSH PRN (03:27)
[2020-03-20] MEDS ORDERED: Sodium Chloride 0.9% 10 ML Syringe FLUSH PRN (03:27)
--- NOTE | 2020-03-20 03:32 | EDM.PDOC ---
ED HPI GENERAL MEDICAL PROBLEM - General Chief Complaint: Chest Pain Stated Complaint: AMB. Time Seen by Provider: 03/20/20 03:14 - History of Present Illness INITIAL COMMENTS - FREE TEXT/NARRATIVE: History of present illness: Patient with very frequent visits to emergency department was seen yesterday for UTI. Now she feels a little confused and had some chest pain that was 5 out of 10 in severity starting 2 hours ago. It is in the left anterior chest. She is admittedly not resting well been to the ER multiple times recently and to her primary doctor for UTI. And is a smoker and a diabetic. [] Review of systems: As per history of present illness and below otherwise all systems reviewed and negative. Past medical history: As per history of present illness and as reviewed below otherwise noncontributory. Surgical history: As per history of present illness and as reviewed below otherwise noncontributory. Social history: No reported history of drug or alcohol abuse. Family history: As per history of present illness and as reviewed below otherwise noncontributory. Physical exam: Constitutional - well developed, well-nourished and in no acute distress HEENT - normocephalic, no evidence of trauma - external nose and mouth normal - no mass in neck and no JVD - mucosae moist EYES - full EOM, PERRL, no icterus - no evidence of inflammation, injection, or drainage Respiratory - no respiratory distress, equal bilateral expansion, lungs clear to auscultation and no abnormal lung sounds Cardiovascular - Regular Rhythm with S1 and S2 appreciated and no murmur, gallop or rub. GI - abdomen soft without distension or organomegaly - normal bowel sounds - no guard or rebound Musculoskeletal patient in the anterior left sternal border reproduces her pain. No gross deformity of long bones or joints - no tenderness, swelling or edema Neurologic - Alert and oriented times four - CN II-XII grossly intact - motor sensory and coordination symmetrically normal Psychiatric - appropriate mood and affect with normal thought content Hematologic - No petechiae or purpura - mucosa appropriate color and sclera not pale - normal nail bed color and refill Integument - no rash or evidence of trauma - normal turgor Diagnostics: [] Therapeutics: [] Impression: [] Plan: [] Definitive disposition and diagnosis as appropriate pending reevaluation and review of above. chest area Pain Score (Numeric/FACES): 7 - Related Data Allergies Allergy/AdvReac Type Severity Reaction Status Date / Time ciprofloxacin [From Cipro] Allergy Rash Verified 03/20/20 03:12 sulfamethoxazole Allergy Nausea Verified 03/20/20 03:12 [From Bactrim] trimethoprim [From Bactrim] Allergy Nausea Verified 03/20/20 03:12 Home Meds: Home Meds LORazepam [Ativan] 0.5 mg PO DAILY 04/01/14 [History] metFORMIN [metFORMIN XR] 1,000 mg PO BID 05/27/14 [History] Albuterol [Ventolin HFA] 2 puff INH BID PRN 10/21/15 [History] Clobetasol Propionate [Temovate] 30 gm TOP DAILY 10/21/15 [History] Lisinopril 10 mg PO DAILY 09/29/18 [History] ClomiPRAMINE [ClomiPRAMINE HCl] 2 cap PO DAILY 08/26/19 [History] Fluticasone Propionate [Flovent] 1 inh NASBOTH ASDIRECTED 08/26/19 [History] desogestreL-ethinyl estradioL [Reclipsen 28 Day Tablet] 1 tab PO DAILY 08/26/19 [History] Sertraline HCl [Zoloft] 150 mg PO DAILY 10/21/19 [History] diphenhydrAMINE [Benadryl] 25 mg PO QID PRN #15 tablet 02/01/20 [Rx] Clotrimazole [Clotrimazole 1%] 30 ml TOP BID 30 Days #1 bottle 02/20/20 [Rx] Fluconazole [Diflucan] 150 mg PO ONETIME #1 tab 03/02/20 [Rx] Lidocaine 5% 1 applic TOP QID PRN 03/02/20 [History] Nitrofurantoin Monohyd/M-Cryst [Macrobid 100 mg Capsule] 100 mg PO BID #14 capsule 03/02/20 [Rx] cephALEXin [Keflex] 500 mg PO BID 03/12/20 [History] cephALEXin [Cephalexin] 500 mg PO BID #20 capsule 03/19/20 [Rx] Past Medical History - Past Health History Medical/Surgical History: Denies Medical/Surgical History HEENT History: Reports: None Cardiovascular History: Reports: Hypertension, Other (See Below) Other Cardiovascular History: non specific chest pains Respiratory History: Reports: Asthma Gastrointestinal History: Reports: Other (See Below) Other Gastrointestinal History: non specific abd pains Genitourinary History: Reports: UTI, Recurrent, Other (See Below) Other Genitourinary History: chronic uti's, vaginal candidiasis 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 Musculoskeletal History: Reports: Back Pain, Chronic Other Musculoskeletal History: from UTI Neurological History: Reports: None Psychiatric History: Reports: Anxiety, Depression, OCD Endocrine/Metabolic History: Reports: Diabetes, Type II, Obesity/BMI 30+ 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: 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 Hematologic History: Reports: None Immunologic History: Reports: None Oncologic (Cancer) History: Reports: None Dermatologic History: Reports: Psoriasis Other Dermatologic History: on her scalp - Infectious Disease History Infectious Disease History: Reports: None - Past Surgical History Head Surgeries/Procedures: Reports: None HEENT Surgical History: Reports: Adenoidectomy, Oral Surgery, Tonsillectomy Cardiovascular Surgical History: Reports: None Respiratory Surgical History: Reports: None GI Surgical History: Reports: None Female Surgical History: Reports: None, Other (See Below) Other Female Surgeries/Procedures: Cystoscopy Endocrine Surgical History: Reports: None Musculoskeletal Surgical History: Reports: None Social & Family History - Family History Family Medical History: Noncontributory Psychiatric: Reports: Anxiety, Depression Endocrine/Metabolic: Reports: Obesity/MBI 30+ Immunologic: Reports: HIV - Tobacco Use Smoking Status *Q: Current Every Day Smoker Years of Tobacco use: 1 Packs/Tins Daily: 1 - Caffeine Use Caffeine Use: Reports: None Caffeine Use Comment: 1 drink/month - Recreational Drug Use Recreational Drug Use: No ED ROS GENERAL - Review of Systems Review Of Systems: Comprehensive ROS is negative, except as noted in HPI. ED EXAM, GENERAL - Physical Exam Exam: See Below Free Text/Narrative:: My physical exam as in the HPI EKG INTERPRETATION EKG Date: 03/20/20 Rhythm: NSR P-Wave: Present QRS: Normal ST-T: Other (No ST depression) Comparison: No Change EKG Interpretation Comments: Impression no acute injury Course - Vital Signs Last Recorded V/S: Last Vital Signs Temp 96.7 F L 03/20/20 03:13 Pulse 110 H 03/20/20 03:18 Resp 18 03/20/20 03:13 BP 156/86 H 03/20/20 03:18 Pulse Ox 92 L 03/20/20 03:13 - Orders/Labs/Meds Orders: Active Orders 24 hr Category Date Time Status EKG Documentation Completion [RC] AM Care 03/20/20 03:27 Active Chest 1V Frontal [CR] Stat Exams 03/20/20 03:28 Taken Sodium Chloride 0.9% [Saline Flush] Med 03/20/20 03:27 Active 10 ml FLUSH ASDIRECTED PRN Sodium Chloride 0.9% [Saline Flush] Med 03/20/20 03:27 Active 2.5 ml FLUSH ASDIRECTED PRN Saline Lock Insert [OM.PC] Stat Oth 03/20/20 03:27 Ordered Medication Orders Sodium Chloride (Saline Flush) 10 ml FLUSH ASDIRECTED PRN PRN Reason: Keep Vein Open Sodium Chloride (Saline Flush) 2.5 ml FLUSH ASDIRECTED PRN PRN Reason: Keep Vein Open Labs: Laboratory Tests 03/20/20 Range/Units 03:20 Troponin I < 0.050 (0.000-0.056) ng/mL Meds: Medications Generic Name Dose Route Start Last Admin Trade Name Freq PRN Reason Stop Dose Admin Sodium Chloride 10 ml 03/20/20 03:27 Saline Flush FLUSH ASDIRECTED PRN Keep Vein Open Sodium Chloride 2.5 ml 03/20/20 03:27 Saline Flush FLUSH ASDIRECTED PRN Keep Vein Open Discontinued Medications Generic Name Dose Route Start Last Admin Trade Name Freq PRN Reason Stop Dose Admin Ketorolac Tromethamine 15 mg 03/20/20 03:27 03/20/20 03:37 Toradol IVPUSH 03/20/20 03:28 15 mg ONETIME ONE Administration Departure - Departure Time of Disposition: 04:14 Disposition: Home, Self-Care 01 Condition: Good Clinical Impression: Costochondritis, Chest wall pain - Discharge Information Referrals: PCP,None [Primary Care Provider] - Forms: ED Department Discharge Additional Instructions: Over the counter generic ibuprofen or naproxen are recommended for pain. Heat to the chest wall might help. [facility] - Primary Care [address] [place] [phone] [address] [address] The following information is given to patients seen in the emergency department who are being discharged to home. This information is to outline your options for follow-up care. We provide all patients seen in our emergency department with a follow-up referral. The need for follow-up, as well as the timing and circumstances, are variable depending upon the specifics of your emergency department visit. If you don't have a primary care physician on staff, we will provide you with a referral. We always advise you to contact your personal physician following an emergency department visit to inform them of the circumstance of the visit and for follow-up with them and/or the need for any referrals to a consulting specialist. The emergency department will also refer you to a specialist when appropriate. This referral assures that you have the opportunity for follow-up care with a specialist. All of these measure are taken in an effort to provide you with optimal care, which includes your follow-up. Under all circumstances we always encourage you to contact your private physician who remains a resource for coordinating your care. When calling for follow-up care, please make the office aware that this follow-up is from your recent emergency room visit. If for any reason you are refused follow-up, please contact the [facility] Emergency Department at and asked to speak to the emergency department charge nurse. Sepsis Event Note (ED) - Evaluation Sepsis Screening Result: No Definite Risk - Focused Exam Vital Signs: Vital Signs Temp Pulse Resp BP Pulse Ox 03/20/20 03:18 110 H 156/86 H 03/20/20 03:13 96.7 F L 110 H 18 176/104 H 92 L - My Orders Last 24 Hours: My Active Orders 03/20/20 03:27 EKG Documentation Completion [RC] AM Sodium Chloride 0.9% [Saline Flush] 10 ml FLUSH ASDIRECTED PRN Sodium Chloride 0.9% [Saline Flush] 2.5 ml FLUSH ASDIRECTED PRN Saline Lock Insert [OM.PC] Stat 03/20/20 03:28 Chest 1V Frontal [CR] Stat - Assessment/Plan Last 24 Hours: My Active Orders 03/20/20 03:27 EKG Documentation Completion [RC] AM Sodium Chloride 0.9% [Saline Flush] 10 ml FLUSH ASDIRECTED PRN Sodium Chloride 0.9% [Saline Flush] 2.5 ml FLUSH ASDIRECTED PRN Saline Lock Insert [OM.PC] Stat 03/20/20 03:28 Chest 1V Frontal [CR] Stat
--- NOTE | 2020-03-20 04:15 | CR ---
INDICATION: Chest pain TECHNIQUE: Chest radiograph 1 view COMPARISON: 03/12/2020 FINDINGS: Severe degradation of image quality noted due to body habitus. Mediastinum: The mediastinum is normal in appearance. The heart silhouette is normal in size and morphology. Lung: Both lungs are unremarkable in appearance. No sign of pleural effusion seen. No pneumothorax is identified. Bone and Soft tissue: Unremarkable for age. IMPRESSION: 1. No acute cardiopulmonary disease is seen. Dictated by: Clarence Orr MD @ 03/20/2020 04:15:19 (Electronically Signed)
[2020-03-20 04:39] VITALS: BP 160/92; PULSE 103
== END 2020-03-20 04:25 | disposition home or self-care (01) ==
LOC: MW.ED 03:11
DX: M94.0 Chondrocostal junction syndrome [Tietze] (principal); R07.89 Other chest pain; I10 Essential (primary) hypertension; J45.909 Unspecified asthma, uncomplicated; E11.9 Type 2 diabetes mellitus without complications; E66.9 Obesity, unspecified; F32.9 Major depressive disorder, single episode, unspecified; F41.9 Anxiety disorder, unspecified; F17.210 Nicotine dependence, cigarettes, uncomplicated; Z88.2 Allergy status to sulfonamides; Z88.1 Allergy status to other antibiotic agents; Z68.44 Body mass index [BMI] 60.0-69.9, adult; Z79.899 Other long term (current) drug therapy
CPT/HCPCS: 36415; 71045; 84484; 93005; 96374; 99285; J1885; 99283

== ENCOUNTER 2020-03-26 02:13 | Emergency (ER) | payer MEDICARE, MEDICAID ==
[2020-03-26] MEDS ORDERED: Lidocaine 5% Oint 35.44 GM Tube TOP ONE (02:54)
[2020-03-26 03:24] LABS: BLOOD UREA NITROGEN,BUN 14 mg/dL (7.0-18.0); CARBON DIOXIDE,CO2 25.7 mmol/L (21.0-32.0); CHLORIDE,CL 103 mmol/L (98-107); GLUCOSE RANDOM 178 mg/dL (74-106); POTASSIUM,K 3.8 mmol/L (3.5-5.1); SODIUM,NA 137 mmol/L (136-145)
--- NOTE | 2020-03-26 03:48 | EDM.PDOC ---
ED HPI GENERAL MEDICAL PROBLEM - General Chief Complaint: Genitourinary Problem Stated Complaint: BACK PAIN Time Seen by Provider: 03/26/20 02:20 - History of Present Illness INITIAL COMMENTS - FREE TEXT/NARRATIVE: CHIEF COMPLAINT(S): Lower abdominal pain HISTORY OF PRESENT ILLNESS: This is a 29-year-old woman with a past medical history of morbid obesity, diabetes mellitus, and recurrent urinary tract infection who comes to the emergency department with a chief complaint of lower abdominal pain. The patient states that for approximately 1 month now she has been experiencing sharp pain in her lower abdomen and back on both sides associated with dysuria. She denies any vaginal bleeding or vaginal discharge. She states that her lower abdominal pain is described as a burning and sharp pain. She denies any radiation of the pain. She states that she was attempting Pyridium for pain relief which did help however she switched to a Zoll. She states the pain is worse when you touch her abdomen and lower back. She states that her back pain is secondary to her kidneys being infected. She states that she thought she was getting better but 3 days ago the pain started to come back which was about the same time she is to switch to Azo. She denies any fever, nausea, vomiting, diarrhea, hematochezia, hematemesis. She states that she called her PCP who called in antibiotics which was Macrobid. She states that it does not work for her so she did not take the Macrobid. She states that she was recently here and was prescribed Keflex for which she has been taking it. She does not believe that this is helping. REVIEW OF SYSTEMS: Constitutional: Denies fever, chills. Eyes: Denies eye pain Ears, Nose, Mouth, & Throat: Denies earache Cardiovascular: Denies chest pain Respiratory: Denies shortness of breath Gastrointestinal: Denies Nausea, vomiting, diarrhea, hematochezia. Genitourinary: Positive for lower abdominal pain with dysuria. Denies hematuria, vaginal bleeding, vaginal discharge MSK: Positive for lower back pain Neurological: Denies blurred vision Psychiatric: Denies depression PAST MEDICAL HISTORY: As per history of present illness and as reviewed below otherwise noncontributory. SURGICAL HISTORY: As per history of present illness and as reviewed below otherwise noncontributory. SOCIAL HISTORY: As per history of present illness and as reviewed below otherwise noncontributory. FAMILY HISTORY: As per history of present illness and as reviewed below otherwise noncontributory. EXAMINATION OF ORGAN SYSTEMS/BODY AREAS: Constitutional: Blood pressure is 154/96, heart rate 99, respiratory rate 18 with an oxygen saturation 96% on room air. Temperature 36.6 General: Morbidly obese woman who does not appear to be in acute distress Psychiatric: Appropriate mood and affect. Eyes: No scleral icterus or conjunctival erythema ENMT: Moist mucous membranes. No pharyngeal erythema Cardiovascular: Regular, rate, and rhythym. No gallops, murmurs, or rubs. Bilateral upper extremity pulses symmetric and intact. No peripheral edema. No JVD. Respiratory: Lungs clear to auscultation bilaterally. No wheezes, rales, or rhonchi. Gastrointestinal: Soft, non-tender, non-distended. Normoactive bowel sounds obese. There is tenderness to palpation in the pannus however there is no overlying erythema. There is no suprapubic tenderness Genitourinary: No suprapubic tenderness. No CVA tenderness. Musculoskeletal: Normal range of motion. Bilateral lumbar paraspinal tenderness. Skin: No lesions or abrasions. Neurological: Alert, GCS 15 MEDICAL DECISION MAKING AND COURSE IN THE ED WITH INTERPRETATION/REVIEW OF DIAGNOSTIC STUDIES: This is a 29-year-old woman with a past medical history of diabetes mellitus and recurrent UTIs who comes to the emergency department with 1 month of continued lower abdominal and back pain for which she has been evaluated recently for who was started on antibiotics for urinary tract infection by culture. At this time I did review the patient's chart and she did have a culture obtained on March 18 which was thought to be of contaminants. She is being treated for urinary tract infection for what appears to be susceptibilities on a urine culture obtained on March 02, 2020 for which Keflex is susceptible. On examination I do not believe the patient is experiencing any symptoms of worsening cystitis is likely secondary to infla mmation of her pannus and lumbar strain. However given her complexity will obtain basic labs to evaluate for leukocytosis, kidney injury, or worsening urinary tract infection. Given that there was contaminants last time we will obtain a repeat urinalysis with culture. For the pain will obtain lidocaine cream to apply to the affected areas. Laboratory: CBC is unremarkable. BMP is unremarkable. Glucose is mildly elevated at 178. Urinaylysis was a clean catch and was negative for leukocyte esterase, positive for nitrites, and trace for blood. WBC count 0-1. Interpretation: Positive After labs I did reevaluate the patient and I discussed there at this time that I did review her chart and that she should continue taking Keflex for her presumed urinary tract infection. I did discuss with her however though that I do believe her pain is secondary to lumbar strain unlikely inflammation of her pannus. I did discuss with her weight loss and that given her recurrent UTIs she needs to be evaluated by urology outpatient as there is no indication for change in management at this time. Also discussed with her that she needs to follow-up with her primary care physician. She was amenable discharge at this time and had no further questions. DISPOSITION: The patient was discharged home in stable condition. The patient will follow up with urology and her primary care physician CONDITION: Fair PROCEDURES: None FINAL IMPRESSION(S)/DIAGNOSES: 1. Acute on chronic lumbar strain 2. Acute inflammation of the pannus 3. Recurrent UTIs 4. Morbid obesity Gianni Barrientos M.D. bilateral flank Pain Score (Numeric/FACES): 10 - Related Data Allergies Allergy/AdvReac Type Severity Reaction Status Date / Time ciprofloxacin [From Cipro] Allergy Rash Verified 03/26/20 02:16 sulfamethoxazole Allergy Nausea Verified 03/26/20 02:16 [From Bactrim] trimethoprim [From Bactrim] Allergy Nausea Verified 03/26/20 02:16 Home Meds: Home Meds LORazepam [Ativan] 0.5 mg PO DAILY 04/01/14 [History] metFORMIN [metFORMIN XR] 1,000 mg PO BID 05/27/14 [History] Albuterol [Ventolin HFA] 2 puff INH BID PRN 10/21/15 [History] Clobetasol Propionate [Temovate] 30 gm TOP DAILY 10/21/15 [History] Lisinopril 10 mg PO DAILY 09/29/18 [History] ClomiPRAMINE [ClomiPRAMINE HCl] 2 cap PO DAILY 08/26/19 [History] Fluticasone Propionate [Flovent] 1 inh NASBOTH ASDIRECTED 08/26/19 [History] desogestreL-ethinyl estradioL [Reclipsen 28 Day Tablet] 1 tab PO DAILY 08/26/19 [History] Sertraline HCl [Zoloft] 150 mg PO DAILY 10/21/19 [History] diphenhydrAMINE [Benadryl] 25 mg PO QID PRN #15 tablet 02/01/20 [Rx] Clotrimazole [Clotrimazole 1%] 30 ml TOP BID 30 Days #1 bottle 02/20/20 [Rx] Fluconazole [Diflucan] 150 mg PO ONETIME #1 tab 03/02/20 [Rx] Lidocaine 5% 1 applic TOP QID PRN 03/02/20 [History] Nitrofurantoin Monohyd/M-Cryst [Macrobid 100 mg Capsule] 100 mg PO BID #14 capsule 03/02/20 [Rx] cephALEXin [Keflex] 500 mg PO BID 03/12/20 [History] cephALEXin [Cephalexin] 500 mg PO BID #20 capsule 03/19/20 [Rx] Past Medical History - Past Health History Medical/Surgical History: Denies Medical/Surgical History HEENT History: Reports: None Cardiovascular History: Reports: Hypertension, Other (See Below) Other Cardiovascular History: non specific chest pains Respiratory History: Reports: Asthma Gastrointestinal History: Reports: Other (See Below) Other Gastrointestinal History: non specific abd pains Genitourinary History: Reports: UTI, Recurrent, Other (See Below) Other Genitourinary History: chronic uti's, vaginal candidiasis SCHOOL NURSE History: Reports: None Musculoskeletal History: Reports: Back Pain, Chronic Other Musculoskeletal History: from UTI Neurological History: Reports: None Psychiatric History: Reports: Anxiety, Depression, OCD Endocrine/Metabolic History: Reports: Diabetes, Type II, Obesity/BMI 30+ 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 Personal Injury Legal Assistant: None Hematologic History: Reports: None Immunologic History: Reports: None Oncologic (Cancer) History: Reports: None Dermatologic History: Reports: Psoriasis Other Dermatologic History: on her scalp - Infectious Disease History Infectious Disease History: Reports: None - Past Surgical History Head Surgeries/Procedures: Reports: None HEENT Surgical History: Reports: Adenoidectomy, Oral Surgery, Tonsillectomy Cardiovascular Surgical History: Reports: None Respiratory Surgical History: Reports: None GI Surgical History: Reports: None Female Surgical History: Reports: None, Other (See Below) Other Female Surgeries/Procedures: Cystoscopy Endocrine Surgical History: Reports: None Musculoskeletal Surgical History: Reports: None Social & Family History - Family History Family Medical History: Noncontributory Psychiatric: Reports: Anxiety, Depression Endocrine/Metabolic: Reports: Obesity/MBI 30+ Immunologic: Reports: HIV - Tobacco Use Smoking Status *Q: Current Every Day Smoker Years of Tobacco use: 1 Packs/Tins Daily: 1 - Caffeine Use Caffeine Use: Reports: Soda, Tea Caffeine Use Comment: 1 drink/month - Recreational Drug Use Recreational Drug Use: No ED ROS GENERAL - Review of Systems Review Of Systems: See Below ED EXAM, GENERAL - Physical Exam Exam: See Below Course - Vital Signs Last Recorded V/S: Last Vital Signs Temp 36.6 C 03/26/20 03:49 Pulse 102 H 03/26/20 03:49 Resp 20 03/26/20 03:49 BP 168/98 H 03/26/20 03:49 Pulse Ox 95 03/26/20 03:49 - Orders/Labs/Meds Orders: Active Orders 24 hr Category Date Time Status CULTURE URINE [RM] Stat Lab 03/26/20 02:49 Received Labs: Laboratory Tests 03/26/20 03/26/20 03/26/20 Range/Units 02:49 03:00 03:00 WBC 9.25 (4.0-11.0) K/uL RBC 5.34 (4.30-5.90) M/uL Hgb 14.9 (12.0-16.0) g/dL Hct 44.9 (36.0-46.0) % MCV 84.1 (80.0-98.0) fL MCH 27.9 (27.0-32.0) pg MCHC 33.2 (31.0-37.0) g/dL RDW Std Deviation 40.1 (28.0-62.0) fl RDW Coeff of Nicky 13 (11.0-15.0) % Plt Count 316 (150-400) K/uL MPV 9.80 (7.40-12.00) fL Neut % (Auto) 46.4 L (48.0-80.0) % Lymph % (Auto) 44.8 H (16.0-40.0) % [place] % (Auto) 5.5 (0.0-15.0) % Eos % (Auto) 2.7 (0.0-7.0) % Baso % (Auto) 0.6 (0.0-1.5) % Neut # (Auto) 4.3 (1.4-5.7) K/uL Lymph # (Auto) 4.1 H (0.6-2.4) K/uL [place] # (Auto) 0.5 (0.0-0.8) K/uL Eos # (Auto) 0.3 (0.0-0.7) K/uL Baso # (Auto) 0.1 (0.0-0.1) K/uL Nucleated RBC % 0.0 /100WBC Nucleated RBCs # 0 K/uL Sodium 137 (136-145) mmol/L Potassium 3.8 (3.5-5.1) mmol/L Chloride 103 (98-107) mmol/L Carbon Dioxide 25.7 (21.0-32.0) mmol/L BUN 14 (7.0-18.0) mg/dL Creatinine 0.5 L (0.6-1.0) mg/dL Est Cr Clr Drug Dosing 145.94 mL/min Estimated GFR (MDRD) > 60.0 ml/min Glucose 178 H (74-106) mg/dL Calcium 8.9 (8.5-10.1) mg/dL Urine Color ORANGE Urine Appearance CLEAR Urine pH 5.5 (5.0-8.0) Ur Specific [place] 1.020 (1.001-1.035) Urine Protein 30 H (NEGATIVE) mg/dL Urine Glucose (UA) 100 H (NEGATIVE) mg/dL Urine Ketones NEGATIVE (NEGATIVE) mg/dL Urine Occult Blood TRACE-INTACT H (NEGATIVE) Urine Nitrite POSITIVE H (NEGATIVE) Urine Bilirubin NEGATIVE (NEGATIVE) Urine Urobilinogen 4.0 H (<2.0) EU/dL Ur Leukocyte Esterase NEGATIVE (NEGATIVE) Urine RBC 0-1 (0-2/HPF) Urine WBC 0-1 (0-5/HPF) Ur Epithelial Cells MODERATE (NONE-FEW) Urine Bacteria RARE (NEGATIVE) Urine Other Meds: Medications Discontinued Medications Generic Name Dose Route Start Last Admin Trade Name Freq PRN Reason Stop Dose Admin Lidocaine HCl 20 gm 03/26/20 02:54 03/26/20 03:21 Lidocaine 5% TOP 03/26/20 02:55 1 gr ONETIME ONE Administration Departure - Departure Time of Disposition: 03:46 Disposition: Home, Self-Care 01 Condition: Fair Clinical Impression: Abdominal wall pain Lumbar strain Qualifiers: Encounter type: initial encounter Qualified Code(s): S39.012A - Strain of muscle, fascia and tendon of lower back, initial encounter - Discharge Information *PRESCRIPTION DRUG MONITORING PROGRAM REVIEWED*: No *COPY OF PRESCRIPTION DRUG MONITORING REPORT IN PATIENT CALLUM: No Instructions: Lumbar Sprain, Urinary Tract Infection, Adult, [id number] Referrals: PCP,None [Primary Care Provider] - Forms: ED Department Discharge Additional Instructions: The patient is informed of any results of their evaluation and diagnostic workup and all questions are answered. They are given discharge instructions and return precautions. The patient is stable for discharge. The patient states they understand and agree with the plan and that they will return if their symptoms get worse or if they have any new concerns. The following information is given to patients seen in the emergency department who are being discharged to home. This information is to outline your options for follow-up care. We provide all patients seen in our emergency department with a follow-up referral. The need for follow-up, as well as the timing and circumstances, are variable depending upon the specifics of your emergency department visit. If you don't have a primary care physician on staff, we will provide you with a referral. We always advise you to contact your personal physician following an emergency department visit to inform them of the circumstance of the visit and for follow-up with them and/or the need for any referrals to a consulting specialist. The emergency department will also refer you to a specialist when appropriate. This referral assures that you have the opportunity for follow-up care with a specialist. All of these measure are taken in an effort to provide you with optimal care, which includes your follow-up. Under all circumstances we always encourage you to contact your private physician who remains a resource for coordinating your care. When calling for follow-up care, please make the office aware that this follow-up is from your recent emergency room visit. If for any reason you are refused follow-up, please contact the [facility] Emergency Department at and asked to speak to the emergency department charge nurse. [facility] - Urology [address] [place] [id number] [facility] - Primary Care [address] [place] [address] [facility] [address] [place] [address] Sepsis Event Note (ED) - Evaluation Sepsis Screening Result: No Definite Risk - Focused Exam Vital Signs: Vital Signs Temp Pulse Resp BP Pulse Ox 03/26/20 03:49 36.6 C 102 H 20 168/98 H 95 03/26/20 02:19 36.6 C 99 18 154/96 H 96 - My Orders Last 24 Hours: My Active Orders 03/26/20 02:49 CULTURE URINE [RM] Stat - Assessment/Plan Last 24 Hours: My Active Orders 03/26/20 02:49 CULTURE URINE [RM] Stat
[2020-03-26 03:49] VITALS: BP 168/98; PULSE 102
== END 2020-03-26 03:56 | disposition home or self-care (01) ==
LOC: MW.ED 02:13
DX: S39.012A Strain of muscle, fascia and tendon of lower back, initial encounter (principal); N39.0 Urinary tract infection, site not specified; M79.3 Panniculitis, unspecified; E66.01 Morbid (severe) obesity due to excess calories; I10 Essential (primary) hypertension; J45.909 Unspecified asthma, uncomplicated; F41.9 Anxiety disorder, unspecified; F32.9 Major depressive disorder, single episode, unspecified; E11.9 Type 2 diabetes mellitus without complications; F17.210 Nicotine dependence, cigarettes, uncomplicated; Z88.2 Allergy status to sulfonamides; Z88.1 Allergy status to other antibiotic agents; Z79.84 Long term (current) use of oral hypoglycemic drugs; Z79.899 Other long term (current) drug therapy; Z68.44 Body mass index [BMI] 60.0-69.9, adult; X58.XXXA Exposure to other specified factors, initial encounter
CPT/HCPCS: 36415; 80048; 81001; 85025; 87086; 99284

== ENCOUNTER 2020-04-07 00:30 | Emergency (ER) | payer MEDICARE, MEDICAID ==
--- NOTE | 2020-04-07 01:16 | EDM.PDOC ---
ED HPI GENERAL MEDICAL PROBLEM - General Chief Complaint: Genitourinary Problem Stated Complaint: UTI Time Seen by Provider: 04/07/20 00:32 - History of Present Illness INITIAL COMMENTS - FREE TEXT/NARRATIVE: HISTORY AND PHYSICAL: History of present illness: This is a 29-year-old female with a history significant for diabetes who presents ER today secondary to chronic urinary tract infections and chronic perineal irritation for several months. Patient reports that she was recently treated with Keflex for urinary tract infection and completed approximately 1 week ago. Patient presents ER today because she has been having persistent vaginal irritation. Patient reports that the irritation occurs while she is urinating as well as while she is not urinating. Patient denies any recent fevers, shakes, chills, nausea, vomiting, diarrhea, dysuria, frequency, urgency, chest pain, shortness of breath. Patient denies any other symptomatology at this time. Patient reports that she does have an appointment to see a urologist in approximately 10 days. Patient reports that her symptoms are not changed at all with the antibiotic that she has received. Patient reports that she does have miconazole at home for vaginal yeast infections. Review of systems: As per history of present illness and below otherwise all systems reviewed and negative. Past medical history: As per history of present illness and as reviewed below otherwise noncontributory. Surgical history: As per history of present illness and as reviewed below otherwise noncontributory. Social history: No reported history of drug or alcohol abuse. Family history: As per history of present illness and as reviewed below otherwise noncontributory. Physical exam: Constitutional: Patient is oriented to person, place, and time. Appears well-developed and well-nourished. No distress. HEENT: Moist mucous membranes Head: Normocephalic and atraumatic Eyes: Right eye exhibits no discharge. Left eye exhibits no discharge. No scleral icterus Neck: Normal range of motion. No tracheal deviation present. Cardiovascular: Normal rate and regular rhythm. Pulmonary: Effort normal, no respiratory distress. Abd: Soft, nondistended, no rebound/guarding, no psoas or obturator signs, no tenderness at Mcberney's point, no Centeno's sign. Pt does not present with an exam that would be consistent with an acute surgical abdomen at this time, nontender to palpation Musculoskeletal: Normal range of motion Neurologic: Alert and oriented to person, place and time. Skin: [place], warm and dry. Psychiatric: Normal mood and affect. Behavior is normal. Judgment and thought content normal. Nursing note and vital signs have been reviewed Perineal exam reveals irritated skin around the perineum with no vaginal discharge identified. Patient's perineal area is somewhat erythematous, no drainage, no warmth, no erythema, no evidence of Velia infection. Diagnostics: Urinalysis normal Assessment and plan: This is a 29-year-old female who presents ER today secondary to vaginal irritation. Patient's urinalysis is normal without evidence of urinary tract infection at this time. Patient's perineal skin is somewhat irritated and is most likely consistent with yeast vaginosis/yeast dermatosis. Patient will be instructed to use her miconazole applications as well as miconazole cream on her perineal region to assist with symptoms until she is able to follow-up with her urologist. Reassessment at the time of disposition demonstrates that the patient is in no acute distress. The patient has remained stable throughout the entire ED visit and is without objective evidence for acute process requiring urgent intervention or hospitalization. The patient is stable for discharge, counseling is provided as documented above, discussed symptomatic treatment and specific conditions for return. I have spoken with the patient/caregiver and discussed todays findings, in addition to providing specific details for the plan of care. Questions are answered and there is agreement with the plan. Definitive disposition and diagnosis as appropriate pending reevaluation and review of above. bladder and urethra pain Pain Score (Numeric/FACES): 7 - Related Data Allergies Allergy/AdvReac Type Severity Reaction Status Date / Time ciprofloxacin [From Cipro] Allergy Rash Verified 04/07/20 00:46 sulfamethoxazole Allergy Nausea Verified 04/07/20 00:46 [From Bactrim] trimethoprim [From Bactrim] Allergy Nausea Verified 04/07/20 00:46 Home Meds: Home Meds LORazepam [Ativan] 0.5 mg PO DAILY 04/01/14 [History] metFORMIN [metFORMIN XR] 1,000 mg PO BID 05/27/14 [History] Albuterol [Ventolin HFA] 2 puff INH BID PRN 10/21/15 [History] Clobetasol Propionate [Temovate] 30 gm TOP DAILY 10/21/15 [History] Lisinopril 10 mg PO DAILY 09/29/18 [History] ClomiPRAMINE [ClomiPRAMINE HCl] 2 cap PO DAILY 08/26/19 [History] Fluticasone Propionate [Flovent] 1 inh NASBOTH ASDIRECTED 08/26/19 [History] desogestreL-ethinyl estradioL [Reclipsen 28 Day Tablet] 1 tab PO DAILY 08/26/19 [History] Sertraline HCl [Zoloft] 150 mg PO DAILY 10/21/19 [History] diphenhydrAMINE [Benadryl] 25 mg PO QID PRN #15 tablet 02/01/20 [Rx] Clotrimazole [Clotrimazole 1%] 30 ml TOP BID 30 Days #1 bottle 02/20/20 [Rx] Fluconazole [Diflucan] 150 mg PO ONETIME #1 tab 03/02/20 [Rx] Lidocaine 5% 1 applic TOP QID PRN 03/02/20 [History] Nitrofurantoin Monohyd/M-Cryst [Macrobid 100 mg Capsule] 100 mg PO BID #14 capsule 03/02/20 [Rx] Past Medical History - Past Health History Medical/Surgical History: Denies Medical/Surgical History HEENT History: Reports: None Cardiovascular History: Reports: Hypertension, Other (See Below) Other Cardiovascular History: non specific chest pains Respiratory History: Reports: Asthma Gastrointestinal History: Reports: Other (See Below) Other Gastrointestinal History: non specific abd pains Genitourinary History: Reports: UTI, Recurrent, Other (See Below) Other Genitourinary History: chronic uti's, vaginal candidiasis CORRECTIONAL AGENCY DIRECTOR History: Reports: None Musculoskeletal History: Reports: Back Pain, Chronic Other Musculoskeletal History: from UTI Neurological History: Reports: None Psychiatric History: Reports: Anxiety, Depression, OCD Endocrine/Metabolic History: Reports: Diabetes, Type II, Obesity/BMI 30+ 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 Aquatics Assistant Department Head: None Hematologic History: Reports: None Immunologic History: Reports: None Oncologic (Cancer) History: Reports: None Dermatologic History: Reports: Psoriasis Other Dermatologic History: on her scalp - Infectious Disease History Infectious Disease History: Reports: None - Past Surgical History Head Surgeries/Procedures: Reports: None HEENT Surgical History: Reports: Adenoidectomy, Oral Surgery, Tonsillectomy Cardiovascular Surgical History: Reports: None Respiratory Surgical History: Reports: None GI Surgical History: Reports: None Female Surgical History: Reports: None, Other (See Below) Other Female Surgeries/Procedures: Cystoscopy Endocrine Surgical History: Reports: None Musculoskeletal Surgical History: Reports: None Social & Family History - Family History Family Medical History: Noncontributory Psychiatric: Reports: Anxiety, Depression Endocrine/Metabolic: Reports: Obesity/MBI 30+ Immunologic: Reports: HIV - Tobacco Use Tobacco Use Status *Q: Current Every Day Tobacco User Years of Tobacco use: 2 Packs/Tins Daily: 0.5 - Caffeine Use Caffeine Use: Reports: Soda, Tea Caffeine Use Comment: 1 drink/month - Recreational Drug Use Recreational Drug Use: No ED ROS GENERAL - Review of Systems Review Of Systems: See Below ED EXAM, GENERAL - Physical Exam Exam: See Below Course - Vital Signs Last Recorded V/S: Last Vital Signs Temp 98.1 F 04/07/20 00:42 Pulse 125 H 04/07/20 00:42 Resp 18 04/07/20 00:42 BP 144/96 H 04/07/20 00:42 Pulse Ox 98 04/07/20 00:42 - Orders/Labs/Meds Orders: Active Orders 24 hr Category Date Time Status Blood Glucose Check, Bedside [RC] ONETIME Care 04/07/20 00:52 Ordered Labs: Laboratory Tests 04/07/20 04/07/20 04/07/20 Range/Units 00:40 00:40 00:59 POC Glucose 181 H (60-110) mg/dL Urine Color YELLOW Urine Appearance CLEAR Urine pH 6.0 (5.0-8.0) Ur Specific Brandon 1.020 (1.001-1.035) Urine Protein NEGATIVE (NEGATIVE) mg/dL Urine Glucose (UA) NEGATIVE (NEGATIVE) mg/dL Urine Ketones NEGATIVE (NEGATIVE) mg/dL Urine Occult Blood NEGATIVE (NEGATIVE) Urine Nitrite NEGATIVE (NEGATIVE) Urine Bilirubin NEGATIVE (NEGATIVE) Urine Urobilinogen 0.2 (<2.0) EU/dL Ur Leukocyte Esterase NEGATIVE (NEGATIVE) Urine HCG, Qual NEGATIVE (NEGATIVE) Departure - Departure Time of Disposition: 01:14 Disposition: Home, Self-Care 01 Condition: Good Clinical Impression: Yeast dermatitis, Vaginal irritation - Discharge Information Instructions: Skin Yeast Infection Referrals: Sloan Ordonez MD [Primary Care Provider] - Additional Instructions: Your urine test today is negative for infection. Your exam is consistent with a likely yeast infection of the skin in the perineal region. Please use your miconazole cream as directed and around the perineal region which would help with the symptoms. Please keep your appointment with your urologist. I would also recommend that you follow-up with an CORRECTIONAL AGENCY DIRECTOR doctor for further evaluation as well. The following information is given to patients seen in the emergency department who are being discharged to home. This information is to outline your options for follow-up care. We provide all patients seen in our emergency department with a follow-up referral. The need for follow-up, as well as the timing and circumstances, are variable depending upon the specifics of your emergency department visit. If you don't have a primary care physician on staff, we will provide you with a referral. We always advise you to contact your personal physician following an emergency department visit to inform them of the circumstance of the visit and for follow-up with them and/or the need for any referrals to a consulting specialist. The emergency department will also refer you to a specialist when appropriate. This referral assures that you have the opportunity for follow-up care with a specialist. All of these measure are taken in an effort to provide you with opti mal care, which includes your follow-up. Under all circumstances we always encourage you to contact your private physician who remains a resource for coordinating your care. When calling for follow-up care, please make the office aware that this follow-up is from your recent emergency room visit. If for any reason you are refused follow-up, please contact the [facility] Emergency Department at and asked to speak to the emergency department charge nurse. Sepsis Event Note (ED) - Evaluation Sepsis Screening Result: No Definite Risk - Focused Exam Vital Signs: Vital Signs Temp Pulse Resp BP Pulse Ox 04/07/20 00:42 98.1 F 125 H 18 144/96 H 98 - My Orders Last 24 Hours: My Active Orders 04/07/20 00:52 Blood Glucose Check, Bedside [RC] ONETIME - Assessment/Plan Last 24 Hours: My Active Orders 04/07/20 00:52 Blood Glucose Check, Bedside [RC] ONETIME
[2020-04-07 01:26] VITALS: BP 151/102; PULSE 112
== END 2020-04-07 01:25 | disposition home or self-care (01) ==
LOC: MW.ED 00:30
DX: B37.3 Candidiasis of vulva and vagina (principal); E11.9 Type 2 diabetes mellitus without complications; I10 Essential (primary) hypertension; J45.909 Unspecified asthma, uncomplicated; F41.9 Anxiety disorder, unspecified; F32.9 Major depressive disorder, single episode, unspecified; E66.9 Obesity, unspecified; F17.210 Nicotine dependence, cigarettes, uncomplicated; Z68.44 Body mass index [BMI] 60.0-69.9, adult; Z88.1 Allergy status to other antibiotic agents; Z88.2 Allergy status to sulfonamides; Z79.84 Long term (current) use of oral hypoglycemic drugs; Z79.899 Other long term (current) drug therapy
CPT/HCPCS: 81003; 81025; 82962; 99282; 99283

== ENCOUNTER 2020-04-11 19:30 | Emergency (ER) | payer MEDICARE, MEDICAID, OTHER ==
--- NOTE | 2020-04-11 20:00 | EDM.PDOC ---
ED HPI GENERAL MEDICAL PROBLEM - General Stated Complaint: HEADACHE Time Seen by Provider: 04/11/20 19:47 Source of Information: Reports: Patient History Limitations: Reports: No Limitations - History of Present Illness INITIAL COMMENTS - FREE TEXT/NARRATIVE: HISTORY AND PHYSICAL: History of present illness: Patient is a 29-year-old female who presents to the emergency room with complaints of fever, chills, nausea and headache. She states she has had subjective fever and chills with nausea over the past 3 days which is only progressively getting worse. She is feeling slightly short of breath and having a dry nonproductive cough, infrequent -started today. She also has a generalized headache which Tylenol and ibuprofen have not helped. She is concerned that she may have COVID-19 as her mother who lives with her has the same symptoms. She has been out into the community routinely. Patient denies any change in vision, syncope or near syncope. Denies any chest pain, back pain, or neck pain/stiffness. Denies any abdominal pain, vomiting, diarrhea, constipation or dysuria. Has not noted any blood in urine or stool. Denies any chance of . Patient has been eating and drinking less than normal, but trying to "keep up on fluids". Review of systems: As per history of present illness and below otherwise all systems reviewed and negative. Past medical history: As per history of present illness and as reviewed below otherwise noncontributory. Surgical history: As per history of present illness and as reviewed below otherwise noncontributory. Social history: See social history for further information Family history: As per history of present illness and as reviewed below otherwise noncontributory. Physical exam: General: Well developed and well nourished. Alert and orientated x 3. Nontoxic in appearance and in no acute distress. Vital signs are stable and have been reviewed by me. Nursing notes were reviewed. HEENT: Atraumatic, normocephalic, pupils equal and reactive bilaterally, negative for conjunctival pallor or scleral icterus, mucous membranes moist, TMs normal bilaterally, throat clear, neck supple, nontender, trachea midline. No drooling or trismus noted. No meningeal signs. No hot potato voice noted. Lungs: Clear to auscultation, breath sounds equal bilaterally, chest nontender. Normal work of breathing, no accessory muscles used. Heart: S1S2, regular rate and rhythm without overt murmur Abdomen: Soft, obese, nontender. Negative for masses or hepatosplenomegaly. Negative for costovertebral tenderness. Skin: Intact, warm, dry. No lesions or rashes noted. Hematologic: No petechiae or purpra. Mucosa appropriate color and normal nail bed color and refill. Extremities: Atraumatic, moves all extremities per self without difficulty or deficits, negative for cords or calf pain. Neurovascular unremarkable. Neuro: Awake, alert, oriented. Cranial nerves II through XII unremarkable. Cerebellum unremarkable. Motor and sensory unremarkable throughout. Exam nonfocal. Psychiatric: Mood and affect are appropriate. Normal thought process. Answering questions appropriately. Notes: CXR shows mild bibasilar subsegmental atelectasis is noted. Negative COVID test. I have spoken with the patient/caregiver and discussed today's findings, in addition to providing specific details for plan of care. Reassessment at the time of disposition demonstrates that the patient is in no acute distress. The patient has remained stable throughout the entire ED visit and is without objective evidence for acute process requiring urgent intervention or ho spitalization. The patient is stable for discharge, counseling was provided and we discussed in great detail signs and symptoms that would prompt them to return to the Emergency Department. Medication, follow up and supportive care measures were reviewed and discussed. Voices understanding and is agreeable to plan of care. Denies any further questions or concerns at this time. Diagnostics: CXR, COVID-19 Therapeutics: None Prescription: None Impression: Viral URI Plan: 1. Today your chest x-ray and COVID screening was negative. 2. You can alternate Tylenol and Ibuprofen as needed for pain management. 3. We encourage you to follow up with your primary care provider and/or recommended specialist in the next few days for re-evaluation and further care/management. If your symptoms should worsen, new symptoms develop or any of the signs and symptoms we discussed should arise please return to the emergency room or call 911 (if needed). Definitive disposition and diagnosis as appropriate pending reevaluation and review of above. Headache Pain Score (Numeric/FACES): 5 - Related Data Allergies Allergy/AdvReac Type Severity Reaction Status Date / Time ciprofloxacin [From Cipro] Allergy Rash Verified 04/11/20 19:46 sulfamethoxazole Allergy Nausea Verified 04/11/20 19:46 [From Bactrim] trimethoprim [From Bactrim] Allergy Nausea Verified 04/11/20 19:46 Home Meds: Home Meds LORazepam [Ativan] 0.5 mg PO DAILY 04/01/14 [History] metFORMIN [metFORMIN XR] 1,000 mg PO BID 05/27/14 [History] Albuterol [Ventolin HFA] 2 puff INH BID PRN 10/21/15 [History] Clobetasol Propionate [Temovate] 30 gm TOP DAILY 10/21/15 [History] Lisinopril 10 mg PO DAILY 09/29/18 [History] ClomiPRAMINE [ClomiPRAMINE HCl] 2 cap PO DAILY 08/26/19 [History] Fluticasone Propionate [Flovent] 1 inh NASBOTH ASDIRECTED 08/26/19 [History] desogestreL-ethinyl estradioL [Reclipsen 28 Day Tablet] 1 tab PO DAILY 08/26/19 [History] Sertraline HCl [Zoloft] 150 mg PO DAILY 10/21/19 [History] diphenhydrAMINE [Benadryl] 25 mg PO QID PRN #15 tablet 02/01/20 [Rx] Clotrimazole [Clotrimazole 1%] 30 ml TOP BID 30 Days #1 bottle 02/20/20 [Rx] Fluconazole [Diflucan] 150 mg PO ONETIME #1 tab 03/02/20 [Rx] Lidocaine 5% 1 applic TOP QID PRN 03/02/20 [History] Nitrofurantoin Monohyd/M-Cryst [Macrobid 100 mg Capsule] 100 mg PO BID #14 capsule 03/02/20 [Rx] Past Medical History - Past Health History Medical/Surgical History: Denies Medical/Surgical History HEENT History: Reports: None Cardiovascular History: Reports: Hypertension, Other (See Below) Other Cardiovascular History: non specific chest pains Respiratory History: Reports: Asthma Gastrointestinal History: Reports: Other (See Below) Other Gastrointestinal History: non specific abd pains Genitourinary History: Reports: UTI, Recurrent, Other (See Below) Other Genitourinary History: chronic uti's, vaginal candidiasis ORGAN RECOVERY COORDINATOR History: Reports: None Musculoskeletal History: Reports: Back Pain, Chronic Other Musculoskeletal History: from UTI Neurological History: Reports: None Psychiatric History: Reports: Anxiety, Depression, OCD Endocrine/Metabolic History: Reports: Diabetes, Type II, Obesity/BMI 30+ 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 Supervisor [employer]: None Hematologic History: Reports: None Immunologic History: Reports: None Oncologic (Cancer) History: Reports: None Dermatologic History: Reports: Psoriasis Other Dermatologic History: on her scalp - Infectious Disease History Infectious Disease History: Reports: None - Past Surgical History Head Surgeries/Procedures: Reports: None HEENT Surgical History: Reports: Adenoidectomy, Oral Surgery, Tonsillectomy Cardiovascular Surgical History: Reports: None Respiratory Surgical History: Reports: None GI Surgical History: Reports: None Female Surgical History: Reports: None, Other (See Below) Other Female Surgeries/Procedures: Cystoscopy Endocrine Surgical History: Reports: None Musculoskeletal Surgical History: Reports: None Social & Family History - Family History Family Medical History: Noncontributory Psychiatric: Reports: Anxiety, Depression Endocrine/Metabolic: Reports: Obesity/MBI 30+ Immunologic: Reports: HIV - Caffeine Use Caffeine Use: Reports: Soda, Tea Caffeine Use Comment: 1 drink/month ED ROS GENERAL - Review of Systems Review Of Systems: Comprehensive ROS is negative, except as noted in HPI. - Physical Exam Exam: See Below (See dictation) Course - Vital Signs Last Recorded V/S: Last Vital Signs Temp 98.1 F 04/11/20 19:43 Pulse 113 H 04/11/20 19:43 Resp 18 04/11/20 19:43 BP 150/101 H 04/11/20 19:43 Pulse Ox 96 04/11/20 19:43 - Orders/Labs/Meds Orders: Active Orders 24 hr Category Date Time Status CORONAVIRUS COVID-19 PCR PHL Stat Lab 04/11/20 20:03 Received Labs: Laboratory Tests 04/11/20 Range/Units 20:03 SARS CoV-2 RNA Rapid TIGIST NEGATIVE (NEGATIVE) Departure - Departure Time of Disposition: 20:37 Disposition: Home, Self-Care 01 Clinical Impression: Viral URI - Discharge Information Instructions: Viral Respiratory Infection, [id number] Referrals: Sloan Ordonez MD [Primary Care Provider] - Additional Instructions: The following information is given to patients seen in the emergency department who are being discharged to home. This information is to outline your options for follow-up care. We provide all patients seen in our emergency department with a follow-up referral. The need for follow-up, as well as the timing and circumstances, are variable depending upon the specifics of your emergency department visit. If you don't have a primary care physician on staff, we will provide you with a referral. We always advise you to contact your personal physician following an emergency department visit to inform them of the circumstance of the visit and for follow-up with them and/or the need for any referrals to a consulting specialist. The emergency department will also refer you to a specialist when appropriate. This referral assures that you have the opportunity for follow-up care with a specialist. All of these measure are taken in an effort to provide you with optimal care, which includes your follow-up. Under all circumstances we always encourage you to contact your private physician who remains a resource for coordinating your care. When calling for follow-up care, please make the office aware that this follow-up is from your recent emergency room visit. If for any reason you are refused follow-up, please contact the [facility] Emergency Department at and asked to speak to the emergency department charge nurse. [facility] [address] [place] [id number] [place] [address] Thank you for choosing the [facility] emergency department in [place] for your medical needs today. It was a pleasure caring for you. Today you were seen in the emergency department for upper respiratory symptoms. 1. Today your chest x-ray and COVID screening was negative. 2. You can alternate Tylenol and Ibuprofen as needed for pain management. 3. We encourage you to follow up with your primary care provider and/or recommended specialist in the next few days for re-evaluation and further care/management. If your symptoms should worsen, new symptoms develop or any of the signs and symptoms we discussed should arise please return to the emergency room or call 911 (if needed). Sepsis Event Note (ED) - Focused Exam Vital Signs: Vital Signs Temp Pulse Resp BP Pulse Ox 04/11/20 19:43 98.1 F 113 H 18 150/101 H 96 - My Orders Last 24 Hours: My Active Orders 04/11/20 20:03 CORONAVIRUS COVID-19 PCR PHL Stat - Assessment/Plan Last 24 Hours: My Active Orders 04/11/20 20:03 CORONAVIRUS COVID-19 PCR PHL Stat
--- NOTE | 2020-04-11 20:08 | CR ---
INDICATION: Chest pain, shortness of breath TECHNIQUE: Chest radiograph 1 view COMPARISON: None FINDINGS: Severe degradation of image quality noted due to body habitus. Mediastinum: The mediastinum is normal in appearance. The heart silhouette is normal in size and morphology. Lung: Mild bibasilar subsegmental atelectasis is noted. No sign of pleural effusion seen. No pneumothorax is identified. Bone and Soft tissue: Unremarkable for age. IMPRESSION: 1. Mild bibasilar subsegmental atelectasis is noted. Dictated by: Clarence Orr MD @ 04/11/2020 20:07:16 (Electronically Signed)
[2020-04-11] MEDS ORDERED: Acetaminophen 325 MG Tab PO ONE (20:39)
[2020-04-11 22:06] VITALS: BP 139/76; PULSE 105
== END 2020-04-11 20:52 | disposition home or self-care (01) ==
LOC: MW.ED 19:30
DX: J06.9 Acute upper respiratory infection, unspecified (principal); I10 Essential (primary) hypertension; E66.9 Obesity, unspecified; E11.9 Type 2 diabetes mellitus without complications; F41.9 Anxiety disorder, unspecified; F32.9 Major depressive disorder, single episode, unspecified; J45.909 Unspecified asthma, uncomplicated; Z20.828 Contact with and (suspected) exposure to other viral communicable diseases; Z88.2 Allergy status to sulfonamides; Z88.1 Allergy status to other antibiotic agents; Z79.84 Long term (current) use of oral hypoglycemic drugs; Z79.899 Other long term (current) drug therapy
CPT/HCPCS: 71045; 99284; A9270; U0002; 99283

== ENCOUNTER 2020-05-03 16:57 | Emergency (ER) | payer MEDICARE, MEDICAID ==
--- NOTE | 2020-05-03 18:29 | EDM.PDOC ---
<Goyo Neri - Last Filed: 05/03/20 18:27> ED HPI GENERAL MEDICAL PROBLEM - General Chief Complaint: Respiratory Problem Stated Complaint: sob bodyache cold and hot flashs Time Seen by Provider: 05/03/20 17:32 Source of Information: Reports: Patient History Limitations: Reports: No Limitations - History of Present Illness INITIAL COMMENTS - FREE TEXT/NARRATIVE: 29-year-old female past medical history anxiety, depression, obesity, recurrent vaginitis, recurrent UTIs presents for body aches, subjective fever, shortness of breath, cough, sore throat, headaches. She is concerned about COVID-19 infection. She notes positive exposure last week. She presents with her mother who has similar symptoms. - Related Data Allergies Allergy/AdvReac Type Severity Reaction Status Date / Time ciprofloxacin [From Cipro] Allergy Rash Verified 05/03/20 19:01 sulfamethoxazole Allergy Nausea Verified 05/03/20 19:01 [From Bactrim] trimethoprim [From Bactrim] Allergy Nausea Verified 05/03/20 19:01 Home Meds: Home Meds LORazepam [Ativan] 0.5 mg PO DAILY 04/01/14 [History] metFORMIN [metFORMIN XR] 1,000 mg PO BID 05/27/14 [History] Albuterol [Ventolin HFA] 2 puff INH BID PRN 10/21/15 [History] Clobetasol Propionate [Temovate] 30 gm TOP DAILY 10/21/15 [History] Lisinopril 10 mg PO DAILY 09/29/18 [History] ClomiPRAMINE [ClomiPRAMINE HCl] 2 cap PO DAILY 08/26/19 [History] Fluticasone Propionate [Flovent] 1 inh NASBOTH ASDIRECTED 08/26/19 [History] desogestreL-ethinyl estradioL [Reclipsen 28 Day Tablet] 1 tab PO DAILY 08/26/19 [History] Sertraline HCl [Zoloft] 150 mg PO DAILY 10/21/19 [History] diphenhydrAMINE [Benadryl] 25 mg PO QID PRN #15 tablet 02/01/20 [Rx] Clotrimazole [Clotrimazole 1%] 30 ml TOP BID 30 Days #1 bottle 02/20/20 [Rx] Lidocaine 5% 1 applic TOP QID PRN 03/02/20 [History] Nitrofurantoin Monohyd/M-Cryst [Macrobid 100 mg Capsule] 100 mg PO BID #14 capsule 03/02/20 [Rx] Past Medical History - Past Health History Medical/Surgical History: Denies Medical/Surgical History HEENT History: Reports: None Cardiovascular History: Reports: Hypertension, Other (See Below) Other Cardiovascular History: non specific chest pains Respiratory History: Reports: Asthma Gastrointestinal History: Reports: Other (See Below) Other Gastrointestinal History: non specific abd pains Genitourinary History: Reports: UTI, Recurrent, Other (See Below) Other Genitourinary History: chronic uti's, vaginal candidiasis CLAIM SPECIALIST History: Reports: None Musculoskeletal History: Reports: Back Pain, Chronic Other Musculoskeletal History: from UTI Neurological History: Reports: None Psychiatric History: Reports: Anxiety, Depression, OCD Endocrine/Metabolic History: Reports: Diabetes, Type II, Obesity/BMI 30+ 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 Residential Director: None Hematologic History: Reports: None Immunologic History: Reports: None Oncologic (Cancer) History: Reports: None Dermatologic History: Reports: Psoriasis Other Dermatologic History: on her scalp - Infectious Disease History Infectious Disease History: Reports: None - Past Surgical History Head Surgeries/Procedures: Reports: None HEENT Surgical History: Reports: Adenoidectomy, Oral Surgery, Tonsillectomy Cardiovascular Surgical History: Reports: None Respiratory Surgical History: Reports: None GI Surgical History: Reports: None Female Surgical History: Reports: None, Other (See Below) Other Female Surgeries/Procedures: Cystoscopy Endocrine Surgical History: Reports: None Musculoskeletal Surgical History: Reports: None Social & Family History - Family History Family Medical History: No Pertinent Family History Psychiatric: Reports: Anxiety, Depression Endocrine/Metabolic: Reports: Obesity/MBI 30+ Immunologic: Reports: HIV - Caffeine Use Caffeine Use: Reports: Soda, Tea Caffeine Use Comment: 1 drink/month ED ROS GENERAL - Review of Systems Review Of Systems: Comprehensive ROS is negative, except as noted in HPI. ED EXAM, GENERAL - Physical Exam Exam: See Below Exam Limited By: No Limitations General Appearance: Alert, WD/WN, No Apparent Distress, Anxious Throat/Mouth: Normal Voice, No Airway Compromise Head: Atraumatic, Normocephalic Neck: Normal Inspection Respiratory/Chest: No Respiratory Distress, Lungs Clear, Normal Breath Sounds, No Accessory Muscle Use Cardiovascular: Normal Peripheral Pulses, Tachycardia Extremities: Normal Inspection Neurological: Alert Psychiatric: Normal Affect, Normal Mood, Anxious Skin Exam: Warm, Dry, Intact Course - Re-Assessments/Exams Free Text/Narrative Re-Assessment/Exam: 05/03/20 18:29 Patient presents with concern for COVID-19 infection. She was noted on my exam to have tachycardia to the 120s, O2 sat of 92% on room air. She did smell heavily of cigarette smoke. Will get COVID-19 testing and chest x-ray. Departure - Departure Disposition: Home, Self-Care 01 Clinical Impression: Viral illness - Discharge Information Instructions: Viral Illness, Adult Referrals: Sloan Ordonez MD [Primary Care Provider] - Forms: ED Department Discharge Additional Instructions: The following information is given to patients seen in the emergency department who are being discharged to home. This information is to outline your options for follow-up care. We provide all patients seen in our emergency department with a follow-up referral. The need for follow-up, as well as the timing and circumstances, are variable depending upon the specifics of your emergency department visit. If you don't have a primary care physician on staff, we will provide you with a referral. We always advise you to contact your personal physician following an emergency department visit to inform them of the circumstance of the visit and for follow-up with them and/or the need for any referrals to a consulting specialist. The emergency department will also refer you to a specialist when appropriate. This referral assures that you have the opportunity for follow-up care with a specialist. All of these measure are taken in an effort to provide you with optimal care, which includes your follow-up. Under all circumstances we always encourage you to contact your private physician who remains a resource for coordinating your care. When calling for follow-up care, please make the office aware that this follow-up is from your recent emergency room visit. If for any reason you are refused follow-up, please contact the [facility] Emergency Department at and asked to speak to the emergency department charge nurse. Please follow up with your primary care physician. If you do not have a primary care physician, see below: [facility] [address] [place] [address] [phone] [facility] [address] [place] [address] <Mark Sanchez - Last Filed: 05/03/20 21:00> Course - Vital Signs Last Recorded V/S: Last Vital Signs Temp 97.4 F 05/03/20 19:05 Pulse 107 H 05/03/20 19:05 Resp 18 05/03/20 19:05 BP 139/84 05/03/20 19:05 Pulse Ox 95 05/03/20 19:05 - Orders/Labs/Meds Orders: Active Orders 24 hr Category Date Time Status CORONAVIRUS COVID-19 PCR PHL Stat Lab 05/03/20 20:10 Received Labs: Laboratory Tests 05/03/20 05/03/20 Range/Units 20:03 20:10 Urine Color YELLOW Urine Appearance CLOUDY Urine pH 5.5 (5.0-8.0) Ur Specific [place] >= 1.030 (1.001-1.035) Urine Protein NEGATIVE (NEGATIVE) mg/dL Urine Glucose (UA) 100 H (NEGATIVE) mg/dL Urine Ketones NEGATIVE (NEGATIVE) mg/dL Urine Occult Blood NEGATIVE (NEGATIVE) Urine Nitrite POSITIVE H (NEGATIVE) Urine Bilirubin NEGATIVE (NEGATIVE) Urine Urobilinogen 0.2 (<2.0) EU/dL Ur Leukocyte Esterase NEGATIVE (NEGATIVE) Urine RBC NONE SEEN (0-2/HPF) Urine WBC 0-1 (0-5/HPF) Ur Epithelial Cells MODERATE (NONE-FEW) Urine Bacteria 2+ H (NEGATIVE) Urine Mucus LIGHT (NONE-MOD) SARS CoV-2 RNA Rapid TIGIST NEGATIVE (NEGATIVE) Meds: Medications Discontinued Medications Generic Name Dose Route Start Last Admin Trade Name Freq PRN Reason Stop Dose Admin Acetaminophen 1,000 mg 05/03/20 18:30 05/03/20 19:26 Tylenol Extra Strength PO 05/03/20 18:31 1,000 mg ONETIME ONE Administration Ibuprofen 600 mg 05/03/20 18:30 05/03/20 19:26 Motrin PO 05/03/20 18:31 600 mg ONETIME ONE Administration Departure - Departure Time of Disposition: 20:59 Condition: Good - Discharge Information *PRESCRIPTION DRUG MONITORING PROGRAM REVIEWED*: Not Applicable *COPY OF PRESCRIPTION DRUG MONITORING REPORT IN PATIENT CALLUM: Not Applicable Sepsis Event Note (ED) - Focused Exam Vital Signs: Vital Signs Temp Pulse Resp BP Pulse Ox 05/03/20 19:05 97.4 F 107 H 18 139/84 95
[2020-05-03] MEDS ORDERED: Acetaminophen 500 MG Tab PO ONE (18:30)
[2020-05-03] MEDS ORDERED: Ibuprofen 600 MG Tab PO ONE (18:30)
--- NOTE | 2020-05-03 19:06 | CR ---
INDICATION: Shortness of breath, COVID-19 TECHNIQUE: Chest radiograph 1 view COMPARISON: 04/11/2020 FINDINGS: Severe degradation of image quality noted due o body habitus. Mediastinum: The mediastinum is normal in appearance. The heart silhouette is normal in size and morphology. Lung: Both lungs are unremarkable in appearance. No sign of pleural effusion seen. No pneumothorax is identified. Bone and Soft tissue: Unremarkable for age. IMPRESSION: 1. No acute cardiopulmonary disease is seen. Dictated by: Clarence Orr MD @ 05/03/2020 19:03:54 (Electronically Signed)
--- NOTE | 2020-05-03 19:40 | PCM.SN.2 ---
- Free Text/Narrative Note: Patient was signed out to me by previous provider. Patient presented with subjective fever and shortness of breath. Patient is satting greater than 95% on room air. Patient heart rate is noted to be in the low 100s but looking at previous vital signs patient heart rate is seems to be at his baseline. Patient x-ray is clear pending Covid test patient likely be discharged home. Patient also complains of urinary symptoms we will send UA. Covid test is negative oxygen levels been greater than 95%. Patient UA also negative will be discharged home.
[2020-05-03 22:16] VITALS: BP 136/82; PULSE 99
== END 2020-05-03 21:24 | disposition home or self-care (01) ==
LOC: MW.ED 16:57
DX: B34.9 Viral infection, unspecified (principal); I10 Essential (primary) hypertension; J45.909 Unspecified asthma, uncomplicated; F41.9 Anxiety disorder, unspecified; F32.9 Major depressive disorder, single episode, unspecified; E11.9 Type 2 diabetes mellitus without complications; E66.9 Obesity, unspecified; Z68.44 Body mass index [BMI] 60.0-69.9, adult; Z20.828 Contact with and (suspected) exposure to other viral communicable diseases; Z88.1 Allergy status to other antibiotic agents; Z88.2 Allergy status to sulfonamides
CPT/HCPCS: 71045; 81001; 99285; A9270; U0002; 99282

== ENCOUNTER 2020-05-28 23:57 | Emergency (ER) | payer MEDICARE, MEDICAID ==
--- NOTE | 2020-05-29 00:08 | EDM.PDOC ---
ED HPI GENERAL MEDICAL PROBLEM - General Chief Complaint: Trauma Stated Complaint: RT ANKLE PAIN Time Seen by Provider: 05/29/20 00:02 Source of Information: Reports: Patient History Limitations: Reports: No Limitations - History of Present Illness INITIAL COMMENTS - FREE TEXT/NARRATIVE: Patient is a 29-year-old female who presented with AMS for ankle injury. Patient was at home and states she was drinking more than she normally does and while dancing twisted her ankle and fell. Patient denies hitting her head but patient mother told EMS she is not sure the patient hit her head and not when she fell. Patient denies any other injuries. Patient is tearful on examination stating that she is sorry for, and wasting her time. Per staffing patient is a frequent visitor to the ER and is normally exit this at her baseline but seems a little bit worse due to the alcohol. Right Ankle Pain Score (Numeric/FACES): 10 - Related Data Allergies Allergy/AdvReac Type Severity Reaction Status Date / Time ciprofloxacin [From Cipro] Allergy Rash Verified 05/29/20 00:20 sulfamethoxazole Allergy Nausea Verified 05/29/20 00:20 [From Bactrim] trimethoprim [From Bactrim] Allergy Nausea Verified 05/29/20 00:20 Home Meds: Home Meds LORazepam [Ativan] 0.5 mg PO DAILY 04/01/14 [History] metFORMIN [metFORMIN XR] 1,000 mg PO BID 05/27/14 [History] Albuterol [Ventolin HFA] 2 puff INH BID PRN 10/21/15 [History] Clobetasol Propionate [Temovate] 30 gm TOP DAILY 10/21/15 [History] Lisinopril 10 mg PO DAILY 09/29/18 [History] ClomiPRAMINE [ClomiPRAMINE HCl] 2 cap PO DAILY 08/26/19 [History] Fluticasone Propionate [Flovent] 1 inh NASBOTH ASDIRECTED 08/26/19 [History] desogestreL-ethinyl estradioL [Reclipsen 28 Day Tablet] 1 tab PO DAILY 08/26/19 [History] Sertraline HCl [Zoloft] 150 mg PO DAILY 10/21/19 [History] diphenhydrAMINE [Benadryl] 25 mg PO QID PRN #15 tablet 02/01/20 [Rx] Clotrimazole [Clotrimazole 1%] 30 ml TOP BID 30 Days #1 bottle 02/20/20 [Rx] Lidocaine 5% 1 applic TOP QID PRN 03/02/20 [History] Nitrofurantoin Monohyd/M-Cryst [Macrobid 100 mg Capsule] 100 mg PO BID #14 capsule 03/02/20 [Rx] Past Medical History - Past Health History Medical/Surgical History: Denies Medical/Surgical History HEENT History: Reports: None Cardiovascular History: Reports: Hypertension, Other (See Below) Other Cardiovascular History: non specific chest pains Respiratory History: Reports: Asthma Gastrointestinal History: Reports: Other (See Below) Other Gastrointestinal History: non specific abd pains Genitourinary History: Reports: UTI, Recurrent, Other (See Below) Other Genitourinary History: chronic uti's, vaginal candidiasis CLIENT SUPPORT PROFESSIONAL History: Reports: None Musculoskeletal History: Reports: Back Pain, Chronic Other Musculoskeletal History: from UTI Neurological History: Reports: None Psychiatric History: Reports: Anxiety, Depression, OCD Endocrine/Metabolic History: Reports: Diabetes, Type II, Obesity/BMI 30+ 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 Eye Dropper Assembler: None Hematologic History: Reports: None Immunologic History: Reports: None Oncologic (Cancer) History: Reports: None Dermatologic History: Reports: Psoriasis Other Dermatologic History: on her scalp - Infectious Disease History Infectious Disease History: Reports: None - Past Surgical History Head Surgeries/Procedures: Reports: None HEENT Surgical History: Reports: Adenoidectomy, Oral Surgery, Tonsillectomy Cardiovascular Surgical History: Reports: None Respiratory Surgical History: Reports: None GI Surgical History: Reports: None Female Surgical History: Reports: None, Other (See Below) Other Female Surgeries/Procedures: Cystoscopy Endocrine Surgical History: Reports: None Musculoskeletal Surgical History: Reports: None Social & Family History - Family History Family Medical History: No Pertinent Family History Psychiatric: Reports: Anxiety, Depression Endocrine/Metabolic: Reports: Obesity/MBI 30+ Immunologic: Reports: HIV - Caffeine Use Caffeine Use: Reports: Coffee, Energy Drinks Caffeine Use Comment: 1 drink/month Review of Systems - Review of Systems Review Of Systems: See Below Constitutional: Reports: No Symptoms Eyes: Reports: No Symptoms Ears: Reports: No Symptoms Nose: Reports: No Symptoms Mouth/Throat: Reports: No Symptoms Respiratory: Reports: No Symptoms Cardiovascular: Reports: No Symptoms GI/Abdominal: Reports: No Symptoms Genitourinary: Reports: No Symptoms Musculoskeletal: Reports: Leg Pain Skin: Reports: No Symptoms Neurological: Reports: No Symptoms Psychiatric: Reports: No Symptoms ED EXAM, GENERAL - Physical Exam Exam: See Below Exam Limited By: No Limitations General Appearance: Alert, No Apparent Distress Eye Exam: Bilateral Eye: EOMI, PERRL Head: Atraumatic Respiratory/Chest: No Respiratory Distress, Lungs Clear, Normal Breath Sounds Cardiovascular: Normal Peripheral Pulses, Regular Rate, Rhythm Peripheral Pulses: 2+: Dorsalis Pedis (L), Dorsalis Pedis (R) GI/Abdominal: Normal Bowel Sounds, Soft, Non-Tender Extremities: Normal Inspection, Normal Range of Motion. No: Non-Tender, Joint Swelling Neurological: Alert, Oriented Course - Vital Signs Last Recorded V/S: Last Vital Signs Temp 97.4 F 05/29/20 00:25 Pulse 115 H 05/29/20 00:25 Resp 25 H 05/29/20 00:25 BP 146/99 H 05/29/20 00:25 Pulse Ox 100 05/29/20 00:25 - Orders/Labs/Meds Labs: Laboratory Tests 05/29/20 05/29/20 Range/Units 00:50 00:50 WBC 9.35 (4.0-11.0) K/uL RBC 5.50 (4.30-5.90) M/uL Hgb 15.3 (12.0-16.0) g/dL Hct 45.0 (36.0-46.0) % MCV 81.8 (80.0-98.0) fL MCH 27.8 (27.0-32.0) pg MCHC 34.0 (31.0-37.0) g/dL RDW Std Deviation 39.8 (28.0-62.0) fl RDW Coeff of Nicky 14 (11.0-15.0) % Plt Count 294 (150-400) K/uL MPV 9.50 (7.40-12.00) fL Neut % (Auto) 58.2 (48.0-80.0) % Lymph % (Auto) 34.4 (16.0-40.0) % [place] % (Auto) 4.9 (0.0-15.0) % Eos % (Auto) 2.0 (0.0-7.0) % Baso % (Auto) 0.5 (0.0-1.5) % Neut # (Auto) 5.4 (1.4-5.7) K/uL Lymph # (Auto) 3.2 H (0.6-2.4) K/uL [place] # (Auto) 0.5 (0.0-0.8) K/uL Eos # (Auto) 0.2 (0.0-0.7) K/uL Baso # (Auto) 0.1 (0.0-0.1) K/uL Sodium 137 (136-145) mmol/L Potassium 3.7 (3.5-5.1) mmol/L Chloride 102 (98-107) mmol/L Carbon Dioxide 22.3 (21.0-32.0) mmol/L BUN 10 (7.0-18.0) mg/dL Creatinine 0.8 (0.6-1.0) mg/dL Est Cr Clr Drug Dosing 91.21 mL/min Estimated GFR (MDRD) > 60.0 ml/min Glucose 251 H (74-106) mg/dL Calcium 8.6 (8.5-10.1) mg/dL Total Bilirubin 0.1 L (0.2-1.0) mg/dL AST 10 L (15-37) IU/L ALT 15 (14-63) IU/L Alkaline Phosphatase 70 (46-116) U/L Total Protein 6.6 (6.4-8.2) g/dL Albumin 3.1 L (3.4-5.0) g/dL Globulin 3.5 (2.6-4.0) g/dL Albumin/Globulin Ratio 0.9 (0.9-1.6) HCG, Quant < 1.0 mIU/mL Ethyl Alcohol 213 mg/dL Meds: Medications Discontinued Medications Generic Name Dose Route Start Last Admin Trade Name Freq PRN Reason Stop Dose Admin Ondansetron HCl Confirm 05/29/20 00:33 Zofran Administered 05/29/20 00:34 Dose 4 mg .ROUTE .STK-MED ONE - Re-Assessments/Exams Free Text/Narrative Re-Assessment/Exam: 05/29/20 02:15 Radiologist called with concerns about patient CT C-spine. There is some possible misalignment of C4-C5. This could also be due to patient body habitus or patient being rotated. But since patient fell radiologist feels that patient will need an MRI. There is no MRI available at this hospital. We will transfer patient to have MRI done tonight. Patient has been accepted at [facility] for the MRI. Departure - Departure Time of Disposition: 02:17 Disposition: DC/Tfer to Acute Hospital 02 Condition: Good Clinical Impression: Lateral malleolar fracture Fall Qualifiers: Encounter type: initial encounter Qualified Code(s): W19.XXXA - Unspecified fall, initial encounter - Discharge Information *PRESCRIPTION DRUG MONITORING PROGRAM REVIEWED*: Not Applicable *COPY OF PRESCRIPTION DRUG MONITORING REPORT IN PATIENT CALLUM: Not Applicable Instructions: Nondisplaced Fibular Ankle Fracture Treated With Immobilization, Adult Forms: ED Department Discharge Additional Instructions: Please follow-up with orthopedics next week. Please return to ED if you have increased pain in your ankle or numbness and tingling. Sepsis Event Note (ED) - Focused Exam Vital Signs: Vital Signs Temp Pulse Resp BP Pulse Ox 05/29/20 00:25 97.4 F 115 H 25 H 146/99 H 100 05/28/20 23:57 97.4 F 115 H 20 146/99 H 100 - Assessment/Plan Plan: Patient is a 29-year-old female who presents today for ankle pain. Patient reports she also dropped a large amount of alcohol that she normally does. Will obtain x-ray and CT scan of the head is unsure if patient hit her head when she fell.
[2020-05-29] MEDS ORDERED: Ondansetron 4 MG/2 ML SDV ONE (00:33)
[2020-05-29] MEDS ORDERED: Ondansetron 4 MG/2 ML SDV IVPUSH ONE (00:34)
--- NOTE | 2020-05-29 01:13 | CT ---
CT HEAD DATE: 05/29/2020 CLINICAL HISTORY: Patient with fall and alcoholic intoxication, loss of consciousness. TECHNIQUE: Standard CT scanning of the head was performed. COMPARISON: None. FINDINGS: There is no intracranial hemorrhage. The figueroa matter-white matter differentiation is intact. The size of the ventricular system is normal for age. 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 There is no mass effect or midline shift. The calvarium is unremarkable. The orbits are unremarkable. The paranasal sinuses are unremarkable. The mastoid air cells are unremarkable. The soft tissues are unremarkable. IMPRESSION: 1. No intracranial hemorrhage or evidence of traumatic brain injury. 2. 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 A follow-up head CT in 6 months is recommended to document stability. Please note that all CT scans at this facility use dose modulation, iterative reconstruction, and/or weight-based dosing when appropriate to reduce radiation dose to as low as reasonably achievable. Dictated by: Valentina Sorensen MD @ 05/29/2020 01:13:09 (Electronically Signed)
--- NOTE | 2020-05-29 01:15 | CR ---
HISTORY: HISTORY COMPARISON: None available. FINDINGS: AP, lateral and oblique views of the right ankle were obtained for a total of three views. There is an acute, mildly displaced, oblique fracture of the distal fibula. There is 2 millimeters of lateral shift of the talus, with no sign of any associated fracture of the medial malleolus. The talar dome is intact. There is no sign of a joint effusion. There is moderate diffuse soft tissue swelling. No degenerative disease is seen. IMPRESSION: There is an acute, mildly displaced, oblique fracture of the lateral malleolus, with approximately 2 millimeters of lateral shift of the talus. No sign of any associated medial malleolar fracture. Dictated by Robert Stephens MD @ May 29 2020 1:12AM Signed by Dr. Robert Stephens @ May 29 2020 1:14AM
--- NOTE | 2020-05-29 01:30 | CT ---
CT CERVICAL SPINE DATE: 05/29/2020 HISTORY: Trauma. TECHNIQUE: Helical CT acquisition of the cervical spine was performed. Guy and sagittal reformations were performed and interpreted. COMPARISON: None. FINDINGS: Images are degraded by patient`s body habitus. There is no evidence of acute displaced fracture of the cervical spine. There is apparent malalignment of the spinous processes of C4 (leftward) and C5 (rightward), which is suggestive of rotatory subluxation of the cervical spine at this level. The vertebral body height is maintained. There are scattered degenerative changes in the cervical spine. The visualized prevertebral soft tissues are unremarkable. The visualized lung apices are unremarkable. IMPRESSION: Images are degraded by patient`s body habitus. 1. No acute displaced fracture. 2. Apparent malalignment of the spinous processes of C4 (leftward) and C5 (rightward) is suspicious for rotatory subluxation of the cervical spine at this level, although this could also be due to patient positioning at the time of scanning. Given the history of fall, further evaluation with an MRI of the cervical spine is recommended to assess for ligamentous injury as well as bone marrow edema in this region. Findings were discussed with Dr. Sanchez at 1:30 AM. Please note that all CT scans at this facility use dose modulation, iterative reconstruction, and/or weight-based dosing when appropriate to reduce radiation dose to as low as reasonably achievable. Dictated by: Valentina Sorensen MD @ 05/29/2020 01:29:20 (Electronically Signed)
[2020-05-29 01:40] LABS: BLOOD UREA NITROGEN,BUN 10 mg/dL (7.0-18.0); CARBON DIOXIDE,CO2 22.3 mmol/L (21.0-32.0); CHLORIDE,CL 102 mmol/L (98-107); GLUCOSE RANDOM 251 mg/dL (74-106); POTASSIUM,K 3.7 mmol/L (3.5-5.1); SODIUM,NA 137 mmol/L (136-145)
[2020-05-29 05:04] VITALS: BP 129/76; PULSE 103
== END 2020-05-29 03:55 ==
LOC: MW.ED 23:57
DX: S82.61XA Displaced fracture of lateral malleolus of right fibula, initial encounter for closed fracture (principal); I10 Essential (primary) hypertension; J45.909 Unspecified asthma, uncomplicated; E11.9 Type 2 diabetes mellitus without complications; E66.9 Obesity, unspecified; F41.9 Anxiety disorder, unspecified; F32.9 Major depressive disorder, single episode, unspecified; Z68.43 Body mass index [BMI] 50.0-59.9, adult; Z88.1 Allergy status to other antibiotic agents; Z88.2 Allergy status to sulfonamides; Z79.84 Long term (current) use of oral hypoglycemic drugs; Z90.49 Acquired absence of other specified parts of digestive tract; Z79.899 Other long term (current) drug therapy; X50.1XXA Overexertion from prolonged static or awkward postures, initial encounter; Y92.009 Unspecified place in unspecified non-institutional (private) residence as the place of occurrence of the external cause
CPT/HCPCS: 29515; 36415; 70450; 70450-26; 72125; 72125-26; 73610-26-RT; 73610-RT; 80053; 80307; 84702; 85025; 96374; 99284; 99285-25; J2405

== ENCOUNTER 2020-06-08 09:41 | Inpatient (IN) | payer MEDICARE, MEDICAID ==
[2020-06-08] MEDS ORDERED: Bupivacaine 0.25% 10 ML SDV ONE ×2 (09:56→15:15)
[2020-06-08] MEDS: Lactated Ringers 1,000 ML IV SCH ×2 (11:05→19:00)
[2020-06-08] MEDS ORDERED: Midazolam 1 MG/ML 2 ML SDV ONE ×2 (11:42→12:27)
[2020-06-08] MEDS ORDERED: Ondansetron 4 MG/2 ML SDV ONE ×2 (11:42→11:43)
[2020-06-08] MEDS ORDERED: fentaNYL 100 MCG/2 ML SDV ONE (11:42)
[2020-06-08] MEDS ORDERED: Glycopyrrolate 0.2 MG/ML SDV ONE (11:42)
[2020-06-08] MEDS ORDERED: Propofol 200 MG/20 ML SDV ONE (11:42)
[2020-06-08] MEDS ORDERED: Rocuronium Bromide 50 MG/5 ML Syringe ONE (11:42)
[2020-06-08] MEDS ORDERED: Ketorolac 30 MG/ML SDV ONE (11:42)
[2020-06-08] MEDS ORDERED: Lidocaine 2% 5 ML SDV ONE (11:42)
--- NOTE | 2020-06-08 11:43 | PCM.PREANE ---
Preanesthetic Assessment - Anesthesia/Transfusion/Family Hx Anesthesia History: Prior Anesthesia Without Reaction Family History of Anesthesia Reaction: No Transfusion History: No Prior Transfusion(s) Intubation History: Unknown - Review of Systems General: No Symptoms Pulmonary: No Symptoms Cardiovascular: No Symptoms Gastrointestinal: No Symptoms Neurological: No Symptoms Other: Reports: None - Physical Assessment Vital Signs: Last Vital Signs Temp 36.5 C 06/08/20 10:12 Pulse 112 H 06/08/20 10:12 Resp 18 06/08/20 10:12 BP 131/84 06/08/20 10:12 Pulse Ox 96 06/08/20 10:12 Height: 5 ft 4 in Weight: 163.293 kg ASA Class: 3 Mental Status: Alert & Oriented x3 Airway Class: Mallampati = 3 Dentition: Reports: Normal Dentition Thyro-Mental Finger Breadths: 3 Mouth Opening Finger Breadths: 3 ROM/Head Extension: Full Lungs: Clear to Auscultation, Normal Respiratory Effort Cardiovascular: Regular Rate, Regular Rhythm - Lab Values: Laboratory Last Values Urine HCG, Qual NEGATIVE (NEGATIVE) 06/08/20 10:05 - Allergies Allergies/Adverse Reactions: Allergies Allergy/AdvReac Type Severity Reaction Status Date / Time ciprofloxacin [From Cipro] Allergy Rash Verified 06/02/20 11:12 sulfamethoxazole Allergy Nausea Verified 06/02/20 11:12 [From Bactrim] trimethoprim [From Bactrim] Allergy Nausea Verified 06/02/20 11:12 - Blood Blood Available: No - Anesthesia Plan Pre-Op Medication Ordered: None - Acknowledgements Anesthesia Type Planned: General Anesthesia Pt an Appropriate Candidate for the Planned Anesthesia: Yes Alternatives and Risks of Anesthesia Discussed w Pt/Guardian: Yes Pt/Guardian Understands and Agrees with Anesthesia Plan: Yes PreAnesthesia Questionnaire - Past Health History Medical/Surgical History: Denies Medical/Surgical History HEENT History: Reports: Other (See Below) Other HEENT History: reading glasses Cardiovascular History: Reports: Hypertension Respiratory History: Reports: Asthma (mild) Gastrointestinal History: Reports: None Genitourinary History: Reports: UTI, Recurrent, Other (See Below) Other Genitourinary History: chronic uti's, vaginal candidiasis 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 Musculoskeletal History: Reports: Back Pain, Chronic Other Musculoskeletal History: intermittent back pain Neurological History: Reports: None Psychiatric History: Reports: Anxiety, Depression, OCD Endocrine/Metabolic History: Reports: Diabetes, Type II, Obesity/BMI 30+ (BMI 61.8) Hematologic History: Reports: None Immunologic History: Reports: None Oncologic (Cancer) History: Reports: None Dermatologic History: Reports: Psoriasis Other Dermatologic History: on her scalp & ears - Infectious Disease History Infectious Disease History: Reports: None - Past Surgical History Head Surgeries/Procedures: Reports: None HEENT Surgical History: Reports: Adenoidectomy, Oral Surgery, Tonsillectomy Other HEENT Surgeries/Procedures: removal of wisdom teeth Cardiovascular Surgical History: Reports: None Respiratory Surgical History: Reports: None GI Surgical History: Reports: None Female Surgical History: Reports: Other (See Below) Other Female Surgeries/Procedures: Cystoscopy Endocrine Surgical History: Reports: None Neurological Surgical History: Reports: None Musculoskeletal Surgical History: Reports: None Oncologic Surgical History: Reports: None Dermatological Surgical History: Reports: None - SUBSTANCE USE Tobacco Use Status *Q: Current Every Day Tobacco User Tobacco Use Within Last Twelve Months: Cigarettes - HOME MEDS Home Medications: Home Meds LORazepam [Ativan] 0.5 mg PO DAILY PRN 04/01/14 [History] metFORMIN [metFORMIN XR] 1,000 mg PO BID 05/27/14 [History] Albuterol [Ventolin HFA] 2 puff INH BID PRN 10/21/15 [History] Clobetasol Propionate [Temovate] 30 gm TOP DAILY PRN 10/21/15 [History] Lisinopril 10 mg PO DAILY 09/29/18 [History] ClomiPRAMINE [ClomiPRAMINE HCl] 2 cap PO DAILY 08/26/19 [History] Fluticasone Propionate [Flovent] 1 spray NASBOTH ASDIRECTED PRN 08/26/19 [History] desogestreL-ethinyl estradioL [Reclipsen 28 Day Tablet] 1 tab PO DAILY 08/26/19 [History] Sertraline HCl [Zoloft] 200 mg PO DAILY 10/21/19 [History] diphenhydrAMINE [Benadryl] 25 mg PO QID PRN #15 tablet 02/01/20 [Rx] Lidocaine 5% 1 applic TOP QID PRN 03/02/20 [History] Clotrimazole [Clotrimazole 1%] 30 ml TOP BID PRN 06/02/20 [History] - CURRENT (IN HOUSE) MEDS Current Meds: Current Medications Cefazolin Sodium/Dextrose 3 gm (/ Premix) 150 mls @ 200 mls/hr IV ONCALL DEBBY Lactated Ringer's (Ringers, Lactated) 1,000 mls @ 100 mls/hr IV ASDIRECTED [facility] Last Admin: 06/08/20 11:05 Dose: 100 mls/hr Documented by: Discontinued Medications Bupivacaine HCl (Sensorcaine-Mpf 0.25%) Confirm Administered Dose 10 ml .ROUTE .STK-MED ONE Stop: 06/08/20 09:57
[2020-06-08] MEDS ORDERED: Midazolam 1 MG/ML 2 ML SDV IVPUSH ONE (12:23)
[2020-06-08] MEDS ORDERED: ceFAZolin 1 GM Vial ONE ×2 (13:46→14:22)
[2020-06-08] MEDS ORDERED: Sodium Chloride 0.9% 20 ML ONE ×2 (13:46→14:22)
[2020-06-08] MEDS ORDERED: Succinylcholine/Sod PF 100 MG/5 ML SYRINGE IV ONE (13:59)
[2020-06-08] MEDS ORDERED: fentaNYL 250 MCG/5 ML SDV ONE (14:08)
[2020-06-08] MEDS ORDERED: Acetaminophen 1,000 MG in Premix Bag 1 BAG IV PRN (15:15)
[2020-06-08] MEDS: fentaNYL 100 MCG/2 ML SDV IVPUSH PRN ×2 (16:10→16:19)
[2020-06-08] MEDS ORDERED: Sodium Chloride 0.9% 2.5 ML Syringe FLUSH PRN (16:11)
[2020-06-08] MEDS ORDERED: Ondansetron 4 MG/2 ML SDV IVPUSH PRN (16:11)
[2020-06-08] MEDS ORDERED: diphenhydrAMINE 25 MG Cap PO PRN (16:11)
[2020-06-08] MEDS ORDERED: Sodium Chloride 0.9% 10 ML Syringe FLUSH PRN (16:11)
--- NOTE | 2020-06-08 16:26 | PCM.OPNOTE ---
- General Post-Op/Procedure Note Date of Surgery/Procedure: 06/08/20 Operative Procedure(s): (1) open reduction and internal fixation of right lateral malleolus ankle fracture. (2) fixation of right syndesmosis disruption Findings: Displaced lateral malleolus ankle fracture with widening of the syndesmosis Pre Op Diagnosis: (1) right displaced, unstable lateral malleolus ankle fracture. (2) right ankle syndesmosis disruption Post-Op Diagnosis: (1) right displaced, unstable lateral malleolus ankle fracture. (2) right ankle syndesmosis disruption Anesthesia Technique: General ET Tube Primary Surgeon: Gerald Conroy Hearing Aid Mechanic: Charlene Lepe Hearing Aid Mechanic Was Necessary: Positioning and retraction, alignment maintenance during casting Pathology: None EBL in mLs: 20 Complications: None Free Text/Narrative:: Patient fell and sustained a right lateral malleolus ankle fracture and syndesmosis disruption. She was initially seen in the emergency room and I saw her in clinic in follow-up. Because of the unstable nature of the fracture pattern and her morbid obesity, I felt it was important to reduce the fracture as anatomically as possible as well as the syndesmosis. I also recommend placing her in a cast postoperatively because he was unable to be nonweightbearing and this will help protect the internal fixation. The risks and benefits of surgery were discussed with the patient and her mother. All questions were answered. Both patient and her mother agree to proceed with surgery. She is medically clear for surgery. Patient was taken to the operating room. After adequate general anesthesia, she remained a supine position. A bump was placed under her right buttock. Tourniquet was not used. The right lower extremities prepped draped in usual sterile manner. A longitudinal incision was made along the lateral border of the fibula. Skin was incised with a scalpel. Subcutaneous tissue was incised letter cautery. The fascia was opened with electrocautery and then split between fibers proximally exposing the fibula. The fracture was identified and callus and tissue removed from the fracture site. The fracture was then reduced nearly anatomically with a clamp. A 6 hole one third tubular plate was contoured and then applied. The plate was fixed to the proximal fibula shaft with 2 bicortical screws. Then with the fracture reduced with a clamp a lag screw was placed across the fracture site through the plate. The syndesmosis remained wide so to syndesmotic screws were placed through the plate and the fibula into the tibia under C-arm guidance. The ankle was maximally dorsiflexed as the screws were tightened. C arm noted that the mortise was well reduced and no longer widened and the fracture was anatomically aligned. Additional bicortical screws were then placed through the plate for additional fixation. The wounds were then irrigated. The fascia was closed with interrupted #1 Vicryl suture. Subcutaneous tissue was closed with interrupted 2-0 Vicryl suture. Skin was closed with horizontal mattress 2-0 nylon sutures. A sterile dressing was applied. The patient was then placed in a short leg fiberglass cast with maximal ankle inversion. C arm confirmed maintenance of reduction and alignment in the cast. Patient was then awoken and taken to the recovery room in stable condition. Pain management: Patient is very anxious and I think it is the primary source of her pain complaints so she is will be treated with her lorazepam which she takes as an outpatient in addition to Toradol and acetaminophen. Prophylactic antibiotics: She will have Ancef for 24 hours intravenous antibiotics. She will continue on oral antibiotic, clindamycin for 10 days for a urinary tract infection because of the implants. Venous thromboembolism prophylaxis: We will place her on aspirin for venous thromboembolism prophylaxis because she will be nonweightbearing for 6 weeks and is in a cast. Restrictions: Patient is instructed to be nonweightbearing, but is physically unable to be weightbearing so she should minimize weightbearing on her right lower extremity in the cast is much as possible. She should elevate the ankle above the level of her heart to minimize swelling and throbbing and pain. She is being observed overnight and will be seen by physical therapy in the morning to assess her safety and mobility.
--- NOTE | 2020-06-08 16:51 | CR ---
INDICATION: Right ankle ORIF. TECHNIQUE: Right ankle ORIF performed by Dr. Conroy. Seven C-arm spot images were obtained. Fluoroscopy time was 17.5 sec. COMPARISON: Ankle x-rays of 05/29/2020. FINDINGS: Sequential intraoperative images of ORIF. Hardware in good position and fracture fragments anatomically aligned. IMPRESSION: Right ankle ORIF. Dictated by Uday Snider MD @ Jun 08 2020 4:47PM Signed by Dr. Uday Snider @ Jun 08 2020 4:49PM
--- NOTE | 2020-06-08 16:52 | PCM.POSTAN ---
POST ANESTHESIA ASSESSMENT - MENTAL STATUS Mental Status: Alert, Oriented - VITAL SIGNS Vital Signs: Last Vital Signs Temp 36.9 C 06/08/20 15:54 Pulse 107 H 06/08/20 16:46 Resp 19 06/08/20 16:46 BP 138/89 06/08/20 16:46 Pulse Ox 96 06/08/20 16:46 - RESPIRATORY Respiratory Status: Respiratory Rate WNL, Airway Patent, O2 Saturation Stable - CARDIOVASCULAR CV Status: Pulse Rate WNL, Blood Pressure Stable - GASTROINTESTINAL GI Status: No Symptoms - PAIN Pain Score: 5 - POST OP HYDRATION Hydration Status: Adequate & Stable - OBSERVATIONS Free Text/Narrative:: No anesthesia problems
--- NOTE | 2020-06-08 17:02 | PCM.CONS ---
<Greg Sands - Last Filed: 06/08/20 18:51> H&P History of Present Illness - General Date of Service: 06/08/20 Admit Problem/Dx: Admission Diagnosis/Problem Admission Diagnosis/Problem Fracture of ankle Source of Information: Patient - History of Present Illness Initial Comments - Free Text/Narative: Patient is a morbidly obese 29-year-old female with a significant past medical history of type II DM, mild TBI, depression /anxiety s/p ORIF of right lateral malleolus with right syndesmosis disruption after twisting /falling on 05-29-2020. Bedside: s/p ORIF procedure. Mention no acute pain but does feel mildly sore and thirsty. Otherwise in no acute distress - Related Data Allergies/Adverse Reactions: Allergies Allergy/AdvReac Type Severity Reaction Status Date / Time ciprofloxacin [From Cipro] Allergy Rash Verified 06/02/20 11:12 sulfamethoxazole Allergy Nausea Verified 06/02/20 11:12 [From Bactrim] trimethoprim [From Bactrim] Allergy Nausea Verified 06/02/20 11:12 Home Medications: Home Meds LORazepam [Ativan] 0.5 mg PO DAILY PRN 04/01/14 [History] metFORMIN [metFORMIN XR] 1,000 mg PO BID 05/27/14 [History] Albuterol [Ventolin HFA] 2 puff INH BID PRN 10/21/15 [History] Clobetasol Propionate [Temovate] 30 gm TOP DAILY PRN 10/21/15 [History] Lisinopril 10 mg PO DAILY 09/29/18 [History] ClomiPRAMINE [ClomiPRAMINE HCl] 2 cap PO DAILY 08/26/19 [History] Fluticasone Propionate [Flovent] 1 spray NASBOTH ASDIRECTED PRN 08/26/19 [History] desogestreL-ethinyl estradioL [Reclipsen 28 Day Tablet] 1 tab PO DAILY 08/26/19 [History] Sertraline HCl [Zoloft] 200 mg PO DAILY 10/21/19 [History] diphenhydrAMINE [Benadryl] 25 mg PO QID PRN #15 tablet 02/01/20 [Rx] Lidocaine 5% 1 applic TOP QID PRN 03/02/20 [History] Clotrimazole [Clotrimazole 1%] 30 ml TOP BID PRN 06/02/20 [History] Past Medical History - Past Health History Medical/Surgical History: Denies Medical/Surgical History HEENT History: Reports: Other (See Below) Other HEENT History: reading glasses Cardiovascular History: Reports: Hypertension Respiratory History: Reports: Asthma (mild) Gastrointestinal History: Reports: None Genitourinary History: Reports: UTI, Recurrent, Other (See Below) Other Genitourinary History: chronic uti's, vaginal candidiasis MET[employer]GY TE[employer]ER History: Reports: None Musculoskeletal History: Reports: Back Pain, Chronic Other Musculoskeletal History: intermittent back pain Neurological History: Reports: None Psychiatric History: Reports: Anxiety, Depression, OCD Endocrine/Metabolic History: Reports: Diabetes, Type II, Obesity/BMI 30+ (BMI 61.8) 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 Roof Tiler: None Hematologic History: Reports: None Immunologic History: Reports: None Oncologic (Cancer) History: Reports: None Dermatologic History: Reports: Psoriasis Other Dermatologic History: on her scalp & ears - Infectious Disease History Infectious Disease History: Reports: None - Past Surgical History Head Surgeries/Procedures: Reports: None HEENT Surgical History: Reports: Adenoidectomy, Oral Surgery, Tonsillectomy Other HEENT Surgeries/Procedures: removal of wisdom teeth Cardiovascular Surgical History: Reports: None Respiratory Surgical History: Reports: None GI Surgical History: Reports: None Female Surgical History: Reports: Other (See Below) Other Female Surgeries/Procedures: Cystoscopy Endocrine Surgical History: Reports: None Neurological Surgical History: Reports: None Musculoskeletal Surgical History: Reports: None Oncologic Surgical History: Reports: None Dermatological Surgical History: Reports: None Social & Family History - Family History Family Medical History: No Pertinent Family History Psychiatric: Reports: Anxiety, Depression Endocrine/Metabolic: Reports: Obesity/MBI 30+ Immunologic: Reports: HIV - Tobacco Use Tobacco Use Status *Q: Current Every Day Tobacco User Packs/Tins Daily: 0.6 - Caffeine Use Caffeine Use: Reports: Coffee, Energy Drinks Caffeine Use Comment: 1 drink/month - Recreational Drug Use Drug Use in Last 12 Months: No H&P Review of Systems - Review of Systems: Review Of Systems: See Below General: Reports: No Symptoms HEENT: Reports: No Symptoms Pulmonary: Reports: No Symptoms Cardiovascular: Reports: No Symptoms Gastrointestinal: Reports: No Symptoms Genitourinary: Reports: No Symptoms Musculoskeletal: Reports: No Symptoms Psychiatric: Reports: No Symptoms Neurological: Reports: No Symptoms Exam - Exam Exam: See Below - Vital Signs Vital Signs: Last Vital Signs Temp 98.4 F 06/08/20 15:54 Pulse 107 H 06/08/20 16:46 Resp 19 06/08/20 16:46 BP 138/89 06/08/20 16:46 Pulse Ox 96 06/08/20 16:46 Weight: 163.293 kg - Exam Quality Assessment: No: Supplemental Oxygen General: Alert, Oriented, Cooperative HEENT: EOMI Neck: Supple, Trachea Midline Lungs: Clear to Auscultation, Normal Respiratory Effort Cardiovascular: Regular Rate, Regular Rhythm GI/Abdominal Exam: Soft Extremities: Other (RLE in cast/ elevated ) Neuro Extensive - Mental Status: Alert, Oriented x3, Normal Mood/Affect Psychiatric: Alert, Normal Affect, Normal Mood - Patient Data Lab Results Last 24 hrs: Laboratory Results - last 24 hr 06/08/20 06/08/20 06/08/20 Range/Units 10:05 10:52 16:42 POC Glucose 125 H 151 H (60-110) mg/dL Urine HCG, Qual NEGATIVE (NEGATIVE) Sepsis Event Note - Focused Exam Vital Signs: Vital Signs Temp Pulse Resp BP Pulse Ox 06/08/20 16:46 107 H 19 138/89 96 06/08/20 16:40 106 H 17 147/83 H 96 06/08/20 16:35 100 18 143/79 H 96 06/08/20 16:30 102 H 20 147/84 H 94 L 06/08/20 16:24 103 H 17 149/85 H 95 06/08/20 16:19 98 17 155/82 H 94 L 06/08/20 16:14 102 H 13 146/67 H 99 06/08/20 16:09 100 20 145/86 H 100 06/08/20 16:06 104 H 16 151/74 H 100 06/08/20 16:00 119 H 19 168/96 H 100 06/08/20 15:54 98.4 F 113 H 19 168/86 H 98 06/08/20 10:12 97.7 F 112 H 18 131/84 96 Consult PN Assessment/Plan Procedures: Procedures AIRWAY INHALATION TREATMENT (04/26/18) APPLICATION LOWER LEG SPLINT (06/02/20) ASSAY OF BLOOD OSMOLALITY (02/24/20) ASSAY OF LACTIC ACID (02/08/20) ASSAY OF LIPASE (03/18/20) ASSAY OF NATRIURETIC PEPTIDE (05/05/17) ASSAY OF TROPONIN QUANT (03/20/20) ASSAY THYROID STIM HORMONE (10/29/17) BLOOD GASES ANY COMBINATION (02/24/20) C-REACTIVE PROTEIN (05/19/15) LYSSA DNA DIR PROBE (03/02/20) CHEST X-RAY 1 VIEW FRONTAL (04/01/16) CHEST X-RAY 2VW FRONTAL&LATL (02/17/17) CHORIONIC GONADOTROPIN ASSAY (03/12/20) CHORIONIC GONADOTROPIN TEST (05/28/20) CHYLMD TRACH DNA AMP PROBE (05/18/17) CLOSTRIDIUM AG IA (11/11/17) COMPLETE CBC W/AUTO DIFF WBC (05/28/20) COMPREHEN METABOLIC PANEL (05/28/20) CRYPTOSPORIDIUM AG IA (11/11/17) CT ABD & PELV W/CONTRAST (02/08/20) CT ABD & PELVIS W/O CONTRAST (04/19/18) CT HEAD/BRAIN W/O DYE (05/28/20) CT NECK SPINE W/O DYE (05/28/20) CULTURE OTHR SPECIMN AEROBIC (06/01/15) CULTURE SCREEN ONLY (09/29/19) CYSTOSCOPY (10/25/15) DRUG TEST PRSMV CHEM ANLYZR (05/28/20) ELECTROCARDIOGRAM TRACING (03/20/20) EMERGENCY DEPT VISIT (05/28/20) EMERGENCY DEPT VISIT (04/11/20) EMERGENCY DEPT VISIT (04/07/20) EMERGENCY DEPT VISIT (03/26/20) EMERGENCY DEPT VISIT (03/20/20) EMERGENCY DEPT VISIT (03/18/20) EMERGENCY DEPT VISIT (03/12/20) EMERGENCY DEPT VISIT (03/02/20) EMERGENCY DEPT VISIT (02/24/20) EMERGENCY DEPT VISIT (02/20/20) EMERGENCY DEPT VISIT (02/08/20) EMERGENCY DEPT VISIT (02/01/20) EMERGENCY DEPT VISIT (10/21/19) EMERGENCY DEPT VISIT (08/26/19) EMERGENCY DEPT VISIT (06/27/19) EMERGENCY DEPT VISIT (06/01/19) EMERGENCY DEPT VISIT (05/23/19) EMERGENCY DEPT VISIT (04/03/19) EMERGENCY DEPT VISIT (12/22/18) EMERGENCY DEPT VISIT (10/03/18) EMERGENCY DEPT VISIT (09/29/18) EMERGENCY DEPT VISIT (04/26/18) EMERGENCY DEPT VISIT (04/19/18) EMERGENCY DEPT VISIT (03/18/18) EMERGENCY DEPT VISIT (09/05/17) EMERGENCY DEPT VISIT (02/17/17) EMERGENCY DEPT VISIT (01/26/17) EMERGENCY DEPT VISIT (11/17/16) EMERGENCY DEPT VISIT (11/16/16) EMERGENCY DEPT VISIT (06/21/16) EMERGENCY DEPT VISIT (06/15/16) EMERGENCY DEPT VISIT (04/01/16) EMERGENCY DEPT VISIT (02/29/16) EMERGENCY DEPT VISIT (02/01/16) EMERGENCY DEPT VISIT (11/28/15) EMERGENCY DEPT VISIT (11/24/15) EMERGENCY DEPT VISIT (09/11/15) EMERGENCY DEPT VISIT (08/31/15) EMERGENCY DEPT VISIT (08/15/15) EMERGENCY DEPT VISIT (05/03/15) EMERGENCY DEPT VISIT (02/18/15) EMERGENCY DEPT VISIT (01/23/15) EMERGENCY DEPT VISIT (12/04/14) EMERGENCY DEPT VISIT (04/01/14) EMERGENCY DEPT VISIT (02/01/14) EMERGENCY DEPT VISIT (02/01/14) EMERGENCY DEPT VISIT (09/29/13) EMERGENCY DEPT VISIT (09/29/13) FIBRIN DEGRADATION QUANT (03/12/20) MAHAN VAG DNA DIR PROBE (03/02/20) GIARDIA AG IA (11/11/17) GLUCOSE BLOOD TEST (04/07/20) GLYCOSYLATED HEMOGLOBIN TEST (06/02/20) HEPATITIS C AB TEST (06/13/16) HIV-1 AG W/HIV-1 & HIV-2 AB (04/01/18) HYDRATE IV INFUSION ADD-ON (03/12/20) IMMUNIZATION ADMIN (05/23/19) INFLUENZA ASSAY W/OPTIC (09/29/19) LIPID PANEL (11/03/14) METABOLIC PANEL TOTAL CA (03/26/20) MICROBE SUSCEPTIBLE LINH (06/03/20) N.GONORRHOEAE DNA AMP PROB (05/18/17) NEUROMUSCULAR REEDUCATION (07/14/18) OFFICE/OUTPATIENT VISIT EST (06/02/20) OFFICE/OUTPATIENT VISIT EST (09/29/19) PT EVAL LOW COMPLEX 20 MIN (06/04/18) ROUTINE VENIPUNCTURE (06/02/20) SMEAR WET MOUNT SALINE/INK (06/01/15) STOOL CULTR AEROBIC BACT EA (11/11/17) STREP A ASSAY W/OPTIC (09/29/19) TDAP VACCINE 7 YRS/> IM (05/23/19) TEST FOR ACETONE/KETONES (02/24/20) THER/PROPH/DIAG INJ IV PUSH (05/28/20) THER/PROPH/DIAG INJ SC/IM (06/27/19) THERAPEUTIC ACTIVITIES (07/14/18) THERAPEUTIC EXERCISES (07/14/18) TRICHOMONAS VAGIN DIR PROBE (03/02/20) TX/PRO/DX INJ NEW DRUG ADDON (02/08/20) ULTRASOUND BREAST LIMITED (09/08/18) URINALYSIS AUTO W/O SCOPE (04/07/20) URINALYSIS AUTO W/SCOPE (06/03/20) URINE BACTERIA CULTURE (06/03/20) URINE CULTURE/COLONY COUNT (06/03/20) URINE TEST (04/07/20) X-RAY EXAM CHEST 1 VIEW (05/03/20) X-RAY EXAM CHEST 2 VIEWS (04/26/18) X-RAY EXAM L-S SPINE 2/3 VWS (07/18/17) X-RAY EXAM NECK SPINE 2-3 VW (07/18/17) X-RAY EXAM OF ABDOMEN (05/03/15) X-RAY EXAM OF ANKLE (05/28/20) X-RAY EXAM OF FOREARM (07/18/17) X-RAY EXAM OF KNEE 3 (05/23/19) X-RAY EXAM THORAC SPINE 3VWS (04/03/19) Plan: Assessment: 1, Right ankle fx s/p ORIF 2. PMH: Morbid obesity, DM II, anxiety/depression Plan. 1. Right ORIF: continue pain and anticoagulation management per primary Orthopedic team 2. DMII: hold all PO DM II meds (e.g Metformin); continue w. ADA diet. Recheck BG in AM; SSI if necessary. Continue to monitor. 3. Mild anxiety: pt. states she is concerned about alf placement; visibly anxious and worried; resumed pt.s 0.5 Lorazepam PRN for tonight. <Amor Lester - Last Filed: 06/08/20 23:14> H&P History of Present Illness - General Admit Problem/Dx: Admission Diagnosis/Problem Admission Diagnosis/Problem Fracture of ankle H&P Review of Systems - Review of Systems: Review Of Systems: See Below Exam - Exam Exam: See Below - Vital Signs Vital Signs: Last Vital Signs Temp 37.5 C 06/08/20 20:00 Pulse 122 H 06/08/20 20:00 Resp 18 06/08/20 20:00 BP 114/60 06/08/20 20:00 Pulse Ox 95 06/08/20 20:00 - Patient Data Lab Results Last 24 hrs: Laboratory Results - last 24 hr 06/08/20 06/08/20 06/08/20 Range/Units 10:05 10:52 16:42 POC Glucose 125 H 151 H (60-110) mg/dL Urine HCG, Qual NEGATIVE (NEGATIVE) Sepsis Event Note - Focused Exam Vital Signs: Vital Signs Temp Pulse Resp BP Pulse Ox 06/08/20 20:00 37.5 C 122 H 18 114/60 95 06/08/20 18:30 110 H 18 118/57 L 94 L 06/08/20 18:00 129 H 18 138/97 H 95 06/08/20 17:30 113 H 18 119/67 94 L 06/08/20 17:15 126 H 18 115/70 96 06/08/20 17:00 37.1 C 104 H 18 126/71 95 06/08/20 16:46 107 H 19 138/89 96 06/08/20 16:40 106 H 17 147/83 H 96 06/08/20 16:35 100 18 143/79 H 96 06/08/20 16:30 102 H 20 147/84 H 94 L 06/08/20 16:24 103 H 17 149/85 H 95 06/08/20 16:19 98 17 155/82 H 94 L 06/08/20 16:14 102 H 13 146/67 H 99 06/08/20 16:09 100 20 145/86 H 100 06/08/20 16:06 104 H 16 151/74 H 100 06/08/20 16:00 119 H 19 168/96 H 100 06/08/20 15:54 36.9 C 113 H 19 168/86 H 98 Consult PN Assessment/Plan Procedures: Procedures AIRWAY INHALATION TREATMENT (04/26/18) APPLICATION LOWER LEG SPLINT (06/02/20) ASSAY OF BLOOD OSMOLALITY (02/24/20) ASSAY OF LACTIC ACID (02/08/20) ASSAY OF LIPASE (03/18/20) ASSAY OF NATRIURETIC PEPTIDE (05/05/17) ASSAY OF TROPONIN QUANT (03/20/20) ASSAY THYROID STIM HORMONE (10/29/17) BLOOD GASES ANY COMBINATION (02/24/20) C-REACTIVE PROTEIN (05/19/15) LYSSA DNA DIR PROBE (03/02/20) CHEST X-RAY 1 VIEW FRONTAL (04/01/16) CHEST X-RAY 2VW FRONTAL&LATL (02/17/17) CHORIONIC GONADOTROPIN ASSAY (03/12/20) CHORIONIC GONADOTROPIN TEST (05/28/20) CHYLMD TRACH DNA AMP PROBE (05/18/17) CLOSTRIDIUM AG IA (11/11/17) COMPLETE CBC W/AUTO DIFF WBC (05/28/20) COMPREHEN METABOLIC PANEL (05/28/20) CRYPTOSPORIDIUM AG IA (11/11/17) CT ABD & PELV W/CONTRAST (02/08/20) CT ABD & PELVIS W/O CONTRAST (04/19/18) CT HEAD/BRAIN W/O DYE (05/28/20) CT NECK SPINE W/O DYE (05/28/20) CULTURE OTHR SPECIMN AEROBIC (06/01/15) CULTURE SCREEN ONLY (09/29/19) CYSTOSCOPY (10/25/15) DRUG TEST PRSMV CHEM ANLYZR (05/28/20) ELECTROCARDIOGRAM TRACING (03/20/20) EMERGENCY DEPT VISIT (05/28/20) EMERGENCY DEPT VISIT (04/11/20) EMERGENCY DEPT VISIT (04/07/20) EMERGENCY DEPT VISIT (03/26/20) EMERGENCY DEPT VISIT (03/20/20) EMERGENCY DEPT VISIT (03/18/20) EMERGENCY DEPT VISIT (03/12/20) EMERGENCY DEPT VISIT (03/02/20) EMERGENCY DEPT VISIT (02/24/20) EMERGENCY DEPT VISIT (02/20/20) EMERGENCY DEPT VISIT (02/08/20) EMERGENCY DEPT VISIT (02/01/20) EMERGENCY DEPT VISIT (10/21/19) EMERGENCY DEPT VISIT (08/26/19) EMERGENCY DEPT VISIT (06/27/19) EMERGENCY DEPT VISIT (06/01/19) EMERGENCY DEPT VISIT (05/23/19) EMERGENCY DEPT VISIT (04/03/19) EMERGENCY DEPT VISIT (12/22/18) EMERGENCY DEPT VISIT (10/03/18) EMERGENCY DEPT VISIT (09/29/18) EMERGENCY DEPT VISIT (04/26/18) EMERGENCY DEPT VISIT (04/19/18) EMERGENCY DEPT VISIT (03/18/18) EMERGENCY DEPT VISIT (09/05/17) EMERGENCY DEPT VISIT (02/17/17) EMERGENCY DEPT VISIT (01/26/17) EMERGENCY DEPT VISIT (11/17/16) EMERGENCY DEPT VISIT (11/16/16) EMERGENCY DEPT VISIT (06/21/16) EMERGENCY DEPT VISIT (06/15/16) EMERGENCY DEPT VISIT (04/01/16) EMERGENCY DEPT VISIT (02/29/16) EMERGENCY DEPT VISIT (02/01/16) EMERGENCY DEPT VISIT (11/28/15) EMERGENCY DEPT VISIT (11/24/15) EMERGENCY DEPT VISIT (09/11/15) EMERGENCY DEPT VISIT (08/31/15) EMERGENCY DEPT VISIT (08/15/15) EMERGENCY DEPT VISIT (05/03/15) EMERGENCY DEPT VISIT (02/18/15) EMERGENCY DEPT VISIT (01/23/15) EMERGENCY DEPT VISIT (12/04/14) EMERGENCY DEPT VISIT (04/01/14) EMERGENCY DEPT VISIT (02/01/14) EMERGENCY DEPT VISIT (02/01/14) EMERGENCY DEPT VISIT (09/29/13) EMERGENCY DEPT VISIT (09/29/13) FIBRIN DEGRADATION QUANT (03/12/20) MAHAN VAG DNA DIR PROBE (03/02/20) GIARDIA AG IA (11/11/17) GLUCOSE BLOOD TEST (04/07/20) GLYCOSYLATED HEMOGLOBIN TEST (06/02/20) HEPATITIS C AB TEST (06/13/16) HIV-1 AG W/HIV-1 & HIV-2 AB (04/01/18) HYDRATE IV INFUSION ADD-ON (03/12/20) IMMUNIZATION ADMIN (05/23/19) INFLUENZA ASSAY W/OPTIC (09/29/19) LIPID PANEL (11/03/14) METABOLIC PANEL TOTAL CA (03/26/20) MICROBE SUSCEPTIBLE LINH (06/03/20) N.GONORRHOEAE DNA AMP PROB (05/18/17) NEUROMUSCULAR REEDUCATION (07/14/18) OFFICE/OUTPATIENT VISIT EST (06/02/20) OFFICE/OUTPATIENT VISIT EST (09/29/19) PT EVAL LOW COMPLEX 20 MIN (06/04/18) ROUTINE VENIPUNCTURE (06/02/20) SMEAR WET MOUNT SALINE/INK (06/01/15) STOOL CULTR AEROBIC BACT EA (11/11/17) STREP A ASSAY W/OPTIC (09/29/19) TDAP VACCINE 7 YRS/> IM (05/23/19) TEST FOR ACETONE/KETONES (02/24/20) THER/PROPH/DIAG INJ IV PUSH (05/28/20) THER/PROPH/DIAG INJ SC/IM (06/27/19) THERAPEUTIC ACTIVITIES (07/14/18) THERAPEUTIC EXERCISES (07/14/18) TRICHOMONAS VAGIN DIR PROBE (03/02/20) TX/PRO/DX INJ NEW DRUG ADDON (02/08/20) ULTRASOUND BREAST LIMITED (09/08/18) URINALYSIS AUTO W/O SCOPE (04/07/20) URINALYSIS AUTO W/SCOPE (06/03/20) URINE BACTERIA CULTURE (06/03/20) URINE CULTURE/COLONY COUNT (06/03/20) URINE TEST (04/07/20) X-RAY EXAM CHEST 1 VIEW (05/03/20) X-RAY EXAM CHEST 2 VIEWS (04/26/18) X-RAY EXAM L-S SPINE 2/3 VWS (07/18/17) X-RAY EXAM NECK SPINE 2-3 VW (07/18/17) X-RAY EXAM OF ABDOMEN (05/03/15) X-RAY EXAM OF ANKLE (05/28/20) X-RAY EXAM OF FOREARM (07/18/17) X-RAY EXAM OF KNEE 3 (05/23/19) X-RAY EXAM THORAC SPINE 3VWS (04/03/19) Problem List Initiated/Reviewed/Updated: Yes My Orders Last 24 Hours: My Active Orders 06/08/20 22:31 Dextrose 50% in Water 50 ml IVPUSH ASDIRECTED PRN Glucagon,Human Recombinant [GlucaGen] 1 mg IM ASDIRECTED PRN 06/09/20 07:30 Insulin Aspart [NovoLOG] See Protocol SUBCUT [id number] Plan: I have seen and evaluated the patient and agree with the residents note unless specified in my note
[2020-06-08] MEDS: Ketorolac 30 MG/ML SDV IVPUSH SCH ×2 (17:16→22:19)
[2020-06-08] MEDS: LORazepam 0.5 MG Tab PO PRN (18:59)
[2020-06-08] MEDS: Aspirin 325 MG Tab PO SCH (18:59)
[2020-06-08] MEDS: ceFAZolin 2 GM in Premix Bag 1 BAG IV SCH (20:12)
[2020-06-08] MEDS: traMADol 50 MG Tab PO PRN (20:17)
[2020-06-08] MEDS ORDERED: 50% Dextrose in Water 50 ML Syringe IVPUSH PRN (22:31)
[2020-06-08] MEDS ORDERED: Glucagon,Human Recombinant 1 MG Vial IM PRN (22:31)
[2020-06-09] MEDS: Ketorolac 30 MG/ML SDV IVPUSH SCH (03:41)
[2020-06-09] MEDS: ceFAZolin 2 GM in Premix Bag 1 BAG IV SCH (03:49)
[2020-06-09] MEDS: LORazepam 0.5 MG Tab PO PRN (03:56)
[2020-06-09] MEDS: traMADol 50 MG Tab PO PRN (06:25)
--- NOTE | 2020-06-09 06:33 | PCM48HPAN ---
Post Anesthesia Note - EVALUATION WITHIN 48HRS OF ANESTHETIC Vital Signs in Normal Range: Yes Patient Participated in Evaluation: Yes Respiratory Function Stable: Yes Airway Patent: Yes Cardiovascular Function Stable: Yes Hydration Status Stable: Yes Pain Control Satisfactory: Yes Nausea and Vomiting Control Satisfactory: Yes Mental Status Recovered: Yes Vital Signs: Last Vital Signs Temp 36.6 C 06/09/20 04:00 Pulse 112 H 06/09/20 04:00 Resp 19 06/09/20 04:00 BP 139/81 06/09/20 04:00 Pulse Ox 95 06/09/20 04:00
[2020-06-09] MEDS ORDERED: Insulin Aspart 100 Units/ML 3 ML Pen SUBCUT SCH ×2 (07:30→11:30)
[2020-06-09] MEDS ORDERED: 50% Dextrose in Water 50 ML Syringe IV PRN (07:37)
[2020-06-09] MEDS ORDERED: Glucagon,Human Recombinant 1 MG Vial IM PRN (07:37)
[2020-06-09] MEDS: Aspirin 325 MG Tab PO SCH (08:45)
[2020-06-09] MEDS ORDERED: Ibuprofen 800 MG Tab PO PRN (09:00)
[2020-06-09] MEDS ORDERED: CLOMIPRAMINE 50 MG PO SCH (09:00)
[2020-06-09] MEDS ORDERED: Lisinopril 10 MG Tab PO SCH (09:00)
[2020-06-09] MEDS ORDERED: Sertraline 100 MG Tab PO SCH (09:00)
--- NOTE | 2020-06-09 11:57 | PCM.SN.2 ---
- Free Text/Narrative Note: I had a detailed conversation with the patient, patient has h/o type II DM, mild TBI, depression /anxiety s/p ORIF, ADHD, OCD, lives at home with her mother. Patient currently has no suicidal ideation, no hallucinations, is AAO*3, Patient denied any h/o drug, alcohol abuse, she drinks very occasionally. Patient was a ble to communicate very clearly to me the reason why she cannot stay in the hospital, she states she is extremely anxious staying away from home and wants to go home noemi. States she doesn't want to go to rehab or stay any longer in the hospital. I asked patient if she understood the consequences of leaving the hospital and declining rehab, She understands she could develop complications including fall, infection, loss of function to the limb but the anxiety of staying away from home is much more distressing to her and she she believes will be much more detrimental to her mental health. Patient states she believes her mom at home would be able to take care of her immediate needs and she has a safe environment at home and enough help to assist her through the healing process. Patient is able to identify that she underwent a major surgery and that she does need rehab and more assistance and is willing to undergo home OT and outpatient PT. As stated above patients rationale/reasoning to refuse inpatient rehab is that she wont be able to handle being away from home and wont be able to participate in PT effectively and she would rather do Home and outpatient PT. Based on the above assessment patient does seem to have capacity to make a decision of leaving AMA. Primary attending aware. I also spoke to patients mother over the phone. She states she was drinking on day she fell and hurt her ankle but only because it was a social event, denied her any alcohol/drug abuse. Mom states that she would like her daughter to come home as well, she believes she has the ability to take care of patients needs at home. She states she will be safe at home and would rather benefit coming back home due to her overwhelming anxiety of staying away from her home. She understand she needs rehab and is willing to drive her to outpatient rehab if needed. She understands patient will be leaving AMA.
[2020-06-09 12:20] VITALS: BP 147/106; PULSE 120
--- NOTE | 2020-06-09 14:56 | PCM.SURGPN ---
- General Info Date of Service: 06/09/20 (08) Date of Surgery/Procedure: 06/08/20 (ORIF Right lateral malleolus fracture, syndesmotic repair with cast application) POD#: 1 Admission Diagnosis/Problem: Ankle fracture Functional Status: Reports: Pain Controlled (resting in bed), Tolerating Diet (no n/v Finished breakfast without n/v), Urinating - Review of Systems General: Denies: Fever Musculoskeletal: Reports: Other (ankle pain) Psychiatric: Reports: Anxiety - Patient Data Vitals - Most Recent: Last Vital Signs Temp 36.7 C 06/09/20 12:00 Pulse 120 H 06/09/20 12:00 Resp 22 H 06/09/20 12:00 BP 147/106 H 06/09/20 12:00 Pulse Ox 96 06/09/20 12:00 Weight - Most Recent: 163.293 kg I&O - Last 24 Hours: Intake & Output 06/08/20 06/09/20 06/09/20 22:59 06:59 14:59 Intake Total 1500 1440 350 Output Total 300 Balance 1500 1440 50 Lab Results Last 24 Hrs: Laboratory Results - last 24 hr 06/08/20 06/08/20 06/09/20 Range/Units 10:52 16:42 06:47 POC Glucose 125 H 151 H 183 H (60-110) mg/dL 06/09/20 Range/Units 11:43 POC Glucose 198 H (60-110) mg/dL Med Orders - Current: Current Medications Discontinued Medications Aspirin (Aspirin) 325 mg PO DAILY [facility] Last Admin: 06/09/20 08:45 Dose: 325 mg Documented by: Bupivacaine HCl (Sensorcaine-Mpf 0.25%) Confirm Administered Dose 10 ml .ROUTE .STK-MED ONE Stop: 06/08/20 09:57 Bupivacaine HCl (Sensorcaine-Mpf 0.25%) Confirm Administered Dose 10 ml .ROUTE .STK-MED ONE Stop: 06/08/20 15:16 Cefazolin Sodium (Ancef) Confirm Administered Dose 2 gm .ROUTE .STK-MED ONE Stop: 06/08/20 13:47 Cefazolin Sodium (Ancef) Confirm Administered Dose 1 gm .ROUTE .STK-MED ONE Stop: 06/08/20 14:23 Clomipramine HCl (Clomipramine Hcl) 100 mg PO DAILY [facility] Last Admin: 06/09/20 09:16 Dose: Not Given Documented by: Dextrose/Water (Dextrose 50% In Water) 50 ml IVPUSH ASDIRECTED PRN PRN Reason: Hypoglycemia Dextrose/Water (Dextrose 50% In Water) 50 ml IV ASDIRECTED PRN PRN Reason: Hypoglycemia Diphenhydramine HCl (Benadryl) 25 - 50 mg PO Q6H PRN PRN Reason: Itching Fentanyl (Sublimaze) Confirm Administered Dose 100 mcg .ROUTE .STK-MED ONE Stop: 06/08/20 11:43 Fentanyl (Sublimaze) Confirm Administered Dose 250 mcg .ROUTE .STK-MED ONE Stop: 06/08/20 14:09 Fentanyl (Sublimaze) 50 mcg IVPUSH Q5M PRN PRN Reason: Pain Last Admin: 06/08/20 16:19 Dose: 50 mcg Documented by: Glucagon (Glucagen) 1 mg IM ASDIRECTED PRN PRN Reason: Hypoglycemia Glucagon (Glucagen) 1 mg IM ASDIRECTED PRN PRN Reason: Hypoglycemia Glycopyrrolate (Robinul) Confirm Administered Dose 0.8 mg .ROUTE .STK-MED ONE Stop: 06/08/20 11:43 Cefazolin Sodium/Dextrose 3 gm (/ Premix) 150 mls @ 200 mls/hr IV ONCALL [facility] Lactated Ringer's (Ringers, Lactated) 1,000 mls @ 100 mls/hr IV ASDIRECTED [facility] Last Admin: 06/08/20 19:00 Dose: 100 mls/hr Documented by: Sodium Chloride (Normal Saline) Confirm Administered Dose 20 mls @ as directed .ROUTE .STK-MED ONE Stop: 06/08/20 13:47 Sodium Chloride (Normal Saline) Confirm Administered Dose 20 mls @ as directed .ROUTE .STK-MED ONE Stop: 06/08/20 14:23 Acetaminophen 1,000 mg/ Premix 100 mls @ 400 mls/hr IV ONETIME PRN PRN Reason: Pain Last Admin: 06/08/20 16:20 Dose: 400 mls/hr Documented by: Cefazolin Sodium/Dextrose 2 gm (/ Premix) 50 mls @ 100 mls/hr IV Q8H [facility] Stop: 06/09/20 04:29 Last Admin: 06/09/20 03:49 Dose: 100 mls/hr Documented by: Ibuprofen (Motrin) 800 mg PO Q8H PRN PRN Reason: Pain Insulin Aspart (Novolog) 0 unit SUBCUT ACBREAKFASTANDBED [facility]; Protocol Last Admin: 06/09/20 08:45 Dose: 1 unit Documented by: Insulin Aspart (Novolog) 0 unit SUBCUT TIDAC [facility]; Protocol Last Admin: 06/09/20 12:40 Dose: Not Given Documented by: Ketorolac Tromethamine (Toradol) Confirm Administered Dose 30 mg .ROUTE .STK-MED ONE Stop: 06/08/20 11:43 Ketorolac Tromethamine (Toradol) 30 mg IVPUSH Q6H [facility] Stop: 06/09/20 05:00 Last Admin: 06/09/20 03:41 Dose: 30 mg Documented by: Lidocaine (Xylocaine-Mpf 2%) Confirm Administered Dose 5 ml .ROUTE .STK-MED ONE Stop: 06/08/20 11:43 Lisinopril (Prinivil) 10 mg PO DAILY [facility] Last Admin: 06/09/20 08:48 Dose: 10 mg Documented by: Lorazepam (Ativan) 0.5 mg PO DAILY PRN PRN Reason: Anxiety Last Admin: 06/09/20 03:56 Dose: 0.5 mg Documented by: Midazolam HCl (Versed 1 Mg/Ml) Confirm Administered Dose 2 mg .ROUTE .STK-MED ONE Stop: 06/08/20 11:43 Midazolam HCl (Versed 1 Mg/Ml) 2 mg IVPUSH ONETIME ONE Stop: 06/08/20 12:24 Last Admin: 06/08/20 12:31 Dose: 2 mg Documented by: Midazolam HCl (Versed 1 Mg/Ml) Confirm Administered Dose 2 mg .ROUTE .STK-MED ONE Stop: 06/08/20 12:28 Last Admin: 06/09/20 08:57 Dose: Not Given Documented by: Ondansetron HCl (Zofran) Confirm Administered Dose 0 mg .ROUTE .STK-MED ONE Stop: 06/08/20 11:43 Ondansetron HCl (Zofran) Confirm Administered Dose 4 mg .ROUTE .STK-MED ONE Stop: 06/08/20 11:44 Ondansetron HCl (Zofran) 4 mg IVPUSH Q6H PRN PRN Reason: Nausea/Vomiting Propofol (Diprivan 20 Ml) Confirm Administered Dose 200 mg .ROUTE .STK-MED ONE Stop: 06/08/20 11:43 Rocuronium [place] (Rocuronium [place]) Confirm Administered Dose 50 mg .ROUTE .STK-MED ONE Stop: 06/08/20 11:43 Sertraline HCl (Zoloft) 200 mg PO DAILY [facility] Last Admin: 06/09/20 08:46 Dose: 200 mg Documented by: Sodium Chloride (Saline Flush) 10 ml FLUSH ASDIRECTED PRN PRN Reason: Keep Vein Open Sodium Chloride (Saline Flush) 2.5 ml FLUSH ASDIRECTED PRN PRN Reason: Keep Vein Open Tramadol HCl (Ultram) 50 - 100 mg PO Q6H PRN PRN Reason: Pain Last Admin: 06/09/20 06:25 Dose: 100 mg Documented by: - Exam Wound/Incisions: Other (cast right foot CDI Wiggles toes Senation grossly intact to toes) Quality Assessment: DVT Prophylaxis (ASPIRIN 325mg daily) General: Alert, Oriented, Cooperative, No Acute Distress Lungs: Normal Respiratory Effort Extremities: Other (sensation grossly intact to toes. Wiggling toes Short leg cast RLE) Neurological: Normal Speech (normal speech for pt) Psy/Mental Status: Alert, Normal Affect (pt's normal affect and mood) Sepsis Event Note - Evaluation Sepsis Screening Result: No Definite Risk - Focused Exam Vital Signs: Vital Signs Temp Pulse Resp BP BP Pulse Ox 06/09/20 12:00 36.7 C 120 H 22 H 147/106 H 96 06/09/20 08:48 144/85 H 06/09/20 08:00 36.4 C 113 H 20 127/84 95 06/09/20 04:00 36.6 C 112 H 19 139/81 95 - Problem List Review Problem List Initiated/Reviewed/Updated: Yes - My Orders Last 24 Hours: Active Orders 24 hr Category Date Time Status Patient Status [ADT] Routine ADT 06/09/20 11:03 Active Consult to Case Management/Pyrometallurgical Engineer [CONS] Cons 06/08/20 16:11 Active Routine Consult to Physician [CONS] Routine Cons 06/08/20 16:11 Active PT Evaluation and Treatment [CONS] Routine Cons 06/08/20 16:12 Active Convert IV to Saline Lock [OM.PC] PRN Oth 06/08/20 16:15 Ordered Pulse Oximetry Continuous Monitoring [OM.PC] Routine Oth 06/08/20 16:27 Ordered - Assessment Assessment (Free Text/Narrative):: 1) s/p ORIF right ankle fracture 2) Short leg cast application 3) morbidly obese 4) anxiety 5) h/o mild TBI 6) DM Type 2 (A1c 6.9%) - Plan Plan (Free Text/Narrative):: Post-operatively, Leigh is doing well. Afebrile. Tolerating po food/fluids. Nurse stated that she slept very little last night, was awake worried about discharge plans Per oncology social work, Leigh's plan is to return home where she lives with her mom. She has a wheelchair and walker at home, but will need a commode, as she has limited ambulation ability d/t morbid obesity, and bathroom not accommodative size for her, someone to assist her and an assistive device (wheelchair/walker). Home care services requested for personal care needs (bathing as she cannot get cast wet) and physical therapy for strengthening d/t NWB RLE for the next 6 weeks. DVT prophylaxis : ASA 325mg daily Pain management: Ibuprofen TID, with Tylenol in between for mild pain or Tramadol for moderate pain, which she was informed this Rx would be of limited quantity. Elevation of RLE. Antibiotic prophylaxis d/t risks including morbid obesity, current smoker and diabetes: clindamycin Hospitalist services appreciated for medical management. Discharge to home pending PT evaluation. If failed ability to independently transfer, may need to consider short stay in an halfway facility.
--- NOTE | 2020-06-09 15:15 | PCM.SN.2 ---
- Free Text/Narrative Note: Ortho Note Addendum note regarding patient. PT does not feel patient can safely do stairs. Recommended SNF but patient adamantly refused DC to SNF. Mother agrees to care for patient at home. Patient has walker, crutches, and wheelchair at home. Commode ordered. Patient appears to understand risks of going home and still refuses SNF. Patient left Against Medical Advice.
== END 2020-06-09 12:53 | disposition left against medical advice (07) | DRG 493 ==
LOC: MW.SDS 09:41 → MW.MS 16:36 → MW.SDS 06-09 08:53 → MW.MS 06-09 08:54 → OBSVTOIN 06-09 11:03
PROVIDERS: ADMIT Orthopaedic Surgery; ATTEND Orthopaedic Surgery
PROC: 0QSJ04Z Reposition Right Fibula with Internal Fixation Device, Open Approach (ICD-10-PCS; principal; 2020-06-08)
PROC: 0SSF0ZZ Reposition Right Ankle Joint, Open Approach (ICD-10-PCS; 2020-06-08)
DX: S82.61XA Displaced fracture of lateral malleolus of right fibula, initial encounter for closed fracture (principal); Z68.44 Body mass index [BMI] 60.0-69.9, adult; S93.431A Sprain of tibiofibular ligament of right ankle, initial encounter; J45.909 Unspecified asthma, uncomplicated; E11.9 Type 2 diabetes mellitus without complications; E28.2 Polycystic ovarian syndrome; F41.9 Anxiety disorder, unspecified; H60.313 Diffuse otitis externa, bilateral; J01.00 Acute maxillary sinusitis, unspecified; M19.90 Unspecified osteoarthritis, unspecified site; F32.9 Major depressive disorder, single episode, unspecified; H91.90 Unspecified hearing loss, unspecified ear; E66.01 Morbid (severe) obesity due to excess calories; G47.00 Insomnia, unspecified; N63.20 Unspecified lump in the left breast, unspecified quadrant; H60.90 Unspecified otitis externa, unspecified ear; F17.210 Nicotine dependence, cigarettes, uncomplicated; M54.9 Dorsalgia, unspecified; G89.29 Other chronic pain; F90.9 Attention-deficit hyperactivity disorder, unspecified type; Z88.1 Allergy status to other antibiotic agents; Z88.2 Allergy status to sulfonamides; Z79.84 Long term (current) use of oral hypoglycemic drugs; Z79.899 Other long term (current) drug therapy
CPT/HCPCS: 81025; 82962; 97162-GP; A9270-GY; C1713; J0131; J0330; J0690; J1815-GY; J1885; J2001; J2250; J2405; J2704; J3010; J3490; J7120

== ENCOUNTER 2020-08-02 15:19 | Emergency (ER) | payer MEDICARE, MEDICAID ==
--- NOTE | 2020-08-02 15:41 | EDM.PDOC ---
ED HPI GENERAL MEDICAL PROBLEM - General Chief Complaint: Lower Extremity Injury/Pain Stated Complaint: POSSIBLE BROKEN FOOT Time Seen by Provider: 08/02/20 15:23 Source of Information: Reports: Patient History Limitations: Reports: No Limitations - History of Present Illness INITIAL COMMENTS - FREE TEXT/NARRATIVE: 29-year-old who presents reporting twisting right ankle earlier today. The patient sustained a right fibular fracture reduced by ORIF on 06/06/2020. The patient has been ambulating with no weightbearing by crutches. The right ankle has been splinted and Geoff wrapped. During the course of ambulation today she slipped and twisted her right ankle laterally on the heel. Denies any other injuries. She has had a little pain in the ankle today that was not there previously and thus is concerned. Did call orthopedics who told her to proceed to the emergency room for an x-ray. Right Ankle Pain Score (Numeric/FACES): 8 - Related Data Allergies Allergy/AdvReac Type Severity Reaction Status Date / Time ciprofloxacin [From Cipro] Allergy Rash Verified 08/02/20 15:38 sulfamethoxazole Allergy Nausea Verified 08/02/20 15:38 [From Bactrim] trimethoprim [From Bactrim] Allergy Nausea Verified 08/02/20 15:38 Home Meds: Home Meds LORazepam [Ativan] 0.5 mg PO DAILY PRN 04/01/14 [History] metFORMIN [Glucophage XR] 1,000 mg PO BID 05/27/14 [History] Albuterol [Ventolin HFA] 2 puff INH BID PRN 10/21/15 [History] Clobetasol Propionate [Temovate] 30 gm TOP DAILY PRN 10/21/15 [History] Lisinopril 10 mg PO DAILY 09/29/18 [History] ClomiPRAMINE [ClomiPRAMINE HCl] 2 cap PO DAILY 08/26/19 [History] Fluticasone Propionate [Flovent] 1 spray NASBOTH ASDIRECTED PRN 08/26/19 [History] desogestreL-ethinyl estradioL [Reclipsen 28 Day Tablet] 1 tab PO DAILY 08/26/19 [History] Sertraline HCl [Zoloft] 200 mg PO DAILY 10/21/19 [History] diphenhydrAMINE [Benadryl] 25 mg PO QID PRN #15 tablet 02/01/20 [Rx] Lidocaine 5% 1 applic TOP QID PRN 03/02/20 [History] Clotrimazole [Clotrimazole 1%] 30 ml TOP BID PRN 06/02/20 [History] Aspirin 325 mg PO DAILY #90 tablet 06/09/20 [Rx] Clindamycin HCl 300 mg PO TID 10 Days #30 capsule 06/09/20 [Rx] Ibuprofen [Motrin] 800 mg PO Q8H #60 tablet 06/09/20 [Rx] traMADol [Ultram] 50 mg PO Q8H PRN #15 tablet 06/09/20 [Rx] Nitrofurantoin Monohyd/M-Cryst [Macrobid 100 mg Capsule] 08/02/20 [History] Past Medical History - Past Health History Medical/Surgical History: Denies Medical/Surgical History HEENT History: Reports: Other (See Below) Other HEENT History: reading glasses Cardiovascular History: Reports: Hypertension Respiratory History: Reports: Asthma Gastrointestinal History: Reports: None Genitourinary History: Reports: UTI, Recurrent, Other (See Below) Other Genitourinary History: chronic uti's, vaginal candidiasis PLANS EXAMINER History: Reports: None Musculoskeletal History: Reports: Back Pain, Chronic Other Musculoskeletal History: intermittent back pain Neurological History: Reports: None Psychiatric History: Reports: Anxiety, Depression, OCD Endocrine/Metabolic History: Reports: Diabetes, Type II, Obesity/BMI 30+ 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 Room Service Bellhop: None Hematologic History: Reports: None Immunologic History: Reports: None Oncologic (Cancer) History: Reports: None Dermatologic History: Reports: Psoriasis Other Dermatologic History: on her scalp & ears - Infectious Disease History Infectious Disease History: Reports: None - Past Surgical History Head Surgeries/Procedures: Reports: None HEENT Surgical History: Reports: Adenoidectomy, Oral Surgery, Tonsillectomy Other HEENT Surgeries/Procedures: removal of wisdom teeth Cardiovascular Surgical History: Reports: None Respiratory Surgical History: Reports: None GI Surgical History: Reports: None Female Surgical History: Reports: Other (See Below) Other Female Surgeries/Procedures: Cystoscopy Endocrine Surgical History: Reports: None Neurological Surgical History: Reports: None Musculoskeletal Surgical History: Reports: None Oncologic Surgical History: Reports: None Dermatological Surgical History: Reports: None Social & Family History - Family History Family Medical History: No Pertinent Family History Psychiatric: Reports: Anxiety, Depression Endocrine/Metabolic: Reports: Obesity/MBI 30+ Immunologic: Reports: HIV - Caffeine Use Caffeine Use: Reports: Coffee, Energy Drinks Caffeine Use Comment: 1 drink/month Review of Systems - Review of Systems Review Of Systems: Comprehensive ROS is negative, except as noted in HPI. ED EXAM, GENERAL - Physical Exam Exam: See Below Exam Limited By: No Limitations General Appearance: Alert, No Apparent Distress Ears: Normal External Exam, Normal TMs Nose: Normal Inspection Throat/Mouth: Normal Inspection Head: Atraumatic, Normocephalic Neck: Normal Inspection Respiratory/Chest: No Respiratory Distress, Lungs Clear, Normal Breath Sounds Cardiovascular: Normal Peripheral Pulses, Regular Rate, Rhythm, No Murmur GI/Abdominal: Soft, Other (Morbidly obese) Back Exam: Normal Inspection Extremities: Other (Right ankle lateral dressing in place without drainage mild forefoot edema. CMS intact to all toes. Capillary refill 2 seconds.) Course - Vital Signs Last Recorded V/S: Last Vital Signs Temp 36.4 C 08/02/20 15:26 Pulse 128 H 08/02/20 15:26 Resp 24 H 08/02/20 15:26 BP 155/99 H 08/02/20 15:26 Pulse Ox 93 L 08/02/20 15:26 Departure - Departure Time of Disposition: 16:40 Disposition: Home, Self-Care 01 Condition: Good Clinical Impression: Ankle injury Qualifiers: Encounter type: initial encounter Laterality: right Qualified Code(s): S99.911A - Unspecified injury of right ankle, initial encounter - Discharge Information Referrals: Sloan Ordonez MD [Primary Care Provider] - Forms: ED Department Discharge Additional Instructions: The following information is given to patients seen in the emergency department who are being discharged to home. This information is to outline your options for follow-up care. We provide all patients seen in our emergency department with a follow-up referral. The need for follow-up, as well as the timing and circumstances, are variable depending upon the specifics of your emergency department visit. If you don't have a primary care physician on staff, we will provide you with a referral. We always advise you to contact your personal physician following an emergency department visit to inform them of the circumstance of the visit and for follow-up with them and/or the need for any referrals to a consulting specialist. The emergency department will also refer you to a specialist when appropriate. This referral assures that you have the opportunity for follow-up care with a specialist. All of these measure are taken in an effort to provide you with optimal care, which includes your follow-up. Under all circumstances we always encourage you to contact your private physician who remains a resource for coordinating your care. When calling for follow-up care, please make the office aware that this follow-up is from your recent emergency room visit. If for any reason you are refused follow-up, please contact the [facility] Emergency Department at and asked to speak to the emergency department charge nurse. 1. Dietary counseling: Your weight is contributing to your difficulty with ambulation, knee and ankle pain. Suggest Muscle Milk with 40 g of protein in 14 fluid ounces for 220 cheyanne. 1 for breakfast, 1 for lunch, no more than 700 additional calories at a sensible supper. Both you and your mother can be on the same diet. Do not buy tempting foods high in carbohydrates. Instead choose fresh fruits and vegetables and meats including chicken, fish and lean beef and pork. Avoid alcoholic beverages and nondiet sodas. 2. Follow-up with your orthopedic surgeon as previously scheduled. Sepsis Event Note (ED) - Evaluation Sepsis Screening Result: No Definite Risk - Focused Exam Vital Signs: Vital Signs Temp Pulse Resp BP Pulse Ox 08/02/20 15:26 36.4 C 128 H 24 H 155/99 H 93 L
--- NOTE | 2020-08-02 16:38 | CR ---
INDICATION: Fracture fibula, ORIF, fall today and twisted ankle TECHNIQUE: Ankle radiograph 3 views right COMPARISON: 07/26/2020 FINDINGS: Bone: No acute fractures or aggressive bone lesions are identified. Metallic plate ORIF with 2 syndesmotic screws are noted in the distal fibula, unchanged from prior exam. Joint: The ankle mortise joint and the visualized hindfoot joints are unremarkable in appearance. No significant ankle effusion is seen. Soft tissue: Mild lateral soft tissue edema and swelling noted. IMPRESSION: 1. No acute osseous injuries or abnormalities are noted. Dictated by Clarence Orr MD @ 08/02/2020 4:36:31 PM Dictated by: Clarence Orr MD @ 08/02/2020 16:36:33 (Electronically Signed)
[2020-08-02 16:53] VITALS: BP 146/77; PULSE 100
== END 2020-08-02 16:54 | disposition home or self-care (01) ==
LOC: MW.ED 15:19
DX: S99.911A Unspecified injury of right ankle, initial encounter (principal); I10 Essential (primary) hypertension; J45.909 Unspecified asthma, uncomplicated; E11.9 Type 2 diabetes mellitus without complications; E66.01 Morbid (severe) obesity due to excess calories; Z68.44 Body mass index [BMI] 60.0-69.9, adult; Z88.1 Allergy status to other antibiotic agents; Z88.2 Allergy status to sulfonamides; Z79.899 Other long term (current) drug therapy; Z79.82 Long term (current) use of aspirin; X50.1XXA Overexertion from prolonged static or awkward postures, initial encounter
CPT/HCPCS: 29125; 29515; 73610-26-RT; 73610-RT; 99283; 99283-25

== ENCOUNTER 2020-08-28 17:08 | Emergency (ER) | payer MEDICARE, MEDICAID ==
--- NOTE | 2020-08-28 17:52 | EDM.PDOC ---
ED HPI GENERAL MEDICAL PROBLEM - General Chief Complaint: Genitourinary Problem Stated Complaint: BAD UTI Time Seen by Provider: 08/28/20 17:33 Source of Information: Reports: Patient History Limitations: Reports: No Limitations - History of Present Illness INITIAL COMMENTS - FREE TEXT/NARRATIVE: HISTORY AND PHYSICAL: History of present illness: Patient is a 29-year-old female who presents to the emergency room with complaints of dysuria. Patient is well-known to our emergency room and does get frequent UTIs. She has been on Macrobid for 3 days but feels her symptoms are getting worse. Patient denies any fever, chills, headache, change in vision, syncope or near syncope. Denies any chest pain, back pain, shortness of breath or cough. Denies any abdominal pain, nausea, vomiting, diarrhea, constipation or blood in urine or stool. Patient has been eating and drinking appropriately. Review of systems: As per history of present illness and below otherwise all systems reviewed and negative. Past medical history: As per history of present illness and as reviewed below otherwise noncontributory. Surgical history: As per history of present illness and as reviewed below otherwise noncontributory. Social history: See social history for further information Family history: As per history of present illness and as reviewed below otherwise noncontributory. Physical exam: General: Well developed and well nourished 29 year old female. Alert and orientated x 3. Nontoxic in appearance and in no acute distress. Vital signs are stable and have been reviewed by me. Nursing notes were reviewed. HEENT: Atraumatic, normocephalic, pupils equal and reactive bilaterally, negative for conjunctival pallor or scleral icterus, mucous membranes moist, trachea midline. No drooling or trismus noted. No meningeal signs. No hot potato voice noted. Lungs: Clear to auscultation bilaterally. No wheezes, rales, or rhonchi. Chest nontender. Normal work of breathing, no accessory muscles used. Heart: S1S2, regular rate and rhythm without overt murmur, gallops, or rubs. No JVD. No peripheral edema Abdomen: Soft, nondistended, nontender. Skin: Intact, warm, dry. No lesions or rashes noted. Hematologic: No petechiae or purpra. Mucosa appropriate color and normal nail bed color and refill. Extremities: Atraumatic, moves all extremities per self without difficulty or deficits, negative for cords or calf pain. Neurovascular unremarkable. Neuro: Awake, alert, oriented. Cranial nerves II through XII unremarkable. Cerebellum unremarkable. Motor and sensory unremarkable throughout. Exam nonfocal. Psychiatric: Mood and affect are appropriate. Normal thought process. Answering questions appropriately. Notes: *This patient was seen and evaluated during the 2019 SARS-CoV-2 novel coronavirus pandemic period. Community viral transmission is ongoing at time of this encounter and the emergency department is operating under pandemic response procedures. We will switch patient's antibiotic and give her Rocephin IM. Urine culture has been added. I have talked with the patient about today's findings, in addition to providing specific details for plan of care. Reassessment at the time of disposition demonstrates that the patient is in no acute distress. The patient is stable for discharge, counseling was provided and we discussed in great detail signs and symptoms that would prompt them to return to the Emergency Department. Medication, follow up and supportive care measures were reviewed and discussed. Voices understanding and is agreeable to plan of care. Denies any further questions or concerns at this time. Diagnostics: UA Therapeutics: Augmentin, Rocephin Prescription: Augmentin Impression: UTI Plan: 1. You were evaluated today on an emergent basis. You have a bladder infection requiring antibiotics. 2. You can alternate Tylenol and ibuprofen as needed for pain and fever management. 3. We encourage you to follow up with your primary care provider and/or recommended specialist in the next few days for re-evaluation and further care/management. 4. If your symptoms should worsen, new symptoms develop or any of the signs and symptoms we discussed should arise please return to the emergency room or call 911 (if needed). Definitive disposition and diagnosis as appropriate pending reevaluation and review of above. urethral Pain Score (Numeric/FACES): 8 - Related Data Allergies Allergy/AdvReac Type Severity Reaction Status Date / Time ciprofloxacin [From Cipro] Allergy Rash Verified 08/28/20 18:21 sulfamethoxazole Allergy Nausea Verified 08/28/20 18:21 [From Bactrim] trimethoprim [From Bactrim] Allergy Nausea Verified 08/28/20 18:21 Home Meds: Home Meds LORazepam [Ativan] 0.5 mg PO DAILY PRN 04/01/14 [History] metFORMIN [Glucophage XR] 1,000 mg PO BID 05/27/14 [History] Albuterol [Ventolin HFA] 2 puff INH BID PRN 10/21/15 [History] Clobetasol Propionate [Temovate] 30 gm TOP DAILY PRN 10/21/15 [History] Lisinopril 10 mg PO DAILY 09/29/18 [History] ClomiPRAMINE [ClomiPRAMINE HCl] 2 cap PO DAILY 08/26/19 [History] Fluticasone Propionate [Flovent] 1 spray NASBOTH ASDIRECTED PRN 08/26/19 [History] desogestreL-ethinyl estradioL [Reclipsen 28 Day Tablet] 1 tab PO DAILY 08/26/19 [History] Sertraline HCl [Zoloft] 200 mg PO DAILY 10/21/19 [History] diphenhydrAMINE [Benadryl] 25 mg PO QID PRN #15 tablet 02/01/20 [Rx] Lidocaine 5% 1 applic TOP QID PRN 03/02/20 [History] Clotrimazole [Clotrimazole 1%] 30 ml TOP BID PRN 06/02/20 [History] Aspirin 325 mg PO DAILY #90 tablet 06/09/20 [Rx] Clindamycin HCl 300 mg PO TID 10 Days #30 capsule 06/09/20 [Rx] Ibuprofen [Motrin] 800 mg PO Q8H #60 tablet 06/09/20 [Rx] traMADol [Ultram] 50 mg PO Q8H PRN #15 tablet 06/09/20 [Rx] Nitrofurantoin Monohyd/M-Cryst [Macrobid 100 mg Capsule] 08/02/20 [History] Amoxicillin/Clavulanate K [Augmentin 500-125 MG] 1 tab PO BID 7 Days #14 tab 08/28/20 [Rx] Past Medical History - Past Health History Medical/Surgical History: Denies Medical/Surgical History HEENT History: Reports: Other (See Below) Other HEENT History: reading glasses Cardiovascular History: Reports: Hypertension Respiratory History: Reports: Asthma Gastrointestinal History: Reports: None Genitourinary History: Reports: UTI, Recurrent, Other (See Below) Other Genitourinary History: chronic uti's, vaginal candidiasis BLOCKER HAND History: Reports: None Musculoskeletal History: Reports: Back Pain, Chronic Other Musculoskeletal History: intermittent back pain Neurological History: Reports: None Psychiatric History: Reports: Anxiety, Depression, OCD Endocrine/Metabolic History: Reports: Diabetes, Type II, Obesity/BMI 30+ 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 Hematologic History: Reports: None Immunologic History: Reports: None Oncologic (Cancer) History: Reports: None Dermatologic History: Reports: Psoriasis Other Dermatologic History: on her scalp & ears - Infectious Disease History Infectious Disease History: Reports: None - Past Surgical History Head Surgeries/Procedures: Reports: None HEENT Surgical History: Reports: Adenoidectomy, Oral Surgery, Tonsillectomy Other HEENT Surgeries/Procedures: removal of wisdom teeth Cardiovascular Surgical History: Reports: None Respiratory Surgical History: Reports: None GI Surgical History: Reports: None Female Surgical History: Reports: Other (See Below) Other Female Surgeries/Procedures: Cystoscopy Endocrine Surgical History: Reports: None Neurological Surgical History: Reports: None Musculoskeletal Surgical History: Reports: None Oncologic Surgical History: Reports: None Dermatological Surgical History: Reports: None Social & Family History - Family History Family Medical History: No Pertinent Family History Psychiatric: Reports: Anxiety, Depression Endocrine/Metabolic: Reports: Obesity/MBI 30+ Immunologic: Reports: HIV - Caffeine Use Caffeine Use: Reports: Coffee, Energy Drinks Caffeine Use Comment: 1 drink/month ED ROS GENERAL - Review of Systems Review Of Systems: Comprehensive ROS is negative, except as noted in HPI. ED EXAM, RENAL/ - Physical Exam Exam: See Below (See dictation) Course - Vital Signs Last Recorded V/S: Last Vital Signs Temp 96.6 F L 08/28/20 18:16 Pulse 121 H 08/28/20 18:16 Resp 16 08/28/20 18:16 BP 156/90 H 08/28/20 18:16 Pulse Ox 95 08/28/20 18:16 - Orders/Labs/Meds Orders: Active Orders 24 hr Category Date Time Status CULTURE URINE [RM] Stat Lab 08/28/20 17:48 Received cefTRIAXone [Rocephin] 1 gm Med 08/28/20 18:36 Ordered Lidocaine 1% [Xylocaine-MPF 1%] 4 ml IM ONETIME Labs: Laboratory Tests 08/28/20 Range/Units 17:48 Urine Color ORANGE Urine Appearance SLT CLOUDY Urine pH 6.0 (5.0-8.0) Ur Specific [place] 1.020 (1.001-1.035) Urine Protein NEGATIVE (NEGATIVE) mg/dL Urine Glucose (UA) >=1000 (NEGATIVE) mg/dL Urine Ketones NEGATIVE (NEGATIVE) mg/dL Urine Occult Blood NEGATIVE (NEGATIVE) Urine Nitrite POSITIVE H (NEGATIVE) Urine Bilirubin NEGATIVE (NEGATIVE) Urine Urobilinogen 1.0 (<2.0) EU/dL Ur Leukocyte Esterase NEGATIVE (NEGATIVE) Urine RBC 0-1 (0-2/HPF) Urine WBC 0-1 (0-5/HPF) Ur Epithelial Cells MODERATE (NONE-FEW) Urine Bacteria 1+ H (NEGATIVE) Meds: Medications Discontinued Medications Generic Name Dose Route Start Last Admin Trade Name Freq PRN Reason Stop Dose Admin Amoxicillin/Clavulanate Potassium 1 tab 08/28/20 18:18 Augmentin 500 Mg\125 Mg PO 08/28/20 18:19 ONETIME ONE Departure - Departure Time of Disposition: 18:32 Disposition: Home, Self-Care 01 Clinical Impression: UTI, Urinary tract infectious disease - Discharge Information Prescriptions: Amoxicillin/Clavulanate K [Augmentin 500-125 MG] 1 tab PO BID 7 Days #14 tab Instructions: Urinary Tract Infection, Adult, [id number] Referrals: Sloan Ordonez MD [Primary Care Provider] - Forms: ED Department Discharge Additional Instructions: The following information is given to patients seen in the emergency department who are being discharged to home. This information is to outline your options for follow-up care. We provide all patients seen in our emergency department with a follow-up referral. The need for follow-up, as well as the timing and circumstances, are variable depending upon the specifics of your emergency department visit. If you don't have a primary care physician on staff, we will provide you with a referral. We always advise you to contact your personal physician following an emergency department visit to inform them of the circumstance of the visit and for follow-up with them and/or the need for any referrals to a consulting specialist. The emergency department will also refer you to a specialist when appropriate. This referral assures that you have the opportunity for follow-up care with a specialist. All of these measure are taken in an effort to provide you with optimal care, which includes your follow-up. Under all circumstances we always encourage you to contact your private physician who remains a resource for coordinating your care. When calling for follow-up care, please make the office aware that this follow-up is from your recent emergency room visit. If for any reason you are refused follow-up, please contact the [facility] Emergency Department at and asked to speak to the emergency department charge nurse. [facility] [address] [place] [address] [facility] [address] [place] [address] Thank you for choosing the [facility] emergency department in [place] for your medical needs today. It was a pleasure caring for you. Today you were seen in the emergency department for UTI. 1. You were evaluated today on an emergent basis. You have a bladder infection requiring antibiotics. 2. You can alternate Tylenol and ibuprofen as needed for pain and fever management. 3. We encourage you to follow up with your primary care provider and/or recommended specialist in the next few days for re-evaluation and further care/management. 4. If your symptoms should worsen, new symptoms develop or any of the signs and symptoms we discussed should arise please return to the emergency room or call 911 (if needed). Sepsis Event Note (ED) - Focused Exam Vital Signs: Vital Signs Temp Pulse Resp BP Pulse Ox 08/28/20 18:16 96.6 F L 121 H 16 156/90 H 95 - My Orders Last 24 Hours: My Active Orders 08/28/20 17:48 CULTURE URINE [RM] Stat 08/28/20 18:36 cefTRIAXone [Rocephin] 1 gm Lidocaine 1% [Xylocaine-MPF 1%] 4 ml IM ONETIME - Assessment/Plan Last 24 Hours: My Active Orders 08/28/20 17:48 CULTURE URINE [RM] Stat 08/28/20 18:36 cefTRIAXone [Rocephin] 1 gm Lidocaine 1% [Xylocaine-MPF 1%] 4 ml IM ONETIME
[2020-08-28] MEDS ORDERED: Amoxicillin/Clavulanate K 500-125 MG Tab PO ONE (18:18)
[2020-08-28] MEDS ORDERED: cefTRIAXone 1 GM in Lidocaine 1% 4 ML IM ONE (18:36)
[2020-08-28] MEDS ORDERED: Amoxicillin/Clavulanate K 875-125 MG Tab PO ONE (19:10)
[2020-08-29 00:21] VITALS: BP 120/66; PULSE 102
== END 2020-08-28 19:40 | disposition home or self-care (01) ==
LOC: MW.ED 17:08
DX: N39.0 Urinary tract infection, site not specified (principal); I10 Essential (primary) hypertension; J45.909 Unspecified asthma, uncomplicated; E11.9 Type 2 diabetes mellitus without complications; E66.9 Obesity, unspecified; Z68.44 Body mass index [BMI] 60.0-69.9, adult; Z88.1 Allergy status to other antibiotic agents; Z88.2 Allergy status to sulfonamides; Z79.899 Other long term (current) drug therapy; Z79.82 Long term (current) use of aspirin
CPT/HCPCS: 81001; 87086; 87088; 87186; 96372; 99283; A9270; J0696; 99282

== ENCOUNTER 2020-09-05 16:39 | Emergency (ER) | payer MEDICARE, MEDICAID ==
[2020-09-05] MEDS ORDERED: Sodium Chloride 0.9% 2.5 ML Syringe FLUSH PRN (17:04)
[2020-09-05] MEDS ORDERED: Sodium Chloride 0.9% 10 ML Syringe FLUSH PRN (17:04)
[2020-09-05] MEDS ORDERED: Levofloxacin/Dextrose 5%-Water 750 MG in Premix Bag 1 BAG IV ONE (17:05)
--- NOTE | 2020-09-05 17:08 | EDM.PDOC ---
ED HPI GENERAL MEDICAL PROBLEM - General Chief Complaint: Genitourinary Problem Stated Complaint: UTI NOT GETTING BETTER Time Seen by Provider: 09/05/20 16:42 Bladder Pain Score (Numeric/FACES): 8 - Related Data Allergies Allergy/AdvReac Type Severity Reaction Status Date / Time ciprofloxacin [From Cipro] Allergy Rash Verified 09/05/20 16:48 sulfamethoxazole Allergy Nausea Verified 09/05/20 16:48 [From Bactrim] trimethoprim [From Bactrim] Allergy Nausea Verified 09/05/20 16:48 Home Meds: Home Meds LORazepam [Ativan] 0.5 mg PO DAILY PRN 04/01/14 [History] metFORMIN [Glucophage XR] 1,000 mg PO BID 05/27/14 [History] Albuterol [Ventolin HFA] 2 puff INH BID PRN 10/21/15 [History] Clobetasol Propionate [Temovate] 30 gm TOP DAILY PRN 10/21/15 [History] Lisinopril 10 mg PO DAILY 09/29/18 [History] ClomiPRAMINE [ClomiPRAMINE HCl] 2 cap PO DAILY 08/26/19 [History] Fluticasone Propionate [Flovent] 1 spray NASBOTH ASDIRECTED PRN 08/26/19 [History] desogestreL-ethinyl estradioL [Reclipsen 28 Day Tablet] 1 tab PO DAILY 08/26/19 [History] Sertraline HCl [Zoloft] 200 mg PO DAILY 10/21/19 [History] diphenhydrAMINE [Benadryl] 25 mg PO QID PRN #15 tablet 02/01/20 [Rx] Lidocaine 5% 1 applic TOP QID PRN 03/02/20 [History] Clotrimazole [Clotrimazole 1%] 30 ml TOP BID PRN 06/02/20 [History] Aspirin 325 mg PO DAILY #90 tablet 06/09/20 [Rx] Clindamycin HCl 300 mg PO TID 10 Days #30 capsule 06/09/20 [Rx] Ibuprofen [Motrin] 800 mg PO Q8H #60 tablet 06/09/20 [Rx] traMADol [Ultram] 50 mg PO Q8H PRN #15 tablet 06/09/20 [Rx] Nitrofurantoin Monohyd/M-Cryst [Macrobid 100 mg Capsule] 02/09/21 [History] Amoxicillin/Clavulanate K [Augmentin 500-125 MG] 1 tab PO BID 7 Days #14 tab 08/28/20 [Rx] Past Medical History - Past Health History Medical/Surgical History: Denies Medical/Surgical History HEENT History: Reports: Other (See Below) Other HEENT History: reading glasses Cardiovascular History: Reports: Hypertension Respiratory History: Reports: Asthma Gastrointestinal History: Reports: None Genitourinary History: Reports: UTI, Recurrent, Other (See Below) Other Genitourinary History: chronic uti's, vaginal candidiasis UX RESEARCHER History: Reports: None Musculoskeletal History: Reports: Back Pain, Chronic Other Musculoskeletal History: intermittent back pain Neurological History: Reports: None Psychiatric History: Reports: Anxiety, Depression, OCD Endocrine/Metabolic History: Reports: Diabetes, Type II, Obesity/BMI 30+ 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 City 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 Hematologic History: Reports: None Immunologic History: Reports: None Oncologic (Cancer) History: Reports: None Dermatologic History: Reports: Psoriasis Other Dermatologic History: on her scalp & ears - Infectious Disease History Infectious Disease History: Reports: None - Past Surgical History Head Surgeries/Procedures: Reports: None HEENT Surgical History: Reports: Adenoidectomy, Oral Surgery, Tonsillectomy Other HEENT Surgeries/Procedures: removal of wisdom teeth Cardiovascular Surgical History: Reports: None Respiratory Surgical History: Reports: None GI Surgical History: Reports: None Female Surgical History: Reports: Other (See Below) Other Female Surgeries/Procedures: Cystoscopy Endocrine Surgical History: Reports: None Neurological Surgical History: Reports: None Musculoskeletal Surgical History: Reports: None Oncologic Surgical History: Reports: None Dermatological Surgical History: Reports: None Social & Family History - Family History Family Medical History: No Pertinent Family History Psychiatric: Reports: Anxiety, Depression Endocrine/Metabolic: Reports: Obesity/MBI 30+ Immunologic: Reports: HIV - Tobacco Use Tobacco Use Status *Q: Never Tobacco User - Caffeine Use Caffeine Use: Reports: None Caffeine Use Comment: 1 drink/month - Recreational Drug Use Recreational Drug Use: No Course - Vital Signs Last Recorded V/S: Last Vital Signs Temp 36.1 C 09/05/20 16:49 Pulse 108 H 09/05/20 16:49 Resp 20 09/05/20 16:49 BP 142/115 H 09/05/20 16:49 Pulse Ox 94 L 09/05/20 16:49 - Orders/Labs/Meds Orders: Active Orders 24 hr Category Date Time Status CBC WITH AUTO DIFF [HEME] Stat Lab 09/05/20 17:04 Ordered COMPREHENSIVE METABOLIC PN,CMP [CHEM] Stat Lab 09/05/20 17:04 Ordered CULTURE BLOOD [BC] Stat Lab 09/05/20 17:07 Ordered CULTURE BLOOD [BC] Stat Lab 09/05/20 17:07 Ordered UA W/LINH RFLX IF INDICATED [URIN] Stat Lab 09/05/20 17:04 Ordered Levofloxacin/Dextrose 5%-Water [Levaquin in D5W 750 MG/ Med 09/05/20 17:05 Ordered 150 ML] 750 mg Premix Bag 1 bag IV ONETIME Sodium Chloride 0.9% [Saline Flush] Med 09/05/20 17:04 Ordered 10 ml FLUSH ASDIRECTED PRN Sodium Chloride 0.9% [Saline Flush] Med 09/05/20 17:04 Ordered 2.5 ml FLUSH ASDIRECTED PRN Blood Culture x2 Reflex Set [OM.PC] Stat Oth 09/05/20 17:07 Ordered Saline Lock Insert [OM.PC] Stat Oth 09/05/20 17:04 Ordered Medication Orders Levofloxacin/Dextrose 750 mg/ (Premix) 150 mls @ 100 mls/hr IV ONETIME ONE Stop: 09/05/20 18:34 Sodium Chloride (Sodium Chloride 0.9% 10 Ml Syringe) 10 ml FLUSH ASDIRECTED PRN PRN Reason: Keep Vein Open Sodium Chloride (Sodium Chloride 0.9% 2.5 Ml Syringe) 2.5 ml FLUSH ASDIRECTED PRN PRN Reason: Keep Vein Open Meds: Medications Generic Name Dose Route Start Last Admin Trade Name Freq PRN Reason Stop Dose Admin Levofloxacin/Dextrose 750 mg/ 150 mls @ 100 mls/hr 09/05/20 17:05 Premix IV 09/05/20 18:34 ONETIME ONE Sodium Chloride 10 ml 09/05/20 17:04 Sodium Chloride 0.9% 10 Ml Syringe FLUSH ASDIRECTED PRN Keep Vein Open Sodium Chloride 2.5 ml 09/05/20 17:04 Sodium Chloride 0.9% 2.5 Ml Syringe FLUSH ASDIRECTED PRN Keep Vein Open Departure - Discharge Information Referrals: Sloan Ordonez MD [Primary Care Provider] - Sepsis Event Note (ED) - Evaluation Sepsis Screening Result: No Definite Risk - Focused Exam Vital Signs: Vital Signs Temp Pulse Resp BP Pulse Ox 09/05/20 16:49 36.1 C 108 H 20 142/115 H 94 L - My Orders Last 24 Hours: My Active Orders 09/05/20 17:04 CBC WITH AUTO DIFF [HEME] Stat COMPREHENSIVE METABOLIC PN,CMP [CHEM] Stat UA W/LINH RFLX IF INDICATED [URIN] Stat Sodium Chloride 0.9% [Saline Flush] 10 ml FLUSH ASDIRECTED PRN Sodium Chloride 0.9% [Saline Flush] 2.5 ml FLUSH ASDIRECTED PRN Saline Lock Insert [OM.PC] Stat 09/05/20 17:05 Levofloxacin/Dextrose 5%-Water [Levaquin in D5W 750 MG/150 ML] 750 mg Premix Bag 1 bag IV ONETIME 09/05/20 17:07 CULTURE BLOOD [BC] Stat CULTURE BLOOD [BC] Stat Blood Culture x2 Reflex Set [OM.PC] Stat - Assessment/Plan Last 24 Hours: My Active Orders 09/05/20 17:04 CBC WITH AUTO DIFF [HEME] Stat COMPREHENSIVE METABOLIC PN,CMP [CHEM] Stat UA W/LINH RFLX IF INDICATED [URIN] Stat Sodium Chloride 0.9% [Saline Flush] 10 ml FLUSH ASDIRECTED PRN Sodium Chloride 0.9% [Saline Flush] 2.5 ml FLUSH ASDIRECTED PRN Saline Lock Insert [OM.PC] Stat 09/05/20 17:05 Levofloxacin/Dextrose 5%-Water [Levaquin in D5W 750 MG/150 ML] 750 mg Premix Bag 1 bag IV ONETIME 09/05/20 17:07 CULTURE BLOOD [BC] Stat CULTURE BLOOD [BC] Stat Blood Culture x2 Reflex Set [OM.PC] Stat
--- NOTE | 2020-09-05 17:12 | EDM.PDOC ---
ED HPI GENERAL MEDICAL PROBLEM - General Chief Complaint: Genitourinary Problem Stated Complaint: UTI NOT GETTING BETTER Time Seen by Provider: 09/05/20 16:42 - History of Present Illness INITIAL COMMENTS - FREE TEXT/NARRATIVE: History of present illness: She reports abdominal pain which is cramping in nature and is sharp in the low anterior abdomen. This is for 2 or 3 days. She also has dysuria that is ongoing since she was seen here on 28 August and before. She had been on 3 days of Macrobid for UTI when she was seen on 28 August. Provider administered Rocephin and gave prescription for Augmentin which the patient claims she completed. The culture grew Klebsiella but less than 10,000 colonies. The patient reports she has back pain and nausea. She did not vomit today. She feels feverish. The patient has limited range of motion of her lower extremities because of the very large amount of edema and she had a recent ankle sprain in July. She is going to physical therapy now. The patient claims she has no vaginal discharge and she is not sexually active. [] Review of systems: As per history of present illness and below otherwise all systems reviewed and negative. Past medical history: As per history of present illness and as reviewed below otherwise noncontributory. Surgical history: As per history of present illness and as reviewed below otherwise noncontributory. Social history: No reported history of drug or alcohol abuse. Family history: As per history of present illness and as reviewed below otherwise noncontributory. Physical exam: Constitutional -the patient is obese. She has difficulty walking because of edema in her lower extremities and recent ankle sprain. Well developed, well- nourished and in no acute distress HEENT - normocephalic, no evidence of trauma - external nose and mouth normal - no mass in neck and no JVD - mucosae moist EYES - full EOM, PERRL, no icterus - no evidence of inflammation, injection, or drainage Respiratory - no respiratory distress, equal bilateral expansion, lungs clear to auscultation and no abnormal lung sounds Cardiovascular - Regular Rhythm with S1 and S2 appreciated and no murmur, gallop or rub. GI - abdomen soft without distension or organomegaly - normal bowel sounds - no guard or rebound Musculoskeletal no gross deformity of long bones or joints - no tenderness, swelling or edema Neurologic - Alert and oriented times four - CN II-XII grossly intact - motor sensory and coordination symmetrically normal Psychiatric - appropriate mood and affect with normal thought content Hematologic - No petechiae or purpura - mucosa appropriate color and sclera not pale - normal nail bed color and refill Integument - no rash or evidence of trauma - normal turgor Diagnostics: [] Therapeutics: [] Impression: [] Plan: [] Definitive disposition and diagnosis as appropriate pending reevaluation and review of above. Bladder Pain Score (Numeric/FACES): 8 - Related Data Allergies Allergy/AdvReac Type Severity Reaction Status Date / Time ciprofloxacin [From Cipro] Allergy Rash Verified 09/05/20 16:48 sulfamethoxazole Allergy Nausea Verified 09/05/20 16:48 [From Bactrim] trimethoprim [From Bactrim] Allergy Nausea Verified 09/05/20 16:48 Home Meds: Home Meds LORazepam [Ativan] 0.5 mg PO DAILY PRN 04/01/14 [History] metFORMIN [Glucophage XR] 1,000 mg PO BID 05/27/14 [History] Albuterol [Ventolin HFA] 2 puff INH BID PRN 10/21/15 [History] Clobetasol Propionate [Temovate] 30 gm TOP DAILY PRN 10/21/15 [History] Lisinopril 10 mg PO DAILY 09/29/18 [History] ClomiPRAMINE [ClomiPRAMINE HCl] 2 cap PO DAILY 08/26/19 [History] Fluticasone Propionate [Flovent] 1 spray NASBOTH ASDIRECTED PRN 08/26/19 [History] desogestreL-ethinyl estradioL [Reclipsen 28 Day Tablet] 1 tab PO DAILY 08/26/19 [History] Sertraline HCl [Zoloft] 200 mg PO DAILY 10/21/19 [History] diphenhydrAMINE [Benadryl] 25 mg PO QID PRN #15 tablet 02/01/20 [Rx] Lidocaine 5% 1 applic TOP QID PRN 03/02/20 [History] Clotrimazole [Clotrimazole 1%] 30 ml TOP BID PRN 06/02/20 [History] Aspirin 325 mg PO DAILY #90 tablet 06/09/20 [Rx] Clindamycin HCl 300 mg PO TID 10 Days #30 capsule 06/09/20 [Rx] Ibuprofen [Motrin] 800 mg PO Q8H #60 tablet 06/09/20 [Rx] traMADol [Ultram] 50 mg PO Q8H PRN #15 tablet 06/09/20 [Rx] Nitrofurantoin Monohyd/M-Cryst [Macrobid 100 mg Capsule] 08/02/20 [History] Amoxicillin/Clavulanate K [Augmentin 500-125 MG] 1 tab PO BID 7 Days #14 tab 08/28/20 [Rx] Ciprofloxacin HCl [Cipro] 500 mg PO BID 10 Days #20 tablet 09/05/20 [Rx] Past Medical History - Past Health History Medical/Surgical History: Denies Medical/Surgical History HEENT History: Reports: Other (See Below) Other HEENT History: reading glasses Cardiovascular History: Reports: Hypertension Respiratory History: Reports: Asthma Gastrointestinal History: Reports: None Genitourinary History: Reports: UTI, Recurrent, Other (See Below) Other Genitourinary History: chronic uti's, vaginal candidiasis PRE CODER History: Reports: None Musculoskeletal History: Reports: Back Pain, Chronic Other Musculoskeletal History: intermittent back pain Neurological History: Reports: None Psychiatric History: Reports: Anxiety, Depression, OCD Endocrine/Metabolic History: Reports: Diabetes, Type II, Obesity/BMI 30+ 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 Operations Support Representative: None Hematologic History: Reports: None Immunologic History: Reports: None Oncologic (Cancer) History: Reports: None Dermatologic History: Reports: Psoriasis Other Dermatologic History: on her scalp & ears - Infectious Disease History Infectious Disease History: Reports: None - Past Surgical History Head Surgeries/Procedures: Reports: None HEENT Surgical History: Reports: Adenoidectomy, Oral Surgery, Tonsillectomy Other HEENT Surgeries/Procedures: removal of wisdom teeth Cardiovascular Surgical History: Reports: None Respiratory Surgical History: Reports: None GI Surgical History: Reports: None Female Surgical History: Reports: Other (See Below) Other Female Surgeries/Procedures: Cystoscopy Endocrine Surgical History: Reports: None Neurological Surgical History: Reports: None Musculoskeletal Surgical History: Reports: None Oncologic Surgical History: Reports: None Dermatological Surgical History: Reports: None Social & Family History - Family History Family Medical History: No Pertinent Family History Psychiatric: Reports: Anxiety, Depression Endocrine/Metabolic: Reports: Obesity/MBI 30+ Immunologic: Reports: HIV - Tobacco Use Tobacco Use Status *Q: Never Tobacco User - Caffeine Use Caffeine Use: Reports: None Caffeine Use Comment: 1 drink/month - Recreational Drug Use Recreational Drug Use: No ED ROS GENERAL - Review of Systems Review Of Systems: Comprehensive ROS is negative, except as noted in HPI. ED EXAM, GENERAL - Physical Exam Exam: See Below Free Text/Narrative:: My physical exam is in the HPI Course - Vital Signs Last Recorded V/S: Last Vital Signs Temp 36.1 C 09/05/20 16:49 Pulse 100 09/05/20 18:03 Resp 18 09/05/20 18:03 BP 134/104 H 09/05/20 18:03 Pulse Ox 94 L 09/05/20 18:03 - Orders/Labs/Meds Orders: Active Orders 24 hr Category Date Time Status CULTURE BLOOD [BC] Stat Lab 09/05/20 17:18 Received CULTURE BLOOD [BC] Stat Lab 09/05/20 17:59 Received Levofloxacin/Dextrose 5%-Water [Levaquin in D5W 750 MG/ Med 09/05/20 17:05 Active 150 ML] 750 mg Premix Bag 1 bag IV ONETIME Sodium Chloride 0.9% [Saline Flush] Med 09/05/20 17:04 Active 10 ml FLUSH ASDIRECTED PRN Sodium Chloride 0.9% [Saline Flush] Med 09/05/20 17:04 Active 2.5 ml FLUSH ASDIRECTED PRN Blood Culture x2 Reflex Set [OM.PC] Stat Oth 09/05/20 17:07 Ordered Saline Lock Insert [OM.PC] Stat Oth 09/05/20 17:04 Ordered Medication Orders Levofloxacin/Dextrose 750 mg/ (Premix) 150 mls @ 100 mls/hr IV ONETIME ONE Stop: 09/05/20 18:34 Last Admin: 09/05/20 18:01 Dose: 100 mls/hr Documented by: MURDNIC Sodium Chloride (Sodium Chloride 0.9% 10 Ml Syringe) 10 ml FLUSH ASDIRECTED PRN PRN Reason: Keep Vein Open Last Admin: 09/05/20 18:01 Dose: 10 ml Documented by: MURDNIC Sodium Chloride (Sodium Chloride 0.9% 2.5 Ml Syringe) 2.5 ml FLUSH ASDIRECTED PRN PRN Reason: Keep Vein Open Last Admin: 09/05/20 18:01 Dose: 2.5 ml Documented by: MURDNIC Labs: Laboratory Tests 09/05/20 09/05/20 09/05/20 Range/Units 17:04 17:18 17:18 WBC 7.39 (4.0-11.0) K/uL RBC 5.44 (4.30-5.90) M/uL Hgb 14.9 (12.0-16.0) g/dL Hct 45.5 (36.0-46.0) % MCV 83.6 (80.0-98.0) fL MCH 27.4 (27.0-32.0) pg MCHC 32.7 (31.0-37.0) g/dL RDW Std Deviation 43.2 (28.0-62.0) fl RDW Coeff of Nicky 14 (11.0-15.0) % Plt Count 314 (150-400) K/uL MPV 9.70 (7.40-12.00) fL Neut % (Auto) 61.1 (48.0-80.0) % Lymph % (Auto) 31.3 (16.0-40.0) % [place] % (Auto) 4.9 (0.0-15.0) % Eos % (Auto) 2.2 (0.0-7.0) % Baso % (Auto) 0.5 (0.0-1.5) % Neut # (Auto) 4.5 (1.4-5.7) K/uL Lymph # (Auto) 2.3 (0.6-2.4) K/uL [place] # (Auto) 0.4 (0.0-0.8) K/uL Eos # (Auto) 0.2 (0.0-0.7) K/uL Baso # (Auto) 0.0 (0.0-0.1) K/uL Nucleated RBC % 0.0 /100WBC Nucleated RBCs # 0 K/uL Sodium 136 (136-145) mmol/L Potassium 4.2 (3.5-5.1) mmol/L Chloride 100 (98-107) mmol/L Carbon Dioxide 24.9 (21.0-32.0) mmol/L BUN 12 (7.0-18.0) mg/dL Creatinine 0.7 (0.6-1.0) mg/dL Est Cr Clr Drug Dosing 104.24 mL/min Estimated GFR (MDRD) > 60.0 ml/min Glucose 222 H (74-106) mg/dL Calcium 9.1 (8.5-10.1) mg/dL Total Bilirubin 0.3 (0.2-1.0) mg/dL AST 16 (15-37) IU/L ALT 31 (14-63) IU/L Alkaline Phosphatase 101 (46-116) U/L Total Protein 7.1 (6.4-8.2) g/dL Albumin 3.0 L (3.4-5.0) g/dL Globulin 4.1 H (2.6-4.0) g/dL Albumin/Globulin Ratio 0.7 L (0.9-1.6) Urine Color ORANGE Urine Appearance SLT CLOUDY Urine pH 5.0 (5.0-8.0) Ur Specific [place] >= 1.030 (1.001-1.035) Urine Protein TRACE H (NEGATIVE) mg/dL Urine Glucose (UA) 100 H (NEGATIVE) mg/dL Urine Ketones NEGATIVE (NEGATIVE) mg/dL Urine Occult Blood NEGATIVE (NEGATIVE) Urine Nitrite POSITIVE H (NEGATIVE) Urine Bilirubin NEGATIVE (NEGATIVE) Urine Urobilinogen 1.0 (<2.0) EU/dL Ur Leukocyte Esterase NEGATIVE (NEGATIVE) Urine RBC 2-3 (0-2/HPF) Urine WBC 3-6 (0-5/HPF) Ur Epithelial Cells FEW (NONE-FEW) Amorphous Sediment FEW (NEGATIVE) Urine Bacteria 1+ H (NEGATIVE) Urine Mucus FEW (NONE-MOD) Meds: Medications Generic Name Dose Route Start Last Admin Trade Name Freq PRN Reason Stop Dose Admin Levofloxacin/Dextrose 750 mg/ 150 mls @ 100 mls/hr 09/05/20 17:05 09/05/20 18:01 Premix IV 09/05/20 18:34 100 mls/hr ONETIME ONE Administration Sodium Chloride 10 ml 09/05/20 17:04 09/05/20 18:01 Sodium Chloride 0.9% 10 Ml Syringe FLUSH 10 ml ASDIRECTED PRN Administration Keep Vein Open Sodium Chloride 2.5 ml 09/05/20 17:04 09/05/20 18:01 Sodium Chloride 0.9% 2.5 Ml Syringe FLUSH 2.5 ml ASDIRECTED PRN Administration Keep Vein Open Departure - Departure Time of Disposition: 18:24 Disposition: Home, Self-Care 01 Condition: Good Clinical Impression: UTI (urinary tract infection), Abdominal pain - Discharge Information Prescriptions: Ciprofloxacin HCl [Cipro] 500 mg PO BID 10 Days #20 tablet Instructions: Abdominal Pain, Adult, [id number], Urinary Tract Infection, Adult Referrals: Sloan Ordonez MD [Primary Care Provider] - Forms: ED Department Discharge Additional Instructions: [facility] - Primary Care [address] [place] [id number] [facility] [address] [place] [id number] The following information is given to patients seen in the emergency department who are being discharged to home. This information is to outline your options for follow-up care. We provide all patients seen in our emergency department with a follow-up referral. The need for follow-up, as well as the timing and circumstances, are variable depending upon the specifics of your emergency department visit. If you don't have a primary care physician on staff, we will provide you with a referral. We always advise you to contact your personal physician following an emergency department visit to inform them of the circumstance of the visit and for follow-up with them and/or the need for any referrals to a consulting specialist. The emergency department will also refer you to a specialist when appropriate. This referral assures that you have the opportunity for follow-up care with a specialist. All of these measure are taken in an effort to provide you with optimal care, which includes your follow-up. Under all circumstances we always encourage you to contact your private physician who remains a resource for coordinating your care. When calling for follow-up care, please make the office aware that this follow-up is from your recent emergency room visit. If for any reason you are refused follow-up, please contact the [facility] Emergency Department at and asked to speak to the emergency department charge nurse. Sepsis Event Note (ED) - Evaluation Sepsis Screening Result: No Definite Risk - Focused Exam Vital Signs: Vital Signs Temp Pulse Resp BP Pulse Ox 09/05/20 18:03 100 18 134/104 H 94 L 09/05/20 16:49 36.1 C 108 H 20 142/115 H 94 L - My Orders Last 24 Hours: My Active Orders 09/05/20 17:04 Sodium Chloride 0.9% [Saline Flush] 10 ml FLUSH ASDIRECTED PRN Sodium Chloride 0.9% [Saline Flush] 2.5 ml FLUSH ASDIRECTED PRN Saline Lock Insert [OM.PC] Stat 09/05/20 17:05 Levofloxacin/Dextrose 5%-Water [Levaquin in D5W 750 MG/150 ML] 750 mg Premix Bag 1 bag IV ONETIME 09/05/20 17:07 Blood Culture x2 Reflex Set [OM.PC] Stat 09/05/20 17:18 CULTURE BLOOD [BC] Stat 09/05/20 17:59 CULTURE BLOOD [BC] Stat - Assessment/Plan Last 24 Hours: My Active Orders 09/05/20 17:04 Sodium Chloride 0.9% [Saline Flush] 10 ml FLUSH ASDIRECTED PRN Sodium Chloride 0.9% [Saline Flush] 2.5 ml FLUSH ASDIRECTED PRN Saline Lock Insert [OM.PC] Stat 09/05/20 17:05 Levofloxacin/Dextrose 5%-Water [Levaquin in D5W 750 MG/150 ML] 750 mg Premix Bag 1 bag IV ONETIME 09/05/20 17:07 Blood Culture x2 Reflex Set [OM.PC] Stat 09/05/20 17:18 CULTURE BLOOD [BC] Stat 09/05/20 17:59 CULTURE BLOOD [BC] Stat
[2020-09-05 18:10] LABS: BLOOD UREA NITROGEN,BUN 12 mg/dL (7.0-18.0); CARBON DIOXIDE,CO2 24.9 mmol/L (21.0-32.0); CHLORIDE,CL 100 mmol/L (98-107); GLUCOSE RANDOM 222 mg/dL (74-106); POTASSIUM,K 4.2 mmol/L (3.5-5.1); SODIUM,NA 136 mmol/L (136-145)
[2020-09-05 19:26] VITALS: BP 141/95; PULSE 101
== END 2020-09-05 19:08 | disposition home or self-care (01) ==
LOC: MW.ED 16:39
DX: N39.0 Urinary tract infection, site not specified (principal); I10 Essential (primary) hypertension; J45.909 Unspecified asthma, uncomplicated; E11.9 Type 2 diabetes mellitus without complications; E66.9 Obesity, unspecified; Z68.44 Body mass index [BMI] 60.0-69.9, adult; Z88.1 Allergy status to other antibiotic agents; Z88.2 Allergy status to sulfonamides; Z79.84 Long term (current) use of oral hypoglycemic drugs; Z79.899 Other long term (current) drug therapy
CPT/HCPCS: 80053; 81001; 85025; 87040; 96365; 99284; J1956; 99283

== ENCOUNTER 2020-09-18 04:23 | Emergency (ER) | payer MEDICARE, MEDICAID ==
[2020-09-18] MEDS ORDERED: Cefdinir 300 MG Cap PO ONE (05:00)
[2020-09-18] MEDS ORDERED: Phenazopyridine 200 MG Tab PO ONE (05:01)
--- NOTE | 2020-09-18 05:04 | EDM.PDOC ---
ED HPI GENERAL MEDICAL PROBLEM - General Stated Complaint: UTI Time Seen by Provider: 09/18/20 04:59 - History of Present Illness INITIAL COMMENTS - FREE TEXT/NARRATIVE: HISTORY AND PHYSICAL: History of present illness: This is a 29-year-old female with history seen for hypertension, diabetes, multiple UTIs in the past 2 presents ER today complaining of persistent dysuria, frequency, urgency for several days. Patient reports that she has been taking Macrobid without any significant improvement in her symptoms. Patient denies any recent fevers, shakes, chills, nausea, vomiting, diarrhea, dysuria, frequency, urgency. Patient reports that she got some mild suprapubic abdominal discomfort which is typical of her urinary tract infections in the past. Patient reports that she has chronic UTIs. Patient reports she is tolerating p.o. solids and liquids without difficulty. Review of systems: As per history of present illness and below otherwise all systems reviewed and negative. Past medical history: As per history of present illness and as reviewed below otherwise noncontributory. Surgical history: As per history of present illness and as reviewed below otherwise noncontributory. Social history: No reported history of drug or alcohol abuse. Family history: As per history of present illness and as reviewed below otherwise noncontributory. Physical exam: This patient was seen and evaluated during the 2019 SARS-CoV-2 novel coronavirus pandemic period. Community viral transmission is ongoing at time of this encounter and the emergency department is operating under pandemic response procedures. Constitutional: Patient is oriented to person, place, and time. Appears well- developed and well-nourished. No distress. HEENT: Moist mucous membranes Head: Normocephalic and atraumatic Eyes: Right eye exhibits no discharge. Left eye exhibits no discharge. No scleral icterus Neck: Normal range of motion. No tracheal deviation present. Cardiovascular: Normal rate and regular rhythm. Pulmonary: Effort normal, no respiratory distress. Abd: Soft, nondistended, no rebound/guarding, no psoas or obturator signs, no tenderness at Mcberney's point, no Centeno's sign. Pt does not present with an exam that would be consistent with an acute surgical abdomen at this time Musculoskeletal: Normal range of motion Neurologic: Alert and oriented to person, place and time. Skin: [place], warm and dry. Psychiatric: Normal mood and affect. Behavior is normal. Judgment and thought content normal. Nursing note and vital signs have been reviewed Diagnostics: UA sent to lab Therapeutics: We will DC Macrobid and start Omnicef 3 mg p.o. twice daily x7 days. We will add Pyridium. Assessment and plan: 29-year-old female with a history of multiple UTIs in the past who presents ER today with urinary tract symptoms while still on Macrobid. Given her symptoms she will be treated empirically for urinary tract infection. I will have her stop her Macrobid and will record changer to Omnicef 300 mg p.o. twice daily x7 days. Reassessment at the time of disposition demonstrates that the patient is in no acute distress. The patient has remained stable throughout the entire ED visit and is without objective evidence for acute process requiring urgent intervention or hospitalization. The patient is stable for discharge, counseling is provided as documented above, discussed symptomatic treatment and specific conditions for return. I have spoken with the patient/caregiver and discussed todays findings, in addition to providing specific details for the plan of care. Questions are answered and there is agreement with the plan. Definitive disposition and diagnosis as appropriate pending reevaluation and review of above. - Related Data Allergies Allergy/AdvReac Type Severity Reaction Status Date / Time ciprofloxacin [From Cipro] Allergy Rash Verified 09/05/20 16:48 sulfamethoxazole Allergy Nausea Verified 09/05/20 16:48 [From Bactrim] trimethoprim [From Bactrim] Allergy Nausea Verified 09/05/20 16:48 Home Meds: Home Meds LORazepam [Ativan] 0.5 mg PO DAILY PRN 04/01/14 [History] metFORMIN [Glucophage XR] 1,000 mg PO BID 05/27/14 [History] Albuterol [Ventolin HFA] 2 puff INH BID PRN 10/21/15 [History] Clobetasol Propionate [Temovate] 30 gm TOP DAILY PRN 10/21/15 [History] Lisinopril 10 mg PO DAILY 09/29/18 [History] ClomiPRAMINE [ClomiPRAMINE HCl] 2 cap PO DAILY 08/26/19 [History] Fluticasone Propionate [Flovent] 1 spray NASBOTH ASDIRECTED PRN 08/26/19 [History] desogestreL-ethinyl estradioL [Reclipsen 28 Day Tablet] 1 tab PO DAILY 08/26/19 [History] Sertraline HCl [Zoloft] 200 mg PO DAILY 10/21/19 [History] diphenhydrAMINE [Benadryl] 25 mg PO QID PRN #15 tablet 02/01/20 [Rx] Lidocaine 5% 1 applic TOP QID PRN 03/02/20 [History] Clotrimazole [Clotrimazole 1%] 30 ml TOP BID PRN 06/02/20 [History] Aspirin 325 mg PO DAILY #90 tablet 06/09/20 [Rx] Clindamycin HCl 300 mg PO TID 10 Days #30 capsule 06/09/20 [Rx] Ibuprofen [Motrin] 800 mg PO Q8H #60 tablet 06/09/20 [Rx] traMADol [Ultram] 50 mg PO Q8H PRN #15 tablet 06/09/20 [Rx] Nitrofurantoin Monohyd/M-Cryst [Macrobid 100 mg Capsule] 08/02/20 [History] Amoxicillin/Clavulanate K [Augmentin 500-125 MG] 1 tab PO BID 7 Days #14 tab 08/28/20 [Rx] Ciprofloxacin HCl [Cipro] 500 mg PO BID 10 Days #20 tablet 09/05/20 [Rx] cephALEXin [Cephalexin] 500 mg PO BID #14 capsule 09/05/20 [Rx] Past Medical History - Past Health History Medical/Surgical History: Denies Medical/Surgical History HEENT History: Reports: Other (See Below) Other HEENT History: reading glasses Cardiovascular History: Reports: Hypertension Respiratory History: Reports: Asthma Gastrointestinal History: Reports: None Genitourinary History: Reports: UTI, Recurrent, Other (See Below) Other Genitourinary History: chronic uti's, vaginal candidiasis [employer] History: Reports: None Musculoskeletal History: Reports: Back Pain, Chronic Other Musculoskeletal History: intermittent back pain Neurological History: Reports: None Psychiatric History: Reports: Anxiety, Depression, OCD Endocrine/Metabolic History: Reports: Diabetes, Type II, Obesity/BMI 30+ 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 Data Entry Processor: None Hematologic History: Reports: None Immunologic History: Reports: None Oncologic (Cancer) History: Reports: None Dermatologic History: Reports: Psoriasis Other Dermatologic History: on her scalp & ears - Infectious Disease History Infectious Disease History: Reports: None - Past Surgical History Head Surgeries/Procedures: Reports: None HEENT Surgical History: Reports: Adenoidectomy, Oral Surgery, Tonsillectomy Other HEENT Surgeries/Procedures: removal of wisdom teeth Cardiovascular Surgical History: Reports: None Respiratory Surgical History: Reports: None GI Surgical History: Reports: None Female Surgical History: Reports: Other (See Below) Other Female Surgeries/Procedures: Cystoscopy Endocrine Surgical History: Reports: None Neurological Surgical History: Reports: None Musculoskeletal Surgical History: Reports: None Oncologic Surgical History: Reports: None Dermatological Surgical History: Reports: None Social & Family History - Family History Family Medical History: No Pertinent Family History Psychiatric: Reports: Anxiety, Depression Endocrine/Metabolic: Reports: Obesity/MBI 30+ Immunologic: Reports: HIV - Caffeine Use Caffeine Use: Reports: None Caffeine Use Comment: 1 drink/month ED ROS GENERAL - Review of Systems Review Of Systems: See Below ED EXAM, GENERAL - Physical Exam Exam: See Below Course - Orders/Labs/Meds Orders: Active Orders 24 hr Category Date Time Status Cefdinir [Omnicef] Med 09/18/20 05:00 Once 300 mg PO ONETIME ONE Phenazopyridine [Pyridium] Med 09/18/20 05:01 Once 200 mg PO ONETIME ONE Medication Orders Cefdinir (Cefdinir 300 Mg Cap) 300 mg PO ONETIME ONE Stop: 09/18/20 05:01 Phenazopyridine HCl (Phenazopyridine 200 Mg Tab) 200 mg PO ONETIME ONE Stop: 09/18/20 05:02 Meds: Medications Generic Name Dose Route Start Last Admin Trade Name Freq PRN Reason Stop Dose Admin Cefdinir 300 mg 09/18/20 05:00 Cefdinir 300 Mg Cap PO 09/18/20 05:01 ONETIME ONE Phenazopyridine HCl 200 mg 09/18/20 05:01 Phenazopyridine 200 Mg Tab PO 09/18/20 05:02 ONETIME ONE Departure - Departure Time of Disposition: 05:03 Disposition: Home, Self-Care 01 Condition: Good Clinical Impression: UTI (urinary tract infection) - Discharge Information Instructions: Urinary Tract Infection, Adult Referrals: Sloan Ordonez MD [Primary Care Provider] - Additional Instructions: You were seen and evaluated the ER today secondary symptoms of urinary tract infection. Given your symptoms I will go ahead and start you on a different antibiotic called Omnicef. Please take that twice a day for 7 days. He can stop your Macrobid. I have also written you a prescription for Pyridium to take 3 times a day for the next 2 days to assist with your urinary tract symptoms. This medication may turn the color of your urine orange. This is a normal side effect of this medication. The following information is given to patients seen in the emergency department who are being discharged to home. This information is to outline your options for follow-up care. We provide all patients seen in our emergency department with a follow-up referral. The need for follow-up, as well as the timing and circumstances, are variable depending upon the specifics of your emergency department visit. If you don't have a primary care physician on staff, we will provide you with a referral. We always advise you to contact your personal physician following an emergency department visit to inform them of the circumstance of the visit and for follow-up with them and/or the need for any referrals to a consulting specialist. The emergency department will also refer you to a specialist when appropriate. This referral assures that you have the opportunity for follow-up care with a specialist. All of these measure are taken in an effort to provide you with optimal care, which includes your follow-up. Under all circumstances we always encourage you to contact your private physician who remains a resource for coordinating your care. When calling for follow-up care, please make the office aware that this follow-up is from your recent emergency room visit. If for any reason you are refused follow-up, please contact the [facility] Department at and asked to speak to the emergency department charge nurse. [facility] [address] [place] [address] [id number] [address] [address] - My Orders Last 24 Hours: My Active Orders 09/18/20 05:00 Cefdinir [Omnicef] 300 mg PO ONETIME ONE 09/18/20 05:01 Phenazopyridine [Pyridium] 200 mg PO ONETIME ONE - Assessment/Plan Last 24 Hours: My Active Orders 09/18/20 05:00 Cefdinir [Omnicef] 300 mg PO ONETIME ONE 09/18/20 05:01 Phenazopyridine [Pyridium] 200 mg PO ONETIME ONE
[2020-09-18 05:56] VITALS: BP 131/91; PULSE 93
== END 2020-09-18 05:57 | disposition home or self-care (01) ==
LOC: MW.ED 04:23
DX: N39.0 Urinary tract infection, site not specified (principal); I10 Essential (primary) hypertension; J45.909 Unspecified asthma, uncomplicated; E11.9 Type 2 diabetes mellitus without complications; E66.9 Obesity, unspecified; Z68.44 Body mass index [BMI] 60.0-69.9, adult; Z88.1 Allergy status to other antibiotic agents; Z88.2 Allergy status to sulfonamides; Z79.82 Long term (current) use of aspirin; Z79.84 Long term (current) use of oral hypoglycemic drugs; Z79.899 Other long term (current) drug therapy
CPT/HCPCS: 81001; 99283; A9270

== ENCOUNTER 2020-09-30 12:49 | Emergency (ER) | payer MEDICARE, MEDICAID ==
--- NOTE | 2020-09-30 13:03 | PCM.EKG ---
#1 Interpretation EKG Date: 09/30/20 Time: 12:52 Rhythm: NSR Rate (Beats/Min): 108 [place]: Normal P-Wave: Present QRS: Normal ST-T: Normal QT: Normal MI/PQ Interval: 135 EKG Interpretation Comments: Nonischemic EKG
[2020-09-30] MEDS ORDERED: Ketorolac 30 MG/ML SDV IVPUSH ONE (13:08)
[2020-09-30] MEDS ORDERED: Sodium Chloride 0.9% 1,000 ML IV ONE (13:08)
--- NOTE | 2020-09-30 13:20 | EDM.PDOC ---
ED HPI GENERAL MEDICAL PROBLEM - General Chief Complaint: Chest Pain Stated Complaint: LT ARM SHOULDER BURNING FEELING Time Seen by Provider: 09/30/20 12:51 Source of Information: Reports: Patient History Limitations: Reports: No Limitations - History of Present Illness INITIAL COMMENTS - FREE TEXT/NARRATIVE: HISTORY AND PHYSICAL: History of present illness: Patient is a 30-year-old female who presents to the emergency room with complaints of generally feeling unwell, burning sensation in chest, shortness of breath and anxiety. She states over the past 1-2 weeks she has been waking up in the middle of the night with a burning sensation to her mid chest that occasionally radiates into her left shoulder. During this episode she feels short of breath and panicked. Last night this occurred 3 or 4 times, waking her up from sleep. She states she generally feels unwell, sore throat and fatigue. She has been using her rescue inhaler which does seem to improve her symptoms for a few hours. Touching her chest, she states she is "sore" and this reproduces the burning sensation. Patient states she forgot to tell her primary care provider, Dr. Ordonez about her symptoms at her last appointment. Patient denies any fever, chills, headache, change in vision, syncope or near syncope. Denies any back pain, shortness of breath or cough. Denies any abdominal pain, nausea, vomiting, diarrhea, constipation or dysuria. Has not noted any blood in urine or stool. Patient has been eating and drinking appropriately. Review of systems: As per history of present illness and below otherwise all systems reviewed and negative. Past medical history: As per history of present illness and as reviewed below otherwise noncontributory. Surgical history: As per history of present illness and as reviewed below otherwise noncontributory. Social history: See social history for further information Family history: As per history of present illness and as reviewed below otherwise noncontributory. Physical exam: General: Well developed and well nourished. Alert and orientated x 3. Nontoxic in appearance and in no acute distress. Vital signs are stable and have been reviewed by me. Nursing notes were reviewed. HEENT: Atraumatic, normocephalic, pupils equal and reactive bilaterally, negative for conjunctival pallor or scleral icterus, mucous membranes moist, TMs normal bilaterally, throat clear, neck supple, nontender, trachea midline. No drooling or trismus noted. No meningeal signs. No hot potato voice noted. Lungs: Clear to auscultation bilaterally. No wheezes, rales, or rhonchi. Anterior chest tender with palpation. Normal work of breathing, no accessory muscles used. Heart: S1S2, regular rate and rhythm without overt murmur, gallops, or rubs. No JVD. No peripheral edema Abdomen: Soft, nondistended, nontender. Normoactive bowel sounds. Negative for masses or costovertebral tenderness. Skin: Intact, warm, dry. No lesions or rashes noted. Hematologic: No petechiae or purpra. Mucosa appropriate color and normal nail bed color and refill. Extremities: Atraumatic, moves all extremities per self without difficulty or deficits, negative for cords or calf pain. Neurovascular unremarkable. Neuro: Awake, alert, oriented. Cranial nerves II through XII unremarkable. Cerebellum unremarkable. Motor and sensory unremarkable throughout. Exam nonfocal. Psychiatric: Mood and affect are appropriate. Normal thought process. Answering questions appropriately. Notes: *This patient was seen and evaluated during the 2019 SARS-CoV-2 novel coronavirus pandemic period. Community viral transmission is ongoing at time of this encounter and the emergency department is operating under pandemic response procedures. Patient is vague with her symptoms. Her burning sensation sounds GERD/GI, but states her chest wall is tender to touch. Will do a cardiac workup along with testing for COVID/Influenza as she states she has not had this illness yet and could be exposed due to immersion in the community. EKG shows sinus tachycardia, regular rhythm with rate of 108. No ST changes/ischemia concerns. Lab work is unremarkable. Negative COVID and influenza. Chest x-ray shows no acute findings. Symptoms have been intermittent x 2 weeks. Currently on abx for chronic UTIs. She does frequently see her PCP, Dr Ordonez. I have no concern for any acute illness causes (PE, PR, dissection, pneumonia, etc...) HEART score is Low. VSS. Currently symptoms free. She does have anxiety and states she does feel like this is playing a role in her symptoms. I have talked with the patient about today's findings, in addition to providing specific details for plan of care. Reassessment at the time of disposition demonstrates that the patient is in no acute distress. Encouraged her to follow up with Dr Ordonez. The patient is stable for discharge, counseling was provided and we discussed in great detail signs and symptoms that would prompt them to return to the Emergency Department. Medication, follow up and supportive care measures were reviewed and discussed. Voices understanding and is agreeable to plan of care. Denies any further questions or concerns at this time. Diagnostics: CBC, CMP, D.Dimer, Troponin, EKG, CXR, UA, HCGU Therapeutics: IV Toradol, GI cocktail. Prescription: None Impression: Nonspecific chest pain Plan: 1. You were evaluated today on an emergent basis. Your lab work, EKG, and chest x-ray are unremarkable. 2. You can alternate Tylenol and ibuprofen as needed for pain and fever management. 3. We encourage you to follow up with Dr Ordonez in the next few days for re- evaluation and further care/management. 4. If your symptoms should worsen, new symptoms develop or any of the signs and symptoms we discussed should arise please return to the emergency room or call 911 (if needed). Definitive disposition and diagnosis as appropriate pending reevaluation and review of above. Duration: Week(s): Location: Reports: Chest chest Pain Score (Numeric/FACES): 8 - Related Data Allergies Allergy/AdvReac Type Severity Reaction Status Date / Time ciprofloxacin [From Cipro] Allergy Rash Verified 09/30/20 13:36 sulfamethoxazole Allergy Nausea Verified 09/30/20 13:36 [From Bactrim] trimethoprim [From Bactrim] Allergy Nausea Verified 09/30/20 13:36 Home Meds: Home Meds LORazepam [Ativan] 0.5 mg PO DAILY PRN 04/01/14 [History] metFORMIN [Glucophage XR] 1,000 mg PO BID 05/27/14 [History] Albuterol [Ventolin HFA] 2 puff INH BID PRN 10/21/15 [History] Clobetasol Propionate [Temovate] 30 gm TOP DAILY PRN 10/21/15 [History] Lisinopril 10 mg PO DAILY 09/29/18 [History] ClomiPRAMINE [ClomiPRAMINE HCl] 2 cap PO DAILY 08/26/19 [History] Fluticasone Propionate [Flovent] 1 spray NASBOTH ASDIRECTED PRN 08/26/19 [History] desogestreL-ethinyl estradioL [Reclipsen 28 Day Tablet] 1 tab PO DAILY 08/26/19 [History] Sertraline HCl [Zoloft] 200 mg PO DAILY 10/21/19 [History] diphenhydrAMINE [Benadryl] 25 mg PO QID PRN #15 tablet 02/01/20 [Rx] Lidocaine 5% 1 applic TOP QID PRN 03/02/20 [History] Clotrimazole [Clotrimazole 1%] 30 ml TOP BID PRN 06/02/20 [History] Aspirin 325 mg PO DAILY #90 tablet 06/09/20 [Rx] Clindamycin HCl 300 mg PO TID 10 Days #30 capsule 06/09/20 [Rx] Ibuprofen [Motrin] 800 mg PO Q8H #60 tablet 06/09/20 [Rx] traMADol [Ultram] 50 mg PO Q8H PRN #15 tablet 06/09/20 [Rx] Nitrofurantoin Monohyd/M-Cryst [Macrobid 100 mg Capsule] 08/02/20 [History] Amoxicillin/Clavulanate K [Augmentin 500-125 MG] 1 tab PO BID 7 Days #14 tab 08/28/20 [Rx] Ciprofloxacin HCl [Cipro] 500 mg PO BID 10 Days #20 tablet 09/05/20 [Rx] cephALEXin [Cephalexin] 500 mg PO BID #14 capsule 09/05/20 [Rx] Cefdinir 300 mg PO Q12HR #14 capsule 09/18/20 [Rx] Fluconazole [Diflucan] 150 mg PO ONETIME #1 tab 09/18/20 [Rx] Phenazopyridine [Pyridium] 200 mg PO TID #9 tab 09/18/20 [Rx] Past Medical History - Past Health History Medical/Surgical History: Denies Medical/Surgical History HEENT History: Reports: Other (See Below) Other HEENT History: reading glasses Cardiovascular History: Reports: Hypertension Respiratory History: Reports: Asthma Gastrointestinal History: Reports: None Genitourinary History: Reports: UTI, Recurrent, Other (See Below) Other Genitourinary History: chronic uti's, vaginal candidiasis 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 Musculoskeletal History: Reports: Back Pain, Chronic Other Musculoskeletal History: intermittent back pain, R ankle fx Neurological History: Reports: None Psychiatric History: Reports: Anxiety, Depression, OCD Endocrine/Metabolic History: Reports: Diabetes, Type II, Obesity/BMI 30+ 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 Hematologic History: Reports: None Immunologic History: Reports: None Oncologic (Cancer) History: Reports: None Dermatologic History: Reports: Psoriasis Other Dermatologic History: on her scalp & ears - Infectious Disease History Infectious Disease History: Reports: None - Past Surgical History Head Surgeries/Procedures: Reports: None HEENT Surgical History: Reports: Adenoidectomy, Oral Surgery, Tonsillectomy Other HEENT Surgeries/Procedures: removal of wisdom teeth Cardiovascular Surgical History: Reports: None Respiratory Surgical History: Reports: None GI Surgical History: Reports: None Female Surgical History: Reports: Other (See Below) Other Female Surgeries/Procedures: Cystoscopy Endocrine Surgical History: Reports: None Neurological Surgical History: Reports: None Musculoskeletal Surgical History: Reports: None Oncologic Surgical History: Reports: None Dermatological Surgical History: Reports: None Social & Family History - Family History Family Medical History: No Pertinent Family History Psychiatric: Reports: Anxiety, Depression Endocrine/Metabolic: Reports: Obesity/MBI 30+ Immunologic: Reports: HIV - Caffeine Use Caffeine Use: Reports: Coffee, Energy Drinks Caffeine Use Comment: 1 drink/month ED ROS GENERAL - Review of Systems Review Of Systems: Comprehensive ROS is negative, except as noted in HPI. ED EXAM, GENERAL - Physical Exam Exam: See Below (See dictation) Course - Vital Signs Last Recorded V/S: Last Vital Signs Temp 96.7 F L 09/30/20 12:51 Pulse 107 H 09/30/20 12:51 Resp 18 09/30/20 12:51 BP 128/80 09/30/20 12:51 Pulse Ox 98 09/30/20 12:51 - Orders/Labs/Meds Orders: Active Orders 24 hr Category Date Time Status EKG Documentation Completion [RC] STAT Care 09/30/20 13:08 Active CXR [Chest 1V Frontal] [CR] Stat Exams 09/30/20 13:10 Taken Sodium Chloride 0.9% [Normal Saline] 1,000 ml Med 09/30/20 13:08 Active IV STAT Medication Orders Sodium Chloride (Normal Saline) 1,000 mls @ 125 mls/hr IV STAT ONE Stop: 09/30/20 21:07 Last Admin: 09/30/20 13:21 Dose: 125 mls/hr Documented by: JOSE MIGUEL Labs: Laboratory Tests 09/30/20 09/30/20 09/30/20 Range/Units 13:05 13:05 13:05 WBC 6.71 (4.0-11.0) K/uL RBC 5.16 (4.30-5.90) M/uL Hgb 14.1 (12.0-16.0) g/dL Hct 43.7 (36.0-46.0) % MCV 84.7 (80.0-98.0) fL MCH 27.3 (27.0-32.0) pg MCHC 32.3 (31.0-37.0) g/dL RDW Std Deviation 44.2 (28.0-62.0) fl RDW Coeff of Nicky 14 (11.0-15.0) % Plt Count 283 (150-400) K/uL MPV 10.10 (7.40-12.00) fL Neut % (Auto) 59.8 (48.0-80.0) % Lymph % (Auto) 32.0 (16.0-40.0) % Lipscomb % (Auto) 5.4 (0.0-15.0) % Eos % (Auto) 2.2 (0.0-7.0) % Baso % (Auto) 0.6 (0.0-1.5) % Neut # (Auto) 4.0 (1.4-5.7) K/uL Lymph # (Auto) 2.2 (0.6-2.4) K/uL Lipscomb # (Auto) 0.4 (0.0-0.8) K/uL Eos # (Auto) 0.2 (0.0-0.7) K/uL Baso # (Auto) 0.0 (0.0-0.1) K/uL Nucleated RBC % 0.0 /100WBC Nucleated RBCs # 0 K/uL D-Dimer, Quantitative 0.39 (0.0-0.50) mg/L FEU Sodium 135 L (136-145) mmol/L Potassium 4.4 (3.5-5.1) mmol/L Chloride 102 (98-107) mmol/L Carbon Dioxide 23.7 (21.0-32.0) mmol/L BUN 17 (7.0-18.0) mg/dL Creatinine 0.6 (0.6-1.0) mg/dL Est Cr Clr Drug Dosing 120.54 mL/min Estimated GFR (MDRD) > 60.0 ml/min Glucose 323 H (74-106) mg/dL Calcium 8.7 (8.5-10.1) mg/dL Total Bilirubin 0.3 (0.2-1.0) mg/dL AST 13 L (15-37) IU/L ALT 29 (14-63) IU/L Alkaline Phosphatase 96 (46-116) U/L Troponin I < 0.050 (0.000-0.056) ng/mL Total Protein 6.8 (6.4-8.2) g/dL Albumin 2.9 L (3.4-5.0) g/dL Globulin 3.9 (2.6-4.0) g/dL Albumin/Globulin Ratio 0.7 L (0.9-1.6) Influenza Type A RNA (NEGATIVE) Influenza Type B RNA (NEGATIVE) SARS-CoV-2 RNA (TIGIST) (NEGATIVE) 09/30/20 Range/Units 13:27 WBC (4.0-11.0) K/uL RBC (4.30-5.90) M/uL Hgb (12.0-16.0) g/dL Hct (36.0-46.0) % MCV (80.0-98.0) fL MCH (27.0-32.0) pg MCHC (31.0-37.0) g/dL RDW Std Deviation (28.0-62.0) fl RDW Coeff of Nicky (11.0-15.0) % Plt Count (150-400) K/uL MPV (7.40-12.00) fL Neut % (Auto) (48.0-80.0) % Lymph % (Auto) (16.0-40.0) % Lipscomb % (Auto) (0.0-15.0) % Eos % (Auto) (0.0-7.0) % Baso % (Auto) (0.0-1.5) % Neut # (Auto) (1.4-5.7) K/uL Lymph # (Auto) (0.6-2.4) K/uL Lipscomb # (Auto) (0.0-0.8) K/uL Eos # (Auto) (0.0-0.7) K/uL Baso # (Auto) (0.0-0.1) K/uL Nucleated RBC % /100WBC Nucleated RBCs # K/uL D-Dimer, Quantitative (0.0-0.50) mg/L FEU Sodium (136-145) mmol/L Potassium (3.5-5.1) mmol/L Chloride (98-107) mmol/L Carbon Dioxide (21.0-32.0) mmol/L BUN (7.0-18.0) mg/dL Creatinine (0.6-1.0) mg/dL Est Cr Clr Drug Dosing mL/min Estimated GFR (MDRD) ml/min Glucose (74-106) mg/dL Calcium (8.5-10.1) mg/dL Total Bilirubin (0.2-1.0) mg/dL AST (15-37) IU/L ALT (14-63) IU/L Alkaline Phosphatase (46-116) U/L Troponin I (0.000-0.056) ng/mL Total Protein (6.4-8.2) g/dL Albumin (3.4-5.0) g/dL Globulin (2.6-4.0) g/dL Albumin/Globulin Ratio (0.9-1.6) Influenza Type A RNA NEGATIVE (NEGATIVE) Influenza Type B RNA NEGATIVE (NEGATIVE) SARS-CoV-2 RNA (TIGIST) NEGATIVE (NEGATIVE) Meds: Medications Generic Name Dose Route Start Last Admin Trade Name Freq PRN Reason Stop Dose Admin Sodium Chloride 1,000 mls @ 125 mls/hr 09/30/20 13:08 09/30/20 13:21 Normal Saline IV 09/30/20 21:07 125 mls/hr STAT ONE Administration Discontinued Medications Generic Name Dose Route Start Last Admin Trade Name Freq PRN Reason Stop Dose Admin Al Hydroxide/Mg Hydroxide 15 0 ml 09/30/20 13:27 09/30/20 13:55 ml/ Lidocaine HCl 5 ml PO 09/30/20 13:28 1 each ONETIME ONE Administration Ketorolac Tromethamine 30 mg 09/30/20 13:08 09/30/20 13:21 Ketorolac 30 Mg/Ml Sdv IVPUSH 09/30/20 13:09 30 mg ONETIME ONE Administration Departure - Departure Time of Disposition: 14:29 Disposition: Home, Self-Care 01 Clinical Impression: Nonspecific chest pain Instructions: Nonspecific Chest Pain, Adult, [id number] Referrals: Sloan Ordonez MD [Primary Care Provider] - Forms: ED Department Discharge Additional Instructions: The following information is given to patients seen in the emergency department who are being discharged to home. This information is to outline your options for follow-up care. We provide all patients seen in our emergency department with a follow-up referral. The need for follow-up, as well as the timing and circumstances, are variable depending upon the specifics of your emergency department visit. If you don't have a primary care physician on staff, we will provide you with a referral. We always advise you to contact your personal physician following an emergency department visit to inform them of the circumstance of the visit and for follow-up with them and/or the need for any referrals to a consulting specialist. The emergency department will also refer you to a specialist when appropriate. This referral assures that you have the opportunity for follow-up care with a specialist. All of these measure are taken in an effort to provide you with optimal care, which includes your follow-up. Under all circumstances we always encourage you to contact your private physician who remains a resource for coordinating your care. When calling for follow-up care, please make the office aware that this follow-up is from your recent emergency room visit. If for any reason you are refused follow-up, please contact the [facility] Emergency Department at and asked to speak to the emergency department charge nurse. [facility] [address] [place] [address] [id number] [address] [address] Thank you for choosing the [facility] emergency department in [place] for your medical needs today. It was a pleasure caring for you. Today you were seen in the emergency department for chest pain. 1. You were evaluated today on an emergent basis. Your lab work, EKG, COVID/Influenza and chest x-ray are unremarkable. 2. You can alternate Tylenol and ibuprofen as needed for pain and fever management. 3. We encourage you to follow up with Dr Ordonez in the next few days for re- evaluation and further care/management. 4. If your symptoms should worsen, new symptoms develop or any of the signs and symptoms we discussed should arise please return to the emergency room or call 911 (if needed). Sepsis Event Note (ED) - Focused Exam Vital Signs: Vital Signs Temp Pulse Resp BP Pulse Ox 09/30/20 12:51 96.7 F L 107 H 18 128/80 98 - My Orders Last 24 Hours: My Active Orders 09/30/20 13:08 EKG Documentation Completion [RC] STAT Sodium Chloride 0.9% [Normal Saline] 1,000 ml IV STAT 09/30/20 13:10 CXR [Chest 1V Frontal] [CR] Stat - Assessment/Plan Last 24 Hours: My Active Orders 09/30/20 13:08 EKG Documentation Completion [RC] STAT Sodium Chloride 0.9% [Normal Saline] 1,000 ml IV STAT 09/30/20 13:10 CXR [Chest 1V Frontal] [CR] Stat
[2020-09-30] MEDS ORDERED: Alum Hydrox/Mag Hydrox/Simeth 15 ML, Lidocaine 2% 5 ML PO ONE ×2 (13:27)
[2020-09-30 13:52] LABS: BLOOD UREA NITROGEN,BUN 17 mg/dL (7.0-18.0); CARBON DIOXIDE,CO2 23.7 mmol/L (21.0-32.0); CHLORIDE,CL 102 mmol/L (98-107); GLUCOSE RANDOM 323 mg/dL (74-106); POTASSIUM,K 4.4 mmol/L (3.5-5.1); SODIUM,NA 135 mmol/L (136-145)
[2020-09-30 14:13] LABS: CORONAVIRUS COVID-19 NAA NEGATIVE (NEGATIVE); INFLUENZA A NAA NEGATIVE (NEGATIVE); INFLUENZA B NAA NEGATIVE (NEGATIVE)
--- NOTE | 2020-09-30 14:41 | CR ---
INDICATION: Shortness of breath, pain. TECHNIQUE: Chest 1 view. COMPARISON: Chest radiograph 05/03/2020. FINDINGS: Patchy opacity in the medial right lung base may represent atelectasis or infiltrate. No pleural effusion or pneumothorax. Normal heart size and pulmonary vascularity. The bones are unremarkable. IMPRESSION: Patchy opacity in the medial right lung base may represent atelectasis or infiltrate. Dictated by Alexia Alvares MD @ Sep 30 2020 2:38PM Signed by Dr. Alexia Alvares @ Sep 30 2020 2:40PM
[2020-10-01 08:25] VITALS: BP 127/82; PULSE 96
== END 2020-09-30 15:07 | disposition home or self-care (01) ==
LOC: MW.ED 12:49
DX: R07.9 Chest pain, unspecified (principal); I10 Essential (primary) hypertension; J45.909 Unspecified asthma, uncomplicated; E11.9 Type 2 diabetes mellitus without complications; E66.9 Obesity, unspecified; Z79.82 Long term (current) use of aspirin; Z20.822 Contact with and (suspected) exposure to COVID-19; Z88.1 Allergy status to other antibiotic agents; Z88.2 Allergy status to sulfonamides; Z79.84 Long term (current) use of oral hypoglycemic drugs
CPT/HCPCS: 0240U; 36415; 71045; 80053; 84484; 85025; 85379; 93005; 96374; 99285; A9270; J1885; J7030

== ENCOUNTER 2020-12-11 20:41 | Emergency (ER) | payer MEDICARE, MEDICAID ==
[2020-12-11] MEDS ORDERED: Sodium Chloride 0.9% 10 ML Syringe FLUSH PRN (20:59)
[2020-12-11] MEDS ORDERED: Sodium Chloride 0.9% 2.5 ML Syringe FLUSH PRN (20:59)
--- NOTE | 2020-12-11 21:05 | EDM.PDOC ---
ED HPI GENERAL MEDICAL PROBLEM - General Chief Complaint: General Stated Complaint: HIGH BLOOD SUGAR, NOT FEELING WELL Time Seen by Provider: 12/11/20 20:46 Source of Information: Reports: Patient History Limitations: Reports: No Limitations - History of Present Illness INITIAL COMMENTS - FREE TEXT/NARRATIVE: 30-year-old female past medical history [id number] diabetes poorly controlled, frequent ED utilizer presents for abnormal lab as an outpatient last week. Patient states that on Saturday she had a urine study. She was called on Saturday and told that there is glucose in her urine. She does note a burning sensation with urination. She also describes a headache and frequent urination. Her blood sugars have been running in the 200s and 300s which is normal for her. She has an appointment in 4 days with her PMD for reassessment. headache Pain Score (Numeric/FACES): 5 - Related Data Allergies Allergy/AdvReac Type Severity Reaction Status Date / Time ciprofloxacin [From Cipro] Allergy Rash Verified 12/11/20 20:59 sulfamethoxazole Allergy Nausea Verified 12/11/20 20:59 [From Bactrim] trimethoprim [From Bactrim] Allergy Nausea Verified 12/11/20 20:59 Home Meds: Home Meds LORazepam [Ativan] 0.5 mg PO DAILY PRN 04/01/14 [History] metFORMIN [Glucophage XR] 1,000 mg PO BID 05/27/14 [History] Albuterol [Ventolin HFA] 2 puff INH BID PRN 10/21/15 [History] Clobetasol Propionate [Temovate] 30 gm TOP DAILY PRN 10/21/15 [History] Lisinopril 10 mg PO DAILY 09/29/18 [History] ClomiPRAMINE [ClomiPRAMINE HCl] 2 cap PO DAILY 08/26/19 [History] Fluticasone Propionate [Flovent] 1 spray NASBOTH ASDIRECTED PRN 08/26/19 [History] desogestreL-ethinyl estradioL [Reclipsen 28 Day Tablet] 1 tab PO DAILY 08/26/19 [History] Sertraline HCl [Zoloft] 200 mg PO DAILY 10/21/19 [History] diphenhydrAMINE [Benadryl] 25 mg PO QID PRN #15 tablet 02/01/20 [Rx] Lidocaine 5% 1 applic TOP QID PRN 03/02/20 [History] Clotrimazole [Clotrimazole 1%] 30 ml TOP BID PRN 06/02/20 [History] Aspirin 325 mg PO DAILY #90 tablet 06/09/20 [Rx] Clindamycin HCl 300 mg PO TID 10 Days #30 capsule 06/09/20 [Rx] Ibuprofen [Motrin] 800 mg PO Q8H #60 tablet 06/09/20 [Rx] traMADol [Ultram] 50 mg PO Q8H PRN #15 tablet 06/09/20 [Rx] Nitrofurantoin Monohyd/M-Cryst [Macrobid 100 mg Capsule] 08/02/20 [History] Amoxicillin/Clavulanate K [Augmentin 500-125 MG] 1 tab PO BID 7 Days #14 tab 08/28/20 [Rx] Ciprofloxacin HCl [Cipro] 500 mg PO BID 10 Days #20 tablet 09/05/20 [Rx] cephALEXin [Cephalexin] 500 mg PO BID #14 capsule 09/05/20 [Rx] Cefdinir 300 mg PO Q12HR #14 capsule 09/18/20 [Rx] Fluconazole [Diflucan] 150 mg PO ONETIME #1 tab 09/18/20 [Rx] Phenazopyridine [Pyridium] 200 mg PO TID #9 tab 09/18/20 [Rx] Past Medical History - Past Health History Medical/Surgical History: Denies Medical/Surgical History HEENT History: Reports: Other (See Below) Other HEENT History: reading glasses Cardiovascular History: Reports: Hypertension Respiratory History: Reports: Asthma Gastrointestinal History: Reports: None Genitourinary History: Reports: UTI, Recurrent, Other (See Below) Other Genitourinary History: chronic uti's, vaginal candidiasis [employer] History: Reports: None Musculoskeletal History: Reports: Back Pain, Chronic Other Musculoskeletal History: intermittent back pain, R ankle fx Neurological History: Reports: None Psychiatric History: Reports: Anxiety, Depression, OCD Endocrine/Metabolic History: Reports: Diabetes, Type II, Obesity/BMI 30+ 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 Hematologic History: Reports: None Immunologic History: Reports: None Oncologic (Cancer) History: Reports: None Dermatologic History: Reports: Psoriasis Other Dermatologic History: on her scalp & ears - Infectious Disease History Infectious Disease History: Reports: None - Past Surgical History Head Surgeries/Procedures: Reports: None HEENT Surgical History: Reports: Adenoidectomy, Oral Surgery, Tonsillectomy Other HEENT Surgeries/Procedures: removal of wisdom teeth Cardiovascular Surgical History: Reports: None Respiratory Surgical History: Reports: None GI Surgical History: Reports: None Female Surgical History: Reports: Other (See Below) Other Female Surgeries/Procedures: Cystoscopy Endocrine Surgical History: Reports: None Neurological Surgical History: Reports: None Musculoskeletal Surgical History: Reports: None Oncologic Surgical History: Reports: None Dermatological Surgical History: Reports: None Social & Family History - Family History Family Medical History: No Pertinent Family History Psychiatric: Reports: Anxiety, Depression Endocrine/Metabolic: Reports: Obesity/MBI 30+ Immunologic: Reports: HIV - Caffeine Use Caffeine Use: Reports: Coffee Caffeine Use Comment: 1 drink/month ED ROS GENERAL - Review of Systems Review Of Systems: Comprehensive ROS is negative, except as noted in HPI. ED EXAM, GENERAL - Physical Exam Exam: See Below Exam Limited By: No Limitations General Appearance: Alert, WD/WN, No Apparent Distress Throat/Mouth: Normal Voice, No Airway Compromise Head: Atraumatic, Normocephalic Neck: Normal Inspection Respiratory/Chest: No Respiratory Distress, No Accessory Muscle Use Cardiovascular: Normal Peripheral Pulses, Regular Rate, Rhythm GI/Abdominal: Soft, Non-Tender Extremities: Normal Inspection Neurological: Alert, Normal Cognition Psychiatric: Normal Affect, Normal Mood Skin Exam: Warm, Dry, Intact Course - Vital Signs Last Recorded V/S: Last Vital Signs Temp 97.2 F 12/11/20 20:55 Pulse 108 H 12/11/20 20:55 Resp 18 12/11/20 20:55 BP 157/95 H 12/11/20 20:55 Pulse Ox 96 12/11/20 20:55 - Orders/Labs/Meds Orders: Active Orders 24 hr Category Date Time Status Blood Glucose Check, Bedside [RC] ONETIME Care 12/11/20 20:59 Active UA W/LINH RFLX IF INDICATED [URIN] Stat Lab 12/11/20 22:00 Received Sodium Chloride 0.9% [Saline Flush] Med 12/11/20 20:59 Active 10 ml FLUSH ASDIRECTED PRN Sodium Chloride 0.9% [Saline Flush] Med 12/11/20 20:59 Active 2.5 ml FLUSH ASDIRECTED PRN Saline Lock Insert [OM.PC] Stat Oth 12/11/20 20:59 Ordered Medication Orders Sodium Chloride (Sodium Chloride 0.9% 10 Ml Syringe) 10 ml FLUSH ASDIRECTED PRN PRN Reason: Keep Vein Open Last Admin: 12/11/20 21:20 Dose: 10 ml Documented by: TIFFANY Sodium Chloride (Sodium Chloride 0.9% 2.5 Ml Syringe) 2.5 ml FLUSH ASDIRECTED PRN PRN Reason: Keep Vein Open Last Admin: 12/11/20 21:21 Dose: 2.5 ml Documented by: TIFFANY Labs: Laboratory Tests 12/11/20 12/11/20 12/11/20 Range/Units 21:12 21:15 21:15 WBC 8.27 (4.0-11.0) K/uL RBC 5.67 (4.30-5.90) M/uL Hgb 15.4 (12.0-16.0) g/dL Hct 46.5 H (36.0-46.0) % MCV 82.0 (80.0-98.0) fL MCH 27.2 (27.0-32.0) pg MCHC 33.1 (31.0-37.0) g/dL RDW Std Deviation 41.3 (28.0-62.0) fl RDW Coeff of Nicky 14 (11.0-15.0) % Plt Count 301 (150-400) K/uL MPV 9.80 (7.40-12.00) fL Neut % (Auto) 57.4 (48.0-80.0) % Lymph % (Auto) 35.2 (16.0-40.0) % [place] % (Auto) 5.1 (0.0-15.0) % Eos % (Auto) 1.7 (0.0-7.0) % Baso % (Auto) 0.6 (0.0-1.5) % Neut # (Auto) 4.8 (1.4-5.7) K/uL Lymph # (Auto) 2.9 H (0.6-2.4) K/uL [place] # (Auto) 0.4 (0.0-0.8) K/uL Eos # (Auto) 0.1 (0.0-0.7) K/uL Baso # (Auto) 0.1 (0.0-0.1) K/uL Nucleated RBC % 0.0 /100WBC Nucleated RBCs # 0 K/uL VBG pH 7.42 H (7.31-7.41) VBG pCO2 38 L (41-51) mmHG VBG pO2 63 mmHG VBG HCO3 25 (23-28) mEq/L VBG Total CO2 21 L (24-29) mmol/L VBG Base Excess 0.2 (-2.0-3.0) Sodium (136-145) mmol/L Potassium (3.5-5.1) mmol/L Chloride (98-107) mmol/L Carbon Dioxide (21.0-32.0) mmol/L BUN (7.0-18.0) mg/dL Creatinine (0.6-1.0) mg/dL Est Cr Clr Drug Dosing Estimated GFR (MDRD) ml/min Glucose (74-106) mg/dL POC Glucose 233 H (70-99) mg/dL Calcium (8.5-10.1) mg/dL Total Bilirubin (0.2-1.0) mg/dL AST (15-37) IU/L ALT (14-63) IU/L Alkaline Phosphatase (46-116) U/L Total Protein (6.4-8.2) g/dL Albumin (3.4-5.0) g/dL Globulin (2.6-4.0) g/dL Albumin/Globulin Ratio (0.9-1.6) Urine Color Urine Appearance Urine pH (5.0-8.0) Ur Specific [place] (1.001-1.035) Urine Protein (NEGATIVE) mg/dL Urine Glucose (UA) (NEGATIVE) mg/dL Urine Ketones (NEGATIVE) mg/dL Urine Occult Blood (NEGATIVE) Urine Nitrite (NEGATIVE) Urine Bilirubin (NEGATIVE) Urine Urobilinogen (<2.0) EU/dL Ur Leukocyte Esterase (NEGATIVE) Ketones (NEG) 12/11/20 12/11/20 12/11/20 Range/Units 21:15 21:15 22:00 WBC (4.0-11.0) K/uL RBC (4.30-5.90) M/uL Hgb (12.0-16.0) g/dL Hct (36.0-46.0) % MCV (80.0-98.0) fL MCH (27.0-32.0) pg MCHC (31.0-37.0) g/dL RDW Std Deviation (28.0-62.0) fl RDW Coeff of Nicky (11.0-15.0) % Plt Count (150-400) K/uL MPV (7.40-12.00) fL Neut % (Auto) (48.0-80.0) % Lymph % (Auto) (16.0-40.0) % [place] % (Auto) (0.0-15.0) % Eos % (Auto) (0.0-7.0) % Baso % (Auto) (0.0-1.5) % Neut # (Auto) (1.4-5.7) K/uL Lymph # (Auto) (0.6-2.4) K/uL [place] # (Auto) (0.0-0.8) K/uL Eos # (Auto) (0.0-0.7) K/uL Baso # (Auto) (0.0-0.1) K/uL Nucleated RBC % /100WBC Nucleated RBCs # K/uL VBG pH (7.31-7.41) VBG pCO2 (41-51) mmHG VBG pO2 mmHG VBG HCO3 (23-28) mEq/L VBG Total CO2 (24-29) mmol/L VBG Base Excess (-2.0-3.0) Sodium 137 (136-145) mmol/L Potassium 4.0 (3.5-5.1) mmol/L Chloride 101 (98-107) mmol/L Carbon Dioxide 24.6 (21.0-32.0) mmol/L BUN 13 (7.0-18.0) mg/dL Creatinine 0.8 (0.6-1.0) mg/dL Est Cr Clr Drug Dosing TNP Estimated GFR (MDRD) > 60.0 ml/min Glucose 250 H (74-106) mg/dL POC Glucose (70-99) mg/dL Calcium 8.6 (8.5-10.1) mg/dL Total Bilirubin 0.3 (0.2-1.0) mg/dL AST 47 H (15-37) IU/L ALT 50 (14-63) IU/L Alkaline Phosphatase 96 (46-116) U/L Total Protein 7.0 (6.4-8.2) g/dL Albumin 2.9 L (3.4-5.0) g/dL Globulin 4.1 H (2.6-4.0) g/dL Albumin/Globulin Ratio 0.7 L (0.9-1.6) Urine Color YELLOW Urine Appearance SLT CLOUDY Urine pH 6.0 (5.0-8.0) Ur Specific [place] >= 1.030 (1.001-1.035) Urine Protein NEGATIVE (NEGATIVE) mg/dL Urine Glucose (UA) 250 H (NEGATIVE) mg/dL Urine Ketones TRACE H (NEGATIVE) mg/dL Urine Occult Blood TRACE-INTACT H (NEGATIVE) Urine Nitrite NEGATIVE (NEGATIVE) Urine Bilirubin NEGATIVE (NEGATIVE) Urine Urobilinogen 0.2 (<2.0) EU/dL Ur Leukocyte Esterase NEGATIVE (NEGATIVE) Ketones NEGATIVE (NEG) Meds: Medications Generic Name Dose Route Start Last Admin Trade Name Freq PRN Reason Stop Dose Admin Sodium Chloride 10 ml 12/11/20 20:59 12/11/20 21:20 Sodium Chloride 0.9% 10 Ml Syringe FLUSH 10 ml ASDIRECTED PRN Administration Keep Vein Open Sodium Chloride 2.5 ml 12/11/20 20:59 12/11/20 21:21 Sodium Chloride 0.9% 2.5 Ml Syringe FLUSH 2.5 ml ASDIRECTED PRN Administration Keep Vein Open - Re-Assessments/Exams Free Text/Narrative Re-Assessment/Exam: 12/11/20 21:29 We will get labs to ensure no evidence of DKA. Fingerstick is in the 240s. Will check a urine for signs of infection. 12/11/20 22:09 Urine does not show evidence of UTI. She does have glucosuria to 250. Will recommend follow-up with PMD for further work-up and assessment. Departure - Departure Time of Disposition: 22:09 Disposition: Home, Self-Care 01 Condition: Good Clinical Impression: Glucosuria Diabetes Qualifiers: Diabetes mellitus type: type 2 Diabetes mellitus retirement insulin use: without retirement use Diabetes mellitus complication status: without complication Qualified Code(s): E11.9 - Type 2 diabetes mellitus without complications Obesity Qualifiers: Obesity type: unspecified obesity type Obesity classification: unspecified obesity classification Serious obesity comorbidity presence: with serious comorbidity Qualified Code(s): E66.9 - Obesity, unspecified - Discharge Information Instructions: Obesity, Adult, [id number], Diabetes Basics Referrals: Sloan Ordonez MD [Primary Care Provider] - Forms: ED Department Discharge Additional Instructions: Your labs show elevated glucose but without signs of diabetic ketoacidosis or urinary tract infection. Please follow-up with your primary care physician with your scheduled appointment on the . The following information is given to patients seen in the emergency department who are being discharged to home. This information is to outline your options for follow-up care. We provide all patients seen in our emergency department with a follow-up referral. The need for follow-up, as well as the timing and circumstances, are variable depending upon the specifics of your emergency department visit. If you don't have a primary care physician on staff, we will provide you with a referral. We always advise you to contact your personal physician following an emergency department visit to inform them of the circumstance of the visit and for follow-up with them and/or the need for any referrals to a consulting specialist. The emergency department will also refer you to a specialist when appropriate. This referral assures that you have the opportunity for follow-up care with a specialist. All of these measure are taken in an effort to provide you with optimal care, which includes your follow-up. Under all circumstances we always encourage you to contact your private physician who remains a resource for coordinating your care. When calling for follow-up care, please make the office aware that this follow-up is from your recent emergency room visit. If for any reason you are refused follow-up, please contact the [facility] Emergency Department at and asked to speak to the emergency department charge nurse. Please follow up with your primary care physician. If you do not have a primary care physician, see below: [facility] [address] [place] [address] [phone] [facility] [address] [place] [address] [facility] [address] [address] Sepsis Event Note (ED) - Evaluation Sepsis Screening Result: No Definite Risk - Focused Exam Vital Signs: Vital Signs Temp Pulse Resp BP Pulse Ox 12/11/20 20:55 97.2 F 108 H 18 157/95 H 96 - My Orders Last 24 Hours: My Active Orders 12/11/20 20:59 Blood Glucose Check, Bedside [RC] ONETIME Sodium Chloride 0.9% [Saline Flush] 10 ml FLUSH ASDIRECTED PRN Sodium Chloride 0.9% [Saline Flush] 2.5 ml FLUSH ASDIRECTED PRN Saline Lock Insert [OM.PC] Stat 12/11/20 22:00 UA W/LINH RFLX IF INDICATED [URIN] Stat - Assessment/Plan Last 24 Hours: My Active Orders 12/11/20 20:59 Blood Glucose Check, Bedside [RC] ONETIME Sodium Chloride 0.9% [Saline Flush] 10 ml FLUSH ASDIRECTED PRN Sodium Chloride 0.9% [Saline Flush] 2.5 ml FLUSH ASDIRECTED PRN Saline Lock Insert [OM.PC] Stat 12/11/20 22:00 UA W/LINH RFLX IF INDICATED [URIN] Stat
[2020-12-11 21:53] LABS: BLOOD UREA NITROGEN,BUN 13 mg/dL (7.0-18.0); CARBON DIOXIDE,CO2 24.6 mmol/L (21.0-32.0); CHLORIDE,CL 101 mmol/L (98-107); GLUCOSE RANDOM 250 mg/dL (74-106); SODIUM,NA 137 mmol/L (136-145)
[2020-12-11 22:20] VITALS: BP 137/75; PULSE 78
== END 2020-12-11 22:20 | disposition home or self-care (01) ==
LOC: MW.ED 20:41
DX: E11.9 Type 2 diabetes mellitus without complications (principal); R81 Glycosuria; E66.9 Obesity, unspecified; I10 Essential (primary) hypertension; Z68.30 Body mass index [BMI] 30.0-30.9, adult; Z79.82 Long term (current) use of aspirin; Z79.84 Long term (current) use of oral hypoglycemic drugs; Z88.1 Allergy status to other antibiotic agents
CPT/HCPCS: 36415; 80053; 81001; 82009; 82803; 82947; 85025; 99283; 99284

== ENCOUNTER 2021-01-20 12:01 | Emergency (ER) | payer MEDICARE, MEDICAID ==
--- NOTE | 2021-01-20 12:09 | PCM.EKG ---
#1 Interpretation EKG Date: 01/20/21 Time: 12:08 EKG Interpretation Comments: 106, sinus tachycardia, nonspecific ST/T findings
[2021-01-20] MEDS ORDERED: Lisinopril 10 MG Tab PO ONE (12:24)
[2021-01-20] MEDS ORDERED: Ketorolac 30 MG/ML SDV IM ONE ×2 (12:24→13:20)
[2021-01-20] MEDS ORDERED: Sodium Chloride 0.9% 1,000 ML IV ONE (12:25)
[2021-01-20] MEDS ORDERED: Ketorolac 30 MG/ML SDV IVPUSH ONE (12:28)
--- NOTE | 2021-01-20 12:30 | EDM.PDOC ---
ED HPI GENERAL MEDICAL PROBLEM - General Chief Complaint: Chest Pain Stated Complaint: CHEST PAINS Time Seen by Provider: 01/20/21 12:06 Source of Information: Reports: Patient History Limitations: Reports: No Limitations - History of Present Illness INITIAL COMMENTS - FREE TEXT/NARRATIVE: HISTORY AND PHYSICAL: History of present illness: Patient is a 30-year-old female who presents emergency room today with concern of left-sided chest "soreness "that started approximately 2 hours prior to arrival to the emergency room. Patient states that she was at the local grocery store and was shopping. Patient states that she did bend over to grab a box of cat food and states that it was heavy and notices this is when her chest pain has started. Patient states that she went over to the greenhouse area of the store and states that it felt more sore so was concerned so came to the emergency room for evaluation. Patient states that she has some residual discomfort still and states that it does feel like she pulled a muscle but denies any other associative symptoms. Patient denies fever, chills, shortness of breath, or cough. Denies headache, neck stiff ness, change in vision, syncope, or near syncope. Denies nausea, vomiting, abdominal pain, diarrhea, constipation, or dysuria. Has not noted any blood in urine or stool. Patient has been eating and drinking appropriately. Review of systems: As per history of present illness and below otherwise all systems reviewed and negative. Past medical history: As per history of present illness and as reviewed below otherwise noncontributory. Surgical history: As per history of present illness and as reviewed below otherwise noncontributory. Social history: See social history for further information Family history: As per history of present illness and as reviewed below otherwise noncontributory. Physical exam: General: Patient is alert, oriented, and in no acute distress. Patient laying comfortably on exam table. Patient tachycardic 115 on exam otherwise vitally stable and reviewed by me. HEENT: Atraumatic, normocephalic, pupils equal and reactive bilaterally, negative for conjunctival pallor or scleral icterus, mucous membranes moist, TMs normal bilaterally, throat clear, neck supple, nontender, trachea midline. No drooling or trismus noted. No meningeal signs. No hot potato voice noted. Lungs/chest: Patient does have reproducible chest pain over her left sided anterior rib cage without crepitus, edema, erythema, or rash. Otherwise, clear to auscultation, breath sounds equal bilaterally, chest nontender. Heart: S1S2, regular rate and rhythm without overt murmur Abdomen: Soft, nondistended, nontender. Negative for masses or hepatosplenomegaly. Negative for costovertebral tenderness. Pelvis: Stable nontender. Genitourinary: Deferred. Rectal: Deferred. Skin: Intact, warm, dry. No lesions or rashes noted. Extremities: Atraumatic, negative for cords or calf pain. Neurovascular unremarkable. Neuro: Awake, alert, oriented. Cranial nerves II through XII unremarkable. Cerebellum unremarkable. Motor and sensory unremarkable throughout. Exam nonfocal. Notes: Patient is a 30-year-old female who presents emergency room today secondary to left-sided chest pain x2 hours. Upon arrival to the ED, patient is noted to be tachycardic 115's on exam, otherwise vitally stable and well-appearing on exam. Patient does have reproducible chest pain over her left sided anterior rib cage to palpation. Otherwise, will obtain cardiac evaluation, initiated 1 L normal saline bolus due to tachycardia, and reassess patient. See Dr. James dictation for specific EKG interpretation. Otherwise, sinus tachycardia without STEMI. Nursing staff does have difficulty obtaining IV access after multiple failed attempts. However, patient's heart rate normalized to 80 to 90 bpm without therapeutic intervention so no longer will obtain IV access and fluid bolus given normalization of tachycardia without therapeutics. Mild derangements of CBC unremarkable. D-dimer within normal limits. CMP shows glucose elevated at 257, corrected calcium for albumin 8.2, AST mildly elevated at 40, troponin negative. hCG negative. Chest x-ray is limited exam due to patient's body habitus, however clear right hemithorax with difficult visualization of left lung base. HEART score 2-low risk. Upon reevaluation of patient, she has great improvement of her symptoms with Toradol given today. Patient remains vitally stable and comfortable throughout stay in ED. Strict return precautions thoroughly discussed with patient. Discussed importance for follow-up with a primary care provider. Voices understanding and is agreeable to plan of care. Denies any further questions or concerns at this time. Diagnostics: eKG, CBC, CMP, Serum hcg, CXR, Trop, Ddimer Therapeutics: Toradol, Tums Prescription: None Impression: Chest wall pain Hyperglycemia with known type 2 diabetes Hypocalcemia, mild Plan: 1. You can alternate ibuprofen and Tylenol as directed for pain and discomfort. 2. Follow-up with your primary care provider as discussed. Return to the ED as needed and as discussed. Definitive disposition and diagnosis as appropriate pending reevaluation and review of above. Left Chest Pain Score (Numeric/FACES): 7 - Related Data Allergies Allergy/AdvReac Type Severity Reaction Status Date / Time ciprofloxacin [From Cipro] Allergy Rash Verified 01/20/21 12:13 sulfamethoxazole Allergy Nausea Verified 01/20/21 12:13 [From Bactrim] trimethoprim [From Bactrim] Allergy Nausea Verified 01/20/21 12:13 Home Meds: Home Meds LORazepam [Ativan] 0.5 mg PO DAILY PRN 04/01/14 [History] metFORMIN [Glucophage XR] 1,000 mg PO BID 05/27/14 [History] Albuterol [Ventolin HFA] 2 puff INH BID PRN 10/21/15 [History] Clobetasol Propionate [Temovate] 30 gm TOP DAILY PRN 10/21/15 [History] Lisinopril 10 mg PO DAILY 09/29/18 [History] ClomiPRAMINE [ClomiPRAMINE HCl] 2 cap PO DAILY 08/26/19 [History] Fluticasone Propionate [Flovent] 1 spray NASBOTH ASDIRECTED PRN 08/26/19 [History] desogestreL-ethinyl estradioL [Reclipsen 28 Day Tablet] 1 tab PO DAILY 08/26/19 [History] Sertraline HCl [Zoloft] 200 mg PO DAILY 10/21/19 [History] diphenhydrAMINE [Benadryl] 25 mg PO QID PRN #15 tablet 02/01/20 [Rx] Lidocaine 5% 1 applic TOP QID PRN 03/02/20 [History] Clotrimazole [Clotrimazole 1%] 30 ml TOP BID PRN 06/02/20 [History] Aspirin 325 mg PO DAILY #90 tablet 06/09/20 [Rx] Clindamycin HCl 300 mg PO TID 10 Days #30 capsule 06/09/20 [Rx] Ibuprofen [Motrin] 800 mg PO Q8H #60 tablet 06/09/20 [Rx] traMADol [Ultram] 50 mg PO Q8H PRN #15 tablet 06/09/20 [Rx] Nitrofurantoin Monohyd/M-Cryst [Macrobid 100 mg Capsule] 08/02/20 [History] Amoxicillin/Clavulanate K [Augmentin 500-125 MG] 1 tab PO BID 7 Days #14 tab 08/28/20 [Rx] Ciprofloxacin HCl [Cipro] 500 mg PO BID 10 Days #20 tablet 09/05/20 [Rx] cephALEXin [Cephalexin] 500 mg PO BID #14 capsule 09/05/20 [Rx] Cefdinir 300 mg PO Q12HR #14 capsule 09/18/20 [Rx] Fluconazole [Diflucan] 150 mg PO ONETIME #1 tab 09/18/20 [Rx] Phenazopyridine [Pyridium] 200 mg PO TID #9 tab 09/18/20 [Rx] Past Medical History - Past Health History Medical/Surgical History: Denies Medical/Surgical History HEENT History: Reports: Other (See Below) Other HEENT History: reading glasses Cardiovascular History: Reports: Hypertension Respiratory History: Reports: Asthma Gastrointestinal History: Reports: None Genitourinary History: Reports: UTI, Recurrent Other Genitourinary History: chronic uti's, vaginal candidiasis [employer] 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[employer]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: Reports: 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 Musculoskeletal History: Reports: Back Pain, Chronic Other Musculoskeletal History: intermittent back pain, R ankle fx Neurological History: Reports: None Psychiatric History: Reports: Anxiety, Depression, OCD Endocrine/Metabolic History: Reports: Diabetes, Type II, Obesity/BMI 30+ 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 Air Twister Winder: None Hematologic History: Reports: None Immunologic History: Reports: None Oncologic (Cancer) History: Reports: None Dermatologic History: Reports: Psoriasis Other Dermatologic History: on her scalp & ears - Infectious Disease History Infectious Disease History: Reports: None - Past Surgical History Head Surgeries/Procedures: Reports: None HEENT Surgical History: Reports: Adenoidectomy, Oral Surgery, Tonsillectomy Other HEENT Surgeries/Procedures: removal of wisdom teeth Cardiovascular Surgical History: Reports: None Respiratory Surgical History: Reports: None GI Surgical History: Reports: None Female Surgical History: Reports: Other (See Below) Other Female Surgeries/Procedures: Cystoscopy Endocrine Surgical History: Reports: None Neurological Surgical History: Reports: None Musculoskeletal Surgical History: Reports: None Oncologic Surgical History: Reports: None Dermatological Surgical History: Reports: None Social & Family History - Family History Family Medical History: No Pertinent Family History Psychiatric: Reports: Anxiety, Depression Endocrine/Metabolic: Reports: Obesity/MBI 30+ Immunologic: Reports: HIV - Tobacco Use Years of Tobacco use: 1 Packs/Tins Daily: 1 - Caffeine Use Caffeine Use: Reports: Soda Caffeine Use Comment: 1 drink/month - Recreational Drug Use Recreational Drug Use: No ED ROS GENERAL - Review of Systems Review Of Systems: Comprehensive ROS is negative, except as noted in HPI. ED EXAM, GENERAL - Physical Exam Exam: See Below (see dictation) Course - Vital Signs Last Recorded V/S: Last Vital Signs Temp 97.8 F 01/20/21 12:23 Pulse 98 01/20/21 13:25 Resp 18 01/20/21 12:23 BP 137/97 H 01/20/21 13:29 Pulse Ox 96 01/20/21 12:23 - Orders/Labs/Meds Orders: Active Orders 24 hr Category Date Time Status Cardiac Monitoring [RC] . DIRECTED Care 01/20/21 12:17 Active EKG Documentation Completion [RC] STAT Care 01/20/21 12:17 Active Labs: Laboratory Tests 01/20/21 01/20/21 01/20/21 Range/Units 13:20 13:20 13:49 WBC 6.80 (4.0-11.0) K/uL RBC 5.43 (4.30-5.90) M/uL Hgb 14.8 (12.0-16.0) g/dL Hct 43.3 (36.0-46.0) % MCV 79.7 L (80.0-98.0) fL MCH 27.3 (27.0-32.0) pg MCHC 34.2 (31.0-37.0) g/dL RDW Std Deviation 41.2 (28.0-62.0) fl RDW Coeff of Nicky 14 (11.0-15.0) % Plt Count 294 (150-400) K/uL MPV 9.80 (7.40-12.00) fL Neut % (Auto) 52.9 (48.0-80.0) % Lymph % (Auto) 38.7 (16.0-40.0) % Cavalier % (Auto) 5.9 (0.0-15.0) % Eos % (Auto) 2.1 (0.0-7.0) % Baso % (Auto) 0.4 (0.0-1.5) % Neut # (Auto) 3.6 (1.4-5.7) K/uL Lymph # (Auto) 2.6 H (0.6-2.4) K/uL Cavalier # (Auto) 0.4 (0.0-0.8) K/uL Eos # (Auto) 0.1 (0.0-0.7) K/uL Baso # (Auto) 0.0 (0.0-0.1) K/uL Nucleated RBC % 0.0 /100WBC Nucleated RBCs # 0 K/uL D-Dimer, Quantitative (0.0-0.50) mg/L FEU Sodium 138 (136-145) mmol/L Potassium 3.5 (3.5-5.1) mmol/L Chloride 103 (98-107) mmol/L Carbon Dioxide 22.0 (21.0-32.0) mmol/L BUN 11 (7.0-18.0) mg/dL Creatinine 0.7 (0.6-1.0) mg/dL Est Cr Clr Drug Dosing 103.32 mL/min Estimated GFR (MDRD) > 60.0 ml/min Glucose 257 H (74-106) mg/dL Calcium 8.0 L (8.5-10.1) mg/dL Total Bilirubin 0.5 (0.2-1.0) mg/dL AST 40 H (15-37) IU/L ALT 38 (14-63) IU/L Alkaline Phosphatase 101 (46-116) U/L Troponin I < 0.050 (0.000-0.056) ng/mL Total Protein 6.4 (6.4-8.2) g/dL Albumin 3.1 L (3.4-5.0) g/dL Globulin 3.3 (2.6-4.0) g/dL Albumin/Globulin Ratio 0.9 (0.9-1.6) HCG, Qual NEGATIVE (NEG) 01/20/21 Range/Units 13:49 WBC (4.0-11.0) K/uL RBC (4.30-5.90) M/uL Hgb (12.0-16.0) g/dL Hct (36.0-46.0) % MCV (80.0-98.0) fL MCH (27.0-32.0) pg MCHC (31.0-37.0) g/dL RDW Std Deviation (28.0-62.0) fl RDW Coeff of Nicky (11.0-15.0) % Plt Count (150-400) K/uL MPV (7.40-12.00) fL Neut % (Auto) (48.0-80.0) % Lymph % (Auto) (16.0-40.0) % Cavalier % (Auto) (0.0-15.0) % Eos % (Auto) (0.0-7.0) % Baso % (Auto) (0.0-1.5) % Neut # (Auto) (1.4-5.7) K/uL Lymph # (Auto) (0.6-2.4) K/uL Cavalier # (Auto) (0.0-0.8) K/uL Eos # (Auto) (0.0-0.7) K/uL Baso # (Auto) (0.0-0.1) K/uL Nucleated RBC % /100WBC Nucleated RBCs # K/uL D-Dimer, Quantitative 0.40 (0.0-0.50) mg/L FEU Sodium (136-145) mmol/L Potassium (3.5-5.1) mmol/L Chloride (98-107) mmol/L Carbon Dioxide (21.0-32.0) mmol/L BUN (7.0-18.0) mg/dL Creatinine (0.6-1.0) mg/dL Est Cr Clr Drug Dosing mL/min Estimated GFR (MDRD) ml/min Glucose (74-106) mg/dL Calcium (8.5-10.1) mg/dL Total Bilirubin (0.2-1.0) mg/dL AST (15-37) IU/L ALT (14-63) IU/L Alkaline Phosphatase (46-116) U/L Troponin I (0.000-0.056) ng/mL Total Protein (6.4-8.2) g/dL Albumin (3.4-5.0) g/dL Globulin (2.6-4.0) g/dL Albumin/Globulin Ratio (0.9-1.6) HCG, Qual (NEG) Meds: Medications Discontinued Medications Generic Name Dose Route Start Last Admin Trade Name Miguel PRN Reason Stop Dose Admin Calcium Carbonate/Glycine 1,000 mg 01/20/21 14:16 Calcium Carbonate 500 Mg Tab.Chew PO 01/20/21 14:17 ONETIME ONE Sodium Chloride 1,000 mls @ 999 mls/hr 01/20/21 12:25 01/20/21 13:26 Normal Saline IV 01/20/21 13:25 Not Given STAT ONE Ketorolac Tromethamine 30 mg 01/20/21 12:28 01/20/21 13:26 Ketorolac 30 Mg/Ml Sdv IVPUSH 01/20/21 12:29 Not Given ONETIME ONE Ketorolac Tromethamine 30 mg 01/20/21 13:20 01/20/21 13:28 Ketorolac 30 Mg/Ml Sdv IM 01/20/21 13:21 30 mg ONETIME ONE Administration Lisinopril 10 mg 01/20/21 12:24 01/20/21 13:29 Lisinopril 10 Mg Tab PO 01/20/21 12:25 10 mg ONETIME ONE Administration Departure - Departure Time of Disposition: 14:17 Disposition: Home, Self-Care 01 Clinical Impression: Hypocalcemia, Chest wall pain - Discharge Information Referrals: Sloan Ordonez MD [Primary Care Provider] - Forms: ED Department Discharge Additional Instructions: The following information is given to patients seen in the emergency department who are being discharged to home. This information is to outline your options for follow-up care. We provide all patients seen in our emergency department with a follow-up referral. The need for follow-up, as well as the timing and circumstances, are variable depending upon the specifics of your emergency department visit. If you don't have a primary care physician on staff, we will provide you with a referral. We always advise you to contact your personal physician following an emergency department visit to inform them of the circumstance of the visit and for follow-up with them and/or the need for any referrals to a consulting specialist. The emergency department will also refer you to a specialist when appropriate. This referral assures that you have the opportunity for follow-up care with a specialist. All of these measure are taken in an effort to provide you with optimal care, which includes your follow-up. Under all circumstances we always encourage you to contact your private inge neal who remains a resource for coordinating your care. When calling for follow-up care, please make the office aware that this follow-up is from your recent emergency room visit. If for any reason you are refused follow-up, please contact the [facility] Emergency Department at and asked to speak to the emergency department charge nurse. [facility] [address] [place] [id number] [facility] [address] [place] [id number] 1. You can alternate ibuprofen and Tylenol as directed for pain and discomfort. 2. Follow-up with your primary care provider as discussed. Return to the ED as needed and as discussed. Sepsis Event Note (ED) - Evaluation Sepsis Screening Result: No Definite Risk - Focused Exam Vital Signs: Vital Signs Temp Pulse Resp BP BP Pulse Ox 01/20/21 13:29 137/97 H 01/20/21 13:25 98 01/20/21 13:10 104 H 01/20/21 12:23 97.8 F 114 H 18 181/93 H 96 01/20/21 12:15 98.7 F 110 H 18 137/97 H 98 01/20/21 12:06 122 H 18 181/93 H 95 - My Orders Last 24 Hours: My Active Orders 01/20/21 12:17 Cardiac Monitoring [RC] . DIRECTED EKG Documentation Completion [RC] STAT - Assessment/Plan Last 24 Hours: My Active Orders 01/20/21 12:17 Cardiac Monitoring [RC] . DIRECTED EKG Documentation Completion [RC] STAT
--- NOTE | 2021-01-20 13:10 | CR ---
Indication: Chest Pain Comparison: None available. Technique: Single AP view chest Findings: There is hyperinflation and chronic interstitial change. There is obscuration of the left lung base due to patient body habitus. There is likely basilar atelectasis, infiltrates are difficult to exclude. The cardiomediastinal silhouette is within normal limits. The bony thorax is grossly intact. Impression: Limited exam due to patient body habitus with limited visualization in the left lung base. Underlying atelectasis and/or infiltrates are difficult to exclude. The right hemithorax is grossly clear. Dictated by Arsenio Lomas MD @ 01/20/2021 1:08:[address] Arsenio Lomas @ Jan 20 2021 1:08PM
[2021-01-20 13:54] LABS: BLOOD UREA NITROGEN,BUN 11 mg/dL (7.0-18.0); CHLORIDE,CL 103 mmol/L (98-107); GLUCOSE RANDOM 257 mg/dL (74-106); POTASSIUM,K 3.5 mmol/L (3.5-5.1); SODIUM,NA 138 mmol/L (136-145)
[2021-01-20] MEDS ORDERED: Calcium Carbonate 500 MG Tab.Chew PO ONE (14:16)
[2021-01-20 14:31] VITALS: BP 166/107; PULSE 103
== END 2021-01-20 14:39 | disposition home or self-care (01) ==
LOC: MW.ED 12:01
DX: R07.89 Other chest pain (principal); E11.65 Type 2 diabetes mellitus with hyperglycemia; E83.51 Hypocalcemia; I10 Essential (primary) hypertension; J45.909 Unspecified asthma, uncomplicated; E66.9 Obesity, unspecified; Z68.44 Body mass index [BMI] 60.0-69.9, adult; Z72.0 Tobacco use; Z88.1 Allergy status to other antibiotic agents; Z88.2 Allergy status to sulfonamides; Z79.84 Long term (current) use of oral hypoglycemic drugs; Z79.82 Long term (current) use of aspirin; Z79.899 Other long term (current) drug therapy
CPT/HCPCS: 36415; 71045; 80053; 84484; 84703; 85025; 85379; 93005; 96372; 99285; A9270; J1885

== ENCOUNTER 2021-03-15 20:09 | Emergency (ER) | payer MEDICARE, MEDICAID ==
[2021-03-15 20:33] VITALS: BP 125/77; PULSE 96
--- NOTE | 2021-03-15 20:43 | EDM.PDOC ---
ED HPI GENERAL MEDICAL PROBLEM - General Chief Complaint: Skin Complaint Stated Complaint: BLACK SPOT ON TOE Time Seen by Provider: 03/15/21 20:25 Source of Information: Reports: Patient History Limitations: Reports: No Limitations - History of Present Illness INITIAL COMMENTS - FREE TEXT/NARRATIVE: Patient is a 30-year-old female who presents today for a spot on her right first toe. Patient states she called her physician and the nurse told her to come be evaluated if she felt strongly about it. Patient is concerned it could be melanoma. There is a flat looks to be a nevus. Patient states that she noticed it 2 weeks ago it has not grown in size does no discoloration no asymmetric borders. Patient has good sensation good pulses of the feet as well. Patient denies any other medical complaints. - Related Data Allergies Allergy/AdvReac Type Severity Reaction Status Date / Time ciprofloxacin [From Cipro] Allergy Rash Verified 03/15/21 20:30 sulfamethoxazole Allergy Nausea Verified 03/15/21 20:30 [From Bactrim] trimethoprim [From Bactrim] Allergy Nausea Verified 03/15/21 20:30 Home Meds: Home Meds LORazepam [Ativan] 0.5 mg PO DAILY PRN 04/01/14 [History] metFORMIN [Glucophage XR] 1,000 mg PO BID 05/27/14 [History] Albuterol [Ventolin HFA] 2 puff INH BID PRN 10/21/15 [History] Clobetasol Propionate [Temovate] 30 gm TOP DAILY PRN 10/21/15 [History] Lisinopril 10 mg PO DAILY 09/29/18 [History] ClomiPRAMINE [ClomiPRAMINE HCl] 2 cap PO DAILY 08/26/19 [History] Fluticasone Propionate [Flovent] 1 spray NASBOTH ASDIRECTED PRN 08/26/19 [History] desogestreL-ethinyl estradioL [Reclipsen 28 Day Tablet] 1 tab PO DAILY 08/26/19 [History] Sertraline HCl [Zoloft] 200 mg PO DAILY 10/21/19 [History] diphenhydrAMINE [Benadryl] 25 mg PO QID PRN #15 tablet 02/01/20 [Rx] Lidocaine 5% 1 applic TOP QID PRN 03/02/20 [History] Clotrimazole [Clotrimazole 1%] 30 ml TOP BID PRN 06/02/20 [History] Aspirin 325 mg PO DAILY #90 tablet 06/09/20 [Rx] Clindamycin HCl 300 mg PO TID 10 Days #30 capsule 06/09/20 [Rx] Ibuprofen [Motrin] 800 mg PO Q8H #60 tablet 06/09/20 [Rx] traMADol [Ultram] 50 mg PO Q8H PRN #15 tablet 06/09/20 [Rx] Nitrofurantoin Monohyd/M-Cryst [Macrobid 100 mg Capsule] 08/02/20 [History] Amoxicillin/Clavulanate K [Augmentin 500-125 MG] 1 tab PO BID 7 Days #14 tab 01/11 [Rx] Ciprofloxacin HCl [Cipro] 500 mg PO BID 10 Days #20 tablet 09/05/20 [Rx] cephALEXin [Cephalexin] 500 mg PO BID #14 capsule 09/05/20 [Rx] Cefdinir 300 mg PO Q12HR #14 capsule 09/18/20 [Rx] Fluconazole [Diflucan] 150 mg PO ONETIME #1 tab 09/18/20 [Rx] Phenazopyridine [Pyridium] 200 mg PO TID #9 tab 09/18/20 [Rx] Past Medical History - Past Health History Medical/Surgical History: Denies Medical/Surgical History HEENT History: Reports: Other (See Below) Other HEENT History: reading glasses Cardiovascular History: Reports: Hypertension Respiratory History: Reports: Asthma Gastrointestinal History: Reports: None Genitourinary History: Reports: UTI, Recurrent Other Genitourinary History: chronic uti's, vaginal candidiasis 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 Musculoskeletal History: Reports: Back Pain, Chronic Other Musculoskeletal History: intermittent back pain, R ankle fx Neurological History: Reports: None Psychiatric History: Reports: Anxiety, Depression, OCD Endocrine/Metabolic History: Reports: Diabetes, Type II, Obesity/BMI 30+ 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 Talent Director: None Hematologic History: Reports: None Immunologic History: Reports: None Oncologic (Cancer) History: Reports: None Dermatologic History: Reports: Psoriasis Other Dermatologic History: on her scalp & ears - Infectious Disease History Infectious Disease History: Reports: None - Past Surgical History Head Surgeries/Procedures: Reports: None HEENT Surgical History: Reports: Adenoidectomy, Oral Surgery, Tonsillectomy Other HEENT Surgeries/Procedures: removal of wisdom teeth Cardiovascular Surgical History: Reports: None Respiratory Surgical History: Reports: None GI Surgical History: Reports: None Female Surgical History: Reports: Other (See Below) Other Female Surgeries/Procedures: Cystoscopy Endocrine Surgical History: Reports: None Neurological Surgical History: Reports: None Musculoskeletal Surgical History: Reports: None Oncologic Surgical History: Reports: None Dermatological Surgical History: Reports: None Social & Family History - Family History Family Medical History: No Pertinent Family History Psychiatric: Reports: Anxiety, Depression Endocrine/Metabolic: Reports: Obesity/MBI 30+ Immunologic: Reports: HIV - Caffeine Use Caffeine Use: Reports: Soda Caffeine Use Comment: 1 drink/month - Recreational Drug Use Recreational Drug Use: No ED ROS GENERAL - Review of Systems Review Of Systems: See Below Constitutional: Reports: No Symptoms HEENT: Reports: No Symptoms Respiratory: Reports: No Symptoms Cardiovascular: Reports: No Symptoms Endocrine: Reports: No Symptoms GI/Abdominal: Reports: No Symptoms : Reports: No Symptoms Musculoskeletal: Reports: No Symptoms Skin: Reports: Other (Mole) Neurological: Reports: No Symptoms Psychiatric: Reports: No Symptoms Hematologic/Lymphatic: Reports: No Symptoms Immunologic: Reports: No Symptoms ED EXAM, SKIN/RASH Exam: See Below Exam Limited By: No Limitations General Appearance: Alert, WD/WN, No Apparent Distress Eye Exam: Bilateral Eye: EOMI, PERRL Respiratory/Chest: No Respiratory Distress Cardiovascular: Normal Peripheral Pulses Peripheral Pulses: 2+: Dorsalis Pedis (R) Skin: Warm, Normal Color, Other (Small nevus less than 1 mm no discoloration move edges of the borders not asymmetrical) Course - Vital Signs Last Recorded V/S: Last Vital Signs Temp 97.4 F 03/15/21 20:25 Pulse 96 03/15/21 20:25 Resp 18 03/15/21 20:25 BP 125/77 03/15/21 20:25 Pulse Ox 97 03/15/21 20:25 Departure - Departure Time of Disposition: 20:42 Disposition: Home, Self-Care 01 Condition: Good Clinical Impression: Nevus - Discharge Information *PRESCRIPTION DRUG MONITORING PROGRAM REVIEWED*: Not Applicable *COPY OF PRESCRIPTION DRUG MONITORING REPORT IN PATIENT CALLUM: Not Applicable Instructions: Mole Referrals: Sloan Ordonez MD [Primary Care Provider] - Additional Instructions: The following information is given to patients seen in the emergency department who are being discharged to home. This information is to outline your options for follow-up care. We provide all patients seen in our emergency department with a follow-up referral. The need for follow-up, as well as the timing and circumstances, are variable depending upon the specifics of your emergency department visit. If you don't have a primary care physician on staff, we will provide you with a referral. We always advise you to contact your personal physician following an emergency department visit to inform them of the circumstance of the visit and for follow-up with them and/or the need for any referrals to a consulting specialist. The emergency department will also refer you to a specialist when appropriate. This referral assures that you have the opportunity for follow-up care with a specialist. All of these measure are taken in an effort to provide you with optimal care, which includes your follow-up. Under all circumstances we always encourage you to contact your private physician who remains a resource for coordinating your care. When calling for follow-up care, please make the office aware that this follow-up is from your recent emergency room visit. If for any reason you are refused follow-up, please contact the [facility] Emergency Department at and asked to speak to the emergency department charge nurse. Please follow up with your primary care physician. If you do not have a primary care physician, see below: Dr. Elias Jane [facility] [address] [place] [address], [address] [place] [address] You were seen today for spot you told that your concern could be a possible melanoma does not look like melanoma on my examination however you can still follow-up with dermatology as you do have questions about melanoma and strong concern for it. If you have any other concerning signs or symptoms please return to the ED. Sepsis Event Note (ED) - Focused Exam Vital Signs: Vital Signs Temp Pulse Resp BP Pulse Ox 03/15/21 20:25 97.4 F 96 18 125/77 97 - Assessment/Plan Plan: Patient is a 30-year-old female brought in today for a spot to her right first toe. She is concerned it could be melanoma or basal cell carcinoma which her mother had. It looks to be a nevus I would recommend patient follow-up with dermatology there is no intervention needed today.
== END 2021-03-15 20:53 | disposition home or self-care (01) ==
LOC: MW.ED 20:09
DX: D22.71 Melanocytic nevi of right lower limb, including hip (principal); I10 Essential (primary) hypertension; J45.909 Unspecified asthma, uncomplicated; E11.9 Type 2 diabetes mellitus without complications; E66.9 Obesity, unspecified; Z88.1 Allergy status to other antibiotic agents; Z88.2 Allergy status to sulfonamides; Z79.82 Long term (current) use of aspirin; Z79.84 Long term (current) use of oral hypoglycemic drugs; Z79.899 Other long term (current) drug therapy
CPT/HCPCS: 99283

== ENCOUNTER 2021-04-29 18:51 | Emergency (ER) | payer MEDICARE, MEDICAID ==
[2021-04-29] MEDS ORDERED: Metoclopramide 10 MG/2 ML SDV IVPUSH ONE (19:38)
[2021-04-29] MEDS ORDERED: diphenhydrAMINE 50 MG/ML SDV IVPUSH ONE (19:38)
[2021-04-29] MEDS ORDERED: Ketorolac 15 MG/ML SDV IVPUSH STA (19:38)
[2021-04-29] MEDS ORDERED: Sodium Chloride 0.9% 1,000 ML IV ONE (19:38)
--- NOTE | 2021-04-29 19:42 | EDM.PDOC ---
ED HPI GENERAL MEDICAL PROBLEM - General Chief Complaint: General Stated Complaint: DIZZINESS Time Seen by Provider: 04/29/21 19:28 Source of Information: Reports: Patient History Limitations: Reports: No Limitations - History of Present Illness INITIAL COMMENTS - FREE TEXT/NARRATIVE: 30-year-old female past history morbid obesity presents for multiple complaints. Patient states that over the last day she has noted subjective fevers, headache, dizziness like a room spinning sensation with 1 episode of presyncope, shortness of breath, dysuria. She denies any cough. She notes that she is trying to quit smoking cigarettes. headache Pain Score (Numeric/FACES): 5 - Related Data Allergies Allergy/AdvReac Type Severity Reaction Status Date / Time ciprofloxacin [From Cipro] Allergy Rash Verified 04/29/21 19:21 sulfamethoxazole Allergy Nausea Verified 04/29/21 19:21 [From Bactrim] trimethoprim [From Bactrim] Allergy Nausea Verified 04/29/21 19:21 Home Meds: Home Meds LORazepam [Ativan] 0.5 mg PO DAILY PRN 04/01/14 [History] metFORMIN [Glucophage XR] 1,000 mg PO BID 05/27/14 [History] Albuterol [Ventolin HFA] 2 puff INH BID PRN 10/21/15 [History] Clobetasol Propionate [Temovate] 30 gm TOP DAILY PRN 10/21/15 [History] Lisinopril 10 mg PO DAILY 09/29/18 [History] ClomiPRAMINE [ClomiPRAMINE HCl] 2 cap PO DAILY 08/26/19 [History] Fluticasone Propionate [Flovent] 1 spray NASBOTH ASDIRECTED PRN 08/26/19 [History] desogestreL-ethinyl estradioL [Reclipsen 28 Day Tablet] 1 tab PO DAILY 08/26/19 [History] Sertraline HCl [Zoloft] 200 mg PO DAILY 10/21/19 [History] diphenhydrAMINE [Benadryl] 25 mg PO QID PRN #15 tablet 02/01/20 [Rx] Lidocaine 5% 1 applic TOP QID PRN 03/02/20 [History] Clotrimazole [Clotrimazole 1%] 30 ml TOP BID PRN 06/02/20 [History] Aspirin 325 mg PO DAILY #90 tablet 06/09/20 [Rx] Clindamycin HCl 300 mg PO TID 10 Days #30 capsule 06/09/20 [Rx] Ibuprofen [Motrin] 800 mg PO Q8H #60 tablet 06/09/20 [Rx] traMADol [Ultram] 50 mg PO Q8H PRN #15 tablet 06/09/20 [Rx] Nitrofurantoin Monohyd/M-Cryst [Macrobid 100 mg Capsule] 08/02/20 [History] Amoxicillin/Clavulanate K [Augmentin 500-125 MG] 1 tab PO BID 7 Days #14 tab 08/28/20 [Rx] Ciprofloxacin HCl [Cipro] 500 mg PO BID 10 Days #20 tablet 09/05/20 [Rx] cephALEXin [Cephalexin] 500 mg PO BID #14 capsule 09/05/20 [Rx] Cefdinir 300 mg PO Q12HR #14 capsule 09/18/20 [Rx] Fluconazole [Diflucan] 150 mg PO ONETIME #1 tab 09/18/20 [Rx] Phenazopyridine [Pyridium] 200 mg PO TID #9 tab 09/18/20 [Rx] Nitrofurantoin Monohyd/M-Cryst [Macrobid 100 mg Capsule] 100 mg PO BID 7 Days #14 capsule 04/29/21 [Rx] Past Medical History - Past Health History Medical/Surgical History: Denies Medical/Surgical History HEENT History: Reports: Other (See Below) Other HEENT History: reading glasses Cardiovascular History: Reports: Hypertension Respiratory History: Reports: Asthma Gastrointestinal History: Reports: None Genitourinary History: Reports: UTI, Recurrent Other Genitourinary History: chronic uti's, vaginal candidiasis 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 Musculoskeletal History: Reports: Back Pain, Chronic Other Musculoskeletal History: intermittent back pain, R ankle fx Neurological History: Reports: None Psychiatric History: Reports: Anxiety, Depression, OCD Endocrine/Metabolic History: Reports: Diabetes, Type II, Obesity/BMI 30+ 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 Garnett Fixer: N/A Hematologic History: Reports: None Immunologic History: Reports: None Oncologic (Cancer) History: Reports: None Dermatologic History: Reports: Psoriasis Other Dermatologic History: on her scalp & ears - Infectious Disease History Infectious Disease History: Reports: None - Past Surgical History Head Surgeries/Procedures: Reports: None HEENT Surgical History: Reports: Adenoidectomy, Oral Surgery, Tonsillectomy Cardiovascular Surgical History: Reports: None Respiratory Surgical History: Reports: None GI Surgical History: Reports: None Female Surgical History: Reports: Other (See Below) Other Female Surgeries/Procedures: Cystoscopy Endocrine Surgical History: Reports: None Neurological Surgical History: Reports: None Musculoskeletal Surgical History: Reports: None Oncologic Surgical History: Reports: None Dermatological Surgical History: Reports: None Social & Family History - Family History Family Medical History: No Pertinent Family History Psychiatric: Reports: Anxiety, Depression Endocrine/Metabolic: Reports: Obesity/MBI 30+ Immunologic: Reports: HIV - Caffeine Use Caffeine Use: Reports: Soda Caffeine Use Comment: 1 drink/month - Recreational Drug Use Recreational Drug Use: No ED ROS GENERAL - Review of Systems Review Of Systems: Comprehensive ROS is negative, except as noted in HPI. ED EXAM, GENERAL - Physical Exam Exam: See Below Exam Limited By: No Limitations General Appearance: Alert, WD/WN, No Apparent Distress Ears: Hearing Grossly Normal Throat/Mouth: Normal Voice, No Airway Compromise Head: Atraumatic, Normocephalic Neck: Normal Inspection Respiratory/Chest: No Respiratory Distress, Lungs Clear, Normal Breath Sounds, No Accessory Muscle Use Cardiovascular: Normal Peripheral Pulses, No Edema, Tachycardia GI/Abdominal: Soft, Non-Tender Extremities: Normal Inspection Neurological: Alert, Normal Cognition Psychiatric: Normal Affect, Normal Mood Skin Exam: Warm, Dry, Intact, Normal Color #1 Interpretation EKG Date: 04/29/21 Time: 20:20 Rhythm: NSR Rate (Beats/Min): 106 [place]: Normal P-Wave: Present ST-T: Normal QT: Normal TX/PQ Interval: 136 EKG Interpretation Comments: sinus tachycardia, otherwise normal EKG Course - Vital Signs Last Recorded V/S: Last Vital Signs Temp 97 F 04/29/21 19:15 Pulse 102 H 04/29/21 19:15 Resp 18 04/29/21 19:15 BP 123/62 04/29/21 19:15 Pulse Ox 95 04/29/21 19:15 - Orders/Labs/Meds Orders: Active Orders 24 hr Category Date Time Status Chest 1V Frontal [CR] Stat Exams 04/29/21 19:39 Taken CORONAVIRUS COVID-19 TIGIST [MOLEC] Stat Lab 04/29/21 20:05 Received Saline Lock Insert [OM.PC] Stat Oth 04/29/21 19:38 Ordered Labs: Laboratory Tests 04/29/21 04/29/21 04/29/21 Range/Units 19:38 20:00 20:00 WBC 9.93 (4.0-11.0) K/uL RBC 5.78 (4.30-5.90) M/uL Hgb 15.9 (12.0-16.0) g/dL Hct 47.4 H (36.0-46.0) % MCV 82.0 (80.0-98.0) fL MCH 27.5 (27.0-32.0) pg MCHC 33.5 (31.0-37.0) g/dL RDW Std Deviation 42.5 (28.0-62.0) fl RDW Coeff of Nicky 14 (11.0-15.0) % Plt Count 325 (150-400) K/uL MPV 10.00 (7.40-12.00) fL Neut % (Auto) 70.0 (48.0-80.0) % Lymph % (Auto) 24.8 (16.0-40.0) % [place] % (Auto) 4.0 (0.0-15.0) % Eos % (Auto) 0.8 (0.0-7.0) % Baso % (Auto) 0.4 (0.0-1.5) % Neut # (Auto) 7.0 H (1.4-5.7) K/uL Lymph # (Auto) 2.5 H (0.6-2.4) K/uL [place] # (Auto) 0.4 (0.0-0.8) K/uL Eos # (Auto) 0.1 (0.0-0.7) K/uL Baso # (Auto) 0.0 (0.0-0.1) K/uL Nucleated RBC % 0.0 /100WBC Nucleated RBCs # 0 K/uL Sodium 139 (136-145) mmol/L Potassium 4.2 (3.5-5.1) mmol/L Chloride 102 (98-107) mmol/L Carbon Dioxide 23.9 (21.0-32.0) mmol/L BUN 13 (7.0-18.0) mg/dL Creatinine 0.7 (0.6-1.0) mg/dL Est Cr Clr Drug Dosing TNP Estimated GFR (MDRD) > 60.0 ml/min Glucose 298 H (74-106) mg/dL Calcium 9.0 (8.5-10.1) mg/dL Magnesium 1.9 (1.8-2.4) mg/dL Total Bilirubin 0.3 (0.2-1.0) mg/dL AST 12 L (15-37) IU/L ALT 17 (14-63) IU/L Alkaline Phosphatase 75 (46-116) U/L Total Protein 7.1 (6.4-8.2) g/dL Albumin 2.9 L (3.4-5.0) g/dL Globulin 4.2 H (2.6-4.0) g/dL Albumin/Globulin Ratio 0.7 L (0.9-1.6) Urine Color ORANGE Urine Appearance CLEAR Urine pH 5.0 (5.0-8.0) Ur Specific [place] 1.010 (1.001-1.035) Urine Protein NEGATIVE (NEGATIVE) mg/dL Urine Glucose (UA) >=1000 (NEGATIVE) mg/dL Urine Ketones 15 H (NEGATIVE) mg/dL Urine Occult Blood MODERATE H (NEGATIVE) Urine Nitrite POSITIVE H (NEGATIVE) Urine Bilirubin NEGATIVE (NEGATIVE) Urine Urobilinogen 1.0 (<2.0) EU/dL Ur Leukocyte Esterase NEGATIVE (NEGATIVE) Urine RBC 5-10 (0-2/HPF) Urine WBC 0-1 (0-5/HPF) Ur Epithelial Cells RARE (NONE-FEW) Urine Bacteria RARE (NEGATIVE) Urine Other Meds: Medications Discontinued Medications Generic Name Dose Route Start Last Admin Trade Name Miguel PRN Reason Stop Dose Admin Diphenhydramine HCl 25 mg 04/29/21 19:38 04/29/21 20:01 Diphenhydramine 50 Mg/Ml Sdv IVPUSH 04/29/21 19:39 25 mg ONETIME ONE Administration Sodium Chloride 1,000 mls @ 999 mls/hr 04/29/21 19:38 04/29/21 20:01 Normal Saline IV 04/29/21 20:38 999 mls/hr .Bolus ONE Administration Ketorolac Tromethamine 15 mg 04/29/21 19:38 04/29/21 20:01 Ketorolac 15 Mg/Ml Sdv IVPUSH 04/29/21 19:39 15 mg STAT STA Administration Metoclopramide HCl 10 mg 04/29/21 19:38 04/29/21 20:02 Metoclopramide 10 Mg/2 Ml Sdv IVPUSH 04/29/21 19:39 10 mg ONETIME ONE Administration - Re-Assessments/Exams Free Text/Narrative Re-Assessment/Exam: 04/29/21 20:41 Labs with possible UTI, otherwise unremarkable. Macrobid sent to pharmacy. Covid results are pending. Wet read chest x-ray unremarkable. Departure - Departure Time of Disposition: 20:41 Disposition: Home, Self-Care 01 Condition: Good Clinical Impression: UTI (urinary tract infection) Qualifiers: Urinary tract infection type: site unspecified Hematuria presence: without hematuria Qualified Code(s): N39.0 - Urinary tract infection, site not specified - Discharge Information Prescriptions: Nitrofurantoin Monohyd/M-Cryst [Macrobid 100 mg Capsule] 100 mg PO BID 7 Days #14 capsule Instructions: Urinary Tract Infection, Adult Referrals: Sloan Ordonez MD [Primary Care Provider] - Forms: ED Department Discharge Additional Instructions: Your urine does show evidence of urinary tract infection. Antibiotics were sent to your pharmacy. Your labs are otherwise unremarkable. The following information is given to patients seen in the emergency department who are being discharged to home. This information is to outline your options for follow-up care. We provide all patients seen in our emergency department with a follow-up referral. The need for follow-up, as well as the timing and circumstances, are variable depending upon the specifics of your emergency department visit. If you don't have a primary care physician on staff, we will provide you with a referral. We always advise you to contact your personal physician following an emergency department visit to inform them of the circumstance of the visit and for follow-up with them and/or the need for any referrals to a consulting specialist. The emergency department will also refer you to a specialist when appropriate. This referral assures that you have the opportunity for follow-up care with a specialist. All of these measure are taken in an effort to provide you with optimal care, which includes your follow-up. Under all circumstances we always encourage you to contact your private physician who remains a resource for coordinating your care. When calling for follow-up care, please make the office aware that this follow-up is from your recent emergency room visit. If for any reason you are refused follow-up, please contact the [facility] Emergency Department at and asked to speak to the emergency department charge nurse. Please follow up with your primary care physician. If you do not have a primary care physician, see below: [facility] [address], [place] [id number] [facility] [address] [place], [place] [id number] [facility] [address] [place] [address] Sepsis Event Note (ED) - Evaluation Sepsis Screening Result: No Definite Risk - Focused Exam Vital Signs: Vital Signs Temp Pulse Resp BP Pulse Ox 04/29/21 19:15 97 F 102 H 18 123/62 95 - My Orders Last 24 Hours: My Active Orders 04/29/21 19:38 Saline Lock Insert [OM.PC] Stat 04/29/21 19:39 Chest 1V Frontal [CR] Stat 04/29/21 20:05 CORONAVIRUS COVID-19 TIGIST [MOLEC] Stat - Assessment/Plan Last 24 Hours: My Active Orders 04/29/21 19:38 Saline Lock Insert [OM.PC] Stat 04/29/21 19:39 Chest 1V Frontal [CR] Stat 04/29/21 20:05 CORONAVIRUS COVID-19 TIGIST [MOLEC] Stat
[2021-04-29 20:24] LABS: BLOOD UREA NITROGEN,BUN 13 mg/dL (7.0-18.0); CARBON DIOXIDE,CO2 23.9 mmol/L (21.0-32.0); CHLORIDE,CL 102 mmol/L (98-107); GLUCOSE RANDOM 298 mg/dL (74-106); POTASSIUM,K 4.2 mmol/L (3.5-5.1); SODIUM,NA 139 mmol/L (136-145)
--- NOTE | 2021-04-29 21:19 | CR ---
INDICATION: Dizzy TECHNIQUE: Single view chest. FINDINGS: The lungs are clear. The heart, mediastinum and pulmonary vessels are of normal size. There is no evidence of pleural disease. IMPRESSION: Negative chest. Dictated by Brandy Dixon MD @ 04/29/2021 9:17:15 PM (Electronically Signed)
[2021-04-29 22:38] VITALS: BP 120/64; PULSE 90
== END 2021-04-29 20:50 | disposition home or self-care (01) ==
LOC: MW.ED 18:51
DX: N39.0 Urinary tract infection, site not specified (principal); E11.9 Type 2 diabetes mellitus without complications; I10 Essential (primary) hypertension; E66.9 Obesity, unspecified; Z68.30 Body mass index [BMI] 30.0-30.9, adult; Z88.1 Allergy status to other antibiotic agents; Z79.82 Long term (current) use of aspirin; Z79.899 Other long term (current) drug therapy; Z79.84 Long term (current) use of oral hypoglycemic drugs
CPT/HCPCS: 36415; 71045; 80053; 81001; 83735; 85025; 93005; 96374; 96375; 99284; J1200; J1885; J2765; J7030; U0002

== ENCOUNTER 2021-07-15 12:54 | Emergency (ER) | payer MEDICARE, MEDICAID ==
[2021-07-15] MEDS ORDERED: Lidocaine 1% 10 ML MDV INJECT ONE (14:08)
[2021-07-15 14:09] VITALS: BP 131/99; PULSE 96
[2021-07-15] MEDS ORDERED: Bacitracin Oint 1 GM U/D Packet TOP ONE (14:09)
== END 2021-07-15 15:15 | disposition home or self-care (01) ==
LOC: MW.ED 12:54
DX: L60.0 Ingrowing nail (principal); I10 Essential (primary) hypertension; J45.909 Unspecified asthma, uncomplicated; E11.9 Type 2 diabetes mellitus without complications; E66.9 Obesity, unspecified; Z88.1 Allergy status to other antibiotic agents; Z88.2 Allergy status to sulfonamides; Z79.82 Long term (current) use of aspirin; Z79.84 Long term (current) use of oral hypoglycemic drugs; Z79.899 Other long term (current) drug therapy
CPT/HCPCS: 99283

== ENCOUNTER 2021-07-25 19:12 | Emergency (ER) | payer MEDICARE, MEDICAID ==
[2021-07-25 19:32] VITALS: BP 123/85; PULSE 96
[2021-07-25] MEDS ORDERED: Enoxaparin 150 MG/1 ML Syringe SUBCUT ONE (19:32)
== END 2021-07-25 19:50 | disposition home or self-care (01) ==
LOC: MW.ED 19:12
DX: R60.0 Localized edema (principal); E11.9 Type 2 diabetes mellitus without complications; E66.9 Obesity, unspecified; Z68.44 Body mass index [BMI] 60.0-69.9, adult; Z88.1 Allergy status to other antibiotic agents; Z79.84 Long term (current) use of oral hypoglycemic drugs; Z79.899 Other long term (current) drug therapy
CPT/HCPCS: 96372; 99283; J1650

== ENCOUNTER 2021-08-04 15:19 | Emergency (ER) | payer MEDICARE, MEDICAID ==
[2021-08-04 16:12] VITALS: BP 124/76; PULSE 100
[2021-08-04] MEDS ORDERED: cefTRIAXone 1 GM Vial IM ONE (17:42)
[2021-08-04] MEDS ORDERED: Water For Injection, Sterile 20 ML ONE (18:07)
== END 2021-08-04 18:39 | disposition home or self-care (01) ==
LOC: MW.ED 15:19
DX: N39.0 Urinary tract infection, site not specified (principal); E11.65 Type 2 diabetes mellitus with hyperglycemia; E66.9 Obesity, unspecified; I10 Essential (primary) hypertension; J45.909 Unspecified asthma, uncomplicated; E11.9 Type 2 diabetes mellitus without complications; Z68.44 Body mass index [BMI] 60.0-69.9, adult; Z88.1 Allergy status to other antibiotic agents; Z79.84 Long term (current) use of oral hypoglycemic drugs; Z79.899 Other long term (current) drug therapy; Z79.82 Long term (current) use of aspirin
CPT/HCPCS: 81001; 81025; 82947; 87086; 96372; 99283; J0696

== ENCOUNTER 2021-08-09 10:15 | Emergency (ER) | payer MEDICARE, MEDICAID ==
[2021-08-09] MEDS ORDERED: Sodium Chloride 0.9% 2.5 ML Syringe FLUSH PRN (11:31)
[2021-08-09] MEDS ORDERED: Sodium Chloride 0.9% 10 ML Syringe FLUSH PRN (11:31)
[2021-08-09] MEDS ORDERED: Sodium Chloride 0.9% 1,000 ML IV ONE (11:31)
[2021-08-09 11:41] LABS: CORONAVIRUS COVID-19 NAA NEGATIVE (NEGATIVE); INFLUENZA A NAA NEGATIVE (NEGATIVE); INFLUENZA B NAA NEGATIVE (NEGATIVE)
[2021-08-09 11:55] LABS: BLOOD UREA NITROGEN,BUN 12 mg/dL (7.0-18.0); CARBON DIOXIDE,CO2 24.9 mmol/L (21.0-32.0); CHLORIDE,CL 102 mmol/L (98-107); GLUCOSE RANDOM 273 mg/dL (74-106); POTASSIUM,K 4.3 mmol/L (3.5-5.1); SODIUM,NA 138 mmol/L (136-145)
[2021-08-09 13:10] VITALS: BP 109/71; PULSE 98
== END 2021-08-09 13:13 | disposition home or self-care (01) ==
LOC: MW.ED 10:15
DX: J18.9 Pneumonia, unspecified organism (principal); E78.00 Pure hypercholesterolemia, unspecified; I10 Essential (primary) hypertension; E11.9 Type 2 diabetes mellitus without complications; E66.9 Obesity, unspecified; Z68.44 Body mass index [BMI] 60.0-69.9, adult; Z88.1 Allergy status to other antibiotic agents; Z79.84 Long term (current) use of oral hypoglycemic drugs; Z79.899 Other long term (current) drug therapy; Z20.822 Contact with and (suspected) exposure to COVID-19
CPT/HCPCS: 0240U; 36415; 71046; 80053; 85025; 99285; J7030; 99283

== ENCOUNTER 2021-11-29 19:31 | Emergency (ER) | payer MEDICARE, MEDICAID ==
[2021-11-29 20:51] VITALS: BP 132/98; PULSE 87
== END 2021-11-29 20:51 | disposition home or self-care (01) ==
LOC: MW.ED 19:31
DX: S30.1XXA Contusion of abdominal wall, initial encounter (principal); J45.909 Unspecified asthma, uncomplicated; I10 Essential (primary) hypertension; E11.9 Type 2 diabetes mellitus without complications; E66.9 Obesity, unspecified; Z68.44 Body mass index [BMI] 60.0-69.9, adult; Z79.899 Other long term (current) drug therapy; Z79.84 Long term (current) use of oral hypoglycemic drugs; Z88.1 Allergy status to other antibiotic agents; Z88.2 Allergy status to sulfonamides; W28.XXXA Contact with powered lawn mower, initial encounter
CPT/HCPCS: 74176; 74176-26; 99283; 99284-25

== ENCOUNTER 2021-12-24 11:39 | Emergency (ER) | payer MEDICARE, MEDICAID ==
[2021-12-24 13:14] VITALS: BP 135/65; PULSE 115
== END 2021-12-24 13:15 | disposition home or self-care (01) ==
LOC: MW.ED 11:39
DX: F10.129 Alcohol abuse with intoxication, unspecified (principal); E78.00 Pure hypercholesterolemia, unspecified; I10 Essential (primary) hypertension; E11.9 Type 2 diabetes mellitus without complications; E66.9 Obesity, unspecified; Z68.44 Body mass index [BMI] 60.0-69.9, adult; Z88.1 Allergy status to other antibiotic agents; Z79.84 Long term (current) use of oral hypoglycemic drugs; Y90.6 Blood alcohol level of 120-199 mg/100 ml
CPT/HCPCS: 36415; 80307; 99282; 99284

== ENCOUNTER 2021-12-26 00:44 | Emergency (ER) | payer MEDICARE, MEDICAID ==
[2021-12-26 00:53] VITALS: BP 94/76; PULSE 106
== END 2021-12-26 01:30 | disposition home or self-care (01) ==
LOC: MW.ED 00:44
DX: F10.129 Alcohol abuse with intoxication, unspecified (principal); F12.90 Cannabis use, unspecified, uncomplicated; I10 Essential (primary) hypertension; E78.00 Pure hypercholesterolemia, unspecified; E11.9 Type 2 diabetes mellitus without complications; E66.9 Obesity, unspecified; Z88.1 Allergy status to other antibiotic agents; Z88.2 Allergy status to sulfonamides; Z79.84 Long term (current) use of oral hypoglycemic drugs; Z79.82 Long term (current) use of aspirin; Z79.899 Other long term (current) drug therapy
CPT/HCPCS: 99282; 99284

== ENCOUNTER 2022-03-26 11:57 | Emergency (ER) | payer MEDICARE, MEDICAID ==
[2022-04-23 11:55] LABS: CORONAVIRUS COVID-19 NAA NEGATIVE (NEGATIVE); INFLUENZA A NAA NEGATIVE (NEGATIVE); INFLUENZA B NAA NEGATIVE (NEGATIVE)
== END 2022-03-26 12:50 | disposition home or self-care (01) ==
LOC: MW.ED 11:57
DX: J02.9 Acute pharyngitis, unspecified (principal)
CPT/HCPCS: 0240U; 99283

== ENCOUNTER 2022-07-08 16:00 | Emergency (ER) | payer MEDICARE, MEDICAID ==
[2022-07-08 17:00] VITALS: PULSE 102
[2022-07-08 17:45] LABS: CORONAVIRUS COVID-19 NAA NEGATIVE (NEGATIVE); INFLUENZA A NAA NEGATIVE (NEGATIVE); INFLUENZA B NAA NEGATIVE (NEGATIVE)
[2022-07-08 18:08] VITALS: BP 139/96
== END 2022-07-08 18:06 | disposition home or self-care (01) ==
LOC: MW.ED 16:00
DX: J32.9 Chronic sinusitis, unspecified (principal); E78.00 Pure hypercholesterolemia, unspecified; J45.909 Unspecified asthma, uncomplicated; I10 Essential (primary) hypertension; E11.9 Type 2 diabetes mellitus without complications; F17.210 Nicotine dependence, cigarettes, uncomplicated; E66.9 Obesity, unspecified; Z88.1 Allergy status to other antibiotic agents; Z79.899 Other long term (current) drug therapy; Z79.84 Long term (current) use of oral hypoglycemic drugs; Z20.822 Contact with and (suspected) exposure to COVID-19; Z68.43 Body mass index [BMI] 50.0-59.9, adult
CPT/HCPCS: 0240U; 99283

== ENCOUNTER 2022-08-19 16:18 | Emergency (ER) | payer MEDICARE, MEDICAID ==
[2022-08-19 17:27] LABS: CORONAVIRUS COVID-19 NAA NEGATIVE (NEGATIVE); INFLUENZA A NAA NEGATIVE (NEGATIVE); INFLUENZA B NAA NEGATIVE (NEGATIVE); RESPIRATORY SYNCYTIAL VIR NAA NEGATIVE (NEGATIVE)
[2022-08-19 17:56] VITALS: BP 106/68; PULSE 92
== END 2022-08-19 17:57 | disposition home or self-care (01) ==
LOC: MW.ED 16:18
DX: R06.02 Shortness of breath (principal); I10 Essential (primary) hypertension; J45.909 Unspecified asthma, uncomplicated; E11.9 Type 2 diabetes mellitus without complications; E66.9 Obesity, unspecified; Z68.43 Body mass index [BMI] 50.0-59.9, adult; Z91.14 Patient's other noncompliance with medication regimen; Z88.1 Allergy status to other antibiotic agents; Z88.2 Allergy status to sulfonamides; Z79.84 Long term (current) use of oral hypoglycemic drugs; Z79.899 Other long term (current) drug therapy; Z20.822 Contact with and (suspected) exposure to COVID-19
CPT/HCPCS: 0241U; 71046; 99285; 99283

== ENCOUNTER 2022-08-25 19:44 | Emergency (ER) | payer MEDICARE, MEDICAID ==
[2022-08-25] MEDS ORDERED: Albuterol 8 GM Inhaler INH ONE (20:17)
[2022-08-25 22:06] LABS: CORONAVIRUS COVID-19 NAA NEGATIVE (NEGATIVE); INFLUENZA A NAA NEGATIVE (NEGATIVE); INFLUENZA B NAA NEGATIVE (NEGATIVE); RESPIRATORY SYNCYTIAL VIR NAA NEGATIVE (NEGATIVE)
[2022-08-25 22:29] VITALS: BP 129/82; PULSE 96
== END 2022-08-25 22:25 | disposition home or self-care (01) ==
LOC: MW.ED 19:44
DX: J40 Bronchitis, not specified as acute or chronic (principal); I10 Essential (primary) hypertension; E78.00 Pure hypercholesterolemia, unspecified; E11.9 Type 2 diabetes mellitus without complications; F41.9 Anxiety disorder, unspecified; F32.A Depression, unspecified; E66.9 Obesity, unspecified; Z68.43 Body mass index [BMI] 50.0-59.9, adult; Z79.84 Long term (current) use of oral hypoglycemic drugs; Z20.822 Contact with and (suspected) exposure to COVID-19; Z79.899 Other long term (current) drug therapy; Z88.1 Allergy status to other antibiotic agents; Z88.2 Allergy status to sulfonamides
CPT/HCPCS: 0241U; 71046; 99285; A9270; 99283

== ENCOUNTER 2022-09-29 02:54 | Emergency (ER) | payer MEDICARE, MEDICAID ==
[2022-09-29] MEDS ORDERED: Bacitracin Oint 1 GM U/D Packet TOP ONE (03:16)
[2022-09-29] MEDS ORDERED: Acetaminophen 325 MG Tab PO ONE (03:16)
[2022-09-29 03:37] VITALS: BP 134/90; PULSE 94
== END 2022-09-29 03:45 | disposition home or self-care (01) ==
LOC: MW.ED 02:54
DX: L98.499 Non-pressure chronic ulcer of skin of other sites with unspecified severity (principal); I10 Essential (primary) hypertension; J45.909 Unspecified asthma, uncomplicated; E11.9 Type 2 diabetes mellitus without complications; E66.9 Obesity, unspecified; Z68.43 Body mass index [BMI] 50.0-59.9, adult; Z88.2 Allergy status to sulfonamides; Z88.1 Allergy status to other antibiotic agents; Z79.84 Long term (current) use of oral hypoglycemic drugs; Z79.899 Other long term (current) drug therapy
CPT/HCPCS: 99283; A9270

== ENCOUNTER 2022-12-12 18:53 | Emergency (ER) | payer MEDICARE, MEDICAID ==
[2022-12-12] MEDS ORDERED: metroNIDAZOLE 250 MG Tab PO ONE (19:48)
[2022-12-12] MEDS ORDERED: Phenazopyridine 200 MG Tab PO ONE (19:48)
[2022-12-12] MEDS ORDERED: Fluconazole 150 MG Tab PO ONE (19:48)
[2022-12-12] MEDS ORDERED: cefTRIAXone 1 GM Vial IM ONE (19:48)
[2022-12-12 19:57] LABS: APPEARANCE,URINE CLEAR; BILIRUBIN,URINE NEGATIVE (NEGATIVE); COLOR,URINE YELLOW; GLUCOSE,URINE 500 mg/dL (NEGATIVE); KETONES,URINE NEGATIVE (NEGATIVE); LEUKOCYTE ESTERASE,URINE NEGATIVE (NEGATIVE); NITRITE,URINE NEGATIVE (NEGATIVE); OCCULT BLOOD,URINE MODERATE (NEGATIVE); PROTEIN,URINE TRACE mg/dL (NEGATIVE); UROBILINOGEN,URINE 0.2 EU/dL (<2.0)
[2022-12-12 20:36] LABS: BACTERIA,URINE FEW (NEGATIVE); EPITHELIAL CELLS,URINE MANY (NONE-FEW); MUCUS,URINE MODERATE (NONE-MOD); SQUAMOUS EPITHELIAL CELLS,UR MANY; WBC,URINE 0-5 (0-5/HPF)
[2022-12-12] MEDS ORDERED: Lidocaine 1% PF 2 ML SDV INJECT ONE (20:43)
[2022-12-12 21:38] VITALS: BP 105/60; PULSE 88
== END 2022-12-12 21:38 | disposition home or self-care (01) ==
LOC: MW.ED 18:53
DX: N39.0 Urinary tract infection, site not specified (principal); N76.1 Subacute and chronic vaginitis; I10 Essential (primary) hypertension; J45.909 Unspecified asthma, uncomplicated; E11.9 Type 2 diabetes mellitus without complications; E66.9 Obesity, unspecified; Z88.1 Allergy status to other antibiotic agents; Z88.2 Allergy status to sulfonamides; Z79.84 Long term (current) use of oral hypoglycemic drugs; Z79.899 Other long term (current) drug therapy
CPT/HCPCS: 81001; 96372; 99283; A9270; J0696; J3490

== ENCOUNTER 2023-02-06 23:47 | Emergency (ER) | payer MEDICARE, MEDICAID ==
[2023-02-07 00:37] LABS: APPEARANCE,URINE CLEAR; BILIRUBIN,URINE NEGATIVE (NEGATIVE); COLOR,URINE YELLOW; GLUCOSE,URINE >=1000 mg/dL (NEGATIVE); KETONES,URINE NEGATIVE (NEGATIVE); LEUKOCYTE ESTERASE,URINE NEGATIVE (NEGATIVE); NITRITE,URINE NEGATIVE (NEGATIVE); OCCULT BLOOD,URINE NEGATIVE (NEGATIVE); PH,URINE 5.5 (5.0-8.0); PROTEIN,URINE NEGATIVE (NEGATIVE); UROBILINOGEN,URINE 0.2 EU/dL (<2.0)
[2023-02-07 00:54] VITALS: BP 157/117; PULSE 92
== END 2023-02-07 00:54 | disposition home or self-care (01) ==
LOC: MW.ED 23:47
DX: E11.65 Type 2 diabetes mellitus with hyperglycemia (principal); E78.00 Pure hypercholesterolemia, unspecified; I10 Essential (primary) hypertension; J45.909 Unspecified asthma, uncomplicated; E66.9 Obesity, unspecified; Z88.1 Allergy status to other antibiotic agents; Z79.84 Long term (current) use of oral hypoglycemic drugs; Z79.51 Long term (current) use of inhaled steroids; Z79.899 Other long term (current) drug therapy; Z91.148 Patient's other noncompliance with medication regimen for other reason
CPT/HCPCS: 73660-26-T4; 73660-T4; 81003; 81025; 82947; 99283

== ENCOUNTER 2023-02-17 12:50 | Emergency (ER) | payer MEDICARE, MEDICAID ==
[2023-02-17] MEDS ORDERED: Sodium Chloride 0.9% 10 ML Syringe FLUSH PRN (13:45)
[2023-02-17] MEDS ORDERED: Sodium Chloride 0.9% 2.5 ML Syringe FLUSH PRN (13:45)
[2023-02-17] MEDS ORDERED: Ondansetron 4 MG/2 ML SDV IVPUSH STA (13:53)
[2023-02-17] MEDS ORDERED: Ketorolac 30 MG/ML SDV IVPUSH STA (13:53)
[2023-02-17] MEDS ORDERED: Sodium Chloride 0.9% 1,000 ML IV STA (13:53)
[2023-02-17 14:25] LABS: BASOPHILS PERCENT AUTO 0.6 % (0.0-1.5); EOSINOPHILS ABSOLUTE AUTO 0.1 K/uL (0.0-0.7); EOSINOPHILS PERCENT AUTO 2.2 % (0.0-7.0); HEMATOCRIT 46.4 % (36.0-46.0); HEMOGLOBIN 15.8 g/dL (12.0-16.0); LYMPHOCYTES ABSOLUTE AUTO 2.3 K/uL (0.6-2.4); LYMPHOCYTES PERCENT AUTO 36.2 % (16.0-40.0); MEAN CORPUSCULAR HEMOGLOBIN 27.9 pg (27.0-32.0); MEAN CORPUSCULAR HGB CONC 34.1 g/dL (31.0-37.0); MEAN CORPUSCULAR VOLUME 81.8 fL (80.0-98.0); MONOCYTES ABSOLUTE AUTO 0.3 K/uL (0.0-0.8); MONOCYTES PERCENT AUTO 4.5 % (0.0-15.0); NEUTROPHILS ABSOLUTE AUTO 3.5 K/uL (1.4-5.7); NEUTROPHILS PERCENT AUTO 56.5 % (48.0-80.0); NRBC ABSOLUTE 0 K/uL; PLATELET COUNT,PLT 320 K/uL (150-400); RED BLOOD CELL COUNT 5.67 M/uL (4.30-5.90); WHITE BLOOD CELL COUNT,WBC 6.25 K/uL (4.0-11.0)
[2023-02-17 14:51] LABS: A/G RATIO 0.8 (0.9-1.6); ALBUMIN 3.1 g/dL (3.4-5.0); BILIRUBIN TOTAL 0.3 mg/dL (0.2-1.0); CALCIUM 8.4 mg/dL (8.5-10.1); CARBON DIOXIDE,CO2 22.5 mmol/L (21.0-32.0); CREATININE 0.7 mg/dL (0.6-1.0); EST CRCL DRUG DOSING (CG) 101.48 mL/min; PROTEIN TOTAL,TP 7.1 g/dL (6.4-8.2)
[2023-02-17 15:02] LABS: APPEARANCE,URINE CLEAR; BILIRUBIN,URINE NEGATIVE (NEGATIVE); GLUCOSE,URINE >=1000 mg/dL (NEGATIVE); KETONES,URINE NEGATIVE (NEGATIVE); LEUKOCYTE ESTERASE,URINE NEGATIVE (NEGATIVE); NITRITE,URINE NEGATIVE (NEGATIVE); OCCULT BLOOD,URINE TRACE-INTACT (NEGATIVE); PROTEIN,URINE NEGATIVE (NEGATIVE); UROBILINOGEN,URINE 0.2 EU/dL (<2.0)
[2023-02-17 15:03] LABS: COLOR,URINE DARK YELLOW
[2023-02-17 15:11] LABS: BACTERIA,URINE RARE (NEGATIVE); EPITHELIAL CELLS,URINE FEW (NONE-FEW); HYALINE CASTS,URINE 0-3 (0-2/LPF); MUCUS,URINE LIGHT (NONE-MOD); RBC,URINE 0-2 (0-2/HPF)
[2023-02-17] MEDS ORDERED: Iopamidol 755 Mg/ML 100 ML Bottle IVPUSH ONE (16:45)
[2023-02-17 16:54] VITALS: BP 140/87; PULSE 86
== END 2023-02-17 16:53 | disposition home or self-care (01) ==
LOC: MW.ED 12:50
DX: K42.9 Umbilical hernia without obstruction or gangrene (principal); Z88.1 Allergy status to other antibiotic agents; Z88.2 Allergy status to sulfonamides; Z79.899 Other long term (current) drug therapy; Z79.84 Long term (current) use of oral hypoglycemic drugs
CPT/HCPCS: 36415; 74177; 80053; 81001; 83690; 84703; 85025; 96361; 96374; 96375; 99284; J1885; J2405; J3490; J7030; Q9967

== ENCOUNTER 2023-02-26 18:51 | Emergency (ER) | payer MEDICARE, MEDICAID ==
[2023-02-26] MEDS ORDERED: Lactated Ringers 1,000 ML IV SCH (23:45)
[2023-02-27 00:02] LABS: PH,VENOUS 7.36 (7.31-7.41)
[2023-02-27 00:05] LABS: BASOPHILS ABSOLUTE AUTO 0.1 K/uL (0.0-0.1); BASOPHILS PERCENT AUTO 0.6 % (0.0-1.5); EOSINOPHILS ABSOLUTE AUTO 0.2 K/uL (0.0-0.7); EOSINOPHILS PERCENT AUTO 1.9 % (0.0-7.0); HEMATOCRIT 47.9 % (36.0-46.0); HEMOGLOBIN 15.8 g/dL (12.0-16.0); LYMPHOCYTES ABSOLUTE AUTO 3.8 K/uL (0.6-2.4); LYMPHOCYTES PERCENT AUTO 44.7 % (16.0-40.0); MEAN CORPUSCULAR HEMOGLOBIN 27.4 pg (27.0-32.0); MEAN CORPUSCULAR VOLUME 83.2 fL (80.0-98.0); MONOCYTES ABSOLUTE AUTO 0.5 K/uL (0.0-0.8); MONOCYTES PERCENT AUTO 5.9 % (0.0-15.0); NEUTROPHILS PERCENT AUTO 46.9 % (48.0-80.0); NRBC ABSOLUTE 0 K/uL; PLATELET COUNT,PLT 315 K/uL (150-400); RED BLOOD CELL COUNT 5.76 M/uL (4.30-5.90); WHITE BLOOD CELL COUNT,WBC 8.44 K/uL (4.0-11.0)
[2023-02-27 00:27] LABS: A/G RATIO 0.7 (0.9-1.6); ALBUMIN 2.9 g/dL (3.4-5.0); BILIRUBIN TOTAL 0.3 mg/dL (0.2-1.0); CALCIUM 8.5 mg/dL (8.5-10.1); CARBON DIOXIDE,CO2 24.4 mmol/L (21.0-32.0); CREATININE 0.6 mg/dL (0.6-1.0); EST CRCL DRUG DOSING (CG) 118.39 mL/min; POTASSIUM,K 3.9 mmol/L (3.5-5.1); PROTEIN TOTAL,TP 6.9 g/dL (6.4-8.2)
[2023-02-27] MEDS ORDERED: Ketorolac 30 MG/ML SDV IVPUSH ONE (01:23)
[2023-02-27 01:36] VITALS: BP 143/78; PULSE 87
== END 2023-02-27 01:35 | disposition home or self-care (01) ==
LOC: MW.ED 18:51
DX: R73.9 Hyperglycemia, unspecified (principal); Z88.1 Allergy status to other antibiotic agents; Z88.2 Allergy status to sulfonamides; Z79.899 Other long term (current) drug therapy; Z20.822 Contact with and (suspected) exposure to COVID-19
CPT/HCPCS: 36415; 80053; 82803; 82947; 84703; 85025; 96361; 96374; 99284; J1885; J7120; U0002

== ENCOUNTER 2023-03-03 14:31 | Emergency (ER) | payer MEDICARE, MEDICAID ==
[2023-03-03 17:07] VITALS: BP 119/69; PULSE 88
== END 2023-03-03 17:06 | disposition home or self-care (01) ==
LOC: MW.ED 14:31
DX: J32.9 Chronic sinusitis, unspecified (principal); E78.00 Pure hypercholesterolemia, unspecified; I10 Essential (primary) hypertension; E11.9 Type 2 diabetes mellitus without complications; E66.9 Obesity, unspecified; Z68.43 Body mass index [BMI] 50.0-59.9, adult; Z88.1 Allergy status to other antibiotic agents; Z79.84 Long term (current) use of oral hypoglycemic drugs; Z79.899 Other long term (current) drug therapy; Z72.0 Tobacco use
CPT/HCPCS: 99283

== ENCOUNTER 2023-03-10 09:52 | Emergency (ER) | payer MEDICARE, MEDICAID ==
[2023-03-10] MEDS ORDERED: methylPREDNISolone Sodium Succinate 125 MG/2 ML SDV IM ONE (11:24)
[2023-03-10 11:44] VITALS: BP 106/68; PULSE 97
== END 2023-03-10 11:46 | disposition home or self-care (01) ==
LOC: MW.ED 09:52
DX: J40 Bronchitis, not specified as acute or chronic (principal); I10 Essential (primary) hypertension; E11.9 Type 2 diabetes mellitus without complications; E78.00 Pure hypercholesterolemia, unspecified; E66.9 Obesity, unspecified; Z68.43 Body mass index [BMI] 50.0-59.9, adult; Z88.2 Allergy status to sulfonamides; Z88.1 Allergy status to other antibiotic agents; Z79.4 Long term (current) use of insulin; Z79.84 Long term (current) use of oral hypoglycemic drugs; Z79.899 Other long term (current) drug therapy
CPT/HCPCS: 71045; 96372; 99284; J2930; 99283

== ENCOUNTER 2023-07-11 05:57 | Emergency (ER) | payer MEDICARE, MEDICAID ==
[2023-07-11] MEDS ORDERED: Ibuprofen 400 MG Tab PO ONE (06:24)
[2023-07-11 07:00] LABS: CORONAVIRUS COVID-19 NAA NEGATIVE (NEGATIVE); INFLUENZA A NAA POSITIVE (NEGATIVE); INFLUENZA B NAA NEGATIVE (NEGATIVE)
[2023-07-11 07:36] VITALS: BP 125/77; PULSE 98
== END 2023-07-11 07:36 | disposition home or self-care (01) ==
LOC: MW.ED 05:57
DX: J11.1 Influenza due to unidentified influenza virus with other respiratory manifestations (principal); I10 Essential (primary) hypertension; E78.00 Pure hypercholesterolemia, unspecified; E11.9 Type 2 diabetes mellitus without complications; E66.9 Obesity, unspecified; Z79.899 Other long term (current) drug therapy; Z88.2 Allergy status to sulfonamides; Z88.8 Allergy status to other drugs, medicaments and biological substances; Z79.84 Long term (current) use of oral hypoglycemic drugs; Z79.4 Long term (current) use of insulin; Z68.43 Body mass index [BMI] 50.0-59.9, adult
CPT/HCPCS: 0240U; 87651; 99283; A9270

== ENCOUNTER 2023-07-22 18:17 | Emergency (ER) | payer MEDICARE, MEDICAID ==
[2023-07-22] MEDS ORDERED: Sodium Chloride 0.9% 10 ML Syringe FLUSH PRN (18:33)
[2023-07-22] MEDS ORDERED: Sodium Chloride 0.9% 2.5 ML Syringe FLUSH PRN (18:33)
[2023-07-22 19:36] VITALS: BP 147/74
[2023-07-22 21:01] VITALS: PULSE 90
== END 2023-07-22 20:28 | disposition home or self-care (01) ==
LOC: MW.ED 18:17
DX: Z13.9 Encounter for screening, unspecified (principal); I10 Essential (primary) hypertension; E78.00 Pure hypercholesterolemia, unspecified; E11.9 Type 2 diabetes mellitus without complications; E66.9 Obesity, unspecified; J45.909 Unspecified asthma, uncomplicated; Z79.84 Long term (current) use of oral hypoglycemic drugs; Z79.899 Other long term (current) drug therapy; Z88.1 Allergy status to other antibiotic agents; Z88.2 Allergy status to sulfonamides; Z68.42 Body mass index [BMI] 45.0-49.9, adult
CPT/HCPCS: 99282

== ENCOUNTER 2023-09-24 19:20 | Emergency (ER) | payer MEDICARE, MEDICAID ==
[2023-09-24 21:46] VITALS: BP 149/87; PULSE 95
== END 2023-09-24 21:45 | disposition home or self-care (01) ==
LOC: MW.ED 19:20
DX: K62.5 Hemorrhage of anus and rectum (principal); I10 Essential (primary) hypertension; J45.909 Unspecified asthma, uncomplicated; E11.9 Type 2 diabetes mellitus without complications; E66.9 Obesity, unspecified; Z75.8 Other problems related to medical facilities and other health care; Z88.1 Allergy status to other antibiotic agents; Z88.2 Allergy status to sulfonamides; Z79.51 Long term (current) use of inhaled steroids; Z79.84 Long term (current) use of oral hypoglycemic drugs; Z79.4 Long term (current) use of insulin; Z68.43 Body mass index [BMI] 50.0-59.9, adult; Z79.899 Other long term (current) drug therapy
CPT/HCPCS: 74176; 74176-26; 99282; 99283

== ENCOUNTER 2023-10-13 08:05 | Emergency (ER) | payer MEDICARE, MEDICAID ==
[2023-10-13 08:35] LABS: APPEARANCE,URINE CLEAR; BILIRUBIN,URINE NEGATIVE (NEGATIVE); GLUCOSE,URINE >=1000 mg/dL (NEGATIVE); KETONES,URINE NEGATIVE (NEGATIVE); LEUKOCYTE ESTERASE,URINE NEGATIVE (NEGATIVE); NITRITE,URINE POSITIVE (NEGATIVE); OCCULT BLOOD,URINE LARGE (NEGATIVE); PH,URINE 6.5 (5.0-8.0); PROTEIN,URINE NEGATIVE (NEGATIVE)
[2023-10-13 08:39] LABS: COLOR,URINE ORANGE
[2023-10-13 08:47] LABS: BACTERIA,URINE RARE (NEGATIVE); EPITHELIAL CELLS,URINE FEW (NONE-FEW); WBC,URINE 0-1 (0-5/HPF)
[2023-10-13 09:06] VITALS: BP 113/71; PULSE 88
[2023-10-13] MEDS: Cefdinir 300 MG Cap PO ONE (09:14)
[2023-10-13] MEDS: Ciprofloxacin 500 MG Tab PO STA (09:15)
[2023-10-13 09:28] LABS: BASOPHILS ABSOLUTE AUTO 0.05 K/uL (0.00-0.20); BASOPHILS PERCENT AUTO 0.7 % (0.0-1.0); EOSINOPHILS ABSOLUTE AUTO 0.16 K/uL (0.00-0.45); EOSINOPHILS PERCENT AUTO 2.3 % (0.0-6.0); HEMATOCRIT 47.8 % (37.0-47.0); HEMOGLOBIN 15.9 g/dL (12.0-16.0); IMMATURE GRAN ABSOLUTE AUTO 0.01 K/uL (0.00-0.05); IMMATURE GRAN PERCENT AUTO 0.1 % (0.0-0.4); LYMPHOCYTES ABSOLUTE AUTO 2.33 K/uL (1.00-4.80); LYMPHOCYTES PERCENT AUTO 34.2 % (24.0-44.0); MEAN CORPUSCULAR HGB CONC 33.3 g/dL (32.0-36.0); MEAN CORPUSCULAR VOLUME 81.3 fL (83.0-99.0); MEAN PLATELET VOLUME 9.4 fL (9.4-12.3); MONOCYTES ABSOLUTE AUTO 0.33 K/uL (0.00-0.80); MONOCYTES PERCENT AUTO 4.8 % (0.0-8.0); NEUTROPHILS ABSOLUTE AUTO 3.93 K/uL (1.80-7.70); NEUTROPHILS PERCENT AUTO 57.9 % (41.0-71.0); PLATELET COUNT,PLT 288 K/uL (150-400); RED BLOOD CELL COUNT 5.88 M/uL (4.10-5.30); WHITE BLOOD CELL COUNT,WBC 6.81 K/uL (3.9-11.3)
[2023-10-13 09:53] LABS: A/G RATIO 0.8 (0.9-1.6); ALBUMIN 3.1 g/dL (3.4-5.0); BILIRUBIN TOTAL 0.5 mg/dL (0.2-1.0); CALCIUM 8.8 mg/dL (8.5-10.1); CARBON DIOXIDE,CO2 24.8 mmol/L (21.0-32.0); CREATININE 0.7 mg/dL (0.6-1.0); EST CRCL DRUG DOSING (CG) 100.55 mL/min; POTASSIUM,K 4.2 mmol/L (3.5-5.1); PROTEIN TOTAL,TP 6.8 g/dL (6.4-8.2)
== END 2023-10-13 11:14 | disposition home or self-care (01) ==
LOC: MW.ED 08:05
DX: N39.0 Urinary tract infection, site not specified (principal); I10 Essential (primary) hypertension; E78.00 Pure hypercholesterolemia, unspecified; J45.909 Unspecified asthma, uncomplicated; E11.9 Type 2 diabetes mellitus without complications; E66.9 Obesity, unspecified; Z79.899 Other long term (current) drug therapy; Z79.4 Long term (current) use of insulin; Z79.84 Long term (current) use of oral hypoglycemic drugs; Z88.1 Allergy status to other antibiotic agents; Z88.2 Allergy status to sulfonamides; Z75.8 Other problems related to medical facilities and other health care; Z68.43 Body mass index [BMI] 50.0-59.9, adult
CPT/HCPCS: 36415; 74176; 80053; 81001; 81025; 85025; 87086; 99284; A9270

== ENCOUNTER 2023-10-19 10:58 | Emergency (ER) | payer MEDICARE, MEDICAID ==
[2023-10-19 12:00] LABS: APPEARANCE,URINE CLOUDY; BILIRUBIN,URINE NEGATIVE (NEGATIVE); COLOR,URINE ORANGE; GLUCOSE,URINE 250 mg/dL (NEGATIVE); KETONES,URINE TRACE mg/dL (NEGATIVE); LEUKOCYTE ESTERASE,URINE SMALL (NEGATIVE); NITRITE,URINE POSITIVE (NEGATIVE); OCCULT BLOOD,URINE NEGATIVE (NEGATIVE); PROTEIN,URINE >=300 mg/dL (NEGATIVE); UROBILINOGEN,URINE >=8.0 EU/dL (<2.0)
[2023-10-19 12:12] LABS: AMORPHOUS SEDIMENT,URINE LIGHT (NEGATIVE); BACTERIA,URINE FEW (NEGATIVE); EPITHELIAL CELLS,URINE FEW (NONE-FEW); MUCUS,URINE LIGHT (NONE-MOD); RBC,URINE 0-2 (0-2/HPF)
[2023-10-19 13:46] LABS: CANDIDA DNA PROBE NEGATIVE (NEGATIVE); GARDNERELLA DNA PROBE NEGATIVE (NEGATIVE); TRICHOMONAS DNA PROBE NEGATIVE (NEGATIVE)
[2023-10-19 14:18] VITALS: BP 115/83; PULSE 73
== END 2023-10-19 14:33 | disposition home or self-care (01) ==
LOC: MW.ED 10:58
DX: R30.0 Dysuria (principal); I10 Essential (primary) hypertension; E78.00 Pure hypercholesterolemia, unspecified; E11.9 Type 2 diabetes mellitus without complications; J45.909 Unspecified asthma, uncomplicated; Z88.1 Allergy status to other antibiotic agents; Z88.2 Allergy status to sulfonamides; Z79.84 Long term (current) use of oral hypoglycemic drugs; Z79.51 Long term (current) use of inhaled steroids; Z79.899 Other long term (current) drug therapy; Z75.8 Other problems related to medical facilities and other health care
CPT/HCPCS: 81001; 81003; 87086; 87480; 87510; 87660; 99283

== ENCOUNTER 2023-10-20 05:12 | Emergency (ER) | payer MEDICARE, MEDICAID ==
[2023-10-20 05:31] VITALS: BP 138/110; PULSE 86
== END 2023-10-20 05:39 | disposition home or self-care (01) ==
LOC: MW.ED 05:12
DX: M54.9 Dorsalgia, unspecified (principal); I10 Essential (primary) hypertension; J45.909 Unspecified asthma, uncomplicated; E11.9 Type 2 diabetes mellitus without complications; Z88.1 Allergy status to other antibiotic agents; Z88.2 Allergy status to sulfonamides; Z79.84 Long term (current) use of oral hypoglycemic drugs; Z79.899 Other long term (current) drug therapy; Z79.4 Long term (current) use of insulin; Z79.51 Long term (current) use of inhaled steroids; Z75.8 Other problems related to medical facilities and other health care
CPT/HCPCS: 82947; 99282; 99283

== ENCOUNTER 2023-12-01 21:12 | Emergency (ER) | payer MEDICARE, MEDICAID ==
[2023-12-01 22:01] VITALS: BP 134/84; PULSE 85
== END 2023-12-01 22:27 | disposition home or self-care (01) ==
LOC: MW.ED 21:12
DX: L30.9 Dermatitis, unspecified (principal); I10 Essential (primary) hypertension; E78.00 Pure hypercholesterolemia, unspecified; J45.909 Unspecified asthma, uncomplicated; Z75.8 Other problems related to medical facilities and other health care; Z88.1 Allergy status to other antibiotic agents; Z88.2 Allergy status to sulfonamides; Z79.84 Long term (current) use of oral hypoglycemic drugs; Z79.899 Other long term (current) drug therapy; Z79.4 Long term (current) use of insulin
CPT/HCPCS: 99283

== ENCOUNTER 2024-01-05 09:01 | Emergency (ER) | payer MEDICARE, MEDICAID ==
[2024-01-05 09:11] VITALS: BP 146/100; PULSE 100
[2024-01-05 09:32] LABS: APPEARANCE,URINE SLT CLOUDY; BILIRUBIN,URINE NEGATIVE (NEGATIVE); GLUCOSE,URINE 100 mg/dL (NEGATIVE); KETONES,URINE TRACE mg/dL (NEGATIVE); LEUKOCYTE ESTERASE,URINE TRACE (NEGATIVE); NITRITE,URINE POSITIVE (NEGATIVE); OCCULT BLOOD,URINE TRACE-INTACT (NEGATIVE); PROTEIN,URINE 100 mg/dL (NEGATIVE)
[2024-01-05 09:41] LABS: BACTERIA,URINE FEW (NEGATIVE); COLOR,URINE ORANGE; EPITHELIAL CELLS,URINE FEW (NONE-FEW); MUCUS,URINE LIGHT (NONE-MOD); RBC,URINE NONE SEEN (0-2/HPF); WBC,URINE 0-1 (0-5/HPF)
== END 2024-01-05 10:24 | disposition home or self-care (01) ==
LOC: MW.ED 09:01
DX: N39.0 Urinary tract infection, site not specified (principal); F17.210 Nicotine dependence, cigarettes, uncomplicated; E11.9 Type 2 diabetes mellitus without complications; E66.9 Obesity, unspecified; I10 Essential (primary) hypertension; J45.909 Unspecified asthma, uncomplicated; Z68.43 Body mass index [BMI] 50.0-59.9, adult; Z79.4 Long term (current) use of insulin; Z79.899 Other long term (current) drug therapy; Z88.2 Allergy status to sulfonamides; Z88.8 Allergy status to other drugs, medicaments and biological substances; Z75.8 Other problems related to medical facilities and other health care
CPT/HCPCS: 81001; 99283

== ENCOUNTER 2024-05-23 01:02 | Emergency (ER) | payer MEDICARE, MEDICAID ==
[2024-05-23 01:51] LABS: BILIRUBIN,URINE NEGATIVE (NEGATIVE); GLUCOSE,URINE 500 mg/dL (NEGATIVE); KETONES,URINE TRACE mg/dL (NEGATIVE); LEUKOCYTE ESTERASE,URINE NEGATIVE (NEGATIVE); NITRITE,URINE POSITIVE (NEGATIVE); OCCULT BLOOD,URINE NEGATIVE (NEGATIVE); PROTEIN,URINE NEGATIVE (NEGATIVE)
[2024-05-23 01:57] LABS: APPEARANCE,URINE SLT CLOUDY; COLOR,URINE DARK YELLOW
[2024-05-23 02:12] LABS: BACTERIA,URINE FEW (NEGATIVE); EPITHELIAL CELLS,URINE FEW (NONE-FEW); MUCUS,URINE MODERATE (NONE-MOD); RBC,URINE 0-2 (0-2/HPF); WBC,URINE 0-2 (0-5/HPF)
[2024-05-23] MEDS: cefTRIAXone 1 GM in Lidocaine 1% 2.1 ML IM ONE (02:33)
[2024-05-23 04:32] VITALS: BP 144/86; PULSE 80
== END 2024-05-23 04:22 | disposition home or self-care (01) ==
LOC: MW.ED 01:02
DX: N30.00 Acute cystitis without hematuria (principal); I10 Essential (primary) hypertension; J45.909 Unspecified asthma, uncomplicated; E11.9 Type 2 diabetes mellitus without complications; E66.9 Obesity, unspecified; F17.210 Nicotine dependence, cigarettes, uncomplicated; Z90.89 Acquired absence of other organs; Z88.2 Allergy status to sulfonamides; Z88.1 Allergy status to other antibiotic agents; Z88.8 Allergy status to other drugs, medicaments and biological substances; Z79.51 Long term (current) use of inhaled steroids; Z79.84 Long term (current) use of oral hypoglycemic drugs; Z79.4 Long term (current) use of insulin; Z79.899 Other long term (current) drug therapy
CPT/HCPCS: 81001; 81025; 87086; 96372; 99283; J0696; J3490

== ENCOUNTER 2024-12-07 13:12 | Emergency (ER) | payer MEDICARE, MEDICAID ==
[2024-12-07 13:18] VITALS: BP 149/98; PULSE 73
[2024-12-07] MEDS: Amoxicillin/Clavulanate K 875-125 MG Tab PO ONE (13:33)
[2024-12-07] MEDS: Lidocaine/Epineph/Tetracaine 3 ML Syringe TOP ONE (13:36)
== END 2024-12-07 14:12 | disposition home or self-care (01) ==
LOC: MW.ED 13:12
DX: L03.031 Cellulitis of right toe (principal); I10 Essential (primary) hypertension; E78.00 Pure hypercholesterolemia, unspecified; E66.9 Obesity, unspecified; E11.9 Type 2 diabetes mellitus without complications; F17.200 Nicotine dependence, unspecified, uncomplicated; Z88.1 Allergy status to other antibiotic agents; Z88.2 Allergy status to sulfonamides; Z88.8 Allergy status to other drugs, medicaments and biological substances; Z79.84 Long term (current) use of oral hypoglycemic drugs; Z79.4 Long term (current) use of insulin; Z79.899 Other long term (current) drug therapy; Z75.3 Unavailability and inaccessibility of health-care facilities; Z68.43 Body mass index [BMI] 50.0-59.9, adult
CPT/HCPCS: 99283; A9270; 10060

== ENCOUNTER 2025-04-25 20:40 | Emergency (ER) | payer MEDICARE, MEDICAID ==
[2025-04-25 21:13] LABS: GLUCOSE,URINE 500 mg/dL (NEGATIVE); OCCULT BLOOD,URINE LARGE (NEGATIVE)
[2025-04-25 21:18] LABS: APPEARANCE,URINE SLT CLOUDY
[2025-04-25 21:20] LABS: EPITHELIAL CELLS,URINE FEW (NONE-FEW)
[2025-04-25 22:50] VITALS: BP 150/107; PULSE 76
== END 2025-04-25 22:51 | disposition home or self-care (01) ==
LOC: MW.ED 20:40
DX: N30.20 Other chronic cystitis without hematuria (principal); R31.0 Gross hematuria; E86.0 Dehydration; I10 Essential (primary) hypertension; E78.00 Pure hypercholesterolemia, unspecified; E66.9 Obesity, unspecified; E11.9 Type 2 diabetes mellitus without complications; Z75.3 Unavailability and inaccessibility of health-care facilities; Z88.1 Allergy status to other antibiotic agents; Z88.2 Allergy status to sulfonamides; Z88.8 Allergy status to other drugs, medicaments and biological substances; Z79.4 Long term (current) use of insulin; Z79.899 Other long term (current) drug therapy; Z68.43 Body mass index [BMI] 50.0-59.9, adult
CPT/HCPCS: 74176; 81001; 99284; A9270; 99283